=== PATIENT | female | born 1955 | race Caucasian/White ===

== ENCOUNTER 2017-08-17 07:06 | Emergency (ER) | payer OTHER ==
--- NOTE | 2017-08-17 07:59 | RAD REPORT ---
EXAM DESCRIPTION: CT - Head Brain Wo Cont - 08/17/2017 7:42 am CLINICAL HISTORY: Weakness, diminished or absent movement of the right hand and foot COMPARISON: CT August 2016 TECHNIQUE: Axial 5 mm thick images of the head were obtained without IV contrast. All CT scans are performed using dose optimization technique as appropriate and may include automated exposure control or mA/KV adjustment according to patient size. FINDINGS: No intracranial hemorrhage, mass, edema or shift of mid-line structures. No acute cortical based infarction identified. No cortical edema or sulcal effacement. Dense physiologic calcification s present along the anterior falx. No abnormal extra-axial fluid collections. Ventricles are normal. Intracranial findings are similar to the comparison. Mastoid air cells and visualized portions of the paranasal sinuses are clear. No acute bony findings. IMPRESSION: Negative non-contrast CT head examination for acute finding. No identifiable change from August 2016 imaging.
--- NOTE | 2017-08-17 08:27 | EDPHYS ---
Physician Documentation [facility] Name: Georgette Daniel Age: 61 yrs Sex: Female : 1955 Arrival Date: 08/17/2017 Time: 07:07 Bed 20 Private MD: ED Physician Perez Hendricks HPI: 08/17 08:25 This 61 yrs old Female presents to ER via Ambulatory with complaints of foot kb and hand problem. 08:25 The patient presents to the emergency department with weakness of the right foot and kb right hand. Onset: The symptoms/episode began/occurred 4 day(s) ago. Context: occurred at home, occurred while the patient was at rest. Associated signs and symptoms: Pertinent positives: weakness. Severity of symptoms: At their worst the symptoms were moderate in the emergency department the symptoms are unchanged. Patient's baseline: Neuro: alert and fully oriented, Motor: no deficits, Ambulation: walks without assistance, Speech: normal. Current symptoms: Currently, the patient is not experiencing any symptoms, no decreased level of consciousness, no confusion, no dysphasia, no headache, no visual changes. The patient has experienced similar episodes in the past, several times. The patient has been recently seen by a physician: a neurologist, in the office, 4 day(s) ago, with similar presenting complaints, CT scheduled. Historical: - Allergies: 07:16 LITHIUM DERIVITIVES; ss 07:16 Rocephin; ss 07:16 Trileptal; ss 07:16 Abilify; ss - PMHx: 07:16 Asthma; Depression; Diabetes - NIDDM; GERD; Hyperlipidemia; Hypertension; neuropathy; ss - Immunization history:: Adult Immunizations up to date. - Social history:: Smoking status: Patient/guardian denies using tobacco. ROS: 08:23 Constitutional: Negative for fever, chills, and weight loss, Eyes: Negative for injury, kb pain, redness, and discharge, ENT: Negative for injury, pain, and discharge, Neck: Negative for injury, pain, and swelling, Cardiovascular: Negative for chest pain, palpitations, and edema, Respiratory: Negative for shortness of breath, cough, wheezing, and pleuritic chest pain, Abdomen/GI: Negative for abdominal pain, nausea, vomiting, diarrhea, and constipation, Back: Negative for injury and pain, : Negative for injury, bleeding, discharge, and swelling, Skin: Negative for injury, rash, and discoloration. 08:23 Neuro: Positive for weakness, of the right hand and right foot. Exam: 08:23 Constitutional: This is a well developed, well nourished patient who is awake, alert, kb and in no acute distress. Head/Face: Normocephalic, atraumatic. Eyes: Pupils equal round and reactive to light, extra-ocular motions intact. Lids and lashes normal. Conjunctiva and sclera are non-icteric and not injected. Cornea within normal limits. Periorbital areas with no swelling, redness, or edema. ENT: Nares patent. No nasal discharge, no septal abnormalities noted. Tympanic membranes are normal and external auditory canals are clear. Oropharynx with no redness, swelling, or masses, exudates, or evidence of obstruction, uvula midline. Mucous membranes moist. Neck: Trachea midline, no thyromegaly or masses palpated, and no cervical lymphadenopathy. Supple, full range of motion without nuchal rigidity, or vertebral point tenderness. No Meningismus. Chest/axilla: Normal chest wall appearance and motion. Nontender with no deformity. No lesions are appreciated. Cardiovascular: Regular rate and rhythm with a normal S1 and S2. No gallops, murmurs, or rubs. Normal PMI, no JVD. No pulse deficits. Respiratory: Lungs have equal breath sounds bilaterally, clear to auscultation and percussion. No rales, rhonchi or wheezes noted. No increased work of breathing, no retractions or nasal flaring. Abdomen/GI: Soft, non-tender, with normal bowel sounds. No distension or tympany. No guarding or rebound. No evidence of tenderness throughout. Skin: Warm, dry with normal turgor. Normal color with no rashes, no lesions, and no evidence of cellulitis. 08:23 Neuro: Orientation: is normal, Mentation: is normal, Memory: is normal, Cranial nerves: grossly normal, Cerebellar function: is grossly normal, Motor: moves all fours, poor foot press and agent strength on right side, Sensation: is normal. Vital Signs: 07:16 BP 152 / 96; Pulse 80; Resp 16; Pulse Ox 100% on R/A; Weight 83.91 kg; Height 5 ft. 4 ss in. (162.56 cm); Pain 6/10; 08:15 BP 148 / 88; Pulse 81; Resp 16; Pulse Ox 100% on R/A; hb 07:16 Body Mass Index 31.75 (83.91 kg, 162.56 cm) ss NIH Stroke Scale Scores: 07:30 NIHSS Score: 0 hb [place] Coma Score: 07:30 Eye Response: spontaneous(4). Verbal Response: oriented(5). Motor Response: obeys hb commands(6). Total: 15. MDM: 07:19 Patient medically screened. kb 08:21 Data reviewed: vital signs, nurses notes. Data interpreted: Pulse oximetry: on room air kb is 100 %. Interpretation: normal. Counseling: I had a detailed discussion with the patient and/or guardian regarding: the historical points, exam findings, and any diagnostic results supporting the discharge/admit diagnosis, radiology results, the need for outpatient follow up, a neurologist, to return to the emergency department if symptoms worsen or persist or if there are any questions or concerns that arise at home. 08:21 ED course: Pt reports she was seen by Dr Reese when this started and was told it was kb either something wrong with the left side of her brain or a side effect of abilify. States she was supposed to have a CT head done and then follow back up with him. Had CT scheduled for next week, but wanted to get it sooner so she came to the ER. Pt states she is scheduled to have foot surgery for the 7th time. States this has happened 6 times in the past. . 08:27 ED course: Pt is going to call Dr Reese for follow up upon discharge.. kb 08/17 07:22 Order name: CT Head Brain wo Cont kb 08/17 08:00 Order name: CT; Complete Time: 08:01 EDMS Administered Medications: No medications were administered Disposition: 09:24 Co-signature as Attending Physician, Perez Hendricks MD. rn Disposition: 08/17/17 08:27 Discharged to Home. Impression: Weakness - right hand and foot. - Condition is Stable. - Discharge Instructions: Weakness, [id number]. - Medication Reconciliation Form, Thank You Letter, Antibiotic Education, Prescription Opioid Use form. - Follow up: Emergency Department; When: As needed; Reason: Worsening of condition. Follow up: Private Physician; When: 2 - 3 days; Reason: Recheck today's complaints, Continuance of care, Re-evaluation by your physician. NIH Stroke Scale - NIH Stroke Score Date: 08/17/2017 Time: 07:30 Total Score = 0 1a. Level of Consciousness (LOC) - 0(Alert) 1b. Level of Consciousness (LOC) (Year \T\ Age) - 0(Both) 1c. LOC Commands (Open \T\ Closes Eyes/Manugrapher) - 0(Both) 2. Best Gaze (Lateral Gaze Paresis) - 0(Normal) 3. Visual Field Loss - 0(No visual loss) 4. Facial Palsy - 0(Normal) 5a. Left Arm: Motor (10-second hold) - 0(No drift) 5b. Right Arm: Motor (10-second hold) - 0(No drift) 6a. Left Leg: Motor (5-second hold - always test supine) - 0(No drift) 6b. Right Leg: Motor (5-second hold - always test supine) - 0(No drift) 7. Limb Ataxia (finger/nose \T\ heel/woody - test with eyes open) - 0(Absent) 8. Sensory Loss (pinprick arms/legs/face) - 0(Normal) 9. Best Language: Aphasia (description/naming/reading) - 0(No aphasia) 10. Dysarthria (speech clarity - read or repeat words) - 0(Normal) 11. Extinction and Inattention (visual/tactile/auditory/spatial/personal) - 0(No abnormality) Initials: hb Signatures: Dispatcher [employer] Anisa Patel, OUTSEWER-C OUTSEWER-Ckb Perez Hendricks MD MD rn Smirch, Shelby, RN RN ss Baxter, Heather, ANGELIQUE RN hb
--- NOTE | 2017-08-17 08:27 | ER ---
Nurse's Notes [facility] Name: Georgette Daniel Age: 61 yrs Sex: Female : 1955 Arrival Date: 08/17/2017 Time: 07:07 Bed 20 Private MD: Diagnosis: Weakness-right hand and foot Presentation: 08/17 07:12 Presenting complaint: Patient states: pt reports that her R hand and R foot are ss "froze". This reportedly began 4 days ago and has been progressing. Pt reports she saw Dr. Reese two days ago and forgot to mention these particular symptoms, but she has a head CT ordered for next Sunday and is concerned that she may not be able to drive to her appointment. Transition of care: patient was not received from another setting of care. Onset of symptoms was August 13, 2017. Care prior to arrival: None. 07:12 Method Of Arrival: Ambulatory ss 07:12 Acuity: EVIE 3 ss Historical: - Allergies: 07:16 LITHIUM DERIVITIVES; ss 07:16 Rocephin; ss 07:16 Trileptal; ss 07:16 Abilify; ss - PMHx: 07:16 Asthma; Depression; Diabetes - NIDDM; GERD; Hyperlipidemia; Hypertension; neuropathy; ss - Immunization history:: Adult Immunizations up to date. - Social history:: Smoking status: Patient/guardian denies using tobacco. Screenin:30 Abuse screen: Denies threats or abuse. Denies injuries from another. Nutritional hb screening: No deficits noted. Tuberculosis screening: No symptoms or risk factors identified. Fall Risk None identified. Assessment: 07:30 General: Appears in no apparent distress. Behavior is calm, cooperative. Pain: Denies hb pain. Neuro: Level of Consciousness is awake, alert, obeys commands, Oriented to person, place, time, situation, Facility Coordinator are weak on right Moves all extremities. Weakness in right hand(s) Gait is steady, Speech is normal, Facial symmetry appears normal, Pupils are PERRLA, Intact. Cardiovascular: Heart tones S1 S2 present Capillary refill < 3 seconds Patient's skin is warm and dry. Respiratory: Airway is patent Trachea midline Respiratory effort is even, unlabored, Respiratory pattern is regular, symmetrical, Breath sounds are clear bilaterally. GI: No signs and/or symptoms were reported involving the gastrointestinal system. : No signs and/or symptoms were reported regarding the genitourinary system. EENT: No signs and/or symptoms were reported regarding the EENT system. Derm: No signs and/or symptoms reported regarding the dermatologic system. Skin is pink, warm \\T\\ dry. Musculoskeletal: Reports weakness in right hand since 1 week. 08:15 Reassessment: Patient appears in no apparent distress at this time. Patient and/or hb family updated on plan of care and expected duration. Pain level reassessed. Patient is alert, oriented x 3, equal unlabored respirations, skin warm/dry/pink. Vital Signs: 07:16 BP 152 / 96; Pulse 80; Resp 16; Pulse Ox 100% on R/A; Weight 83.91 kg; Height 5 ft. 4 ss in. (162.56 cm); Pain 6/10; 08:15 BP 148 / 88; Pulse 81; Resp 16; Pulse Ox 100% on R/A; hb 07:16 Body Mass Index 31.75 (83.91 kg, 162.56 cm) ss [place] Coma Score: 07:30 Eye Response: spontaneous(4). Verbal Response: oriented(5). Motor Response: obeys commands(6). Total: 15. NIH Stroke Scale Scores: 07:30 NIHSS Score: 0 hb ED Course: 07:07 Patient arrived in ED. ds1 07:15 Triage completed. ss 07:16 Arm band placed on right wrist. ss 07:19 Anisa Tracey F[facility]-C [facility]. kb 07:19 Perez Hendricks MD is Attending Physician. kb 07:19 Ave Ramirez, ANGELIQUE is Primary Nurse. hb 07:30 Patient has correct armband on for positive identification. Bed in low position. Call hb light in reach. Side rails up X 1. 08:31 No provider procedures requiring assistance completed. hb 08:31 Patient did not have IV access during this emergency room visit. hb Administered Medications: No medications were administered Outcome: 08:27 Discharge ordered by . kb 08:31 Discharged to home ambulatory. hb 08:31 Condition: stable 08:31 Discharge instructions given to patient, Instructed on discharge instructions, follow up and referral plans. medication usage, Demonstrated understanding of instructions, follow-up care, medications. 08:32 Patient left the ED. NIH Stroke Scale - NIH Stroke Score Date: 08/17/2017 Time: 07:30 Total Score = 0 1a. Level of Consciousness (LOC) - 0(Alert) 1b. Level of Consciousness (LOC) (Year \\T\\ Age) - 0(Both) 1c. LOC Commands (Open \\T\\ Closes Eyes/Switchboard Clerk) - 0(Both) 2. Best Gaze (Lateral Gaze Paresis) - 0(Normal) 3. Visual Field Loss - 0(No visual loss) 4. Facial Palsy - 0(Normal) 5a. Left Arm: Motor (10-second hold) - 0(No drift) 5b. Right Arm: Motor (10-second hold) - 0(No drift) 6a. Left Leg: Motor (5-second hold - always test supine) - 0(No drift) 6b. Right Leg: Motor (5-second hold - always test supine) - 0(No drift) 7. Limb Ataxia (finger/nose \\T\\ heel/woody - test with eyes open) - 0(Absent) 8. Sensory Loss (pinprick arms/legs/face) - 0(Normal) 9. Best Language: Aphasia (description/naming/reading) - 0(No aphasia) 10. Dysarthria (speech clarity - read or repeat words) - 0(Normal) 11. Extinction and Inattention (visual/tactile/auditory/spatial/personal) - 0(No abnormality) Initials: hb Signatures: Anisa Tracey, SPRING COILER-C SPRING COILER-CkJoyce Art ds1 Elissa Reyes RN RN ss Ave Ramirez RN RN hb
[2017-08-17 08:37] VITALS: O2SAT 100
[2017-08-17 08:38] VITALS: BP 148/88
== END 2017-08-17 08:32 | disposition home or self-care (01) ==
LOC: ER 07:06
DX: R53.1 Weakness (principal); I10 Essential (primary) hypertension; Z88.3 Allergy status to other anti-infective agents; Z88.5 Allergy status to narcotic agent; Z91.048 Other nonmedicinal substance allergy status
CPT/HCPCS: 70450; 99281

== ENCOUNTER 2017-09-01 06:28 | Emergency (ER) | payer OTHER ==
--- NOTE | 2017-09-01 07:12 | EDPHYS ---
Physician Documentation [facility] Name: Georgette Daniel Age: 61 yrs Sex: Female : 1955 Arrival Date: 09/01/2017 Time: 06:31 Bed 8 Private MD: ED Physician Wali Russo HPI: 09/01 06:59 This 61 yrs old Female presents to ER via Ambulatory with complaints of Ear kav Pain. 07:06 The patient presents with pain, moderate. The complaints affect the right ear. Onset: kav The symptoms/episode began/occurred acutely, 1 day(s) ago. Modifying factors: The symptoms are alleviated by nothing, the symptoms are aggravated by nothing. Associated signs and symptoms: Pertinent positives: sinus trouble, Pertinent negatives: fever. Severity of symptoms: At their worst the symptoms were moderate just prior to arrival. The patient has not experienced similar symptoms in the past. The patient has not recently seen a physician. patient presents with chief c/o right ear pain x 1 day with associated sinus congestion. Historical: - Allergies: 06:43 Abilify; tl2 06:43 LITHIUM DERIVITIVES; tl2 06:43 Rocephin; tl2 06:43 Trileptal; tl2 - Home Meds: 06:43 albuterol sulfate inhalation Inhl [Active]; Dexilant 30 mg Oral CpDB 1 cap once daily tl2 [Active]; gabapentin 300 mg Oral cap [Active]; gemfibrozil 600 mg Oral tab 1 tab 2 times per day [Active]; Hyzaar 50-12.5 mg Oral tab 1 tab once daily [Active]; losartan-hydrochlorothiazide 50-12.5 mg Oral tab 1 tab once daily [Active]; lovastatin 20 mg Oral tab 1 tab once daily [Active]; promethazine-DM 6.25-15 mg/5 mL Oral syrp 5 mL every 6 hours [Active]; Symbicort 80-4.5 mcg/actuation inhalation HFAA 2 puffs 2 times per day [Active]; Zyrtec 10 mg Oral tab once daily [Active]; losartan 25 mg Oral tab 1 tab once daily [Active]; - PMHx: 06:43 Asthma; Depression; Diabetes - NIDDM; GERD; Hyperlipidemia; Hypertension; neuropathy; tl2 - Immunization history:: Adult Immunizations up to date. - Social history:: Smoking status: Patient/guardian denies using tobacco. - Family history:: not pertinent. - Hospitalizations: : No recent hospitalization is reported. ROS: 07:08 Constitutional: Negative for fever, chills, and weight loss, Eyes: Negative for injury, kav pain, redness, and discharge, Neck: Negative for injury, pain, and swelling, Cardiovascular: Negative for chest pain, palpitations, and edema, Respiratory: Negative for shortness of breath, cough, wheezing, and pleuritic chest pain, Abdomen/GI: Negative for abdominal pain, nausea, vomiting, diarrhea, and constipation, Back: Negative for injury and pain, : Negative for injury, bleeding, discharge, and swelling, MS/Extremity: Negative for injury and deformity, Skin: Negative for injury, rash, and discoloration, Neuro: Negative for headache, weakness, numbness, tingling, and seizure, Psych: Negative for depression, anxiety, suicide ideation, homicidal ideation, and hallucinations, Allergy/Immunology: Negative for hives, rash, and allergies, Endocrine: Negative for neck swelling, polydipsia, polyuria, polyphagia, and marked weight changes, Hematologic/Lymphatic: Negative for swollen nodes, abnormal bleeding, and unusual bruising. 07:08 ENT: Positive for ear pain, of the right ear, sinus congestion. Exam: 07:08 Constitutional: This is a well developed, well nourished patient who is awake, alert, kav and in no acute distress. Head/Face: Normocephalic, atraumatic. Eyes: Pupils equal round and reactive to light, extra-ocular motions intact. Lids and lashes normal. Conjunctiva and sclera are non-icteric and not injected. Cornea within normal limits. Periorbital areas with no swelling, redness, or edema. Neck: Trachea midline, no thyromegaly or masses palpated, and no cervical lymphadenopathy. Supple, full range of motion without nuchal rigidity, or vertebral point tenderness. No Meningismus. Chest/axilla: Normal chest wall appearance and motion. Nontender with no deformity. No lesions are appreciated. Cardiovascular: Regular rate and rhythm with a normal S1 and S2. No gallops, murmurs, or rubs. Normal PMI, no JVD. No pulse deficits. Respiratory: Lungs have equal breath sounds bilaterally, clear to auscultation and percussion. No rales, rhonchi or wheezes noted. No increased work of breathing, no retractions or nasal flaring. Abdomen/GI: Soft, non-tender, with normal bowel sounds. No distension or tympany. No guarding or rebound. No evidence of tenderness throughout. Back: No spinal tenderness. No costovertebral tenderness. Full range of motion. Skin: Warm, dry with normal turgor. Normal color with no rashes, no lesions, and no evidence of cellulitis. MS/ Extremity: Pulses equal, no cyanosis. Neurovascular intact. Full, normal range of motion. Neuro: Awake and alert, GCS 15, oriented to person, place, time, and situation. Cranial nerves II-XII grossly intact. Motor strength 5/5 in all extremities. Sensory grossly intact. Cerebellar exam normal. Normal gait. Psych: Awake, alert, with orientation to person, place and time. Behavior, mood, and affect are within normal limits. 07:08 ENT: External ear(s): are unremarkable, no acute changes, Ear canal(s): erythema, that is moderate, of the right canal, swelling, that is moderate, of the right canal, TM's: dullness, on the right, Examination of the other ear shows no obvious abnormality. Vital Signs: 06:43 BP 141 / 98; Pulse 70; Resp 18; Temp 98.1(O); Pulse Ox 98% on R/A; Weight 83.91 kg; tl2 Height 5 ft. 4 in. (162.56 cm); Pain 10/10; 06:43 Body Mass Index 31.75 (83.91 kg, 162.56 cm) tl2 MDM: 06:58 Patient medically screened. [facility] 07:08 Data reviewed: vital signs, nurses notes, old medical records. ka Administered Medications: 07:28 Drug: Tylenol 650 mg Route: PO; ph 07:32 Follow up: Response: No adverse reaction ph Disposition: 07:33 Co-signature as Attending Physician, Wali Russo MD I agree with the assessment and 4 plan of care. Disposition: 09/01/17 07:11 Discharged to Home. Impression: Acute serous otitis media, recurrent, right ear. - Condition is Stable. - Discharge Instructions: Otitis Media, Adult. - Prescriptions for Zithromax Z- Sarath 250 mg Oral Tablet - take 1 tablet by ORAL route as directed for 5 days Day 1 - take two (2) tablets one time. Day 2, 3, 4 , 5 take one (1) tablet once daily.; 6 tablet. Ciprodex 0.3- 0.1 % Otic Drops, Suspension - instill 4 drop by OTIC route every 12 hours for 7 days , for ears ONLY; 1 Container. - Medication Reconciliation Form, Thank You Letter, Antibiotic Education, Prescription Opioid Use form. - Follow up: Private Physician; When: 2 - 3 days; Reason: If symptoms return, Recheck today's complaints, Continuance of care, Re-evaluation by your physician. - Problem is new. Signatures: Stephania Dorman, OVEN WORKER Carmella Stevenson RN RN Lenore Chan RN RN tl2 Wali Russo MD MD [id number]
--- NOTE | 2017-09-01 07:12 | ER ---
Nurse's Notes [facility] Name: Georgette Daniel Age: 61 yrs Sex: Female : 1955 Arrival Date: 09/01/2017 Time: 06:31 Bed 8 Private MD: Diagnosis: Acute serous otitis media, recurrent, right ear Presentation: 09/01 06:39 Presenting complaint: Patient states: I've had right ear pain on and off for 3 days. tl2 Denies drainage or hearing loss. Transition of care: patient was not received from another setting of care. Onset of symptoms was August 29, 2017. Care prior to arrival: None. 06:39 Method Of Arrival: Ambulatory tl2 06:39 Acuity: EVIE 4 tl2 Triage Assessment: 06:43 General: Appears in no apparent distress. uncomfortable, Behavior is calm, cooperative, tl2 appropriate for age. Pain: Complains of pain in right ear Pain currently is 10 out of 10 on a pain scale. Quality of pain is described as sharp, Is intermittent. EENT: Denies decreased hearing ringing. Neuro: Level of Consciousness is awake, alert, obeys commands, Oriented to person, place, time, situation. Cardiovascular: Denies chest pain. Respiratory: Airway is patent Respiratory effort is even, unlabored, Respiratory pattern is regular, symmetrical. Derm: Skin is pink, warm \T\ dry. Historical: - Allergies: 06:43 Abilify; tl2 06:43 LITHIUM DERIVITIVES; tl2 06:43 Rocephin; tl2 06:43 Trileptal; tl2 - Home Meds: 06:43 albuterol sulfate inhalation Inhl [Active]; Dexilant 30 mg Oral CpDB 1 cap once daily tl2 [Active]; gabapentin 300 mg Oral cap [Active]; gemfibrozil 600 mg Oral tab 1 tab 2 times per day [Active]; Hyzaar 50-12.5 mg Oral tab 1 tab once daily [Active]; losartan-hydrochlorothiazide 50-12.5 mg Oral tab 1 tab once daily [Active]; lovastatin 20 mg Oral tab 1 tab once daily [Active]; promethazine-DM 6.25-15 mg/5 mL Oral syrp 5 mL every 6 hours [Active]; Symbicort 80-4.5 mcg/actuation inhalation HFAA 2 puffs 2 times per day [Active]; Zyrtec 10 mg Oral tab once daily [Active]; losartan 25 mg Oral tab 1 tab once daily [Active]; - PMHx: 06:43 Asthma; Depression; Diabetes - NIDDM; GERD; Hyperlipidemia; Hypertension; neuropathy; tl2 - Immunization history:: Adult Immunizations up to date. - Social history:: Smoking status: Patient/guardian denies using tobacco. - Family history:: not pertinent. - Hospitalizations: : No recent hospitalization is reported. Screenin:45 Abuse screen: Denies threats or abuse. Nutritional screening: No deficits noted. tl2 Tuberculosis screening: No symptoms or risk factors identified. Fall Risk None identified. Assessment: 06:45 General: see triage assessment. tl2 07:30 Reassessment: Patient appears in no apparent distress at this time. Patient and/or ph family updated on plan of care and expected duration. Pain level reassessed. Patient is alert, oriented x 3, equal unlabored respirations, skin warm/dry/pink. Pt prescribed antibiotics and ear drops and discharged home. Vital Signs: 06:43 BP 141 / 98; Pulse 70; Resp 18; Temp 98.1(O); Pulse Ox 98% on R/A; Weight 83.91 kg; tl2 Height 5 ft. 4 in. (162.56 cm); Pain 10/10; 06:43 Body Mass Index 31.75 (83.91 kg, 162.56 cm) tl2 ED Course: 06:31 Patient arrived in ED. es 06:40 Triage completed. tl2 06:43 Arm band placed on right wrist. tl2 06:45 Patient has correct armband on for positive identification. Bed in low position. Call tl2 light in reach. Side rails up X 1. 06:58 Stephania Dorman FNP [facility]. kav 06:58 Wali Russo MD is Attending Physician. kav 07:19 Carmella Solomon, ANGELIQUE is Primary Nurse. ph 07:21 No provider procedures requiring assistance completed. Patient did not have IV access ph during this emergency room visit. Administered Medications: 07:28 Drug: Tylenol 650 mg Route: PO; ph 07:32 Follow up: Response: No adverse reaction ph Outcome: 07:11 Discharge ordered by . kav 07:31 Discharged to home ambulatory. ph 07:31 Condition: good 07:31 Discharge instructions given to patient, Instructed on discharge instructions, follow up and referral plans. medication usage, Demonstrated understanding of instructions, follow-up care, medications, Prescriptions given X 2. 07:32 Patient left the ED. ph Signatures: Stephania Dorman, MANDARIN TUTOR MANDARIN TUTOR Sunitha Sanchez Patricia RN RN ph Lenore Chan RN RN tl2
[2017-09-01 07:36] VITALS: BP 141/98; TEMP 98.1; O2SAT 98
[2017-09-01] MEDS ORDERED: ACETAMINOPHEN 325 MG TABLET ONE (07:46)
== END 2017-09-01 07:32 | disposition home or self-care (01) ==
LOC: ER 06:28
DX: H65.01 Acute serous otitis media, right ear (principal); I10 Essential (primary) hypertension; E11.9 Type 2 diabetes mellitus without complications; E78.5 Hyperlipidemia, unspecified; F32.9 Major depressive disorder, single episode, unspecified; Z88.3 Allergy status to other anti-infective agents; Z88.8 Allergy status to other drugs, medicaments and biological substances
CPT/HCPCS: 99283

== ENCOUNTER 2017-10-18 15:09 | Emergency (ER) | payer OTHER ==
[2017-10-18 15:56] LABS: Absolute Lymphocytes (CBC) 2.4 K/uL (0.7-4.9); Absolute Monocytes 0.7 K/uL (0.1-1.3); Absolute Neutrophil 5.7 K/uL (1.8-8.0); Eosinophils % 1.4 % (0-4.4); Lymphocytes % 26.7 % (15.3-44.8); MCH 28.6 pg (27.0-35.0); MCV 83.1 fL (80-100); MPV 8.4 fL (7.6-11.3); RBC Red Blood Cell Count 4.58 M/uL (3.86-4.86)
[2017-10-18 16:11] LABS: Urine Blood NEGATIVE (NEG); Urine Glucose NEGATIVE (NEG); Urine Protein NEGATIVE (NEG)
[2017-10-18 16:17] LABS: Bicarbonate 24 mEq/L (21-31); Glucose Level 131 mg/dL (65-120); Lipase 17 U/L (22-51); Potassium 3.6 mEq/L (3.6-5.0); Sodium Level 138 mEq/L (135-145)
[2017-10-18 16:18] LABS: Urine Bacteria <20 /HPF (<20); Urine Culture Reflex Order REFLEXED; Urine RBC NONE SEEN /HPF (NONE SEEN)
[2017-10-18 16:23] LABS: ALT/SGPT 61 IU/L (10-60); AST/SGOT 53 IU/L (10-42); Albumin 3.9 g/dL (3.2-5.5); Alkaline Phosphatase 93 IU/L (42-121); BUN Blood Urea Nitrogen 17 mg/dL (6-20); Bilirubin Direct 0.1 mg/dL (0-0.2); Bilirubin Total 0.6 mg/dL (0.3-1.2); Protein, Total 6.7 g/dL (6.0-8.3)
[2017-10-18] MEDS ORDERED: MORPHINE 4 MG/ML SYR ONE (16:28)
[2017-10-18] MEDS ORDERED: ONDANSETRON 4 MG/2 ML VIAL ONE (16:28)
--- NOTE | 2017-10-18 18:29 | RAD REPORT ---
EXAM DESCRIPTION: CT - Abdomen Pelvis W Contrast - 10/18/2017 6:15 pm CLINICAL HISTORY: Abdominal pain with nausea. COMPARISON: 2015 TECHNIQUE: Computed axial tomography of the abdomen pelvis was obtained. 100 cc Isovue-300 was admin istered intravenously. Oral contrast was given All CT scans are performed using dose optimization technique as appropriate and may include automated exposure control or mA/KV adjustment according to patient size. FINDINGS: The liver has a diminished attenuation consistent with fatty infiltration. Spleen, pancreas, adrenal and kidneys appear unremarkable. The appendix is normal. The gallbladder has been removed. Diverticula stem from the colon. Moderate stranding is present adjacent to the distal descending colo n. The wall is thickened. An abscess is not seen. Free air is not noted. IMPRESSION: Moderate descending diverticulitis
[2017-10-18] MEDS ORDERED: Levofloxacin500mg IV 500 MG/100 ML BAG IV ONE (18:50)
[2017-10-18] MEDS ORDERED: METRONIDAZOLE 500mg IVPB 500 MG/100 ML BAG IV ONE (18:50)
[2017-10-18] MEDS ORDERED: HYDROCODONE/APAP 10/325 TAB ONE (19:32)
--- NOTE | 2017-10-18 20:40 | EDPHYS ---
Physician Documentation [facility] Name: Georgette Daniel Age: 61 yrs Sex: Female : 1955 Arrival Date: 10/18/2017 Time: 15:10 Bed 17 Private MD: Romero Alvarado ED Physician Lex Fletcher HPI: 10/18 18:40 This 61 yrs old Female presents to ER via EMS with complaints of Abdominal pm1 Pain. 18:40 The patient presents with abdominal pain in the left lower quadrant. Onset: The pm1 symptoms/episode began/occurred this morning. The symptoms do not radiate. Associated signs and symptoms: Pertinent negatives: nausea, vomiting, and diarrhea, chest pain, dysuria, fever, shortness of breath. The symptoms are described as sharp. Modifying factors: The symptoms are alleviated by nothing, the symptoms are aggravated by walking, Movement- twisting. Severity of pain: in the emergency department the pain is actually worse. The patient has not experienced similar symptoms in the past. The patient has not recently seen a physician. Historical: - Allergies: 15:12 Abilify; hb 15:12 LITHIUM DERIVITIVES; hb 15:12 Rocephin; hb 15:12 Trileptal; hb - Home Meds: 15:50 albuterol sulfate inhalation Inhl [Active]; Dexilant 30 mg Oral CpDB 1 cap once daily hb [Active]; gabapentin 300 mg Oral cap [Active]; gemfibrozil 600 mg Oral tab 1 tab 2 times per day [Active]; Hyzaar 50-12.5 mg Oral tab 1 tab once daily [Active]; losartan 25 mg Oral tab 1 tab once daily [Active]; losartan-hydrochlorothiazide 50-12.5 mg Oral tab 1 tab once daily [Active]; lovastatin 20 mg Oral tab 1 tab once daily [Active]; promethazine-DM 6.25-15 mg/5 mL Oral syrp 5 mL every 6 hours [Active]; Symbicort 80-4.5 mcg/actuation inhalation HFAA 2 puffs 2 times per day [Active]; Zyrtec 10 mg Oral tab once daily [Active]; - PMHx: 15:12 Asthma; Depression; Diabetes - NIDDM; GERD; Hyperlipidemia; Hypertension; neuropathy; hb - PSHx: 15:50 Hysterectomy; hb - Immunization history:: Adult Immunizations up to date. - Social history:: Smoking status: Patient/guardian denies using tobacco. - Ebola Screening: : Patient negative for fever greater than or equal to 101.5 degrees Fahrenheit, and additional compatible Ebola Virus Disease symptoms Patient denies exposure to infectious person Patient denies travel to an Ebola-affected area in the 21 days before illness onset No symptoms or risks identified at this time. ROS: 18:40 Constitutional: Negative for fever, chills, and weight loss, Eyes: Negative for injury, pm1 pain, redness, and discharge, ENT: Negative for injury, pain, and discharge, Neck: Negative for injury, pain, and swelling, Cardiovascular: Negative for chest pain, palpitations, and edema, Respiratory: Negative for shortness of breath, cough, wheezing, and pleuritic chest pain. 18:40 Back: Negative for injury and pain, : Negative for injury, bleeding, discharge, and swelling, MS/Extremity: Negative for injury and deformity, Skin: Negative for injury, rash, and discoloration, Neuro: Negative for headache, weakness, numbness, tingling, and seizure. 18:40 Abdomen/GI: Positive for abdominal pain, of the left lower quadrant, Negative for nausea, vomiting, and diarrhea. Exam: 18:40 Constitutional: This is a well developed, well nourished patient who is awake, alert, pm1 and in no acute distress. Head/Face: Normocephalic, atraumatic. Eyes: Pupils equal round and reactive to light, extra-ocular motions intact. Lids and lashes normal. Conjunctiva and sclera are non-icteric and not injected. Cornea within normal limits. Periorbital areas with no swelling, redness, or edema. ENT: Nares patent. No nasal discharge, no septal abnormalities noted. Tympanic membranes are normal and external auditory canals are clear. Oropharynx with no redness, swelling, or masses, exudates, or evidence of obstruction, uvula midline. Mucous membranes moist. Neck: Trachea midline, no thyromegaly or masses palpated, and no cervical lymphadenopathy. Supple, full range of motion without nuchal rigidity, or vertebral point tenderness. No Meningismus. Chest/axilla: Normal chest wall appearance and motion. Nontender with no deformity. No lesions are appreciated. Cardiovascular: Regular rate and rhythm with a normal S1 and S2. No gallops, murmurs, or rubs. Normal PMI, no JVD. No pulse deficits. Respiratory: Lungs have equal breath sounds bilaterally, clear to auscultation and percussion. No rales, rhonchi or wheezes noted. No increased work of breathing, no retractions or nasal flaring. 18:40 Back: No spinal tenderness. No costovertebral tenderness. Full range of motion. Skin: Warm, dry with normal turgor. Normal color with no rashes, no lesions, and no evidence of cellulitis. MS/ Extremity: Pulses equal, no cyanosis. Neurovascular intact. Full, normal range of motion. 18:40 Abdomen/GI: Inspection: abdomen appears normal, Bowel sounds: normal, Palpation: soft, mild abdominal tenderness, in the left lower quadrant, mass, is not appreciated, rebound tenderness, is not appreciated. 18:40 Neuro: Orientation: is normal, Motor: moves all fours. Vital Signs: 15:12 BP 145 / 90; Pulse 86; Resp 14 S; Temp 98.1(O); Pulse Ox 96% on R/A; Pain 6/10; hb 16:00 BP 146 / 80; Pulse 80; Resp 15; Pulse Ox 100% on R/A; hb 17:22 BP 142 / 82; Pulse 82; Resp 15; Pulse Ox 100% on R/A; Pain 3/10; hb 18:35 BP 127 / 83; Pulse 75; Resp 16; Pulse Ox 97% on 2 lpm NC; Pain 2/10; hb 19:14 BP 135 / 87; Pulse 74; Resp 15; Pulse Ox 99% on NC; mt 20:37 BP 110 / 74; Pulse 77; Resp 16 S; Pulse Ox 97% on R/A; Pain 3/10; jd3 MDM: 15:31 Patient medically screened. pm1 18:42 Data reviewed: vital signs. Data interpreted: Pulse oximetry: on room air is 100 %. pm1 Interpretation: normal. Counseling: I had a detailed discussion with the patient and/or guardian regarding: the historical points, exam findings, and any diagnostic results supporting the discharge/admit diagnosis, lab results, radiology results. 20:36 Special discussion: Based on the patient's Hx, exam, and Dx evaluation, there is no pm1 indication for emergent surgery or inpatient Tx. It is understood by the patient/guardian that if the Sx's persist or worsen they need to return immediately for re-evaluation. ED course: Patient comfortable sitting in bed and talking with friend at bedside. No episodes of nausea or vomiting. Patient's pain decreased significantly with PO pain medications, Moore. 10/18 15:31 Order name: Basic Metabolic Panel; Complete Time: 17:30 pm1 10/18 15:31 Order name: CBC with Diff; Complete Time: 17:30 pm1 10/18 15:31 Order name: Hepatic Function; Complete Time: 17:30 pm1 10/18 15:31 Order name: Lipase; Complete Time: 17:30 pm1 10/18 15:31 Order name: Urine Microscopic Only; Complete Time: 16:20 pm1 10/18 15:51 Order name: Urine Dipstick--Ancillary (enter results); Complete Time: 16:17 bd 10/18 15:31 Order name: CT Abd/Pelvis - W/Contrast; Complete Time: 18:31 pm1 10/18 16:20 Order name: Urine Culture EDIN 10/18 15:31 Order name: Urine Test (obtain specimen); Complete Time: 15:47 pm1 10/18 15:31 Order name: IV Saline Lock; Complete Time: 15:40 pm1 10/18 15:31 Order name: Labs collected and sent; Complete Time: 15:40 pm1 10/18 15:31 Order name: Urine Dipstick-Ancillary (obtain specimen); Complete Time: 15:47 pm1 Administered Medications: 16:30 Drug: morphine 4 mg Route: IVP; Site: left antecubital; hb 17:00 Follow up: Response: No adverse reaction; Pain is decreased hb 16:30 Drug: Zofran 4 mg Route: IVP; Site: right antecubital; hb 17:00 Follow up: Response: No adverse reaction hb 18:57 Drug: Flagyl 500 mg Volume: 100 ml; Route: IVPB; Rate: 200 ml/hr; Infused Over: 30 hb mins; Site: left antecubital; 20:50 Follow up: Response: No adverse reaction; IV Status: Completed infusion jd3 18:58 Drug: LevaQUIN 500 mg Volume: 100 ml; Route: IVPB; Infused Over: 60 mins; Site: left hb antecubital; 20:50 Follow up: Response: No adverse reaction; IV Status: Completed infusion jd3 19:30 CANCELLED (Change to PO norco): morphine 4 mg IVP once pm1 19:34 Drug: Moore 10 mg-325 mg 1 tabs Route: PO; jd3 20:50 Follow up: Response: No adverse reaction; Pain is decreased jd3 Disposition: 10/19 10:45 Co-signature as Attending Physician, Lex Fletcher MD I agree with the assessment and kdr plan of care. Disposition: 10/18/17 20:39 Discharged to Home. Impression: Diverticulitis of large intestine without perforation or abscess without bleeding. - Condition is Stable. - Discharge Instructions: Diverticulitis. - Prescriptions for Flagyl 500 mg Oral Tablet - take 1 tablet by ORAL route every 8 hours for 10 days; 30 tablet. Tylenol- Codeine #3 300-30 mg Oral Tablet - take 2 tablets by ORAL route every 6 hours As needed; 20 tablet. Cipro 500 mg Oral Tablet - take 1 tablet by ORAL route every 12 hours for 10 days; 20 tablet. - Medication Reconciliation Form, Thank You Letter, Antibiotic Education, Prescription Opioid Use form. - Follow up: Emergency Department; When: As needed; Reason: Worsening of condition. Follow up: Private Physician; When: 2 - 3 days; Reason: Recheck today's complaints, Continuance of care, Re-evaluation by your physician. - Problem is new. - Symptoms have improved. Signatures: Dispatcher [employer] EDIN Lex Fletcher MD MD [facility] López Nieves, LOBBY PORTER LOBBY PORTER pm1 Ave Ramirez RN RN Bud Watkins RN RN jd3 Corrections: (The following items were deleted from the chart) 10/18 19:30 19:29 morphine 4 mg IVP once ordered. pm1 pm1 20:51 20:39 10/18/2017 20:39 Discharged to Home. Impression: Diverticulitis of large jd3 intestine without perforation or abscess without bleeding. Condition is Stable. Forms are Medication Reconciliation Form, Thank You Letter, Antibiotic Education, Prescription Opioid Use. Follow up: Emergency Department; When: As needed; Reason: Worsening of condition. Follow up: Private Physician; When: 2 - 3 days; Reason: Recheck today's complaints, Continuance of care, Re-evaluation by your physician. Problem is new. Symptoms have improved. pm1
--- NOTE | 2017-10-18 20:40 | ER ---
Nurse's Notes [facility] Name: Georgette Daniel Age: 61 yrs Sex: Female : 1955 Arrival Date: 10/18/2017 Time: 15:10 Bed 17 Private MD: Romero Alvarado Diagnosis: Diverticulitis of large intestine without perforation or abscess without bleeding Presentation: 10/18 15:15 Transition of care: patient was not received from another setting of care. Onset of hb symptoms was October 18, 2017. Risk Assessment: Do you want to hurt yourself or someone else? Patient reports no desire to harm self or others. Initial Sepsis Screen: Does the patient meet any 2 criteria? No. Patient's initial sepsis screen is negative. Does the patient have a suspected source of infection? No. Patient's initial sepsis screen is negative. Care prior to arrival: None. 15:15 Acuity: EVIE 3 hb 15:15 Method Of Arrival: EMS: [facility] hb 19:00 Presenting complaint: Patient states: having stomach pain. jd3 Historical: - Allergies: 15:12 Abilify; hb 15:12 LITHIUM DERIVITIVES; hb 15:12 Rocephin; hb 15:12 Trileptal; hb - Home Meds: 15:50 albuterol sulfate inhalation Inhl [Active]; Dexilant 30 mg Oral CpDB 1 cap once daily hb [Active]; gabapentin 300 mg Oral cap [Active]; gemfibrozil 600 mg Oral tab 1 tab 2 times per day [Active]; Hyzaar 50-12.5 mg Oral tab 1 tab once daily [Active]; losartan 25 mg Oral tab 1 tab once daily [Active]; losartan-hydrochlorothiazide 50-12.5 mg Oral tab 1 tab once daily [Active]; lovastatin 20 mg Oral tab 1 tab once daily [Active]; promethazine-DM 6.25-15 mg/5 mL Oral syrp 5 mL every 6 hours [Active]; Symbicort 80-4.5 mcg/actuation inhalation HFAA 2 puffs 2 times per day [Active]; Zyrtec 10 mg Oral tab once daily [Active]; - PMHx: 15:12 Asthma; Depression; Diabetes - NIDDM; GERD; Hyperlipidemia; Hypertension; neuropathy; hb - PSHx: 15:50 Hysterectomy; hb - Immunization history:: Adult Immunizations up to date. - Social history:: Smoking status: Patient/guardian denies using tobacco. - Ebola Screening: : Patient negative for fever greater than or equal to 101.5 degrees Fahrenheit, and additional compatible Ebola Virus Disease symptoms Patient denies exposure to infectious person Patient denies travel to an Ebola-affected area in the 21 days before illness onset No symptoms or risks identified at this time. Screenin:14 Abuse screen: Denies threats or abuse. Denies injuries from another. Nutritional hb screening: No deficits noted. Tuberculosis screening: No symptoms or risk factors identified. Never had TB. Fall Risk None identified. Assessment: 15:15 General: Appears in no apparent distress. uncomfortable, Behavior is calm, cooperative. hb Pain: Pain currently is 6 out of 10 on a pain scale. Neuro: Level of Consciousness is awake, alert, obeys commands, Oriented to person, place, time, situation. Cardiovascular: Capillary refill < 3 seconds Patient's skin is warm and dry. Respiratory: Airway is patent Trachea midline Respiratory effort is even, unlabored, Respiratory pattern is regular, symmetrical, Breath sounds are clear bilaterally. GI: Abdomen is non-distended, Bowel sounds present X 4 quads. Abd is soft X 4 quads Abdomen is tender to palpation in left lower quadrant. : No signs and/or symptoms were reported regarding the genitourinary system. EENT: No signs and/or symptoms were reported regarding the EENT system. Derm: No signs and/or symptoms reported regarding the dermatologic system. Skin is intact, is healthy with good turgor. Musculoskeletal: No signs and/or symptoms reported regarding the musculoskeletal system. 16:00 Reassessment: Patient appears in no apparent distress at this time. No changes from hb previously documented assessment. Patient and/or family updated on plan of care and expected duration. Pain level reassessed. Patient is alert, oriented x 3, equal unlabored respirations, skin warm/dry/pink. 17:00 Reassessment: Patient appears in no apparent distress at this time. No changes from hb previously documented assessment. Patient and/or family updated on plan of care and expected duration. Pain level reassessed. Patient is alert, oriented x 3, equal unlabored respirations, skin warm/dry/pink. 18:00 Reassessment: Patient appears in no apparent distress at this time. No changes from hb previously documented assessment. Patient and/or family updated on plan of care and expected duration. Pain level reassessed. Patient is alert, oriented x 3, equal unlabored respirations, skin warm/dry/pink. 18:35 Reassessment: Patient appears in no apparent distress at this time. Patient and/or hb family updated on plan of care and expected duration. Pain level reassessed. Patient is alert, oriented x 3, equal unlabored respirations, skin warm/dry/pink. 19:26 Reassessment: Patient appears in no apparent distress at this time. No changes from jd3 previously documented assessment. Patient and/or family updated on plan of care and expected duration. Pain level reassessed. Patient is alert, oriented x 3, equal unlabored respirations, skin warm/dry/pink. pt reports pain coming back, provider notified. GI: Abdomen is round non-distended, Abd is soft Abdomen is tender to palpation in left lower quadrant. 20:48 Reassessment: Patient appears in no apparent distress at this time. Patient and/or jd3 family updated on plan of care and expected duration. Pain level reassessed. Patient is alert, oriented x 3, equal unlabored respirations, skin warm/dry/pink. pt reported understanding of discharge instructions, even and steady gait upon discharge. Patient states feeling better. Vital Signs: 15:12 BP 145 / 90; Pulse 86; Resp 14 S; Temp 98.1(O); Pulse Ox 96% on R/A; Pain 6/10; hb 16:00 BP 146 / 80; Pulse 80; Resp 15; Pulse Ox 100% on R/A; hb 17:22 BP 142 / 82; Pulse 82; Resp 15; Pulse Ox 100% on R/A; Pain 3/10; hb 18:35 BP 127 / 83; Pulse 75; Resp 16; Pulse Ox 97% on 2 lpm NC; Pain 2/10; hb 19:14 BP 135 / 87; Pulse 74; Resp 15; Pulse Ox 99% on NC; mt 20:37 BP 110 / 74; Pulse 77; Resp 16 S; Pulse Ox 97% on R/A; Pain 3/10; jd3 ED Course: 15:10 Patient arrived in ED. hb 15:10 Romero Alvarado MD is Private Physician. hb 15:12 Arm band placed on. hb 15:14 Initial lab(s) drawn, by me, sent to lab. Inserted saline lock: 20 gauge in right hb antecubital area, using aseptic technique. Blood collected. 15:16 Triage completed. hb 15:21 López Nieves NP is PHCP. pm1 15:21 Lex Fletcher MD is Attending Physician. pm1 16:05 Ave Ramirez, ANGELIQUE is Primary Nurse. hb 18:[address] via wheelchair. ka 18:16 CT Abd/Pelvis - W/Contrast In Process Unspecified. EDMS 18:16 CT completed. Patient tolerated procedure well. Patient moved back from CT. nj 20:39 Patient has correct armband on for positive identification. Placed in gown. Bed in low jd3 position. Call light in reach. Side rails up X2. Adult w/ patient. 20:47 No provider procedures requiring assistance completed. IV discontinued, intact, jd3 bleeding controlled, No redness/swelling at site. Pressure dressing applied. Administered Medications: 16:30 Drug: morphine 4 mg Route: IVP; Site: left antecubital; hb 17:00 Follow up: Response: No adverse reaction; Pain is decreased hb 16:30 Drug: Zofran 4 mg Route: IVP; Site: right antecubital; hb 17:00 Follow up: Response: No adverse reaction hb 18:57 Drug: Flagyl 500 mg Volume: 100 ml; Route: IVPB; Rate: 200 ml/hr; Infused Over: 30 hb mins; Site: left antecubital; 20:50 Follow up: Response: No adverse reaction; IV Status: Completed infusion jd3 18:58 Drug: LevaQUIN 500 mg Volume: 100 ml; Route: IVPB; Infused Over: 60 mins; Site: left hb antecubital; 20:50 Follow up: Response: No adverse reaction; IV Status: Completed infusion jd3 19:30 CANCELLED (Change to PO norco): morphine 4 mg IVP once pm1 19:34 Drug: Hemlock 10 mg-325 mg 1 tabs Route: PO; jd3 20:50 Follow up: Response: No adverse reaction; Pain is decreased jd3 Outcome: 20:39 Discharge ordered by . pm1 20:49 Discharged to home ambulatory, with friend. jd3 20:49 Condition: stable 20:49 Discharge instructions given to patient, friend, Instructed on discharge instructions, follow up and referral plans. medication usage, Demonstrated understanding of instructions, follow-up care, medications, Prescriptions given X 3. 20:51 Patient left the ED. jd3 Addendum: 10/23/2017 12:56 Addendum: Culture Results: Positive urine culture. Phone call Attempt #1 Spoke with s s patient who reports she has not followed up with her PCP as of yet, and feels better, but is having mild urinary s/s. Augmentin called in to [facility]. Pt verbalizes understanding importance of follow up instructions. Signatures: Dispatcher [employer] EDMS Elissa Reyes RN RN ss Griselda Andrade Patrick, LINTER TENDER LINTER TENDER pm1 Ave Ramirez RN RN hb Jordan, Nathan nj Thompson, Moriah mt Davies, Jonathon, RN RN jd3
[2017-10-18 20:55] VITALS: TEMP 98.1
[2017-10-18 21:01] VITALS: BP 110/74; O2SAT 97
== END 2017-10-18 20:51 | disposition home or self-care (01) ==
LOC: ER 15:09
DX: K57.32 Diverticulitis of large intestine without perforation or abscess without bleeding (principal); I10 Essential (primary) hypertension; E11.9 Type 2 diabetes mellitus without complications; F32.9 Major depressive disorder, single episode, unspecified; J45.909 Unspecified asthma, uncomplicated; Z88.3 Allergy status to other anti-infective agents; Z88.8 Allergy status to other drugs, medicaments and biological substances
CPT/HCPCS: 36415; 74177; 80048; 80076; 83690; 85025; 87077; 87086; 87088; 87186; 99284; J2405; Q9967; 81003; 81015

== ENCOUNTER 2017-11-27 17:36 | Emergency (ER) | payer OTHER ==
[2017-11-27] MEDS ORDERED: IBUPROFEN 200 MG TAB PO ONE (19:03)
--- NOTE | 2017-11-27 19:27 | ER ---
Nurse's Notes [facility] Name: Georgette Daniel Age: 61 yrs Sex: Female : 1955 Arrival Date: 11/27/2017 Time: 17:39 Bed 28 Private MD: Diagnosis: Pain in right knee Presentation: 11/27 17:43 Presenting complaint: Patient states: R knee is hurting last Sunday and its swollen; it hj hurts behind the knee cap;. Transition of care: patient was not received from another setting of care. Onset of symptoms was November 27, 2017. Risk Assessment: Do you want to hurt yourself or someone else? Patient reports no desire to harm self or others. Initial Sepsis Screen: Does the patient meet any 2 criteria? No. Patient's initial sepsis screen is negative. Does the patient have a suspected source of infection? No. Patient's initial sepsis screen is negative. Care prior to arrival: None. 17:43 Method Of Arrival: Ambulatory 17:43 Acuity: EVIE 4 hj Triage Assessment: 17:45 General: Appears in no apparent distress. uncomfortable, Behavior is calm, cooperative, hj appropriate for age. Pain: Complains of pain in posterior aspect of right knee and right knee Pain currently is 8 out of 10 on a pain scale. Historical: - Allergies: 17:45 Abilify; hj 17:45 LITHIUM DERIVITIVES; hj 17:45 Rocephin; hj 17:45 Trileptal; hj - Home Meds: 17:45 albuterol sulfate inhalation Inhl [Active]; Dexilant 30 mg Oral CpDB 1 cap once daily hj [Active]; gabapentin 300 mg Oral cap [Active]; gemfibrozil 600 mg Oral tab 1 tab 2 times per day [Active]; Hyzaar 50-12.5 mg Oral tab 1 tab once daily [Active]; losartan 25 mg Oral tab 1 tab once daily [Active]; losartan-hydrochlorothiazide 50-12.5 mg Oral tab 1 tab once daily [Active]; lovastatin 20 mg Oral tab 1 tab once daily [Active]; promethazine-DM 6.25-15 mg/5 mL Oral syrp 5 mL every 6 hours [Active]; Symbicort 80-4.5 mcg/actuation inhalation HFAA 2 puffs 2 times per day [Active]; Zyrtec 10 mg Oral tab once daily [Active]; - PMHx: 17:45 Asthma; Depression; Diabetes - NIDDM; GERD; Hyperlipidemia; Hypertension; neuropathy; hj - PSHx: 17:45 Hysterectomy; hj - Immunization history:: Adult Immunizations up to date. - Social history:: Smoking status: Patient/guardian denies using tobacco, Patient/guardian denies using alcohol. - Ebola Screening: : Patient negative for fever greater than or equal to 101.5 degrees Fahrenheit, and additional compatible Ebola Virus Disease symptoms Patient denies exposure to infectious person Patient denies travel to an Ebola-affected area in the 21 days before illness onset. Screenin:45 Abuse screen: Denies threats or abuse. Denies injuries from another. Nutritional hj screening: No deficits noted. Tuberculosis screening: No symptoms or risk factors identified. Fall Risk Fall in past 12 months (25 points). Assessment: 18:09 General: Appears in no apparent distress. comfortable, well groomed, well developed, kr2 well nourished, Behavior is calm, cooperative, appropriate for age. Pain: Complains of pain in right knee and posterior aspect of right knee Pain radiates to right leg Pain currently is 6 out of 10 on a pain scale. Quality of pain is described as aching, sharp, shooting, Is continuous, Alleviated by rest, Aggravated by increased activity, weight bearing. Neuro: Level of Consciousness is awake, alert, obeys commands, Oriented to person, place, time, situation, Appropriate for age. Cardiovascular: Capillary refill < 3 seconds in bilateral fingers Patient's skin is warm and dry. Respiratory: Airway is patent Respiratory effort is even, unlabored, Respiratory pattern is regular, symmetrical. GI: Abdomen is flat, non-distended. : Denies burning with urination. Derm: Skin is intact, is healthy with good turgor, Skin is pink, warm \T\ dry. Musculoskeletal: Circulation, motion, and sensation intact. Range of motion: limited in right knee Swelling present in right knee. Injury Description: Patient reports she had a fall [place] [facility] [place] and has been seeing a doctor for her right knee. Suddenly on Sunday she began having bad pain and stiffness to the knee. She was given Tramadol by her physician but it made her itch so she threw it away. She called her physician but did not hear anything back and his office is closed tomorrow. 19:04 Reassessment: Patient appears in no apparent distress at this time. Patient and/or kr2 family updated on plan of care and expected duration. Pain level reassessed. Patient is alert, oriented x 3, equal unlabored respirations, skin warm/dry/pink. 19:38 Reassessment: Patient appears in no apparent distress at this time. Patient and/or kr2 family updated on plan of care and expected duration. Pain level reassessed. Patient is alert, oriented x 3, equal unlabored respirations, skin warm/dry/pink. Kannan wrap placed to right knee. Patient refused crutches. Provider notified. Vital Signs: 17:46 BP 134 / 74; Pulse 79; Resp 18; Temp 98.2(O); Pulse Ox 94% on R/A; Weight 88.45 kg; hj Height 5 ft. 4 in. (162.56 cm); Pain 8/10; 19:39 BP 138 / 70; Pulse 80; Resp 16; Pulse Ox 100% ; kr2 17:46 Body Mass Index 33.47 (88.45 kg, 162.56 cm) hj ED Course: 17:39 Patient arrived in ED. rg4 17:44 Triage completed. hj 17:46 Arm band placed on right wrist. hj 17:46 Patient has correct armband on for positive identification. Placed in gown. Bed in low hj position. Call light in reach. Side rails up X 1. 17:51 [facility]. cp 17:51 Javier Luna MD is Attending Physician. cp 17:56 Marlyn Velasquez, ANGELIQUE is Primary Nurse. kr2 18:33 Michael Lozano MD is Attending Physician. cp 18:49 X-ray completed. Portable x-ray completed in exam room. Patient tolerated procedure mh1 well. 18:50 XRAY Knee RIGHT 3 view In Process Unspecified. EDMS 19:26 Delvin Ortiz MD is Referral Physician. cp 19:39 No provider procedures requiring assistance completed. Patient did not have IV access kr2 during this emergency room visit. Administered Medications: 19:04 Drug: Ibuprofen 800 mg Route: PO; kr2 19:40 Follow up: Response: No adverse reaction kr2 Outcome: 19:26 Discharge ordered by . cp 19:39 Discharged to home via wheelchair. kr2 19:39 Condition: good 19:39 Discharge instructions given to patient, Instructed on discharge instructions, follow up and referral plans. medication usage, Demonstrated understanding of instructions, follow-up care, medications, Prescriptions given X 1. 19:40 Patient left the ED. kr2 Signatures: Dispatcher [employer] EDMS Romero Anju 1 Georgi Gillette RN RN Javier Love PA PA cp Garcia, Rubi 4 Marlyn Velasquez RN RN kr2 Corrections: (The following items were deleted from the chart) 19:39 19:38 Reassessment: Patient appears in no apparent distress at this time. Patient kr2 and/or family updated on plan of care and expected duration. Pain level reassessed. Patient is alert, oriented x 3, equal unlabored respirations, skin warm/dry/pink. Kannan wrap placed to right knee. Patient refused crutches. kr2
--- NOTE | 2017-11-27 19:27 | RAD REPORT ---
EXAM DESCRIPTION: RAD - Knee Right 3 View - 11/27/2017 6:54 pm CLINICAL HISTORY: PAIN COMPARISON: No comparisons FINDINGS: Patellofemoral joint arthritic changes are present, moderately severe. No fracture or disl ocation seen. No suprapatellar joint effusion.
--- NOTE | 2017-11-27 19:27 | EDPHYS ---
Physician Documentation [facility] Name: Georgette Daniel Age: 61 yrs Sex: Female : 1955 Arrival Date: 11/27/2017 Time: 17:39 Bed 28 Private MD: ED Physician Michael Lozano HPI: 11/27 18:40 This 61 yrs old Female presents to ER via Ambulatory with complaints of Knee cp Pain. 18:40 The patient presents with pain, swelling, tenderness. The complaints affect the right cp knee. Historical: - Allergies: 17:45 Abilify; hj 17:45 LITHIUM DERIVITIVES; hj 17:45 Rocephin; hj 17:45 Trileptal; hj - Home Meds: 17:45 albuterol sulfate inhalation Inhl [Active]; Dexilant 30 mg Oral CpDB 1 cap once daily hj [Active]; gabapentin 300 mg Oral cap [Active]; gemfibrozil 600 mg Oral tab 1 tab 2 times per day [Active]; Hyzaar 50-12.5 mg Oral tab 1 tab once daily [Active]; losartan 25 mg Oral tab 1 tab once daily [Active]; losartan-hydrochlorothiazide 50-12.5 mg Oral tab 1 tab once daily [Active]; lovastatin 20 mg Oral tab 1 tab once daily [Active]; promethazine-DM 6.25-15 mg/5 mL Oral syrp 5 mL every 6 hours [Active]; Symbicort 80-4.5 mcg/actuation inhalation HFAA 2 puffs 2 times per day [Active]; Zyrtec 10 mg Oral tab once daily [Active]; - PMHx: 17:45 Asthma; Depression; Diabetes - NIDDM; GERD; Hyperlipidemia; Hypertension; neuropathy; hj - PSHx: 17:45 Hysterectomy; hj - Immunization history:: Adult Immunizations up to date. - Social history:: Smoking status: Patient/guardian denies using tobacco, Patient/guardian denies using alcohol. - Ebola Screening: : Patient negative for fever greater than or equal to 101.5 degrees Fahrenheit, and additional compatible Ebola Virus Disease symptoms Patient denies exposure to infectious person Patient denies travel to an Ebola-affected area in the 21 days before illness onset. ROS: 18:45 Constitutional: Negative for body aches, chills, fever, poor PO intake. cp 18:45 Eyes: Negative for injury, pain, redness, and discharge. cp 18:45 ENT: Negative for drainage from ear(s), ear pain, sore throat, difficulty swallowing, difficulty handling secretions. 18:45 Cardiovascular: Negative for chest pain, palpitations. 18:45 Respiratory: Negative for cough, shortness of breath, wheezing. 18:45 Abdomen/GI: Negative for abdominal pain, nausea, vomiting, and diarrhea. 18:45 MS/extremity: Positive for pain, swelling, tenderness, of the right knee, Negative for injury or acute deformity, paresthesias. 18:45 Skin: Negative for cellulitis, rash. 18:45 All other systems are negative. Exam: 18:52 Constitutional: The patient appears in no acute distress, alert, awake, non-toxic, well cp developed, well nourished. 18:52 Head/Face: Normocephalic, atraumatic. cp 18:52 Eyes: Periorbital structures: appear normal, Conjunctiva: normal, no exudate, no injection, Lids and lashes: appear normal, bilaterally. 18:52 ENT: External ear(s): are unremarkable, Nose: is normal, Mouth: is normal, Posterior pharynx: is normal, airway is patent. 18:52 Neck: ROM/movement: is normal, is supple, without pain, no range of motions limitations, no nuchal rigidity. 18:52 Chest/axilla: Inspection: normal. 18:52 Cardiovascular: Rate: normal, Rhythm: regular. 18:52 Respiratory: the patient does not display signs of respiratory distress, Respirations: normal, no use of accessory muscles, no retractions, no splinting, no tachypnea, labored breathing, is not present. 18:52 Abdomen/GI: Exam negative for discomfort, distension, guarding, Inspection: abdomen appears normal. 18:52 Back: pain, is absent, ROM is normal. 18:52 Musculoskeletal/extremity: Joints: All joints are normal except the right knee displays painful range of motion, tenderness, mild swelling. 18:52 Skin: cellulitis, is not appreciated, no rash present. Vital Signs: 17:46 BP 134 / 74; Pulse 79; Resp 18; Temp 98.2(O); Pulse Ox 94% on R/A; Weight 88.45 kg; hj Height 5 ft. 4 in. (162.56 cm); Pain 8/10; 19:39 BP 138 / 70; Pulse 80; Resp 16; Pulse Ox 100% ; kr2 17:46 Body Mass Index 33.47 (88.45 kg, 162.56 cm) hj MDM: 17:52 Patient medically screened. [facility] 19:25 Data reviewed: vital signs, nurses notes, radiologic studies, plain films, and as a cp result, I will discharge patient. Test interpretation: by ED physician or midlevel provider: plain radiologic studies. Counseling: I had a detailed discussion with the patient and/or guardian regarding: the historical points, exam findings, and any diagnostic results supporting the discharge/admit diagnosis, radiology results, the need for outpatient follow up, a orthopedic surgeon, to return to the emergency department if symptoms worsen or persist or if there are any questions or concerns that arise at home. Response to treatment: the patient's symptoms have mildly improved after treatment. 11/27 18:39 Order name: XRAY Knee RIGHT 3 view; Complete Time: 19:28 cp 11/27 19:28 Interpretation: Report reviewed. 11/27 19:21 Order name: Crutches; Complete Time: 19:27 cp 11/27 19:21 Order name: Kannan wrap-joint: right knee; Complete Time: 19:27 cp Administered Medications: 19:04 Drug: Ibuprofen 800 mg Route: PO; kr2 19:40 Follow up: Response: No adverse reaction kr2 Disposition: 20:52 Co-signature as Attending Physician, Michael Lozano MD. Disposition: 11/27/17 19:26 Discharged to Home. Impression: Pain in right knee. - Condition is Stable. - Discharge Instructions: Knee Pain. - Prescriptions for Diclofenac Sodium 75 mg Oral Tablet, Delayed Release (E.C.) - take 1 tablet by ORAL route 2 times per day; 20 tablet. - Medication Reconciliation Form, Thank You Letter, Antibiotic Education, Prescription Opioid Use form. - Follow up: Delvin Ortiz MD; When: 2 - 3 days; Reason: Recheck today's complaints. - Problem is an ongoing problem. - Symptoms have improved. Signatures: Dispatcher [employer] EDMS Javier Luna MD MD cha Joaquin, Henry, RN RN Javier Suarez PA PA cp Starr, Gregory, MD MD gs Eva, Marlyn, RN RN kr2 Corrections: (The following items were deleted from the chart) 19:40 19:26 11/27/2017 19:26 Discharged to Home. Impression: Pain in right knee. Condition is kr2 Stable. Forms are Medication Reconciliation Form, Thank You Letter, Antibiotic Education, Prescription Opioid Use. Follow up: Delvin Ortiz; When: 2 - 3 days; Reason: Recheck today's complaints. Problem is an ongoing problem. Symptoms have improved. cp
[2017-11-27 19:44] VITALS: TEMP 98.2
[2017-11-27 19:45] VITALS: BP 138/70; O2SAT 100
== END 2017-11-27 19:40 | disposition home or self-care (01) ==
LOC: ER 17:36
DX: M25.561 Pain in right knee (principal); J45.909 Unspecified asthma, uncomplicated; E11.9 Type 2 diabetes mellitus without complications; I10 Essential (primary) hypertension; Z88.1 Allergy status to other antibiotic agents; Z88.8 Allergy status to other drugs, medicaments and biological substances
CPT/HCPCS: 99283

== ENCOUNTER 2017-12-21 16:24 | Observation (INO) | payer OTHER ==
--- NOTE | 2017-12-21 17:55 | ER ---
Nurse's Notes [facility] Name: Georgette Daniel Age: 61 yrs Sex: Female : 1955 Arrival Date: 12/21/2017 Time: 16:25 Bed 24 Private MD: Diagnosis: Dizziness and giddiness;Abnormal electrocardiogram [ECG] [EKG];Syncope and collapse;Type 2 diabetes mellitus;Hypomagnesemia Presentation: 12/21 16:32 Presenting complaint: Patient states: She had an EKG done at 12:00 today, her doctor aj1 told her that "there were no bumps" on her EKG, which she was given a copy of it, but brought she dropped it off at her other doctor's office because she's trying to be cleared for knee surgery. Then she went home, and then later she started to feel dizzy. Denies chest pain, syncope. Transition of care: patient was not received from another setting of care. Onset of symptoms was December 21, 2017. Risk Assessment: Do you want to hurt yourself or someone else? Patient reports no desire to harm self or others. Initial Sepsis Screen: Does the patient meet any 2 criteria? No. Patient's initial sepsis screen is negative. Does the patient have a suspected source of infection? No. Patient's initial sepsis screen is negative. Care prior to arrival: None. 16:32 Method Of Arrival: Ambulatory aj 16:32 Acuity: EVIE 3 aj1 Triage Assessment: 16:36 General: Appears in no apparent distress. comfortable, Behavior is calm, cooperative, aj1 appropriate for age. Pain: Denies pain. Neuro: Level of Consciousness is awake, alert, obeys commands. Cardiovascular: Denies chest pain, palpitations, shortness of breath, syncope, Patient's skin is warm and dry. Respiratory: Airway is patent Respiratory effort is even, unlabored, Respiratory pattern is regular, symmetrical. Derm: Skin is pink, warm \\T\\ dry. normal. Historical: - Allergies: 16:36 Rocephin; aj1 16:36 Abilify; aj1 16:36 LITHIUM DERIVITIVES; aj1 16:36 Trileptal; aj1 - Home Meds: 16:36 albuterol sulfate inhalation Inhl [Active]; Dexilant 30 mg Oral CpDB 1 cap once daily aj1 [Active]; gabapentin 300 mg Oral cap [Active]; gemfibrozil 600 mg Oral tab 1 tab 2 times per day [Active]; Hyzaar 50-12.5 mg Oral tab 1 tab once daily [Active]; losartan 25 mg Oral tab 1 tab once daily [Active]; losartan-hydrochlorothiazide 50-12.5 mg Oral tab 1 tab once daily [Active]; lovastatin 20 mg Oral tab 1 tab once daily [Active]; promethazine-DM 6.25-15 mg/5 mL Oral syrp 5 mL every 6 hours [Active]; Symbicort 80-4.5 mcg/actuation inhalation HFAA 2 puffs 2 times per day [Active]; Zyrtec 10 mg Oral tab once daily [Active]; - PMHx: 16:36 Asthma; Depression; Diabetes - NIDDM; GERD; Hyperlipidemia; Hypertension; neuropathy; aj1 - Immunization history:: Flu vaccine is not up to date. - Social history:: Smoking status: Patient/guardian denies using tobacco. - Ebola Screening: : Patient denies travel to an Ebola-affected area in the 21 days before illness onset. - Family history:: not pertinent. Screenin:01 Abuse screen: Denies threats or abuse. Nutritional screening: No deficits noted. mb3 Tuberculosis screening: No symptoms or risk factors identified. Fall Risk None identified. Assessment: 17:02 General: Appears in no apparent distress. comfortable, Behavior is calm, cooperative, mb3 appropriate for age. Pain: Denies pain. Neuro: No deficits noted. Level of Consciousness is awake, alert, obeys commands, Oriented to person, place, time, situation, Appropriate for age. Cardiovascular: No deficits noted. Denies chest pain, Heart tones S1 S2 present Capillary refill < 3 seconds Patient's skin is warm and dry. Pulses are all present. Rhythm is regular. Respiratory: No deficits noted. Airway is patent Respiratory effort is even, unlabored, Respiratory pattern is regular, symmetrical, Breath sounds are clear bilaterally. GI: No signs and/or symptoms were reported involving the gastrointestinal system. : No signs and/or symptoms were reported regarding the genitourinary system. EENT: No signs and/or symptoms were reported regarding the EENT system. Derm: No signs and/or symptoms reported regarding the dermatologic system. Musculoskeletal: No signs and/or symptoms reported regarding the musculoskeletal system. 19:08 Reassessment: Patient and/or family updated on plan of care and expected duration. Pain mb3 level reassessed. Patient is alert, oriented x 3, equal unlabored respirations, skin warm/dry/pink. Vital Signs: 16:36 BP 132 / 76; Pulse 92; Resp 22; Temp 97.5(TE); Pulse Ox 94% on R/A; Weight 87.09 kg aj1 (R); Height 5 ft. 4 in. (162.56 cm) (R); Pain 0/10; 19:07 BP 138 / 90; Pulse 89; Resp 16; Pulse Ox 94% on R/A; mb3 21:21 BP 136 / 87; Pulse 87; Resp 18; Pulse Ox 97% on R/A; mb3 16:36 Body Mass Index 32.96 (87.09 kg, 162.56 cm) aj1 ED Course: 16:25 Patient arrived in ED. as 16:35 Triage completed. aj1 16:36 Arm band placed on Patient placed in an exam room. aj1 16:41 Kirby Baker, RN is Primary Nurse. mb3 16:58 Javier Luna MD is Attending Physician. [facility] 17:13 Patient has correct armband on for positive identification. Placed in gown. Bed in low mb3 position. Call light in reach. Side rails up X 1. manager monitoring on. Pulse ox on. NIBP on. 17:45 EKG done, by career technical education teacher. reviewed by Javier Luna MD. 3 17:54 Melody Francisco MD is Hospitalizing Provider. [facility] 17:58 X-ray completed. Portable x-ray completed in exam room. Patient tolerated procedure bb2 well. 17:58 XRAY Chest (1 view) In Process Unspecified. EDMS 18:15 Inserted saline lock: 20 gauge in right antecubital area, using aseptic technique. mb3 Blood collected. 21:15 Urine Dipstick--Ancillary (enter results) Sent. mb3 21:16 No provider procedures requiring assistance completed. Patient admitted, IV remains in mb3 place. Administered Medications: 18:10 Drug: NS 0.9% 1000 ml Route: IV; Rate: 125 ml/hr; Site: right antecubital; mb3 18:10 Drug: Aspirin Chewable Tablet 324 mg Route: PO; mb3 21:15 Follow up: Response: No adverse reaction mb3 18:10 Drug: ToPROL XL 25 mg Route: PO; mb3 21:15 Follow up: Response: No adverse reaction mb3 18:10 Drug: Lovenox 1 mg/kg Route: Sub-Q; Site: left lower abdomen; mb3 21:15 Follow up: Response: No adverse reaction mb3 19:29 Drug: Magnesium Sulfate 1 grams Route: IVPB; Infused Over: 1 hrs; Site: right mb3 antecubital; 21:14 Follow up: IV Status: Completed infusion mb3 Outcome: 17:55 Decision to Hospitalize by Provider. armen 21:16 Admitted to Tele accompanied by tech, via wheelchair, room 420, with chart, Report mb3 called to Timothy Thomas RN 21:16 Condition: stable 21:16 Instructed on the need for admit. 21:23 Patient left the ED. mb3 Signatures: Dispatcher [employer] Anastasiia Romero RN RN aj1 Javier Luna MD MD cha Martinez, Amelia as Bock, Brittany bb2 Kirby Baker RN RN mb3 Brigitte Walker 3
--- NOTE | 2017-12-21 17:55 | EDPHYS ---
Physician Documentation [facility] Name: Georgette Daniel Age: 61 yrs Sex: Female : 1955 Arrival Date: 12/21/2017 Time: 16:25 Bed 24 Private MD: ED Physician Javier Luna HPI: 12/21 17:36 This 61 yrs old Female presents to ER via Ambulatory with complaints of armen Abnormal EKG. 17:36 sent for abnormal ekg, dizzy. The patient presents with dizziness, generalized armen weakness. Onset: The symptoms/episode began/occurred just prior to arrival. Severity of symptoms: At their worst the symptoms were mild in the emergency department the symptoms have improved. Patient's baseline: Neuro: alert and fully oriented. Historical: - Allergies: 16:36 Rocephin; aj1 16:36 Abilify; aj1 16:36 LITHIUM DERIVITIVES; aj1 16:36 Trileptal; aj1 - Home Meds: 16:36 albuterol sulfate inhalation Inhl [Active]; Dexilant 30 mg Oral CpDB 1 cap once daily aj1 [Active]; gabapentin 300 mg Oral cap [Active]; gemfibrozil 600 mg Oral tab 1 tab 2 times per day [Active]; Hyzaar 50-12.5 mg Oral tab 1 tab once daily [Active]; losartan 25 mg Oral tab 1 tab once daily [Active]; losartan-hydrochlorothiazide 50-12.5 mg Oral tab 1 tab once daily [Active]; lovastatin 20 mg Oral tab 1 tab once daily [Active]; promethazine-DM 6.25-15 mg/5 mL Oral syrp 5 mL every 6 hours [Active]; Symbicort 80-4.5 mcg/actuation inhalation HFAA 2 puffs 2 times per day [Active]; Zyrtec 10 mg Oral tab once daily [Active]; - PMHx: 16:36 Asthma; Depression; Diabetes - NIDDM; GERD; Hyperlipidemia; Hypertension; neuropathy; aj1 - Immunization history:: Flu vaccine is not up to date. - Social history:: Smoking status: Patient/guardian denies using tobacco. - Ebola Screening: : Patient denies travel to an Ebola-affected area in the 21 days before illness onset. - Family history:: not pertinent. ROS: 17:36 Constitutional: Negative for fever, chills, and weight loss, Eyes: Negative for injury, armen pain, redness, and discharge, ENT: Negative for injury, pain, and discharge, Neck: Negative for injury, pain, and swelling, Cardiovascular: Negative for chest pain, palpitations, and edema, Respiratory: Negative for shortness of breath, cough, wheezing, and pleuritic chest pain, Abdomen/GI: Negative for abdominal pain, nausea, vomiting, diarrhea, and constipation, Back: Negative for injury and pain, : Negative for injury, bleeding, discharge, and swelling, MS/Extremity: Negative for injury and deformity, Skin: Negative for injury, rash, and discoloration, Psych: Negative for depression, anxiety, suicide ideation, homicidal ideation, and hallucinations, Allergy/Immunology: Negative for hives, rash, and allergies, Endocrine: Negative for neck swelling, polydipsia, polyuria, polyphagia, and marked weight changes, Hematologic/Lymphatic: Negative for swollen nodes, abnormal bleeding, and unusual bruising. 17:36 Neuro: Positive for dizziness. Exam: 17:36 Constitutional: This is a well developed, well nourished patient who is awake, alert, armen and in no acute distress. Head/Face: Normocephalic, atraumatic. Eyes: Pupils equal round and reactive to light, extra-ocular motions intact. Lids and lashes normal. Conjunctiva and sclera are non-icteric and not injected. Cornea within normal limits. Periorbital areas with no swelling, redness, or edema. ENT: Nares patent. No nasal discharge, no septal abnormalities noted. Tympanic membranes are normal and external auditory canals are clear. Oropharynx with no redness, swelling, or masses, exudates, or evidence of obstruction, uvula midline. Mucous membranes moist. Neck: Trachea midline, no thyromegaly or masses palpated, and no cervical lymphadenopathy. Supple, full range of motion without nuchal rigidity, or vertebral point tenderness. No Meningismus. Chest/axilla: Normal chest wall appearance and motion. Nontender with no deformity. No lesions are appreciated. Cardiovascular: Regular rate and rhythm with a normal S1 and S2. No gallops, murmurs, or rubs. Normal PMI, no JVD. No pulse deficits. Respiratory: Lungs have equal breath sounds bilaterally, clear to auscultation and percussion. No rales, rhonchi or wheezes noted. No increased work of breathing, no retractions or nasal flaring. Abdomen/GI: Soft, non-tender, with normal bowel sounds. No distension or tympany. No guarding or rebound. No evidence of tenderness throughout. Back: No spinal tenderness. No costovertebral tenderness. Full range of motion. Female : Normal external genitalia. Skin: Warm, dry with normal turgor. Normal color with no rashes, no lesions, and no evidence of cellulitis. MS/ Extremity: Pulses equal, no cyanosis. Neurovascular intact. Full, normal range of motion. Neuro: Awake and alert, GCS 15, oriented to person, place, time, and situation. Cranial nerves II-XII grossly intact. Motor strength 5/5 in all extremities. Sensory grossly intact. Cerebellar exam normal. Normal gait. Psych: Awake, alert, with orientation to person, place and time. Behavior, mood, and affect are within normal limits. Vital Signs: 16:36 BP 132 / 76; Pulse 92; Resp 22; Temp 97.5(TE); Pulse Ox 94% on R/A; Weight 87.09 kg [facility] (R); Height 5 ft. 4 in. (162.56 cm) (R); Pain 0/10; 19:07 BP 138 / 90; Pulse 89; Resp 16; Pulse Ox 94% on R/A; mb3 21:21 BP 136 / 87; Pulse 87; Resp 18; Pulse Ox 97% on R/A; mb3 16:36 Body Mass Index 32.96 (87.09 kg, 162.56 cm) [facility] MDM: 16:58 Patient medically screened. [facility] 17:37 Data reviewed: vital signs, nurses notes, lab test result(s), EKG, radiologic studies, armen plain films. 12/21 17:30 Order name: Basic Metabolic Panel; Complete Time: 18:33 [facility] 12/21 17:30 Order name: CBC with Diff; Complete Time: 18:12 [facility] 12/21 17:30 Order name: Ckmb; Complete Time: 18:33 [facility] 12/21 17:30 Order name: CPK; Complete Time: 18:33 [facility] 12/21 17:30 Order name: LFT's; Complete Time: 18:33 [facility] 12/21 17:30 Order name: Magnesium; Complete Time: 18:33 [facility] 12/21 17:30 Order name: NT PRO-BNP; Complete Time: 18:33 [facility] 12/21 17:30 Order name: PT-INR; Complete Time: 18:12 [facility] 12/21 17:30 Order name: Ptt, Activated; Complete Time: 18:12 [facility] 12/21 17:30 Order name: Troponin (emerg Dept Use Only); Complete Time: 18:33 [facility] 12/21 17:30 Order name: Lipase; Complete Time: 18:33 [facility] 12/21 17:31 Order name: Urine Culture [facility] 12/21 17:34 Order name: TSH; Complete Time: 19:30 [facility] 12/21 17:34 Order name: D-Dimer; Complete Time: 19:30 [facility] 12/21 17:30 Order name: XRAY Chest (1 view); Complete Time: 18:12 [facility] 12/21 17:30 Order name: EKG; Complete Time: 17:31 [facility] 12/21 17:30 Order name: Cardiac monitoring; Complete Time: 17:33 [facility] 12/21 17:30 Order name: EKG - Nurse/Tech; Complete Time: 17:48 [facility] 12/21 17:30 Order name: IV Saline Lock; Complete Time: 17:48 [facility] 12/21 17:30 Order name: Labs collected and sent; Complete Time: 17:48 [facility] 12/21 18:02 Order name: CONS Physician Consult [facility] 12/21 18:02 Order name: Echo with Doppler [facility] 12/21 19:34 Order name: Urine Dipstick--Ancillary (enter results) [facility] 12/21 20:22 Order name: Urine Dipstick-Ancillary [facility] 12/21 20:28 Order name: CT [facility] 12/21 17:30 Order name: O2 Per Protocol; Complete Time: 17:33 [facility] 12/21 17:30 Order name: O2 Sat Monitoring; Complete Time: 17:33 [facility] 12/21 17:30 Order name: Urine Dipstick-Ancillary (obtain specimen) [facility] Administered Medications: 18:10 Drug: NS 0.9% 1000 ml Route: IV; Rate: 125 ml/hr; Site: right antecubital; mb3 18:10 Drug: Aspirin Chewable Tablet 324 mg Route: PO; mb3 21:15 Follow up: Response: No adverse reaction mb3 18:10 Drug: ToPROL XL 25 mg Route: PO; mb3 21:15 Follow up: Response: No adverse reaction mb3 18:10 Drug: Lovenox 1 mg/kg Route: Sub-Q; Site: left lower abdomen; mb3 21:15 Follow up: Response: No adverse reaction mb3 19:29 Drug: Magnesium Sulfate 1 grams Route: IVPB; Infused Over: 1 hrs; Site: right mb3 antecubital; 21:14 Follow up: IV Status: Completed infusion mb3 Disposition: 12/21/17 17:55 Hospitalization ordered by Melody Francisco for Observation. Preliminary diagnosis are Dizziness and giddiness, Abnormal electrocardiogram [ECG] [EKG], Syncope and collapse, Type 2 diabetes mellitus, Hypomagnesemia. - Bed requested for Telemetry/MedSurg (observation). - Status is Observation. mb3 - Condition is Stable. - Problem is new. - Symptoms have improved. UTI on Admission? No Signatures: Dispatcher [employer] EDMS Anastasiia Delong RN RN ajPurnima Ghosh RN RN kl Anderson, Corey, MD MD cha Barnett, Mark, RN RN mb3 Corrections: (The following items were deleted from the chart) 17:55 17:55 Hospitalization Ordered by Melody Francisco MD for Observation. Preliminary armen diagnosis is Dizziness and giddiness; Abnormal electrocardiogram [ECG] [EKG]; Syncope and collapse. Bed requested for Telemetry/MedSurg (observation). Status is Observation. Condition is Stable. Problem is new. Symptoms have improved. UTI on Admission? No. armen 18:35 17:55 12/21/2017 17:55 Hospitalization Ordered by Melody Francisco MD for Observation. armen Preliminary diagnosis is Dizziness and giddiness; Abnormal electrocardiogram [ECG] [EKG]; Syncope and collapse; Type 2 diabetes mellitus. Bed requested for Telemetry/MedSurg (observation). Status is Observation. Condition is Stable. Problem is new. Symptoms have improved. UTI on Admission? No. armen 20:24 18:35 12/21/2017 17:55 Hospitalization Ordered by Melody Francisco MD for Observation. kl Preliminary diagnosis is Dizziness and giddiness; Abnormal electrocardiogram [ECG] [EKG]; Syncope and collapse; Type 2 diabetes mellitus; Hypomagnesemia. Bed requested for Telemetry/MedSurg (observation). Status is Observation. Condition is Stable. Problem is new. Symptoms have improved. UTI on Admission? No. armen 21:23 20:24 12/21/2017 17:55 Hospitalization Ordered by Melody Francisco MD for Observation. mb3 Preliminary diagnosis is Dizziness and giddiness; Abnormal electrocardiogram [ECG] [EKG]; Syncope and collapse; Type 2 diabetes mellitus; Hypomagnesemia. Bed requested for Telemetry/MedSurg (observation). Status is Observation. Condition is Stable. Problem is new. Symptoms have improved. UTI on Admission? No. kl
[2017-12-21 17:56] LABS: Absolute Lymphocytes (CBC) 2.6 K/uL (0.7-4.9); Absolute Monocytes 0.6 K/uL (0.1-1.3); Absolute Neutrophil 4.4 K/uL (1.8-8.0); Basophils % 0.7 % (0-1.3); Eosinophils % 2.1 % (0-4.4); Lymphocytes % 32.8 % (15.3-44.8); MCH 29.5 pg (27.0-35.0); MCV 86.4 fL (80-100); MPV 8.3 fL (7.6-11.3); Monocytes % 8.2 % (3.3-12.3); RBC Red Blood Cell Count 4.86 M/uL (3.86-4.86)
[2017-12-21 17:59] LABS: Protime INR 1.01
--- NOTE | 2017-12-21 18:06 | EKG ---
Test Date: 2017-12-21 Test Time: 17:39:00 Operator Specialist Communications: KASSIE MEASUREMENT RESULTS: Intervals: Rate: 80 AL: 174 QRSD: 98 QT: 380 QTc: 438 [place]: P: 34 AL: 174 QRS: -20 T: 91 INTERPRETIVE STATEMENTS: Normal sinus rhythm Nonspecific ST and T wave abnormality Abnormal ECG Compared to ECG 03/02/2017 07:51:15 ST (T wave) deviation now present T-wave abnormality no longer present Electronically Signed On 12-21-17 18:06:07 CDT by Gilberto Bob
--- NOTE | 2017-12-21 18:07 | RAD REPORT ---
EXAM DESCRIPTION: RAD - Chest Single View - 12/21/2017 5:58 pm CLINICAL HISTORY: COUGH Chest pain. COMPARISON: Chest Pa And Lat (2 Views) dated 03/06/2017; Chest Pa And Lat (2 Views) dated 03/02/2017; Chest Pa And Lat (2 Views) dated 03/01/2017; Chest Single View dated 08/29/2016 FINDINGS: Portable technique limits examination quality. The lungs are grossly clear. The heart is normal in size. No displaced fractures. IMPRESSION: No acute intrathoracic process suspected.
[2017-12-21] MEDS ORDERED: NA CHLORIDE 0.9% 1,000 ML ONE (18:08)
[2017-12-21] MEDS ORDERED: ENOXAPARIN 100 MG/ML SYR SQ ONE (18:08)
[2017-12-21] MEDS ORDERED: ASPIRIN 81 MG CHEWABLE TABLET ONE (18:08)
[2017-12-21] MEDS ORDERED: METOPROLOL XL 50 MG TAB PO ONE (18:08)
[2017-12-21 18:14] LABS: Potassium 3.7 mmol/L (3.5-5.1)
[2017-12-21 18:15] LABS: Albumin 3.8 g/dL (3.4-5.0); Bilirubin Direct 0.1 mg/dL (0-0.2); Bilirubin Total 0.3 mg/dL (0.2-1.0); CKMB Creatine Kinase MB 1.4 ng/mL (0.3-3.6); Magnesium 1.7 mg/dL (1.8-2.4); Protein, Total 7.3 g/dL (6.4-8.2)
[2017-12-21] MEDS ORDERED: MAGNESIUM SULFATE 1 gm IVPB 1 GM/100 ML BAG IV ONE (19:25)
--- NOTE | 2017-12-21 19:55 | P.HP ---
Certification for Inpatient Patient admitted to: Observation With expected LOS: <2 Midnights Practitioner: I am a practitioner with admitting privileges, knowledge of patient current condition, hospital course, and medical plan of care. Services: Services provided to patient in accordance with Admission requirements found in Title 42 Section 412.3 of the Code of Federal Regulations Patient History Date of Service: 12/21/17 Reason for admission: dizziness History of Present Illness: Ms Daniel is a 61 years old woman with history of DM II, Asthma, HTN, Dyslipidemia, who went to her anesthesiology crna today, had an EKG and she was told that it was abnormal, and she has to have an ECHO next week. When the patient arrived home, start feeling dizzy, associated with headache. She denied nausea, vomiting, chest pain or SOB. She has never had that before. At arrival, WBC count normal, Magnesium slightly low, EKG shows non-specific ST-T abnormalities. CXR no acute infiltrate. At my encounter, the patient was feeling better. Allergies ceftriaxone [From Rocephin] Allergy (Unverified 08/29/16 13:42) Unknown No Known Drug Allergies Allergy (Unverified 03/06/17 20:22) Unknown oxcarbazepine [From Trileptal] Allergy (Unverified 08/29/16 13:42) Unknown LITHIUM DERIVITI Allergy (Mild, Uncoded 03/02/17 11:50) Unknown LITHIUM DERIVITIVE Allergy (Mild, Uncoded 03/10/17 18:07) Unknown LITHIUM D Allergy (Uncoded 05/03/17 17:56) Unknown LITHIUM ZACH Allergy (Uncoded 09/08/16 00:20) Unknown No Known Allergies Allergy (Uncoded 08/07/15 02:51) Unknown Home medications list reviewed: Yes Home Medications: ARIPiprazole [Abilify*] 5 mg PO DAILY 10/29/14 Albuterol Inhaler [Ventolin Inhaler*] 2 puff IH Q6H PRN 10/29/14 Atorvastatin Calcium [Lipitor] 40 mg PO DAILY 10/29/14 Esomeprazole Mag Trihydrate [Nexium] 20 mg PO DAILY 10/29/14 Losartan/Hydrochlorothiazide [Hyzaar 50-12.5 Tablet] 1 each PO DAILY WITH BREAKFAST 10/29/14 Mometasone Furoate [Nasonex] 17 gm NS DAILY 10/29/14 Oxybutynin Chloride [Ditropan Xl] 10 mg PO DAILY 10/29/14 - Past Medical/Surgical History -: DM II -: HTN -: Asthma -: GERD -: dyslipidemia Past Surgical History: Reviewed- Non-Contributory - Family History Family History: Reviewed- Non-Contributory - Social History Smoking Status: Never smoker Alcohol use: No CD- Drugs: No Place of Residence: Home Review of Systems 10-point ROS is otherwise unremarkable Physical Examination - Physical Exam General: Alert, In no apparent distress HEENT: Atraumatic, PERRLA, Mucous membr. moist/pink, EOMI, Sclerae nonicteric Neck: Supple, 2+ carotid pulse no bruit, No LAD, Without JVD or thyroid abnormality Respiratory: Clear to auscultation bilaterally, Normal air movement Cardiovascular: Regular rate/rhythm, Normal S1 S2 Gastrointestinal: Normal bowel sounds, No tenderness Musculoskeletal: No tenderness Integumentary: No rashes Neurological: Normal speech, Normal strength at 5/5 x4 extr, Normal tone, Normal affect Lymphatics: No axilla or inguinal lymphadenopathy - Studies Laboratory Data (last 24 hrs) 12/21/17 17:39: PT 11.9, INR 1.01, APTT 28.6 12/21/17 17:39: WBC 7.9, Hgb 14.4, Hct 42.0, Plt Count 226 12/21/17 17:39: Sodium 139, Potassium 3.7, BUN 10, Creatinine 0.80, Glucose 128 H, Magnesium 1.7 L, Total Bilirubin 0.3, AST 69 H, ALT 99 H, Alkaline Phosphatase 121 H, Lipase 57 L Assessment and Plan - Problems (Diagnosis) (1) Dizziness Current Visit: Yes Status: Acute (2) Abnormal EKG Current Visit: Yes Status: Acute (3) Diabetes mellitus Current Visit: Yes Status: Acute Qualifiers: Diabetes mellitus type: type 2 Diabetes mellitus chcf insulin use: without termite exterminator helper use Diabetes mellitus complication status: with unspecified complications Qualified Code(s): E11.8 - Type 2 diabetes mellitus with unspecified complications (4) HTN (hypertension) Current Visit: Yes Status: Acute Qualifiers: Hypertension type: essential hypertension Qualified Code(s): I10 - Essential (primary) hypertension (5) Hypomagnesemia Current Visit: Yes Status: Acute - Plan Ms Daniel will be admitted to the hospital due to dizziness associated with abnormal EKG. No clear etiology of her symptoms. Will order CT head, serial troponin I, EKG and consult Photography Teacher. - Advance Directives Does patient have a Living Will: Yes Does patient have a Durable POA for Healthcare: Yes - Code Status/Comfort Care Code Status Assessed: Yes Code Status: Full Code
[2017-12-21 20:22] LABS: Urine Blood NEGATIVE (NEG); Urine Glucose NEGATIVE (NEG); Urine Protein NEGATIVE (NEG); Urine pH 6.5 (5.0-7.0)
--- NOTE | 2017-12-21 20:27 | RAD REPORT ---
EXAM DESCRIPTION: CT - Head Brain Wo Cont - 12/21/2017 8:18 pm CLINICAL HISTORY: headache, dizziness COMPARISON: Head Brain Wo Cont dated 08/17/2017; Head Brain Wo Cont dated 08/29/2016; Chest Single View dated 12/21/2017; Chest Pa And Lat (2 Views) dated 03/06/2017 TECHNIQUE: All CT scans are performed using dose optimization technique as appropriate and may inclu de automated exposure control or mA/KV adjustment according to patient size. FINDINGS: No intracranial hemorrhage, hydrocephalus or extra-axial fluid collection.No areas of brai n edema or evidence of midline shift. The paranasal sinuses and mastoids are clear. The calvarium is intact. IMPRESSION: No acute intracranial abnormality.
[2017-12-21 21:36] VITALS: O2SAT 97
[2017-12-21] MEDS ORDERED: IPRATROPIUM BROM 0.5MG/2.5ML NEB PRN (22:09)
[2017-12-21] MEDS: INSULIN -REGULAR HUMAN 50 UNIT/0.5 ML ML SQ SCH (22:09)
[2017-12-21] MEDS ORDERED: ALBUTEROL 2.5 MG/3 ML NEB SOL NEB PRN (22:09)
[2017-12-21] MEDS ORDERED: ONDANSETRON 4 MG/2 ML VIAL IV PRN (22:09)
[2017-12-21] MEDS: ACETAMINOPHEN 500 MG TAB PO PRN (22:46)
[2017-12-22 00:21] VITALS: BMI 32.9
[2017-12-22 05:17] LABS: Absolute Lymphocytes (CBC) 2.2 K/uL (0.7-4.9); Absolute Monocytes 0.5 K/uL (0.1-1.3); Absolute Neutrophil 3.1 K/uL (1.8-8.0); Basophils % 0.9 % (0-1.3); Eosinophils % 2.1 % (0-4.4); Hematocrit 37.9 % (36.0-45.0); Lymphocytes % 37.5 % (15.3-44.8); MCH 29.9 pg (27.0-35.0); MCV 86.3 fL (80-100); MPV 8.3 fL (7.6-11.3); Monocytes % 8.3 % (3.3-12.3)
[2017-12-22 05:33] LABS: Magnesium 1.8 mg/dL (1.8-2.4); Potassium 3.7 mmol/L (3.5-5.1)
[2017-12-22] MEDS: INSULIN -REGULAR HUMAN 50 UNIT/0.5 ML ML SQ SCH ×2 (07:30→11:30)
[2017-12-22] MEDS ORDERED: SOLIFENACIN SUCCIN 5 MG TAB PO SCH (09:00)
[2017-12-22] MEDS ORDERED: LOSARTAN POTASSIUM 50 MG TABLET PO SCH ×2 (09:00)
[2017-12-22] MEDS ORDERED: ENOXAPARIN 40 MG/0.4 ML SQ SCH (09:00)
[2017-12-22] MEDS ORDERED: DIVALPROEX ER 250 MG TAB PO SCH (09:00)
[2017-12-22] MEDS ORDERED: ASPIRIN EC 81 MG TAB PO SCH (09:00)
--- NOTE | 2017-12-22 10:41 | P.DS ---
Admission Date: 12/21/17 Discharge Date: 12/22/17 Primary Care Provider: [facility]; Cardiology-Dr. Palmer([facility]); Orthopedics- Dr. Cartagena Disposition: ROUTINE DISCHARGE Discharge Condition: GOOD Reason for Admission: dizziness Consultations: Cardiology-Dr. Bob Procedures: CT head: No acute changes noted - Problems (1) Hyperlipidemia Current Visit: Yes Status: Chronic Qualifiers: Hyperlipidemia type: unspecified Qualified Code(s): E78.5 - Hyperlipidemia , unspecified (2) Urinary incontinence Current Visit: Yes Status: Chronic Qualifiers: Urinary Incontinence type: unspecified incontinence Qualified Code(s): R32 - Unspecified urinary incontinence (3) Diabetes mellitus Current Visit: Yes Status: Chronic Qualifiers: Diabetes mellitus type: type 2 Diabetes mellitus terminal operations manager insulin use: without terminal operations manager use Diabetes mellitus complication status: with unspecified complications Qualified Code(s): E11.8 - Type 2 diabetes mellitus with unspecified complications (4) Dizziness Current Visit: Yes Status: Acute (5) HTN (hypertension) Current Visit: Yes Status: Chronic Qualifiers: Hypertension type: essential hypertension Qualified Code(s): I10 - Essential (primary) hypertension (6) Hypomagnesemia Current Visit: Yes Status: Acute (7) Depression with anxiety Current Visit: Yes Status: Chronic (8) Asthma Current Visit: Yes Status: Chronic Qualifiers: Asthma severity: mild Asthma persistence: intermittent Asthma complication type: unspecified Qualified Code(s): J45.20 - Mild intermittent asthma, uncomplicated (9) Elevated liver function tests Current Visit: Yes Status: Acute (10) Fatty liver Current Visit: Yes Status: Suspected (11) Obesity Current Visit: Yes Status: Chronic Qualifiers: Obesity type: due to excess calories Obesity classification: adult class 1 (BMI 30 - 34.9) Serious obesity comorbidity presence: with serious comorbidity Body mass index: BMI 33.0-33.9 Qualified Code(s): E66.09 - Other obesity due to excess calories; Z68.33 - Body mass index (BMI) 33.0-33.9, adult (12) UTI (urinary tract infection) Current Visit: Yes Status: Acute Qualifiers: Urinary tract infection type: site unspecified Hematuria presence: without hematuria Qualified Code(s): N39.0 - Urinary tract infection, site not specified (13) Headache Current Visit: Yes Status: Chronic Qualifiers: Intractability: not intractable (14) Posttraumatic stress disorder Current Visit: Yes Status: Chronic (15) GERD (gastroesophageal reflux disease) Current Visit: Yes Status: Chronic Qualifiers: Esophagitis presence: esophagitis presence not specified Qualified Code(s) : K21.9 - Gastro-esophageal reflux disease without esophagitis Brief History of Present Illness: 61-year-old female presented to the ER with dizziness and headache. Patient was actually seen by Cardiology yesterday. She is in the process of being evaluated and cleared by cardiology for left knee replacement. She is to have an echocardiogram done next week. In the ER patient was evaluated. CT scan ahead unremarkable. The patient was admitted for further evaluation. Hospital Course: During the course of her stay her dizziness, headaches resolved. Headaches no longer continued. Patient was evaluated by cardiology. No intervention was required. Cardiac enzymes unremarkable. Patient reports a history of chronic headaches related to posttraumatic stress disorder. She is seen by neurology as an outpatient. She reports a recent MRI of brain unremarkable. CT scan of head was unremarkable while here. At discharge she will continue with aspirin 81 mg daily. 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 She is to have an echocardiogram at that time. She is to continue with cardiology for clearance for left total knee replacement. Recommendations for the patient follow up with neurology as directed. Patient was found to have a UTI. Patient with history of UTI in September showed Klebsiella. Will obtain urine culture. Patient without any major symptoms. Patient reports that she has frequent infections related to a bladder sling. Patient will be sent home on Levaquin 500 mg daily for 7 days. UTI prevention will be provided. Recommendations for the patient follow up with urology as an outpatient to further monitor. Her urine culture will need to be followed up by her PCP. Patient with urinary incontinence. She will continue with her medication- VESIcare 5 mg daily. Patient has hypertension. She will continue with medication-losartan hydrochlorothiazide 50/12.5 mg 1 pill daily. Recommendation is to maintain blood pressures less 150/80. Further adjustment can be done by her PCP. Patient has diabetes. A1c 6.0. Diabetes well controlled. She will continue with her medication-metformin 500 mg daily. Recommendation is to maintain blood sugars less than 140 fasting and less than 200 after meals. Further adjustment can be done by her PCP. Patient with depression with anxiety. She will continue with her medication- Depakote 250 mg 1 pill twice daily. She is taking this also for posttraumatic stress disorder causing chronic headaches. She is being followed by neurology and psychiatry for this. She is to follow up with him. Patient had elevated liver function. Patient likely has fatty liver. Will send lab for hepatitis panel. Abdominal ultrasound obtained. Elevated liver function may be related to her Crestor medication. She takes 20 mg. This will be reduced in dosage-Crestor 10 mg daily. Recommendation is to recheck liver function tests in 1 week to monitor progress. Her PCP will need to follow up on hepatitis panel. Patient has hyperlipidemia. Due to her elevated liver function tests, I will decrease Crestor to 10 mg daily as mentioned above. Recommendation to recheck liver function tests in 1 week. Her lipid panel may be followed up in 1 month. Patient has GERD. She may continue with Prilosec 40 mg daily. Vital Signs/Physical Exam: Temp Pulse Resp BP Pulse Ox 97 F 65 20 142/82 H 96 12/22/17 08:00 12/22/17 08:00 12/22/17 08:00 12/22/17 08:00 12/22/17 08:00 General: Alert, In no apparent distress, Oriented x3, Cooperative HEENT: Atraumatic Neck: Supple Respiratory: Clear to auscultation bilaterally, Normal air movement Cardiovascular: Normal pulses, Regular rate/rhythm Gastrointestinal: Normal bowel sounds, Soft and benign, Non-distended, No tenderness, No masses, No rebound, No guarding Musculoskeletal: No erythema, No tenderness, No warmth Integumentary: No tenderness/swelling, No erythema, No warmth, No cyanosis Neurological: Normal speech, Normal strength at 5/5 x4 extr, Normal tone, Normal affect Laboratory Data at Discharge: WBC 6.0 K/uL (4.3-10.9) D 12/22/17 04:33 Hgb 13.2 g/dL (12.0-15.0) 12/22/17 04:33 Hct 37.9 % (36.0-45.0) 12/22/17 04:33 Plt Count 190 K/uL (152-406) 12/22/17 04:33 PT 11.9 SECONDS (9.5-12.5) 12/21/17 17:39 INR 1.01 12/21/17 17:39 APTT 28.6 SECONDS (24.3-36.9) 12/21/17 17:39 Sodium 142 mmol/L (136-145) 12/22/17 04:33 Potassium 3.7 mmol/L (3.5-5.1) 12/22/17 04:33 BUN 11 mg/dL (7-18) 12/22/17 04:33 Creatinine 0.70 mg/dL (0.55-1.3) 12/22/17 04:33 Glucose 92 mg/dL (74-106) 12/22/17 04:33 Magnesium 1.8 mg/dL (1.8-2.4) 12/22/17 04:33 Total Bilirubin 0.3 mg/dL (0.2-1.0) 12/21/17 17:39 AST 69 U/L (15-37) H 12/21/17 17:39 ALT 99 U/L (12-78) H 12/21/17 17:39 Alkaline Phosphatase 121 U/L (45-117) H 12/21/17 17:39 Troponin I < 0.02 ng/mL (0.0-0.045) 12/22/17 04:33 Triglycerides 219 mg/dL (<150) H 12/22/17 04:33 Cholesterol 130 mg/dL (<200) 12/22/17 04:33 HDL Cholesterol 34 mg/dL (40-60) L 12/22/17 04:33 Cholesterol/HDL Ratio 3.82 12/22/17 04:33 Lipase 57 U/L (73-393) L 12/21/17 17:39 Home Medications: Albuterol Inhaler [Ventolin Inhaler*] 2 puff IH Q6H PRN 10/29/14 Losartan/Hydrochlorothiazide [Hyzaar 50-12.5 Tablet] 1 each PO DAILY WITH BREAKFAST 10/29/14 Codeine/APAP [Tylenol #3*] 1 tab PO BID* 12/21/17 Diclofenac Na [Voltaren D.r*] 75 mg PO BID 12/21/17 Divalproex Sodium [Divalproex Sodium ER] 250 mg PO DAILY 12/21/17 Divalproex Sodium [Divalproex Sodium ER] 500 mg PO BEDTIME 12/21/17 Metformin HCl [Metformin HCl ER] 500 mg PO DAILY 12/21/17 Omeprazole [Prilosec] 40 mg PO DAILY 12/21/17 Solifenacin [Vesicare*] 5 mg PO DAILY 12/21/17 Rosuvastatin [Crestor*] 10 mg PO BEDTIME #30 tab 12/22/17 levoFLOXacin [Levaquin*] 500 mg PO DAILY #7 tab 12/22/17 New Medications: levoFLOXacin [Levaquin*] 500 mg PO DAILY #7 tab Rosuvastatin [Crestor*] 10 mg PO BEDTIME #30 tab Patient Discharge Instructions: 1. Patient will need to follow up her PCP in 1 week to follow up this hospitalization. 2. Patient presented with dizziness and headaches. This resolved. Patient seen by Cardiology. No intervention required. CT head unremarkable. This may be related to urinary tract infection. Urine culture obtained. This will need to be followed up by her PCP. At discharge she will continue with Levaquin 500 mg daily for 7 days. UTI prevention will be provided. Patient will follow up with cardiology on Sunday for echocardiogram and to be cleared for upcoming surgery-left knee replacement. 3. Patient had elevated liver function tests. Liver ultrasound obtained. Patient likely has fatty liver. Due to the elevated liver function, Crestor has been decreased to 10 mg daily. She takes this for hyperlipidemia. This can be followed up as an outpatient. Recommendation to recheck liver function tests in 1 week to monitor progress. Hepatitis panel also obtained. This can be followed up by her PCP. 4. Patient has hypertension. She will continue with her medication-losartan hydrochlorothiazide 50/12.5 mg 1 pill daily. Recommendation is to maintain blood pressures less 150/80. Further adjustment can be done by her PCP. 5. Patient has diabetes. Hemoglobin A1c 6.0. Diabetes well controlled. She will continue with medication-metformin 500 mg daily. Recommendation is to maintain blood sugars less 140 fasting and less than 200 after meals. Further adjustment can be done by her PCP. 6. Patient has depression with anxiety. She will continue with her medication Depakote 250 mg daily and 500 mg at night. Patient being followed by psychiatry. She is to follow up with her psychiatrist as directed. 7. Patient with history of intermittent asthma. She may continue with Pro air 2 puffs 3 times a day as needed for shortness of breath. If this persists she may require pulmonology evaluation as an outpatient. 8. Patient with urinary incontinence. She will continue with VESIcare 5 mg daily. 9. Patient has GERD. She will continue with Prilosec 40 mg daily. Diet: ADA Activity: Fall precautions Time spent managing pt's care (in minutes): 55
--- NOTE | 2017-12-22 11:47 | CON ---
Identification: Mrs. Castillo is a 61-year-old. Attending Physician: Dr. Trimble, although I believe he has turned her over to Dr. Mcmillan. History Of Present Illness: Mrs. 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 She has been in the hospital since then. She has not had any arrhythmia. Her blood pressure is good. She wants to have knee surgery. She has no history of myocardial infarction, stroke, vascular disease. She uses no tobacco. She takes metformin for what she calls prediabetes. She has a psych iatric disorder, I believe it is bipolar disorder, I am not sure, and she takes divalproex for that. Medications: She takes losartan, hydrochlorothiazide, omeprazole, metformin, rosuvastatin, VESIcare, diclofenac, and albuterol inhaler. Allergies: SHE IS ALLERGIC TO CEFTRIAXONE, TRAMADOL, OXCARBAZEPINE, ARIPIPRAZOLE, AND LITHIUM. Physical Examination: General: She is alert, oriented, pleasant, not in distress. Lungs: Clear. Heart: Normal. Abdomen: Soft. Extremities: Normal. EKG reveals a nonspecific ST and T-wave abnormality. No infarction, injury, or ischemia. She is lawson eduled to have an echocardiogram on Sunday with Dr. Cobb in [place]. I think Mrs. Castillo is stable enough to be discharged home. DIGNA/MODL Voice ID: [id number] Report ID: [id number]
[2017-12-22] MEDS ORDERED: levoFLOXacin 500 MG TAB PO SCH (12:00)
[2017-12-22 12:56] VITALS: BP 136/83; TEMP 98.2
[2017-12-22] MEDS: ACETAMINOPHEN 500 MG TAB PO PRN (12:58)
--- NOTE | 2017-12-22 16:05 | RAD REPORT ---
EXAM DESCRIPTION: US - Abdomen Exam Limited - 12/22/2017 3:57 pm CLINICAL HISTORY: Evaluate for fatty liver, Elevated LFT COMPARISON: ABDOMINAL EXAM COMPLETE dated 02/22/2015; Abdomen Pelvis W Contrast dated 10/18/2017 FINDINGS: The gallbladder is surgically absent. No abnormality is seen in the gallbladder fossa. The common bile duct is enlarged measuring 12 mm. The liver demonstrates moderate fatty infiltration. IMPRESSION: Moderate hepatic steatosis. Enlarged common bile duct to 12 mm. Often this is related to prior cholecystectomy, however correlati on with bilirubin levels is suggested. MRCP could be performed for further assessment if clinically i ndicated.
[2017-12-22] MEDS ORDERED: ROSUVASTATIN 10 MG TAB PO SCH (21:00)
[2017-12-23] MEDS ORDERED: PANTOPRAZOLE 40MG TABLET PO SCH (06:30)
[2017-12-25 18:28] LABS: HBsAG Nonreactive (Nonreactive); Hepatitis A IgM Antibody Nonreactive
== END 2017-12-22 15:58 | disposition home or self-care (01) ==
LOC: ER 16:24 → ERHOLD 17:58 → 4TH 21:05
PROVIDERS: ADMIT Family Medicine; ATTEND Internal Medicine
DX: N39.0 Urinary tract infection, site not specified (principal); R94.31 Abnormal electrocardiogram [ECG] [EKG]; E83.42 Hypomagnesemia; E11.9 Type 2 diabetes mellitus without complications; I10 Essential (primary) hypertension; E78.5 Hyperlipidemia, unspecified; J45.909 Unspecified asthma, uncomplicated; K21.9 Gastro-esophageal reflux disease without esophagitis; R42 Dizziness and giddiness; F41.8 Other specified anxiety disorders; R51 Headache; F43.12 Post-traumatic stress disorder, chronic; R32 Unspecified urinary incontinence; R79.89 Other specified abnormal findings of blood chemistry
CPT/HCPCS: 36415; 70450; 71045; 76705; 80048 ×2; 80061; 80074; 80076; 81003; 82550; 82553; 82962 ×3; 83036; 83690; 83735 ×2; 83880; 84145; 84443; 84484 ×3; 85025 ×2; 85379; 85610; 85730; 87077; 87086; 87088; 87186; 93005; 96365; 96366; 96372; 99285; G0378 ×2; J1650 ×2; J3475; J7030

== ENCOUNTER 2018-01-26 20:58 | Emergency (ER) | payer OTHER ==
[2018-01-26] MEDS ORDERED: HYDROCODONE/APAP 7.5/325 MG TAB ONE (21:59)
--- NOTE | 2018-01-27 00:05 | EDPHYS ---
Physician Documentation [facility] Name: Georgette Daniel Age: 62 yrs Sex: Female : 1955 Arrival Date: 01/26/2018 Time: 20:59 Bed 19 Private MD: ED Physician Wali Russo HPI: 01/26 21:50 This 62 yrs old Female presents to ER via Wheelchair with complaints of Ankle cp Swelling. 21:50 The patient presents with pain, swelling, tenderness. cp 21:50 The complaints affect the left knee and left lower leg and left ankle. cp 21:50 Associated signs and symptoms: Pertinent negatives fever, warmth, weakness. Patient cp reports history left knee replacement by DR Ortiz on 01-20-2018. Concerned about increased swelling of left leg over past 3 days. Historical: - Allergies: 21:05 Abilify; la1 21:05 LITHIUM DERIVITIVES; la1 21:05 Rocephin; la1 21:05 Trileptal; la1 - PMHx: 21:05 Asthma; Depression; Diabetes - NIDDM; GERD; Hyperlipidemia; Hypertension; neuropathy; la1 - Immunization history:: Adult Immunizations up to date. - Social history:: Smoking status: Patient/guardian denies using tobacco. - Ebola Screening: : No symptoms or risks identified at this time. ROS: 22:00 Constitutional: Negative for body aches, chills, fever, poor PO intake. cp 22:00 Eyes: Negative for injury, pain, redness, and discharge. cp 22:00 ENT: Negative for drainage from ear(s), ear pain, sore throat, difficulty swallowing, difficulty handling secretions. 22:00 Cardiovascular: Negative for chest pain, palpitations. 22:00 Respiratory: Negative for cough, shortness of breath, wheezing. 22:00 Abdomen/GI: Negative for abdominal pain, nausea, vomiting, and diarrhea. 22:00 MS/extremity: Positive for pain, swelling, tenderness, of the left leg, Negative for injury or acute deformity, paresthesias. 22:00 Skin: Negative for erythema. 22:00 Neuro: Negative for altered mental status, headache, weakness. 22:00 All other systems are negative. Exam: 22:10 Head/Face: Normocephalic, atraumatic. cp 22:10 Constitutional: The patient appears in no acute distress, alert, awake, non-diaphoretic, non-toxic, well developed, well nourished. 22:10 Eyes: Periorbital structures: appear normal, Conjunctiva: normal, no exudate, no cp injection, Sclera: no appreciated abnormality, Lids and lashes: appear normal, bilaterally. 22:10 ENT: External ear(s): are unremarkable, Nose: is normal, Mouth: Lips: moist, Oral mucosa: pink and intact, moist, Posterior pharynx: is normal, airway is patent, no erythema, no exudate. 22:10 Chest/axilla: Inspection: normal, Palpation: is normal, no crepitus, no tenderness. 22:10 Cardiovascular: Rate: normal, Rhythm: regular, Edema: ankle edema, that is mild, JVD: is not appreciated. 22:10 Respiratory: the patient does not display signs of respiratory distress, Respirations: normal, no use of accessory muscles, no retractions, no splinting, no tachypnea, labored breathing, is not present, Breath sounds: are clear throughout, no decreased breath sounds, no stridor, no wheezing. 22:10 Abdomen/GI: Exam negative for discomfort, distension, guarding, Inspection: abdomen cp appears normal. 22:10 Back: pain, is absent, ROM is normal. 22:10 Musculoskeletal/extremity: Extremities: grossly normal except: noted in the left knee and left lower leg: swelling, tenderness, There is no evidence of surgical infection, verna intact. Vital Signs: 21:05 BP 134 / 65; Pulse 90; Resp 19; Temp 97.1(TE); Pulse Ox 100% on R/A; Weight 87.09 kg; la1 Height 5 ft. 4 in. (162.56 cm); 22:12 BP 132 / 80; Pulse 87; Resp 16 S; Pulse Ox 95% on R/A; jd3 22:55 BP 134 / 86; Pulse 78; Resp 16 S; Pulse Ox 97% on R/A; jd3 23:35 BP 110 / 70; Pulse 77; Resp 18; Pulse Ox 95% on R/A; ea 01/27 00:13 BP 127 / 77; Pulse 76; Resp 16 S; Pulse Ox 98% on R/A; jd3 01/26 21:05 Body Mass Index 32.96 (87.09 kg, 162.56 cm) la1 MDM: 01/26 21:15 Patient medically screened. tw4 22:00 Differential diagnosis: closed fracture, cellulitis, septic joint, DVT, dependent edema.cp 01/27 00:02 Data reviewed: vital signs, nurses notes, radiologic studies, plain films, ultrasound. cp 00:02 Test interpretation: by ED physician or midlevel provider: plain radiologic studies. cp Counseling: I had a detailed discussion with the patient and/or guardian regarding: the historical points, exam findings, and any diagnostic results supporting the discharge/admit diagnosis, radiology results, the need for outpatient follow up, a orthopedic surgeon, to return to the emergency department if symptoms worsen or persist or if there are any questions or concerns that arise at home. Response to treatment: the patient's symptoms have markedly improved after treatment, Radiology studies negative. Pain improved. Surgical site redressed. Will discharge to home for continued monitoring. 01/26 21:44 Order name: US Extremity Venous W Compression Duncan cp 01/26 21:44 Order name: XRAY Ankle LEFT 3 view cp Administered Medications: 01/26 21:56 Drug: Hydrocodone-Acetaminophen (7.5 mg-325 mg) 1 tabs Route: PO; jd3 22:50 Follow up: Response: No adverse reaction; Pain is decreased jd3 Disposition: 01/27/18 00:04 Discharged to Home. Impression: Pain in left leg, Pain in left ankle and joints of left foot. - Condition is Stable. - Discharge Instructions: Musculoskeletal Pain. - Medication Reconciliation Form, Thank You Letter, Antibiotic Education, Prescription Opioid Use form. - Follow up: Lacho Lara MD; When: next week; Reason: Recheck today's complaints. - Problem is new. - Symptoms have improved. Addendum: 01/28/2018 02:48 Co-signature as Attending Physician, Wali Russo MD I agree with the assessment and t w4 plan of care. Attestation: The patient's history, exam findings, diagnostics, and a summary of any interventions or procedures was reviewed in detail with Javier VAZQUEZ. Signatures: Dispatcher [employer] EDBrooks Mcbride RN RN la1 Javier Suarez PA PA cp Davies, Jonathon, RN RN jd3 Wadley, Terrence, MD MD tw4 Corrections: (The following items were deleted from the chart) 01/27 00:04 00:04 01/27/2018 00:04 Discharged to Home. Impression: Pain in left leg. Condition is cp Stable. Forms are Medication Reconciliation Form, Thank You Letter, Antibiotic Education, Prescription Opioid Use. Follow up: Lacho Lara; When: next week; Reason: Recheck today's complaints. Problem is new. Symptoms have improved. cp 00:47 00:04 01/27/2018 00:04 Discharged to Home. Impression: Pain in left leg; Pain in left jd3 ankle and joints of left foot. Condition is Stable. Discharge Instructions: Musculoskeletal Pain. Forms are Medication Reconciliation Form, Thank You Letter, Antibiotic Education, Prescription Opioid Use. Follow up: Lacho Lara; When: next week; Reason: Recheck today's complaints. Problem is new. Symptoms have improved. cp
--- NOTE | 2018-01-27 00:05 | ER ---
Nurse's Notes [facility] Name: Georgette Daniel Age: 62 yrs Sex: Female : 1955 Arrival Date: 01/26/2018 Time: 20:59 Bed 19 Private MD: Diagnosis: Pain in left leg;Pain in left ankle and joints of left foot Presentation: 01/26 21:03 Presenting complaint: Patient states: Left knee replacement on the of last month. la1 Has had swelling in LLE for the last 3 days. Transition of care: patient was not received from another setting of care. Onset of symptoms was January 26, 2018. Risk Assessment: Do you want to hurt yourself or someone else? Patient reports no desire to harm self or others. Initial Sepsis Screen: Does the patient meet any 2 criteria? No. Patient's initial sepsis screen is negative. Does the patient have a suspected source of infection? No. Patient's initial sepsis screen is negative. Care prior to arrival: None. 21:03 Method Of Arrival: Wheelchair la1 21:03 Acuity: EVIE 3 la1 Historical: - Allergies: 21:05 Abilify; la1 21:05 LITHIUM DERIVITIVES; la1 21:05 Rocephin; la1 21:05 Trileptal; la1 - PMHx: 21:05 Asthma; Depression; Diabetes - NIDDM; GERD; Hyperlipidemia; Hypertension; neuropathy; la1 - Immunization history:: Adult Immunizations up to date. - Social history:: Smoking status: Patient/guardian denies using tobacco. - Ebola Screening: : No symptoms or risks identified at this time. Screenin:20 Abuse screen: Denies threats or abuse. Nutritional screening: No deficits noted. jd3 Tuberculosis screening: No symptoms or risk factors identified. Fall Risk Ambulatory Aid- Crutches/Cane/Walker (15 pts). Gait- Weak (10 pts.). Mental Status- Oriented to own ability (0 pts). Total Bains Fall Scale indicates Low Risk Score (25-44 pts). Fall prevention measures have been instituted. Side Rails Up X 2 Placed close to Nursing Station Frequent Obs/Assesments occuring Family Present and informed to notify staff if they need to leave bedside. Assessment: 21:14 General: Appears in no apparent distress. uncomfortable, Behavior is calm, cooperative, jd3 appropriate for age. Pain: Complains of pain in left ankle Quality of pain is described as aching, tender. Neuro: Level of Consciousness is awake, alert, obeys commands, Oriented to person, place, time, situation. Cardiovascular: Capillary refill < 3 seconds Patient's skin is warm and dry. Pulses are palpable in right posterior tibial artery, right dorsalis pedis artery, left posterior tibial artery and left dorsalis pedis artery. Respiratory: Airway is patent Respiratory effort is even, unlabored, Respiratory pattern is regular, symmetrical, Denies shortness of breath. GI: No signs and/or symptoms were reported involving the gastrointestinal system. : No signs and/or symptoms were reported regarding the genitourinary system. EENT: No signs and/or symptoms were reported regarding the EENT system. Derm: Skin is intact, Skin is dry, Skin is normal, Skin temperature is warm Wound noted left knee Wound is surgical wound to left knee from recent knee replacement. covered by bandage which is clean and dry. Bruising that is brown, on left owody. Musculoskeletal: Circulation, motion, and sensation intact. Range of motion: limited in left knee Swelling present in left ankle. 22:12 Reassessment: Patient appears in no apparent distress at this time. Patient and/or jd3 family updated on plan of care and expected duration. Pain level reassessed. Patient is alert, oriented x 3, equal unlabored respirations, skin warm/dry/pink. 22:56 Reassessment: Patient appears in no apparent distress at this time. Patient and/or jd3 family updated on plan of care and expected duration. Pain level reassessed. Patient is alert, oriented x 3, equal unlabored respirations, skin warm/dry/pink. 01/27 00:13 Reassessment: Patient appears in no apparent distress at this time. Patient and/or jd3 family updated on plan of care and expected duration. Pain level reassessed. Patient is alert, oriented x 3, equal unlabored respirations, skin warm/dry/pink. 00:46 Reassessment: Patient appears in no apparent distress at this time. Patient and/or jd3 family updated on plan of care and expected duration. Pain level reassessed. Patient is alert, oriented x 3, equal unlabored respirations, skin warm/dry/pink. Vital Signs: 01/26 21:05 BP 134 / 65; Pulse 90; Resp 19; Temp 97.1(TE); Pulse Ox 100% on R/A; Weight 87.09 kg; la1 Height 5 ft. 4 in. (162.56 cm); 22:12 BP 132 / 80; Pulse 87; Resp 16 S; Pulse Ox 95% on R/A; jd3 22:55 BP 134 / 86; Pulse 78; Resp 16 S; Pulse Ox 97% on R/A; jd3 23:35 BP 110 / 70; Pulse 77; Resp 18; Pulse Ox 95% on R/A; ea 01/27 00:13 BP 127 / 77; Pulse 76; Resp 16 S; Pulse Ox 98% on R/A; jd3 01/26 21:05 Body Mass Index 32.96 (87.09 kg, 162.56 cm) la1 ED Course: 01/26 20:59 Patient arrived in ED. ds1 21:04 Triage completed. la1 21:05 Arm band placed on left wrist. la1 21:08 Bud Watkins, ANGELIQUE is Primary Nurse. jd3 21:15 Javier Suarez PA is PHCP. cp 21:15 Wali Russo MD is Attending Physician. cp 21:21 Patient has correct armband on for positive identification. Bed in low position. Call jd3 light in reach. Side rails up X2. Adult w/ patient. 22:37 X-ray completed. Portable x-ray completed in exam room. Patient tolerated procedure la2 well. 22:43 XRAY Ankle LEFT 3 view In Process Unspecified. EDMS 22:50 Ultrasound completed. Patient tolerated well. sg3 22:52 US Extremity Venous W Compression Duncan In Process Unspecified. EDMS 23:53 Assisted with bedpan. jd3 01/27 00:03 Lacho Lara MD is Referral Physician. cp 00:12 No provider procedures requiring assistance completed. Patient did not have IV access jd3 during this emergency room visit. Administered Medications: 01/26 21:56 Drug: Hydrocodone-Acetaminophen (7.5 mg-325 mg) 1 tabs Route: PO; jd3 22:50 Follow up: Response: No adverse reaction; Pain is decreased jd3 Outcome: 01/27 00:04 Discharge ordered by . cp 00:12 Discharged to home via wheelchair, with friend. jd3 00:12 Condition: stable 00:12 Discharge instructions given to patient, Instructed on discharge instructions, follow up and referral plans. Demonstrated understanding of instructions, follow-up care. 00:47 Patient left the ED. jd3 Signatures: Dispatcher [employer] [facility] Joyce Perez ds1 Brooks Tyler RN RN kira1 Javier Suarez PA PA cp Antunez, Elena, RN RN ea Ardoin, Leslie la2 Davies, Jonathon, RN RN jd3 Godinez, Sarah sg3
[2018-01-27 01:01] VITALS: TEMP 97.1
[2018-01-27 01:06] VITALS: BP 127/77; O2SAT 98
--- NOTE | 2018-01-27 08:51 | RAD REPORT ---
EXAM DESCRIPTION: USExtrem Venous W Compress Bil01/26/2018 10:53 pm CLINICAL HISTORY: Bilateral leg swelling and pain COMPARISON: Extremity Venous Uni Ltd dated 07/19/2017 FINDINGS: The common femoral, superficial femoral, popliteal and posterior tibial veins bilaterally are compressible and demonstrate augmentation. Doppler demonstrates good flow. A 20 millimeter right Hoff's cyst is present. IMPRESSION: No evidence of deep venous thrombosis involving either lower extremity. 20 millimeter right Hoff's cyst
--- NOTE | 2018-01-27 09:24 | RAD REPORT ---
EXAM DESCRIPTION: RAD - Ankle Left 3 View -01/26/2018 10:42 pm CLINICAL HISTORY: Left ankle pain and swelling FINDINGS: No fracture or dislocation is seen. Soft tissue swelling is noted. No bony destructive lesion is seen
== END 2018-01-27 00:47 | disposition home or self-care (01) ==
LOC: ER 20:58
DX: M25.572 Pain in left ankle and joints of left foot (principal); I10 Essential (primary) hypertension; Z88.3 Allergy status to other anti-infective agents; Z88.8 Allergy status to other drugs, medicaments and biological substances
CPT/HCPCS: 93970; 99283

== ENCOUNTER 2018-02-03 14:38 | Emergency (ER) | payer OTHER ==
[2018-02-03] MEDS ORDERED: AMOX/K CLAV 875 MG TAB ONE (15:31)
--- NOTE | 2018-02-03 15:35 | ER ---
Nurse's Notes [facility] Name: Georgette Daniel Age: 62 yrs Sex: Female : 1955 Arrival Date: 02/03/2018 Time: 14:39 Bed 25 Private MD: Lacho Lara L Diagnosis: Other local infections of skin and subcutaneous tissue-surgical site Presentation: 02/03 15:11 Presenting complaint: Patient states: Left knee replacement on the with danika. la1 Pt states pus like drainage from wound. Transition of care: patient was not received from another setting of care. Onset of symptoms was February 03, 2018. Risk Assessment: Do you want to hurt yourself or someone else? Patient reports no desire to harm self or others. Initial Sepsis Screen: Does the patient meet any 2 criteria? No. Patient's initial sepsis screen is negative. Does the patient have a suspected source of infection? No. Patient's initial sepsis screen is negative. Care prior to arrival: None. 15:11 Method Of Arrival: Wheelchair la1 15:11 Acuity: EVIE 3 la1 Historical: - Allergies: 15:12 Abilify; la1 15:12 LITHIUM DERIVITIVES; la1 15:12 Rocephin; la1 15:12 Trileptal; la1 - PMHx: 15:12 Asthma; Depression; Diabetes - NIDDM; GERD; Hyperlipidemia; Hypertension; neuropathy; la1 - Immunization history:: Adult Immunizations up to date. - Social history:: Smoking status: unknown. - Ebola Screening: : No symptoms or risks identified at this time. Screenin:16 Abuse screen: Denies threats or abuse. Nutritional screening: No deficits noted. la1 Tuberculosis screening: No symptoms or risk factors identified. Fall Risk None identified. Assessment: 15:15 General: Appears in no apparent distress. Behavior is calm, cooperative. Pain: la1 Complains of pain in left knee. Neuro: Level of Consciousness is awake, alert, obeys commands, Oriented to person, place, time, situation. Cardiovascular: Capillary refill < 3 seconds Patient's skin is warm and dry. Respiratory: Airway is patent Respiratory effort is even, unlabored, Respiratory pattern is regular, symmetrical, Breath sounds are clear bilaterally. GI: No signs and/or symptoms were reported involving the gastrointestinal system. : No signs and/or symptoms were reported regarding the genitourinary system. Musculoskeletal: Circulation, motion, and sensation intact. Capillary refill < 3 seconds. Vital Signs: 15:15 Pulse 90; Resp 16; Temp 98.6(O); Pulse Ox 98% on R/A; la1 15:16 BP 139 / 61; la1 ED Course: 14:39 Patient arrived in ED. sb2 14:40 Lacho Lara MD is Private Physician. sb2 15:07 An[facility] Tracey [facility]C [facility]. kb 15:07 Perez Hendricks MD is Attending Physician. kb 15:10 Brooks Tyler RN is Primary Nurse. la1 15:12 Triage completed. la1 15:12 Arm band placed on right wrist. la1 15:16 Bed in low position. Call light in reach. la1 15:21 Urine collected: clean catch specimen, clear, bandar colored, Amount Voided: 60mL. jp3 15:34 Lacho Lara MD is Referral Physician. kb 15:45 No provider procedures requiring assistance completed. Patient did not have IV access la1 during this emergency room visit. Administered Medications: 15:29 Not Given (Physician Discretion): Bactrim (160 mg-800 mg (DS) 1 tablet PO once kb 15:31 Drug: Clindamycin 300 mg Route: PO; la1 15:36 Follow up: Response: No adverse reaction la1 Outcome: 15:35 Discharge ordered by MD. kb 15:45 Discharged to home ambulatory. la1 15:45 Condition: stable 15:45 Discharge instructions given to patient, Instructed on discharge instructions, follow up and referral plans. medication usage, Demonstrated understanding of instructions, follow-up care, medications, Prescriptions given X 1. 15:45 Patient left the ED. la1 Signatures: Anisa Tracey FNP-C FNP-Brooks Ramirez RN RN la1 Cindi Martinez sb2 Lavon Aguilar jp3
[2018-02-03] MEDS ORDERED: CLINDAMYCIN HCL 150 MG CAP ONE (15:36)
--- NOTE | 2018-02-03 15:36 | EDPHYS ---
Physician Documentation [facility] Name: Georgette Daniel Age: 62 yrs Sex: Female : 1955 Arrival Date: 02/03/2018 Time: 14:39 Bed 25 Private MD: Lacho Cartagena L ED Physician Perez Hendricks HPI: 02/03 15:33 This 62 yrs old Female presents to ER via Wheelchair with complaints of Post kb Surgical Pain - KNEE. 15:33 Patient presents to ED for recheck of: surgical incision. The affected area is on the kb left knee. Previous treatment: surgical incision to left knee s/p knee replacement on 01/14. Drainage started on Sunday. Progress: The patient reports increased drainage. The patient has not experienced similar symptoms in the past. The patient has been recently seen by a physician: Dr. Cartagena 1 week(s) ago. Historical: - Allergies: 15:12 Abilify; la1 15:12 LITHIUM DERIVITIVES; la1 15:12 Rocephin; la1 15:12 Trileptal; la1 - PMHx: 15:12 Asthma; Depression; Diabetes - NIDDM; GERD; Hyperlipidemia; Hypertension; neuropathy; la1 - Immunization history:: Adult Immunizations up to date. - Social history:: Smoking status: unknown. - Ebola Screening: : No symptoms or risks identified at this time. ROS: 15:30 Constitutional: Negative for fever, chills, and weight loss, Cardiovascular: Negative kb for chest pain, palpitations, and edema, Respiratory: Negative for shortness of breath, cough, wheezing, and pleuritic chest pain, Abdomen/GI: Negative for abdominal pain, nausea, vomiting, diarrhea, and constipation, Back: Negative for injury and pain, Neuro: Negative for headache, weakness, numbness, tingling, and seizure. 15:30 MS/extremity: Positive for swelling, of the left knee, drainage from surgical incision. Exam: 15:30 Constitutional: This is a well developed, well nourished patient who is awake, alert, kb and in no acute distress. Head/Face: Normocephalic, atraumatic. Chest/axilla: Normal chest wall appearance and motion. Nontender with no deformity. No lesions are appreciated. Cardiovascular: Regular rate and rhythm with a normal S1 and S2. No gallops, murmurs, or rubs. Normal PMI, no JVD. No pulse deficits. Respiratory: Lungs have equal breath sounds bilaterally, clear to auscultation and percussion. No rales, rhonchi or wheezes noted. No increased work of breathing, no retractions or nasal flaring. Abdomen/GI: Soft, non-tender, with normal bowel sounds. No distension or tympany. No guarding or rebound. No evidence of tenderness throughout. Neuro: Awake and alert, GCS 15, oriented to person, place, time, and situation. Cranial nerves II-XII grossly intact. Motor strength 5/5 in all extremities. Sensory grossly intact. Cerebellar exam normal. Normal gait. 15:30 Musculoskeletal/extremity: Extremities: grossly normal except: noted in the left knee: swelling, surgical incision site, well approximated, no dehiscence, small amount of drainage noted at the distal aspect of site. No redness or warmth. Vital Signs: 15:15 Pulse 90; Resp 16; Temp 98.6(O); Pulse Ox 98% on R/A; la1 15:16 BP 139 / 61; la1 MDM: 15:20 Patient medically screened. kb 15:29 Data reviewed: vital signs, nurses notes. Data interpreted: Pulse oximetry: on room air kb is 98 %. Interpretation: normal. Counseling: I had a detailed discussion with the patient and/or guardian regarding: the historical points, exam findings, and any diagnostic results supporting the discharge/admit diagnosis, the need for outpatient follow up, a orthopedic surgeon, to return to the emergency department if symptoms worsen or persist or if there are any questions or concerns that arise at home. Physician consultation: Lacho Cartagena MD was contacted at 15:30, regarding patient's condition, and will see patient in office, next week, would like medications started, Clindamycin. 02/03 15:21 Order name: Wound Culture la1 02/03 15:35 Order name: Urine Dipstick--Ancillary (enter results) bd Administered Medications: 15:29 Not Given (Physician Discretion): Bactrim (160 mg-800 mg (DS) 1 tablet PO once kb 15:31 Drug: Clindamycin 300 mg Route: PO; la1 15:36 Follow up: Response: No adverse reaction la1 Disposition: 16:45 Co-signature as Attending Physician, Perez Hendricks MD. rn Disposition: 02/03/18 15:35 Discharged to Home. Impression: Other local infections of skin and subcutaneous tissue - surgical site. - Condition is Stable. - Discharge Instructions: Wound Infection, [id number], Surgical Site Infections FAQs - MCCOY. - Prescriptions for Clindamycin HCl 300 mg Oral Capsule - take 1 capsule by ORAL route every 6 hours for 10 days; 40 capsule. - Medication Reconciliation Form, Thank You Letter, Antibiotic Education, Prescription Opioid Use form. - Follow up: Emergency Department; When: As needed; Reason: Worsening of condition. Follow up: Lacho Cartagena MD; When: 2 - 3 days; Reason: Recheck today's complaints, Continuance of care, Re-evaluation by your physician. Signatures: Dispatcher [employer] EDNY Anisa Tracey, RECONSTRUCTIVE DENTIST-C RECONSTRUCTIVE DENTIST-Ckb Perez Hendricks MD MD rn AttemaBrooks RN RN la1 Corrections: (The following items were deleted from the chart) 15:45 15:35 02/03/2018 15:35 Discharged to Home. Impression: Other local infections of skin la1 and subcutaneous tissue - surgical site. Condition is Stable. Forms are Medication Reconciliation Form, Thank You Letter, Antibiotic Education, Prescription Opioid Use. Follow up: Emergency Department; When: As needed; Reason: Worsening of condition. Follow up: Lacho Cartagena; When: 2 - 3 days; Reason: Recheck today's complaints, Continuance of care, Re-evaluation by your physician. kb
[2018-02-03 15:51] VITALS: TEMP 98.6; O2SAT 98
[2018-02-03 15:52] VITALS: BP 139/61
[2018-02-03 16:12] LABS: Urine Blood NEGATIVE (NEG); Urine Glucose NEGATIVE (NEG); Urine Protein NEGATIVE (NEG); Urine pH 6.5 (5.0-7.0)
== END 2018-02-03 15:45 | disposition home or self-care (01) ==
LOC: ER 14:38
DX: T84.54XA Infection and inflammatory reaction due to internal left knee prosthesis, initial encounter (principal); T84.84XA Pain due to internal orthopedic prosthetic devices, implants and grafts, initial encounter; Z96.652 Presence of left artificial knee joint; E78.5 Hyperlipidemia, unspecified; I10 Essential (primary) hypertension; E11.40 Type 2 diabetes mellitus with diabetic neuropathy, unspecified; K21.9 Gastro-esophageal reflux disease without esophagitis; J45.909 Unspecified asthma, uncomplicated; F32.9 Major depressive disorder, single episode, unspecified; Y83.1 Surgical operation with implant of artificial internal device as the cause of abnormal reaction of the patient, or of later complication, without mention of misadventure at the time of the procedure
CPT/HCPCS: 81003; 87070; 87205; 99283

== ENCOUNTER 2018-03-05 15:02 | Emergency (ER) | payer OTHER ==
[2018-03-05] MEDS ORDERED: HYDROCODONE/APAP 5/325 MG TAB ONE (16:16)
--- NOTE | 2018-03-05 16:47 | ER ---
Nurse's Notes [facility] Name: Georgette Daniel Age: 62 yrs Sex: Female : 1955 Arrival Date: 03/05/2018 Time: 15:04 Bed 4 Private MD: Diagnosis: Lower left leg edema post knee surgery Presentation: 03/05 15:20 Presenting complaint: Patient states: MY DOCTOR TOLD ME TO COME TO THE ER CAUSE HE bp THINKS I'VE GOT A BLOOD CLOT. I HAD A VEIN POKING OUT AND NOW I DON'T. Transition of care: patient was not received from another setting of care. Onset of symptoms is unknown. Risk Assessment: Do you want to hurt yourself or someone else? Patient reports no desire to harm self or others. Initial Sepsis Screen: Does the patient meet any 2 criteria? HR > 90 bpm. Does the patient have a suspected source of infection? No. Patient's initial sepsis screen is negative. Care prior to arrival: None. 15:20 Method Of Arrival: Ambulatory bp 15:20 Acuity: EVIE 3 bp Triage Assessment: 15:21 General: Appears in no apparent distress. comfortable, Behavior is calm, cooperative, bp appropriate for age. Pain: Denies pain. Historical: - Allergies: 15:21 Abilify; bp 15:21 LITHIUM DERIVITIVES; bp 15:21 Rocephin; bp 15:21 Trileptal; bp - Home Meds: 15:21 albuterol sulfate inhalation Inhl [Active]; bp - PMHx: 15:21 Asthma; Depression; Diabetes - NIDDM; GERD; Hyperlipidemia; Hypertension; neuropathy; bp - Immunization history:: Adult Immunizations up to date. - Social history:: Smoking status: Patient/guardian denies using tobacco, Patient/guardian denies using alcohol. - Ebola Screening: : Patient negative for fever greater than or equal to 101.5 degrees Fahrenheit, and additional compatible Ebola Virus Disease symptoms Patient denies exposure to infectious person Patient denies travel to an Ebola-affected area in the 21 days before illness onset No symptoms or risks identified at this time. Screenin:45 Abuse screen: Denies threats or abuse. Denies injuries from another. Nutritional sg screening: No deficits noted. Tuberculosis screening: No symptoms or risk factors identified. Never had TB. Fall Risk None identified. Assessment: 15:45 General: Appears in no apparent distress. comfortable, well groomed, well developed, sg well nourished, Behavior is calm, cooperative, appropriate for age. Pain: Denies pain. Neuro: Level of Consciousness is awake, alert, obeys commands, Oriented to person, place, Speech is normal, Facial symmetry appears normal. Cardiovascular: Reports palpitations, Patient's skin is warm and dry. Chest pain is denied. Respiratory: Airway is patent Respiratory effort is even, unlabored, Respiratory pattern is regular, symmetrical. GI: No signs and/or symptoms were reported involving the gastrointestinal system. : No signs and/or symptoms were reported regarding the genitourinary system. EENT: No signs and/or symptoms were reported regarding the EENT system. Derm: Skin is pink, warm \T\ dry. Musculoskeletal: No signs and/or symptoms reported regarding the musculoskeletal system. Circulation, motion, and sensation intact. Range of motion: intact in all extremities, Swelling absent. 16:50 Reassessment: Patient appears in no apparent distress at this time. Patient and/or sg family updated on plan of care and expected duration. Pain level reassessed. Patient is alert, oriented x 3, equal unlabored respirations, skin warm/dry/pink. Patient denies pain at this time. Vital Signs: 15:21 BP 111 / 85; Pulse 105; Resp 18; Temp 98.6; Pulse Ox 99% ; Weight 86.64 kg; Height 5 bp ft. 4 in. (162.56 cm); 16:14 BP 112 / 82; Pulse 97; Resp 17; Pulse Ox 99% on R/A; sg 17:10 BP 108 / 77; Pulse 90; Resp 17; Pulse Ox 99% on R/A; sg 15:21 Body Mass Index 32.78 (86.64 kg, 162.56 cm) bp ED Course: 15:04 Patient arrived in ED. as 15:21 Triage completed. bp 15:21 Arm band placed on left wrist. bp 15:34 Ricky Gilliland, RN is Primary Nurse. sg 15:45 Patient has correct armband on for positive identification. Placed in gown. Bed in low sg position. Side rails up X2. Pulse ox on. NIBP on. Head of bed elevated. 15:59 Mell Louis FNP-C is PHCP. snw 15:59 Javier Luna MD is Attending Physician. snw 16:45 US Extremity Venous Unilateral Ltd In Process Unspecified. EDMS 17:20 No provider procedures requiring assistance completed. Patient did not have IV access sg during this emergency room visit. Administered Medications: 16:13 Drug: Stafford 5 mg-325 mg 1 tabs Route: PO; sg 17:00 Follow up: Response: No adverse reaction; Pain is decreased sg Outcome: 16:46 Discharge ordered by . snw 17:20 Discharged to home ambulatory. sg 17:20 Condition: good 17:20 Discharge instructions given to patient, Instructed on discharge instructions, follow up and referral plans. safety practices, Demonstrated understanding of instructions, follow-up care. 17:23 Patient left the ED. sg Signatures: Dispatcher [employer] EDMS Ricky Gilliland, RN RN sg Mell Louis, APPRENTICE PAINTER HAND-C APPRENTICE PAINTER HAND-[place] Omer Brian, RN RN bp
--- NOTE | 2018-03-05 16:47 | EDPHYS ---
Physician Documentation [facility] Name: Georgette Daniel Age: 62 yrs Sex: Female : 1955 Arrival Date: 03/05/2018 Time: 15:04 Bed 4 Private MD: MARIO Physician Javier Luna HPI: 03/05 16:08 This 62 yrs old Female presents to ER via Ambulatory with complaints of snw Abnormal Lab Results. 16:08 Onset: The symptoms/episode began/occurred suddenly. Associated signs and symptoms: snw Pertinent positives: recent surgical procedure, DD 1.54 ug/ml at PCP 03/04/18 at 4:26. Historical: - Allergies: 15:21 Abilify; bp 15:21 LITHIUM DERIVITIVES; bp 15:21 Rocephin; bp 15:21 Trileptal; bp - Home Meds: 15:21 albuterol sulfate inhalation Inhl [Active]; bp - PMHx: 15:21 Asthma; Depression; Diabetes - NIDDM; GERD; Hyperlipidemia; Hypertension; neuropathy; bp - Immunization history:: Adult Immunizations up to date. - Social history:: Smoking status: Patient/guardian denies using tobacco, Patient/guardian denies using alcohol. - Ebola Screening: : Patient negative for fever greater than or equal to 101.5 degrees Fahrenheit, and additional compatible Ebola Virus Disease symptoms Patient denies exposure to infectious person Patient denies travel to an Ebola-affected area in the 21 days before illness onset No symptoms or risks identified at this time. ROS: 16:07 Constitutional: Negative for fever, chills, and weight loss, Eyes: Negative for injury, snw pain, redness, and discharge, ENT: Negative for injury, pain, and discharge, Neck: Negative for injury, pain, and swelling, Cardiovascular: Negative for chest pain, palpitations, and edema, Respiratory: Negative for shortness of breath, cough, wheezing, and pleuritic chest pain, Abdomen/GI: Negative for abdominal pain, nausea, vomiting, diarrhea, and constipation, Back: Negative for injury and pain, : Negative for injury, bleeding, discharge, and swelling, Skin: Negative for injury, rash, and discoloration, Neuro: Negative for headache, weakness, numbness, tingling, and seizure. 16:07 MS/extremity: Positive for swelling, of the left leg. Exam: 16:04 Constitutional: This is a well developed, well nourished patient who is awake, alert, snw and in no acute distress. Head/Face: Normocephalic, atraumatic. Eyes: Pupils equal round and reactive to light, extra-ocular motions intact. Lids and lashes normal. Conjunctiva and sclera are non-icteric and not injected. Cornea within normal limits. Periorbital areas with no swelling, redness, or edema. ENT: Nares patent. No nasal discharge, no septal abnormalities noted. Tympanic membranes are normal and external auditory canals are clear. Oropharynx with no redness, swelling, or masses, exudates, or evidence of obstruction, uvula midline. Mucous membranes moist. Neck: Trachea midline, no thyromegaly or masses palpated, and no cervical lymphadenopathy. Supple, full range of motion without nuchal rigidity, or vertebral point tenderness. No Meningismus. Chest/axilla: Normal chest wall appearance and motion. Nontender with no deformity. No lesions are appreciated. 16:04 Respiratory: Lungs have equal breath sounds bilaterally, clear to auscultation and percussion. No rales, rhonchi or wheezes noted. No increased work of breathing, no retractions or nasal flaring. Abdomen/GI: Soft, non-tender, with normal bowel sounds. No distension or tympany. No guarding or rebound. No evidence of tenderness throughout. Back: No spinal tenderness. No costovertebral tenderness. Full range of motion. Skin: Warm, dry with normal turgor. Normal color with no rashes, no lesions, and no evidence of cellulitis. Neuro: Awake and alert, GCS 15, oriented to person, place, time, and situation. Cranial nerves II-XII grossly intact. Motor strength 5/5 in all extremities. Sensory grossly intact. Cerebellar exam normal. Normal gait. Psych: Awake, alert, with orientation to person, place and time. Behavior, mood, and affect are within normal limits. 16:04 Cardiovascular: Rate: tachycardic, Rhythm: regular, Pulses: no pulse deficits are appreciated, Edema: left lower ext (recent left knee surgery). 16:04 Musculoskeletal/extremity: Extremities: grossly normal except: noted in the left leg: swelling, tenderness, scabbed, healthy appearing recent surgical incision over left knee. Vital Signs: 15:21 BP 111 / 85; Pulse 105; Resp 18; Temp 98.6; Pulse Ox 99% ; Weight 86.64 kg; Height 5 bp ft. 4 in. (162.56 cm); 16:14 BP 112 / 82; Pulse 97; Resp 17; Pulse Ox 99% on R/A; sg 17:10 BP 108 / 77; Pulse 90; Resp 17; Pulse Ox 99% on R/A; sg 15:21 Body Mass Index 32.78 (86.64 kg, 162.56 cm) bp MDM: 15:59 Patient medically screened. snw 16:48 Data reviewed: vital signs, nurses notes. Data interpreted: Pulse oximetry: on room air snw is 99 %. Interpretation: normal. Counseling: I had a detailed discussion with the patient and/or guardian regarding: the historical points, exam findings, and any diagnostic results supporting the discharge/admit diagnosis, the presence of at least one elevated blood pressure reading (>120/80) during this emergency department visit, radiology results, the need for outpatient follow up, to return to the emergency department if symptoms worsen or persist or if there are any questions or concerns that arise at home. Special discussion: I have referred the patient to see his PCP for further evaluation of high blood pressure. Based on the history and exam findings, there is no indication for further emergent testing or inpatient evaluation. I discussed with the patient/guardian the need to see the primary care provider for further evaluation of the symptoms. 03/05 16:04 Order name: US Extremity Venous Unilateral Ltd; Complete Time: 16:57 snw Administered Medications: 16:13 Drug: Gibson 5 mg-325 mg 1 tabs Route: PO; sg 17:00 Follow up: Response: No adverse reaction; Pain is decreased sg Disposition: 03/06 07:00 Co-signature as Attending Physician, Javier Luna MD I agree with the assessment and armen plan of care. Disposition: 03/05/18 16:46 Discharged to Home. Impression: Lower left leg edema post knee surgery. - Condition is Stable. - Discharge Instructions: Edema, Leg Cramps, Aspirin and Your Heart. - Medication Reconciliation Form, Thank You Letter, Antibiotic Education, Prescription Opioid Use form. - Follow up: Private Physician; When: 1 - 2 days; Reason: Recheck today's complaints, Continuance of care, Re-evaluation by your physician. Follow up: Emergency Department; When: As needed; Reason: Worsening of condition. Signatures: Dispatcher [employer] Ricky Cho, RN RN Javier Chavez MD MD cha Therrien, Shelly, RN RECOVERY-C RN RECOVERY-Csnw Enrique Gonzalez, RN RN bp Corrections: (The following items were deleted from the chart) 03/05 17:23 16:46 03/05/2018 16:46 Discharged to Home. Impression: Lower left leg edema post knee sg surgery. Condition is Stable. Forms are Medication Reconciliation Form, Thank You Letter, Antibiotic Education, Prescription Opioid Use. Follow up: Private Physician; When: 1 - 2 days; Reason: Recheck today's complaints, Continuance of care, Re-evaluation by your physician. Follow up: Emergency Department; When: As needed; Reason: Worsening of condition. snw
--- NOTE | 2018-03-05 16:53 | RAD REPORT ---
EXAM DESCRIPTION: US - Extremity Venous Uni Ltd - 03/05/2018 4:47 pm CLINICAL HISTORY: Leg pain and swelling, recent knee surgery COMPARISON: None. TECHNIQUE: Real-time sonographic evaluation of the left lower extremity deep venous system was perfo rmed. FINDINGS: Normal compressibility, flow augmentation, phasic flow and spontaneous flow are identified in the left lower extremity common femoral, superficial femoral, popliteal and posterior tibial vein s. No intraluminal filling defects seen. IMPRESSION: No DVT in the left lower extremity.
[2018-03-05 17:52] VITALS: TEMP 98.6; O2SAT 99
[2018-03-05 17:53] VITALS: BP 112/82
== END 2018-03-05 17:23 | disposition home or self-care (01) ==
LOC: ER 15:02
DX: R60.0 Localized edema (principal); Z98.890 Other specified postprocedural states; I10 Essential (primary) hypertension; J45.909 Unspecified asthma, uncomplicated; Z88.3 Allergy status to other anti-infective agents; Z88.8 Allergy status to other drugs, medicaments and biological substances
CPT/HCPCS: 93971; 99284

== ENCOUNTER 2018-04-27 15:50 | Emergency (ER) | payer OTHER ==
[2018-04-27] MEDS ORDERED: AZITHROMYCIN 250 MG TAB ONE (16:43)
[2018-04-27] MEDS ORDERED: ALBUTEROL 2.5 MG/3 ML NEB SOL ONE (16:44)
[2018-04-27] MEDS ORDERED: IPRATROPIUM BROM 0.5MG/2.5ML ONE (16:44)
[2018-04-27] MEDS ORDERED: NA CHLORIDE 0.9% 500 ML ONE (16:44)
[2018-04-27] MEDS ORDERED: predniSONE 20 MG TAB ONE (16:44)
[2018-04-27 16:45] LABS: Absolute Monocytes 0.6 K/uL (0.1-1.3); Absolute Neutrophil 7.2 K/uL (1.8-8.0); Hematocrit 39.5 % (36.0-45.0); Lymphocytes % 19.9 % (15.3-44.8); MCH 28.4 pg (27.0-35.0); MCV 82.5 fL (80-100); MPV 8.4 fL (7.6-11.3); Monocytes % 6.3 % (3.3-12.3); RBC Red Blood Cell Count 4.78 M/uL (3.86-4.86)
--- NOTE | 2018-04-27 16:54 | RAD REPORT ---
EXAM DESCRIPTION: RAD - Chest Pa And Lat (2 Views) - 04/27/2018 4:41 pm CLINICAL HISTORY: COUGH Chest pain. COMPARISON: Chest Single View dated 12/21/2017; Chest Pa And Lat (2 Views) dated 03/06/2017; Chest Pa And Lat (2 Views) dated 03/02/2017; Chest Pa And Lat (2 Views) dated 03/01/2017 FINDINGS: The lungs are clear. The heart is normal in size. No displaced fractures. IMPRESSION: No acute or concerning finding suspected.
[2018-04-27 17:05] LABS: ALT/SGPT 42 U/L (12-78); AST/SGOT 33 U/L (15-37); Albumin 3.9 g/dL (3.4-5.0); Alkaline Phosphatase 124 U/L (45-117); BUN Blood Urea Nitrogen 14 mg/dL (7-18); Bicarbonate 27 mmol/L (21-32); Bilirubin Total 0.3 mg/dL (0.2-1.0); Glucose Level 138 mg/dL (74-106); NT PRO-BNP 62 pg/mL (<125); Potassium 3.2 mmol/L (3.5-5.1); Protein, Total 7.2 g/dL (6.4-8.2); Sodium Level 141 mmol/L (136-145); Troponin (Emerg Dept Use Only) < 0.02 ng/mL (0.0-0.045)
--- NOTE | 2018-04-27 18:09 | ER ---
Nurse's Notes [facility] Name: Georgette Daniel Age: 62 yrs Sex: Female : 1955 Arrival Date: 04/27/2018 Time: 15:53 Bed 19 Private MD: Unknown, Unknown Diagnosis: Acute upper respiratory infection, unspecified;Asthma;Streptococcal tonsillitis;Hypokalemia Presentation: 04/27 16:05 Presenting complaint: Patient states: Reports cough, chest congestion and shortness of sg breath for a week, was seen at [facility] with no improvement pt states having a hx of asthma, using albuterol inhaler for shortness of breath. Transition of care: patient was not received from another setting of care. Onset of symptoms was April 27, 2018. Risk Assessment: Do you want to hurt yourself or someone else?. Initial Sepsis Screen: Does the patient meet any 2 criteria? No. Patient's initial sepsis screen is negative. Does the patient have a suspected source of infection? No. Patient's initial sepsis screen is negative. Care prior to arrival: None. 16:05 Method Of Arrival: Ambulatory sg 16:05 Acuity: EVIE 3 sg Historical: - Allergies: 16:07 Abilify; sg 16:07 LITHIUM DERIVITIVES; sg 16:07 Rocephin; sg 16:07 Trileptal; sg - PMHx: 16:07 Asthma; Depression; Diabetes - NIDDM; GERD; Hyperlipidemia; Hypertension; neuropathy; sg - Immunization history:: Adult Immunizations up to date. - Social history:: Smoking status: Patient/guardian denies using tobacco. - Ebola Screening: : Patient negative for fever greater than or equal to 101.5 degrees Fahrenheit, and additional compatible Ebola Virus Disease symptoms Patient denies exposure to infectious person Patient denies travel to an Ebola-affected area in the 21 days before illness onset No symptoms or risks identified at this time. - Family history:: not pertinent. Screenin:50 Abuse screen: Denies threats or abuse. Nutritional screening: No deficits noted. em Tuberculosis screening: No symptoms or risk factors identified. Fall Risk None identified. Assessment: 16:45 General: Appears in no apparent distress. comfortable, Behavior is calm, cooperative, em Denies fever. Pain: Denies pain. Neuro: Level of Consciousness is awake, alert, obeys commands, Oriented to person, place, time, situation, Speech is normal. Cardiovascular: Denies chest pain, Capillary refill < 3 seconds Patient's skin is warm and dry. Respiratory: Reports cough that is productive, Airway is patent Respiratory effort is even, unlabored, Respiratory pattern is regular, symmetrical, Breath sounds are clear bilaterally. GI: Abdomen is round Patient currently denies nausea, vomiting. : No signs and/or symptoms were reported regarding the genitourinary system. EENT: No signs and/or symptoms were reported regarding the EENT system. Derm: Skin is intact, Skin is pink, warm \T\ dry. Musculoskeletal: Range of motion: intact in all extremities. 16:55 Reassessment: I agree with previous assessment. hb 17:50 Reassessment: Patient appears in no apparent distress at this time. Patient and/or em family updated on plan of care and expected duration. Pain level reassessed. Patient is alert, oriented x 3, equal unlabored respirations, skin warm/dry/pink. Patient denies pain at this time. Patient states feeling better. Patient states symptoms have improved. 18:41 Reassessment: Patient appears in no apparent distress at this time. Patient and/or em family updated on plan of care and expected duration. Pain level reassessed. Patient is alert, oriented x 3, equal unlabored respirations, skin warm/dry/pink. Patient denies pain at this time. Patient states feeling better. Vital Signs: 16:04 BP 132 / 86; Pulse 87; Resp 21 S; Temp 98.2; Pulse Ox 97% on R/A; Weight 86.18 kg (R); Height 5 ft. 4 in. (162.56 cm); Pain 0/10; 17:00 BP 138 / 82; Pulse 86; Resp 18; Pulse Ox 99% on R/A; Pain 0/10; em 18:42 BP 119 / 74; Pulse 78; Resp 20; Pulse Ox 99% on R/A; em 16:04 Body Mass Index 32.61 (86.18 kg, 162.56 cm) ED Course: 15:53 Patient arrived in ED. sb2 15:53 Unknown, Unknown is Private Physician. sb2 16:04 Arm band placed on. sg 16:05 Javier Luna MD is Attending Physician. armen 16:06 Triage completed. sg 16:21 Epi Lainez LVN is Primary Nurse. em 16:33 Initial lab(s) drawn, by ut, sent to lab. Flu and/or RSV swab sent to lab. Strep swab 3 sent to lab. Inserted saline lock: 20 gauge in right antecubital area, using aseptic technique. Blood collected. 16:50 Patient has correct armband on for positive identification. Placed in gown. Bed in low em position. Call light in reach. 18:42 No provider procedures requiring assistance completed. IV discontinued, intact, em bleeding controlled, No redness/swelling at site. Pressure dressing applied. Administered Medications: 16:52 Drug: predniSONE 40 mg Route: PO; em 17:13 Follow up: Response: No adverse reaction em 16:52 Drug: Albuterol - atroVENT (3:1) (2.5 mg - 0.5 mg) 3 ml Route: Nebulizer; em 17:14 Follow up: Response: No adverse reaction; Marked relief of symptoms em 16:53 Drug: NS 0.9% 500 ml Route: IV; Rate: bolus; Site: right antecubital; em 16:53 Drug: Zithromax 500 mg Route: PO; em 17:13 Follow up: Response: No adverse reaction em 18:33 Drug: Potassium Effervescent Tablet 25 mEq Route: PO; em 18:42 Follow up: Response: Medication administered at discharge. em Outcome: 18:08 Discharge ordered by . [facility] 18:42 Discharged to home ambulatory. em 18:42 Condition: good 18:42 Discharge instructions given to patient, Instructed on discharge instructions, follow up and referral plans. medication usage, Demonstrated understanding of instructions, follow-up care, medications, Prescriptions given X 5 18:43 Patient left the ED. em Signatures: Ricky Gilliland, RN Javier Sher MD MD cha Munoz, Edgar, LVN LVN em Ave Ramirez, RN Pily Kaufman 3 Cindi Martinez 2
--- NOTE | 2018-04-27 18:09 | EDPHYS ---
Physician Documentation [facility] Name: Georgette Daniel Age: 62 yrs Sex: Female : 1955 Arrival Date: 04/27/2018 Time: 15:53 Bed 19 Private MD: Unknown, Unknown ED Physician Javier Luna HPI: 04/27 16:17 This 62 yrs old Female presents to ER via Ambulatory with complaints of Flu armen Symptoms. 16:15 The patient or guardian reports cough, flu symptoms. Onset: The symptoms/episode armen began/occurred 2 day(s) ago. Severity of symptoms: At their worst the symptoms were mild, in the emergency department the symptoms are unchanged. Modifying factors: The symptoms are alleviated by nothing, the symptoms are aggravated by nothing. Associated signs and symptoms: The patient has no apparent associated signs or symptoms. The patient has not experienced similar symptoms in the past. Historical: - Allergies: 16:07 Abilify; sg 16:07 LITHIUM DERIVITIVES; sg 16:07 Rocephin; sg 16:07 Trileptal; sg - PMHx: 16:07 Asthma; Depression; Diabetes - NIDDM; GERD; Hyperlipidemia; Hypertension; neuropathy; sg - Immunization history:: Adult Immunizations up to date. - Social history:: Smoking status: Patient/guardian denies using tobacco. - Ebola Screening: : Patient negative for fever greater than or equal to 101.5 degrees Fahrenheit, and additional compatible Ebola Virus Disease symptoms Patient denies exposure to infectious person Patient denies travel to an Ebola-affected area in the 21 days before illness onset No symptoms or risks identified at this time. - Family history:: not pertinent. ROS: 16:15 Constitutional: Negative for fever, chills, and weight loss, Eyes: Negative for injury, armen pain, redness, and discharge, ENT: Negative for injury, pain, and discharge, Neck: Negative for injury, pain, and swelling, Cardiovascular: Negative for chest pain, palpitations, and edema, Abdomen/GI: Negative for abdominal pain, nausea, vomiting, diarrhea, and constipation, Back: Negative for injury and pain, : Negative for injury, bleeding, discharge, and swelling, MS/Extremity: Negative for injury and deformity, Skin: Negative for injury, rash, and discoloration, Neuro: Negative for headache, weakness, numbness, tingling, and seizure, Psych: Negative for depression, anxiety, suicide ideation, homicidal ideation, and hallucinations, Allergy/Immunology: Negative for hives, rash, and allergies, Endocrine: Negative for neck swelling, polydipsia, polyuria, polyphagia, and marked weight changes, Hematologic/Lymphatic: Negative for swollen nodes, abnormal bleeding, and unusual bruising. 16:15 Respiratory: Positive for cough, wheezing, expiratory. Exam: 16:15 Constitutional: This is a well developed, well nourished patient who is awake, alert, armen and in no acute distress. Head/Face: Normocephalic, atraumatic. Eyes: Pupils equal round and reactive to light, extra-ocular motions intact. Lids and lashes normal. Conjunctiva and sclera are non-icteric and not injected. Cornea within normal limits. Periorbital areas with no swelling, redness, or edema. ENT: Nares patent. No nasal discharge, no septal abnormalities noted. Tympanic membranes are normal and external auditory canals are clear. Oropharynx with no redness, swelling, or masses, exudates, or evidence of obstruction, uvula midline. Mucous membranes moist. Neck: Trachea midline, no thyromegaly or masses palpated, and no cervical lymphadenopathy. Supple, full range of motion without nuchal rigidity, or vertebral point tenderness. No Meningismus. Chest/axilla: Normal chest wall appearance and motion. Nontender with no deformity. No lesions are appreciated. Cardiovascular: Regular rate and rhythm with a normal S1 and S2. No gallops, murmurs, or rubs. Normal PMI, no JVD. No pulse deficits. Abdomen/GI: Soft, non-tender, with normal bowel sounds. No distension or tympany. No guarding or rebound. No evidence of tenderness throughout. Back: No spinal tenderness. No costovertebral tenderness. Full range of motion. Female : Normal external genitalia. Skin: Warm, dry with normal turgor. Normal color with no rashes, no lesions, and no evidence of cellulitis. MS/ Extremity: Pulses equal, no cyanosis. Neurovascular intact. Full, normal range of motion. Neuro: Awake and alert, GCS 15, oriented to person, place, time, and situation. Cranial nerves II-XII grossly intact. Motor strength 5/5 in all extremities. Sensory grossly intact. Cerebellar exam normal. Normal gait. Psych: Awake, alert, with orientation to person, place and time. Behavior, mood, and affect are within normal limits. 16:15 Respiratory: the patient does not display signs of respiratory distress, Respirations: normal, Breath sounds: rhonchi, wheezing: expiratory 16:15 Musculoskeletal/extremity: DVT Exam: No signs of deep vein thrombosis. no pain, no swelling, no tenderness, negative Homans' sign noted on exam, no appreciated bluish discoloration, no erythema, no increased warmth. Vital Signs: 16:04 BP 132 / 86; Pulse 87; Resp 21 S; Temp 98.2; Pulse Ox 97% on R/A; Weight 86.18 kg (R); sg Height 5 ft. 4 in. (162.56 cm); Pain 0/10; 17:00 BP 138 / 82; Pulse 86; Resp 18; Pulse Ox 99% on R/A; Pain 0/10; em 18:42 BP 119 / 74; Pulse 78; Resp 20; Pulse Ox 99% on R/A; em 16:04 Body Mass Index 32.61 (86.18 kg, 162.56 cm) MDM: 16:05 Patient medically screened. [facility] 16:17 Data reviewed: vital signs, nurses notes, lab test result(s), EKG, radiologic studies, [facility] plain films. 04/27 16:11 Order name: CBC with Diff [facility] 04/27 16:15 Order name: Comprehensive Metabolic Panel [facility] 04/27 16:15 Order name: Troponin (emerg Dept Use Only) [facility] 04/27 16:15 Order name: Flu [facility] 04/27 16:18 Order name: BNP [facility] 04/27 16:38 Order name: Strep dh3 04/27 16:15 Order name: Chest Pa And Lat (2 Views) XRAY [facility] 04/27 16:47 Order name: CBC with Automated Diff; Complete Time: 18:06 [facility]FL 04/27 16:54 Order name: RAD; Complete Time: 18:06 EDFL 04/27 16:57 Order name: Group A Streptococcus Rapid Sc; Complete Time: 18:06 [facility]FL 04/27 16:58 Order name: Influenza Screen (A ; Complete Time: 18:06 EDMS 04/27 17:05 Order name: Comprehensive Metabolic Panel; Complete Time: 18:06 [facility]FL 04/27 17:05 Order name: Troponin (Emerg Dept Use Only); Complete Time: 18:06 [facility] 04/27 17:05 Order name: NT PRO-BNP; Complete Time: 18:06 [facility] 04/27 16:15 Order name: EKG; Complete Time: 16:22 [facility] 04/27 16:15 Order name: EKG - Nurse/Tech; Complete Time: 17:20 [facility] 04/27 18:07 Order name: PO challenge: juice; Complete Time: 18:24 [facility] Administered Medications: 16:52 Drug: predniSONE 40 mg Route: PO; em 17:13 Follow up: Response: No adverse reaction em 16:52 Drug: Albuterol - atroVENT (3:1) (2.5 mg - 0.5 mg) 3 ml Route: Nebulizer; em 17:14 Follow up: Response: No adverse reaction; Marked relief of symptoms em 16:53 Drug: NS 0.9% 500 ml Route: IV; Rate: bolus; Site: right antecubital; em 16:53 Drug: Zithromax 500 mg Route: PO; em 17:13 Follow up: Response: No adverse reaction em 18:33 Drug: Potassium Effervescent Tablet 25 mEq Route: PO; em 18:42 Follow up: Response: Medication administered at discharge. em Disposition: 04/27/18 18:08 Discharged to Home. Impression: Acute upper respiratory infection, unspecified, Asthma, Streptococcal tonsillitis, Hypokalemia. - Condition is Stable. - Discharge Instructions: Potassium Content of Foods, Strep Throat, Upper Respiratory Infection, Adult, Cool Mist Vaporizer, Strep Throat, [id number], Asthma, Adult, [id number], Cough, Adult, Hypokalemia. - Prescriptions for Medrol (Sarath) 4 mg Oral Tablets, Dose Pack - take 1 tablet by ORAL route as directed - follow package instructions; 1 packet. Prednisone 20 mg Oral Tablet - take 2 tablet by ORAL route once daily for 5 days; 10 tablet. Albuterol Sulfate 90 mcg/actuation - inhale 1-2 puff by INHALATION route every 4-6 hours; 1 Inhaler. Zithromax 500 mg Oral Tablet - take 1 tablet by ORAL route once daily for 5 days; 5 tablet. Cheratussin AC 10- 100 mg/5 mL Oral liquid - take 10 milliliter by ORAL route every 4 hours; 160 milliliter. - Medication Reconciliation Form, Thank You Letter, Antibiotic Education, Prescription Opioid Use form. - Follow up: Private Physician; When: 2 - 3 days; Reason: Recheck today's complaints, Continuance of care, Re-evaluation by your physician. - Problem is new. - Symptoms have improved. Signatures: Dispatcher [employer] Ricky Cho RN RN sg Anderson, Corey, MD MD cha Munoz, Edgar, ACETYLENE CUTTER ACETYLENE CUTTER em Corrections: (The following items were deleted from the chart) 18:43 18:08 04/27/2018 18:08 Discharged to Home. Impression: Acute upper respiratory em infection, unspecified; Asthma; Streptococcal tonsillitis; Hypokalemia. Condition is Stable. Discharge Instructions: Upper Respiratory Infection, Adult, Cool Mist Vaporizer, Asthma, Adult, [id number], Cough, Adult. Prescriptions for Zithromax Z-Sarath 250 mg Oral Tablet - take 1 tablet by ORAL route as directed for 5 days Day 1 - take two (2) tablets one time. Day 2, 3, 4 , 5 take one (1) tablet once daily.; 6 tablet, Medrol (Sarath) 4 mg Oral Tablets, Dose Pack - take 1 tablet by ORAL route as directed - follow package instructions; 1 packet, Prednisone 20 mg Oral Tablet - take 2 tablet by ORAL route once daily for 5 days; 10 tablet, Albuterol Sulfate 90 mcg/actuation - inhale 1-2 puff by INHALATION route every 4-6 hours; 1 Inhaler. and Forms are Medication Reconciliation Form, Thank You Letter, Antibiotic Education, Prescription Opioid Use. Follow up: Private Physician; When: 2 - 3 days; Reason: Recheck today's complaints, Continuance of care, Re-evaluation by your physician. Problem is new. Symptoms have improved. armen
[2018-04-27] MEDS ORDERED: POTASSIUM 25 MEQ EFFERV TAB ONE (18:34)
[2018-04-27 18:58] VITALS: TEMP 98.2
[2018-04-27 18:59] VITALS: O2SAT 99
[2018-04-27 19:01] VITALS: BP 119/74
--- NOTE | 2018-04-28 06:17 | EKG ---
Test Date: 2018-04-27 Test Time: 17:01:02 Cable Splicing Technician: YOUNG MEASUREMENT RESULTS: Intervals: Rate: 87 IA: 182 QRSD: 98 QT: 382 QTc: 459 [place]: P: 33 IA: 182 QRS: -23 T: 55 INTERPRETIVE STATEMENTS: Normal sinus rhythm Nonspecific T wave abnormality Abnormal ECG Compared to ECG 12/21/2017 17:39:00 T-wave abnormality now present ST (T wave) deviation no longer present Electronically Signed On 04-28-18 06:16:31 SNUBBER by Gilberto Bob
== END 2018-04-27 18:43 | disposition home or self-care (01) ==
LOC: ER 15:50
DX: J06.9 Acute upper respiratory infection, unspecified (principal); J45.909 Unspecified asthma, uncomplicated; J03.00 Acute streptococcal tonsillitis, unspecified; E87.6 Hypokalemia
CPT/HCPCS: 36415; 71046; 80053; 83880; 84484; 85025; 87081; 87804; 93005; 94640; 99284; J7512

== ENCOUNTER 2018-05-11 18:12 | Emergency (ER) | payer OTHER ==
--- NOTE | 2018-05-11 19:55 | ER ---
Nurse's Notes [facility] Name: Georgette Daniel Age: 62 yrs Sex: Female : 1955 Arrival Date: 05/11/2018 Time: 18:15 Bed 14 Private MD: Unknown, Unknown Diagnosis: ECCHYMOSIS ON LEFT FOOT Presentation: 05/11 18:33 Presenting complaint: Patient states: She believes that she has a blood clot in her aj1 left foot because her left leg is swollen and she has a bruise on the top of her foot. Patient states that she also wants her lips checked out because they are crusted, states that it happened right after she had a fluoride treatment at the dentist. States that she's tried putting vasoline on it but it isn't helping. Transition of care: patient was not received from another setting of care. Onset of symptoms was April 2018. Risk Assessment: Do you want to hurt yourself or someone else? Patient reports no desire to harm self or others. Initial Sepsis Screen: Does the patient meet any 2 criteria? HR > 90 bpm. No. Patient's initial sepsis screen is negative. Does the patient have a suspected source of infection? No. Patient's initial sepsis screen is negative. Care prior to arrival: None. 18:33 Method Of Arrival: Ambulatory aj1 18:33 Acuity: EVIE 3 aj1 Triage Assessment: 18:39 General: Appears in no apparent distress. comfortable, Behavior is calm, cooperative, aj1 appropriate for age. Pain: Complains of pain in mouth Pain currently is 6 out of 10 on a pain scale. Neuro: Level of Consciousness is awake, alert, obeys commands, Oriented to person, place, time, situation. Cardiovascular: Patient's skin is warm and dry. Respiratory: Airway is patent Respiratory effort is even, unlabored, Respiratory pattern is regular, symmetrical. Historical: - Allergies: 18:39 Rocephin; aj1 18:39 Abilify; aj1 18:39 LITHIUM DERIVITIVES; aj1 18:39 Trileptal; aj1 - Home Meds: 18:39 albuterol sulfate inhalation Inhl [Active]; Dexilant 30 mg Oral CpDB 1 cap once daily aj1 [Active]; gabapentin 300 mg Oral cap [Active]; gemfibrozil 600 mg Oral tab 1 tab 2 times per day [Active]; Hyzaar 50-12.5 mg Oral tab 1 tab once daily [Active]; losartan 25 mg Oral tab 1 tab once daily [Active]; losartan-hydrochlorothiazide 50-12.5 mg Oral tab 1 tab once daily [Active]; lovastatin 20 mg Oral tab 1 tab once daily [Active]; promethazine-DM 6.25-15 mg/5 mL Oral syrp 5 mL every 6 hours [Active]; Symbicort 80-4.5 mcg/actuation inhalation HFAA 2 puffs 2 times per day [Active]; Zyrtec 10 mg Oral tab once daily [Active]; - PMHx: 18:39 Asthma; Depression; Diabetes - NIDDM; GERD; Hyperlipidemia; Hypertension; neuropathy; aj1 - Immunization history:: Flu vaccine is up to date. - Social history:: Smoking status: Patient/guardian denies using tobacco. - Ebola Screening: : Patient denies travel to an Ebola-affected area in the 21 days before illness onset. Screenin:05 Abuse screen: Denies threats or abuse. Nutritional screening: No deficits noted. jb4 Tuberculosis screening: No symptoms or risk factors identified. Fall Risk None identified. Assessment: 19:05 General: Appears in no apparent distress. comfortable, Behavior is calm, cooperative, jb4 appropriate for age. Pain: Complains of pain in left foot and mouth Pain does not radiate. Pain currently is 4 out of 10 on a pain scale. at worst was 8 out of 10 on a pain scale. Neuro: Level of Consciousness is awake, alert, obeys commands, Oriented to person, place, time, situation. Cardiovascular: Patient's skin is warm and dry. Pulses are 3+ in right dorsalis pedis artery and left dorsalis pedis artery. Respiratory: Airway is patent Respiratory effort is even, unlabored, Respiratory pattern is regular, symmetrical. GI: No signs and/or symptoms were reported involving the gastrointestinal system. : No signs and/or symptoms were reported regarding the genitourinary system. EENT:. Derm: Skin is intact, Skin is pink, warm \T\ dry. Post surgical scar noted to the left knee. Musculoskeletal: Circulation, motion, and sensation intact. Capillary refill < 3 seconds, in bilateral toes. Range of motion: intact in all extremities, Swelling present in left leg. 19:59 Reassessment: Patient appears in no apparent distress at this time. Patient and/or jb4 family updated on plan of care and expected duration. Pain level reassessed. Patient is alert, oriented x 3, equal unlabored respirations, skin warm/dry/pink. Discussed D/c, F/u with pt and pt's family, denies questions or concerns. Vital Signs: 18:39 BP 145 / 95; Pulse 94; Resp 18; Temp 98.6; Pulse Ox 95% on R/A; Weight 86.18 kg (R); aj1 Height 5 ft. 4 in. (162.56 cm) (R); 19:05 BP 134 / 87; Pulse 86; Resp 16; Pulse Ox 99% on R/A; jb4 19:45 BP 125 / 82; Pulse 88 RA; Resp 16; Pulse Ox 99% ; jb4 18:39 Body Mass Index 32.61 (86.18 kg, 162.56 cm) aj1 ED Course: 18:15 Patient arrived in ED. sb2 18:16 Unknown, Unknown is Private Physician. sb2 18:23 Triage completed. aj1 18:39 Arm band placed on Patient placed in an exam room. aj1 19:00 Patient has correct armband on for positive identification. Bed in low position. Call jb4 light in reach. Side rails up X 1. Pulse ox on. NIBP on. 19:06 Mell Louis FNP-C is PHCP. snw 19:06 Michael Lozano MD is Attending Physician. snw 19:19 Corey Snider, RN is Primary Nurse. jb4 19:39 Ultrasound completed. Patient tolerated well. sg3 19:39 Extremity Venous Uni Ltd US In Process Unspecified. EDMS 20:01 No provider procedures requiring assistance completed. Patient did not have IV access jb4 during this emergency room visit. Administered Medications: No medications were administered Outcome: 19:54 Discharge ordered by . snw 20:01 Discharged to home ambulatory. jb4 20:01 Condition: stable 20:01 Discharge instructions given to patient, family, Instructed on discharge instructions, follow up and referral plans. Demonstrated understanding of instructions, follow-up care. 20:02 Patient left the ED. jb4 Signatures: Dispatcher [facility] Anastasiia Delong RN RN aj1 Mell Louis, EDUCATIONAL ADVISOR-C EDUCATIONAL ADVISOR-Csnw Corey Snider, RN RN jb4 Mikayla Silverio sg3 Cindi Martinez sb2 Corrections: (The following items were deleted from the chart) 18:19 Presenting complaint: Patient states: Left sided chest pain for the past 6 and a aj1 half hours that has been intermittent. Pain does not radiate. Denies dizziness, palpitations. Also reports SOB [facility] 18:19 Transition of care: patient was not received from another setting of care. [place] [id number] 18:19 Onset of symptoms was May 11, 2018 at 12:00 [place] [id number] 18:19 Risk Assessment: Do you want to hurt yourself or someone else? Patient reports no [facility] desire to harm self or others. [facility] 18: Initial Sepsis Screen: Does the patient meet any 2 criteria? No. Patient's [facility] initial sepsis screen is negative. Does the patient have a suspected source of infection? No. Patient's initial sepsis screen is negative. [facility] 18:19 Care prior to arrival: None. [place] [id number] 18:19 Method Of Arrival: Ambulatory [place] [id number] 18:19 Acuity: EVIE 3 [place] [id number]
--- NOTE | 2018-05-11 19:55 | EDPHYS ---
Physician Documentation [facility] Name: Georgette Daniel Age: 62 yrs Sex: Female : 1955 Arrival Date: 05/11/2018 Time: 18:15 Bed 14 Private MD: Unknown, Unknown ED Physician Michael Lozano HPI: 05/11 19:58 This 62 yrs old Female presents to ER via Ambulatory with complaints of FOOT snw PROBLEM, MOUTH PROBLEM, HAND PROBLEM. 19:58 Onset: The symptoms/episode began/occurred yesterday. Associated signs and symptoms: snw Pertinent positives: The patient does not have any pertinent positive signs or symptoms associated with pediatric illness. Modifying factors: The patient symptoms are alleviated by nothing. The patient has experienced a previous episode. The patient has been recently seen by a physician: given inhaler, refuses to use it. Historical: - Allergies: 18:39 Rocephin; aj1 18:39 Abilify; aj1 18:39 LITHIUM DERIVITIVES; aj1 18:39 Trileptal; aj1 - Home Meds: 18:39 albuterol sulfate inhalation Inhl [Active]; Dexilant 30 mg Oral CpDB 1 cap once daily aj1 [Active]; gabapentin 300 mg Oral cap [Active]; gemfibrozil 600 mg Oral tab 1 tab 2 times per day [Active]; Hyzaar 50-12.5 mg Oral tab 1 tab once daily [Active]; losartan 25 mg Oral tab 1 tab once daily [Active]; losartan-hydrochlorothiazide 50-12.5 mg Oral tab 1 tab once daily [Active]; lovastatin 20 mg Oral tab 1 tab once daily [Active]; promethazine-DM 6.25-15 mg/5 mL Oral syrp 5 mL every 6 hours [Active]; Symbicort 80-4.5 mcg/actuation inhalation HFAA 2 puffs 2 times per day [Active]; Zyrtec 10 mg Oral tab once daily [Active]; - PMHx: 18:39 Asthma; Depression; Diabetes - NIDDM; GERD; Hyperlipidemia; Hypertension; neuropathy; aj1 - Immunization history:: Flu vaccine is up to date. - Social history:: Smoking status: Patient/guardian denies using tobacco. - Ebola Screening: : Patient denies travel to an Ebola-affected area in the 21 days before illness onset. ROS: 19:56 Eyes: Negative for injury, pain, redness, and discharge, ENT: Negative for injury, snw pain, and discharge, Neck: Negative for injury, pain, and swelling, Cardiovascular: Negative for chest pain, palpitations, and edema, Respiratory: Negative for shortness of breath, cough, wheezing, and pleuritic chest pain, Abdomen/GI: Negative for abdominal pain, nausea, vomiting, diarrhea, and constipation, Back: Negative for injury and pain, : Negative for injury, bleeding, discharge, and swelling, Skin: Negative for injury, rash, and discoloration, Neuro: Negative for headache, weakness, numbness, tingling, and seizure. 19:56 Constitutional: Positive for blue area to dorsum of left foot, crusting to lips s/p starting inhaler. 19:56 MS/extremity: Positive for concern for blood clot s/p knee surgery in December. Exam: 19:54 Constitutional: This is a well developed, well nourished patient who is awake, alert, snw and in no acute distress. Head/Face: Normocephalic, atraumatic. Eyes: Pupils equal round and reactive to light, extra-ocular motions intact. Lids and lashes normal. Conjunctiva and sclera are non-icteric and not injected. Cornea within normal limits. Periorbital areas with no swelling, redness, or edema. Neck: Trachea midline, no thyromegaly or masses palpated, and no cervical lymphadenopathy. Supple, full range of motion without nuchal rigidity, or vertebral point tenderness. No Meningismus. Chest/axilla: Normal chest wall appearance and motion. Nontender with no deformity. No lesions are appreciated. Cardiovascular: Regular rate and rhythm with a normal S1 and S2. No gallops, murmurs, or rubs. Normal PMI, no JVD. No pulse deficits. Respiratory: Lungs have equal breath sounds bilaterally, clear to auscultation and percussion. No rales, rhonchi or wheezes noted. No increased work of breathing, no retractions or nasal flaring. Abdomen/GI: Soft, non-tender, with normal bowel sounds. No distension or tympany. No guarding or rebound. No evidence of tenderness throughout. Back: No spinal tenderness. No costovertebral tenderness. Full range of motion. MS/ Extremity: Pulses equal, no cyanosis. Neurovascular intact. Full, normal range of motion. Neuro: Awake and alert, GCS 15, oriented to person, place, time, and situation. Cranial nerves II-XII grossly intact. Motor strength 5/5 in all extremities. Sensory grossly intact. Cerebellar exam normal. Normal gait. Psych: Awake, alert, with orientation to person, place and time. Behavior, mood, and affect are within normal limits. 19:54 ENT: Nares patent. No nasal discharge, no septal abnormalities noted. Tympanic membranes are normal and external auditory canals are clear. Oropharynx with no redness, swelling, or masses, exudates, or evidence of obstruction, uvula midline. Mucous membranes moist. Crusting noted to lips 19:54 Skin: Appearance: normal except for affected area, injury, contusion(s), that are superficial, of the dorsum of left foot. Vital Signs: 18:39 BP 145 / 95; Pulse 94; Resp 18; Temp 98.6; Pulse Ox 95% on R/A; Weight 86.18 kg (R); aj1 Height 5 ft. 4 in. (162.56 cm) (R); 19:05 BP 134 / 87; Pulse 86; Resp 16; Pulse Ox 99% on R/A; jb4 19:45 BP 125 / 82; Pulse 88 RA; Resp 16; Pulse Ox 99% ; jb4 18:39 Body Mass Index 32.61 (86.18 kg, 162.56 cm) aj1 MDM: 19:43 Patient medically screened. snw 19:56 Data reviewed: vital signs, nurses notes. Data interpreted: Pulse oximetry: on room air snw is 99 %. Interpretation: normal. Counseling: I had a detailed discussion with the patient and/or guardian regarding: the historical points, exam findings, and any diagnostic results supporting the discharge/admit diagnosis, the presence of at least one elevated blood pressure reading (>120/80) during this emergency department visit, the need for outpatient follow up, for definitive care, to return to the emergency department if symptoms worsen or persist or if there are any questions or concerns that arise at home. Special discussion: I have referred the patient to see his PCP for further evaluation of high blood pressure. Based on the history and exam findings, there is no indication for further emergent testing or inpatient evaluation. I discussed with the patient/guardian the need to see the primary care provider for further evaluation of the symptoms. 05/11 19:07 Order name: Extremity Venous Uni Ltd US snw Administered Medications: No medications were administered Disposition: 05/12 07:49 Co-signature as Attending Physician, Michael Lozano MD. Disposition: 05/11/18 19:54 Discharged to Home. Impression: ECCHYMOSIS ON LEFT FOOT. - Condition is Stable. - Discharge Instructions: Contusion. - Medication Reconciliation Form, Thank You Letter, Antibiotic Education, Prescription Opioid Use form. - Follow up: Private Physician; When: 2 - 3 days; Reason: Recheck today's complaints, Continuance of care, Re-evaluation by your physician. Follow up: Emergency Department; When: As needed; Reason: Worsening of condition. Signatures: Dispatcher [employer] EDAnastasiia Medina RN RN aj1 Mell Louis, WEB MACHINE TENDER-C WEB MACHINE TENDER-Csnw Corey Snider RN RN jb4 Michael Lozano MD MD Corrections: (The following items were deleted from the chart) 05/11 20:02 19:54 05/11/2018 19:54 Discharged to Home. Impression: ECCHYMOSIS ON LEFT FOOT. jb4 Condition is Stable. Forms are Medication Reconciliation Form, Thank You Letter, Antibiotic Education, Prescription Opioid Use. Follow up: Private Physician; When: 2 - 3 days; Reason: Recheck today's complaints, Continuance of care, Re-evaluation by your physician. Follow up: Emergency Department; When: As needed; Reason: Worsening of condition. snw
--- NOTE | 2018-05-11 20:06 | RAD REPORT ---
EXAM DESCRIPTION: USExtremity Venous Uni Ltd05/11/2018 7:42 pm CLINICAL HISTORY: left leg pain and swelling. COMPARISON: February 2018 FINDINGS: Left common femoral, superficial femoral, popliteal and posterior tibial veins are compre ssible and demonstrate augmentation. Doppler demonstrates good flow. IMPRESSION: No evidence of deep venous thrombosis involving the left lower extremity.
[2018-05-11 20:15] VITALS: TEMP 98.6
[2018-05-11 20:16] VITALS: O2SAT 99
[2018-05-11 20:17] VITALS: BP 125/82
== END 2018-05-11 20:02 | disposition home or self-care (01) ==
LOC: ER 18:12
DX: S90.32XA Contusion of left foot, initial encounter (principal); I10 Essential (primary) hypertension; E11.9 Type 2 diabetes mellitus without complications; F32.9 Major depressive disorder, single episode, unspecified; J45.909 Unspecified asthma, uncomplicated; Z88.3 Allergy status to other anti-infective agents; Z88.8 Allergy status to other drugs, medicaments and biological substances
CPT/HCPCS: 93971; 99283

== ENCOUNTER 2018-07-09 13:37 | Emergency (ER) | payer OTHER ==
--- OUTSIDE RECORDS SUMMARY | 2018-07-09 13:42 | XMS REPORT ---
:1955 [facility] [address] [place] [address] Care Team Providers Name Role Phone Unavailable Unavailable Unavailable Problems This patient has no known problems. Allergies, Adverse Reactions, Alerts This patient has no known allergies or adverse reactions. Medications This patient has no known medications.
[2018-07-09] MEDS ORDERED: HYDROCODONE/APAP 5/325 MG TAB ONE (15:26)
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
[2018-07-09 16:25] VITALS: TEMP 98.2
[2018-07-09 16:29] VITALS: BP 114/79; O2SAT 100
== END 2018-07-09 16:07 | disposition home or self-care (01) ==
LOC: ER 13:37
DX: S13.4XXA Sprain of ligaments of cervical spine, initial encounter (principal); V49.40XA Driver injured in collision with unspecified motor vehicles in traffic accident, initial encounter; Z88.1 Allergy status to other antibiotic agents; Z88.8 Allergy status to other drugs, medicaments and biological substances
CPT/HCPCS: 72125; 99284

== ENCOUNTER 2018-09-28 22:46 | Emergency (ER) | payer OTHER ==
--- OUTSIDE RECORDS SUMMARY | 2018-09-28 22:48 | XMS REPORT ---
:1955 [facility] [address] [place] [address] Care Team Providers Name Role Phone Unavailable Unavailable Unavailable Problems This patient has no known problems. Allergies, Adverse Reactions, Alerts This patient has no known allergies or adverse reactions. Medications This patient has no known medications.
[2018-09-29] MEDS ORDERED: CODEINE 30MG/APAP 300MG TAB ONE (00:51)
[2018-09-29] MEDS ORDERED: IBUPROFEN 200 MG TAB PO ONE (00:51)
[2018-09-29] MEDS ORDERED: IBUPROFEN 400 MG TAB ONE (00:51)
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
--- NOTE | 2018-09-29 01:59 | ER ---
Nurse's Notes [facility] Name: Georgette Daniel Age: 62 yrs Sex: Female : 1955 Arrival Date: 09/28/2018 Time: 22:52 Bed 20 Private MD: Diagnosis: Pain in left knee Presentation: 09/28 22:57 Presenting complaint: Patient states: My left knee is swelling. I had it replaced in ed1 December with Dr. Cartagena. Transition of care: patient was not received from another setting of care. Onset of symptoms was September 28, 2018. Risk Assessment: Do you want to hurt yourself or someone else? Patient reports no desire to harm self or others. Initial Sepsis Screen: Does the patient meet any 2 criteria? No. Patient's initial sepsis screen is negative. Does the patient have a suspected source of infection? No. Patient's initial sepsis screen is negative. Care prior to arrival: None. 22:57 Method Of Arrival: Ambulatory ed1 22:57 Acuity: EIVE 4 ed1 Triage Assessment: 23:00 General: Appears in no apparent distress. Behavior is calm, cooperative. Pain: ed1 Complains of pain in left knee Pain currently is 7 out of 10 on a pain scale. Historical: - Allergies: 23:00 Abilify; ed1 23:00 LITHIUM DERIVITIVES; ed1 23:00 Rocephin; ed1 23:00 Trileptal; ed1 - Home Meds: 23:00 Dexilant 30 mg Oral CpDB 1 cap once daily [Active]; gabapentin 300 mg Oral cap ed1 [Active]; gemfibrozil 600 mg Oral tab 1 tab 2 times per day [Active]; Hyzaar 50-12.5 mg Oral tab 1 tab once daily [Active]; losartan 25 mg Oral tab 1 tab once daily [Active]; losartan-hydrochlorothiazide 50-12.5 mg Oral tab 1 tab once daily [Active]; lovastatin 20 mg Oral tab 1 tab once daily [Active]; - PMHx: 23:00 Asthma; Depression; Diabetes - NIDDM; Hyperlipidemia; GERD; neuropathy; Hypertension; ed1 - PSHx: 23:00 Knee surgery; foot surgery X6; Cholecystectomy; Hysterectomy; Tonsillectomy; ed1 - Immunization history:: Adult Immunizations up to date. - Social history:: Smoking status: Patient/guardian denies using tobacco. - Ebola Screening: : Patient negative for fever greater than or equal to 101.5 degrees Fahrenheit, and additional compatible Ebola Virus Disease symptoms Patient denies exposure to infectious person Patient denies travel to an Ebola-affected area in the 21 days before illness onset No symptoms or risks identified at this time. Screenin/05 01:17 Abuse screen: Denies threats or abuse. Denies injuries from another. Nutritional wh screening: No deficits noted. Tuberculosis screening: No symptoms or risk factors identified. Fall Risk None identified. Assessment: 01:15 Reassessment:. General: Appears in no apparent distress. comfortable, Behavior is calm, wh cooperative, appropriate for age. Pain: Complains of pain in left knee Pain does not radiate. Pain currently is 7 out of 10 on a pain scale. Quality of pain is described as aching, Pain began 1 day ago. Is intermittent, Aggravated by weight bearing. Neuro: Level of Consciousness is awake, alert, obeys commands, Oriented to person, place, time, situation, Heel Seat Fitter Machine are equal bilaterally. Cardiovascular: Capillary refill < 3 seconds Pulses are all present. Respiratory: Airway is patent Respiratory effort is even, unlabored, Respiratory pattern is regular, symmetrical. GI: Abdomen is flat, non-distended. : No signs and/or symptoms were reported regarding the genitourinary system. EENT: No signs and/or symptoms were reported regarding the EENT system. Derm: Skin is intact, is healthy with good turgor, Skin is pink, warm \T\ dry. normal. Musculoskeletal: Range of motion: intact in all extremities, Swelling present in left knee. 02:23 Reassessment: Patient appears in no apparent distress at this time. Patient and/or wh family updated on plan of care and expected duration. Pain level reassessed. Patient is alert, oriented x 3, equal unlabored respirations, skin warm/dry/pink. Patient states feeling better. Vital Signs: 09/28 23:00 BP 135 / 95; Pulse 99; Resp 18; Temp 97.2(TE); Pulse Ox 96% on R/A; Weight 86.18 kg; ed1 Height 5 ft. 4 in. (162.56 cm); Pain 7/10; 09/29 01:18 BP 132 / 77; Pulse 76; Resp 17; Temp 98.4; Pulse Ox 97% on R/A; 09/28 23:00 Body Mass Index 32.61 (86.18 kg, 162.56 cm) ed1 ED Course: 09/28 22:52 Patient arrived in ED. es 22:58 Triage completed. ed1 23:00 Arm band placed on right wrist. ed1 05 00:17 Renzo Aguilar is Primary Nurse. 00:20 López Nieves NP is PHCP. pm1 00:20 Perez Hendricks MD is Attending Physician. pm1 00:44 XRAY Knee LEFT 3 view In Process Unspecified. EDMS 01:18 Patient has correct armband on for positive identification. Bed in low position. Call light in reach. Side rails up X 1. Pulse ox on. NIBP on. 01:18 No provider procedures requiring assistance completed. 02:24 Patient did not have IV access during this emergency room visit. Administered Medications: 00:40 Drug: Ibuprofen 600 mg Route: PO; 02:24 Follow up: Response: No adverse reaction 00:40 Drug: Tylenol #3 (300 mg-30 mg) 2 tabs Route: PO; 02:24 Follow up: Response: No adverse reaction Outcome: 01:58 Discharge ordered by . pm1 02:23 Discharged to home ambulatory. 02:23 Condition: good 02:23 Discharge instructions given to patient, Instructed on discharge instructions, follow up and referral plans. no driving heavy equipment, medication usage, POC Knee Pain Demonstrated understanding of instructions, follow-up care, medications, POC Prescriptions given X 1. 02:25 Patient left the ED. Signatures: Dispatcher [employer] EDMS Sunitha Ni Erika RN RN ed1 López Nieves NP LIME KILN TENDER pm1 Renzo Aguilar
[2018-09-29 03:01] VITALS: BP 132/77; TEMP 98.4; O2SAT 97
--- NOTE | 2018-09-29 09:04 | RAD REPORT ---
EXAM DESCRIPTION: RAD - Knee Left 3 View - 09/29/2018 12:44 am CLINICAL HISTORY: Left knee pain and swelling COMPARISON: None. FINDINGS: No fracture, dislocation or periosteal reaction.No measurable joint effusion. There is mil d edema in the subcutaneous fatty tissues anterior to the knee. Baseline for the patient is not known . Total knee prosthesis is in place. No radiographic evidence for loosening. No air or foreign body i dentified. IMPRESSION: No acute bone or joint finding identified. No radiographic evidence for loosening of the knee prosthesis. Subcutaneous fatty tissues anterior the knee are mildly edematous with the baseline for the patient u nknown. No air or foreign body in the soft tissues.
== END 2018-09-29 02:25 | disposition home or self-care (01) ==
LOC: ER 22:46
DX: M25.562 Pain in left knee (principal); E11.9 Type 2 diabetes mellitus without complications; E78.5 Hyperlipidemia, unspecified; I10 Essential (primary) hypertension; Z88.1 Allergy status to other antibiotic agents; Z88.8 Allergy status to other drugs, medicaments and biological substances
CPT/HCPCS: 99284

== ENCOUNTER 2019-02-12 18:28 | Emergency (ER) | payer OTHER ==
--- OUTSIDE RECORDS SUMMARY | 2019-02-12 18:31 | XMS REPORT ---
:1955 [facility] Address [address] [place] [address] [address] [place] [id number] Care Team Providers Name Role Phone Unavailable Unavailable Unavailable Problems This patient has no known problems. Allergies, Adverse Reactions, Alerts This patient has no known allergies or adverse reactions. Medications This patient has no known medications.
--- OUTSIDE RECORDS SUMMARY | 2019-02-12 18:31 | XMS REPORT | Summary of Care ---
:1955 Demographics Address [address] [place] [address] Mobile Phone Home Phone Phone Phone Preferred Language Icelandic Marital Status Religion Affiliation Unknown Race White Ethnic Group Not or Author Organization [facility] - Health Address [address] [place] [address] Care Team Providers Name Role Phone Johnson Sainz [facility], [facility] Consulting Physician [phone] Emily Baptiste Primary Care Provider Encounter Details Date Type Department Care Team Description 01/17/2019 Orders Only [facility] Doctor Unassigned, No [address] [facility] [place] [address] [address] [place] [address] Allergies Active Allergy Reactions Severity Noted Date Comments Aripiprazole Other - See comments 01/10/2018 dystonia [place] Other - See comments 06/18/2017 [place] poisoning Ceftriaxone Other - See comments 03/05/2017 headache Oxcarbazepine Rash 06/18/2017 documented as of this encounter (statuses as of 01/17/2019) Medications Medication Sig Dispensed Refills Start Date End Date Status omeprazole 20 mg Take 20 mg by 0 Active capsule mouth daily. solifenacin (VESICARE) Take 1 tablet by 90 tablet 1 01/31/2018 Active 5 mg tabletIndications: mouth daily. Overactive bladder metformin ER 500 mg 24 Take 1 tablet by 90 tablet 1 01/31/2018 Active hr tabletIndications: mouth daily with Type 2 diabetes breakfast. mellitus without complication, without long-term current use of insulin amLODIPine 10 mg TAKE 1 TABLET 90 tablet 1 01/31/2018 Active tabletIndications: EVERY DAY Essential hypertension atorvastatin 10 mg Take 10 mg by 0 Active tablet mouth at bedtime. lancets (ONETOUCH Use as directed, 100 Each 0 11/26/2018 Active DELICA LANCETS) 30 once a day and gauge MiscIndications: prn to monitor Type 2 diabetes blood glucose for mellitus without ICD code E11.9 complication, without long-term current use of insulin losartan 50 mg Take 1 tablet by 90 tablet 0 12/03/2018 Active tabletIndications: mouth daily. Essential hypertension blood sugar diagnostic Use as directed, 100 Strip 0 12/10/2018 Active (ONETOUCH ULTRA BLUE once a day to TEST STRIP) monitor blood stripIndications: Type glucose for ICD 2 diabetes mellitus code E11.9 without complication, without long-term current use of insulin Blood-Glucose Meter Use as directed, 1 Kit 0 12/10/2018 Active (ONETOUCH ULTRA2 METER) once a day to KitIndications: Type 2 monitor blood diabetes mellitus glucose for ICD without complication, code E11.9 without long-term current use of insulin documented as of this encounter (statuses as of 01/17/2019) Active Problems Problem Noted Date Knee internal derangement, right 08/12/2018 Overview: Added automatically from request for surgery [id number] Overactive bladder 01/31/2018 Hyperlipidemia, unspecified hyperlipidemia type 01/31/2018 Essential hypertension 01/31/2018 Elevated liver enzymes 01/31/2018 Type 2 diabetes mellitus without complication, without long-term current 01/31 use of insulin Anemia, unspecified type 01/31/2018 Obesity (BMI 30-39.9) 01/16/2018 Well woman exam with routine gynecological exam 03/05/2017 documented as of this encounter (statuses as of 01/17/2019) Immunizations Name Administration Dates Next Due Influenza Virus Vaccine Quad IM 3+ YRS 03/05/2017 Tdap 03/05/2017 documented as of this encounter Social History Tobacco Use Types Packs/Day Years Used Date Never Smoker Smokeless Tobacco: Never Used Alcohol Use Drinks/Week oz/Week Comments No 0 Standard drinks or equivalent 0.0 Sex Assigned at Date Recorded Not on file Job Start Date Occupation Industry Not on file Not on file Not on file Travel History Travel Start Travel End No recent travel history available. documented as of this encounter Last Filed Vital Signs Not on filedocumented in this encounter Plan of Treatment Date Type Specialty Care Team Description 01/17/2019 Hospital Encounter Vascular Sonography Emily Baptiste, [place] [address] [place] [address] DR LOW, ELISA [id number] [facility], [facility] Cardio Vascular Health Maintenance Due Date Last Done Comments PNEUMOCOCCAL 0-64 YEARS COMBINED 1962 SERIES (1 of 1 - PPSV23) FOOT EXAM 1974 Zoster Recombinant Vaccine 2006 (SHINGRIX) (1 of 2) HgA1C 08/06/2018 02/06/2018 INFLUENZA VACCINE (#1) 2019 03/05/2017 LDL-C 02/06/2019 02/06/2018 URINE MICROALBUMIN 02/06/2019 02/06/2018 EYE EXAM 08/08/2019 08/07/2018, 03/14/2017 (Previously completed) MAMMOGRAM 09/26/2019 09/25/2018, 09/24/2017, 06/10/2015 CREATININE (SERUM) 11/14/2019 11/13/2018, 08/09/2018, 02/06/2018, Additional history exists PAP SMEAR 01/11/2021 01/11/2018 (Previously completed), 03/05/2017 COLONOSCOPY 01/06/2025 01/06/2015 (Previously completed) DTaP,Tdap,and Td Vaccines (2 - Td) 03/05/2027 03/05/2017 HEPATITIS C (HCV) SCREEN Completed 02/22/2018, 01/10/2017 (Previously completed) documented as of this encounter Implants Implanted Type Area Program Engagement Director Device Shelf Model / Identifier Expiration Serial / Lot Date Tibial Modular Tray KNEE Left: Biomet 11/08/2022 [id number] / Implanted: Qty: 1 on 01/14/2018 by Lacho Cartagena MD at [facility] Knee [id number] / [id number] Patella 34mm Vanguard Knee System Biomet #[id number] - [id number] PATELLA Left: Biomet 09/19/2022 [id number] / Implanted: Qty: 1 on 01/14/2018 by Lacho Cartagena MD at [facility] Knee [id number] / [id number] Plate Polyaxial Locking Mtp Cross Right T8 [place] #[id number] - Sn/A PLATE Right : [place] [id number] / Implanted: Qty: 1 on 11/19/2018 by Regino Gonzalez Jr., DPM at [facility] Foot N/A / N/A Locking Screw T8 Full Thread 2.4mm / L12mm SCREW Right: Momo [id number] / Implanted: Qty: 1 on 11/19/2018 by Regino Gonzalez Jr., DPM at [facility] Foot N/A / N/A Locking Screw T8 Full Thread 2.4mm / L14mm SCREW Right: Momo [id number] / Implanted: Qty: 1 on 11/19/2018 by Regino Gonzalez Jr., DPM at [facility] Foot N/A / N/A Small Phalinx Hammertoe Implant TOE [facility] [id number] / Implanted: Qty: 1 on 05/13/2015 by Regino Gonzalez Jr., DPM at [facility] Technology Inc [id number] / [id number] Bearing Tibial 12 X 71/75 Mm #[id number] - [id number] Left: Biomet 05/09/2022 [id number] / Implanted: Qty: 1 on 01/14/2018 by Lacho Cartagena MD at [facility] Knee [id number] / [id number] Stem Finned Primary 40mm Biomet #[id number] - [id number] Left: Biomet 2027 [id number] / Implanted: Qty: 1 on 01/14/2018 by Lacho Cartagena MD at [facility] Knee [id number] / [id number] Adc Femur Left 60 Mm - [id number] Left: Biomet 11/08/2027 [id number] / Implanted: Qty: 1 on 01/14/2018 by Lacho Cartagena MD at [facility] Knee [id number] / [id number] Screw Bone 6.5x30mm Lp St Biomet #[id number] - [id number] Left: Biomet 2027 [id number] / Implanted: Qty: 4 on 01/14/2018 by Lacho Cartagena MD at [facility] Knee [id number] / [id number] Screw Cp Lag 3.6mm X 20mm Momo Right: Momo [id number] / Implanted: Qty: 1 on 11/19/2018 by Regino Gonzalez Jr., DPM at [facility] Foot 0 / 0 Reamer For Cross Plates Right: Momo [id number] / Implanted: Qty: 1 on 11/19/2018 by Regino Gonzalez Jr., DPM at [facility] Foot 0 / 0 Cp Lag Screw 03.6mm, L22m Right: Momo [id number] / Implanted: Qty: 1 on 11/19/2018 by Regino Gonzalez Jr., DPM at [facility] Foot N/A / N/A Locking Screw T8 Full Thread 2.4mm / L18mm Right: [place] [id number] / Implanted: Qty: 1 on 11/19/2018 by Regino Gonzalez Jr., DPM at [facility] Foot N/A / N/A Locking Screw T8 Full Thread 2.4mm / L16mm Right: [place] [id number] / Implanted: Qty: 1 on 11/19/2018 by Regino Gonzalez Jr., DPM at [facility] Foot N/A / N/A documented as of this encounter Procedures Procedure Name Priority Date/Time Associated Diagnosis Comments ASSIGNMENT OF BENEFITS Routine 01/17/2019 10:15 AM CDT documented in this encounter Results Not on filedocumented in this encounter Insurance Payer Benefit Plan / Subscriber ID Effective Phone Address Type Group Dates MEDICARE MEDICARE PART xxxxxxxxxxx 2007-Pre [phone] Medicare A & B sent [id number] [place] [phone] EZRA MUNGUIA xxxxxxxxx 2018-Pres [address] Medicaid HEALTHCARE - [place] [id number] MANAGED MEDICAID [place], [place] documented as of this encounter
--- OUTSIDE RECORDS SUMMARY | 2019-02-12 18:32 | XMS REPORT | Summary of Care ---
:1955 Demographics Address [address] [place] [address] Mobile Phone Home Phone Phone Phone Preferred Language Upper Sorbian Marital Status Sikhism Affiliation Unknown Race White Ethnic Group Not or Author Organization [facility] Address [address] [place] [address] Care Team Providers Name Role Phone Johnson Sainz [facility], [facility] Consulting Physician [phone] Emily Baptiste Primary Care Provider Reason for Visit Reason Comments Notification [facility] provider recommended Encounter Details Date Type Department Care Team Description 01/16/2019 Telephone [facility] Emily Baptiste, [facility] ( [facility] provider [facility] [address] [facility] [address] recommended) [place] [address] Allergies Active Allergy Reactions Severity Noted Date Comments Aripiprazole Other - See comments 01/10/2018 dystonia [place] Other - See comments 06/18/2017 [place] poisoning Ceftriaxone Other - See comments 03/05/2017 headache Oxcarbazepine Rash 06/18/2017 documented as of this encounter (statuses as of 01/20/2019) Medications Medication Sig Dispensed Refills Start Date [...] as of this encounter (statuses as of 01/20/2019) Active Problems Problem Noted Date Knee internal derangement, right 08/12/2018 Overview: Added automatically from request for surgery [id number] Overactive bladder 01/31/2018 Hyperlipidemia, unspecified hyperlipidemia type 01/31/2018 Essential hypertension 01/31/2018 Elevated liver enzymes 01/31/2018 Type 2 diabetes mellitus without complication, without long-term current 01/31 use of insulin Anemia, unspecified type 01/31/2018 Obesity (BMI 30-39.9) 01/16/2018 Well woman exam with routine gynecological exam 03/05/2017 documented as of this encounter (statuses as of 01/20/2019) Immunizations Name Administration Dates Next Due Influenza [...] filedocumented in this encounter Plan of Treatment Health Maintenance Due Date Last Done Comments [...] of this encounter Implants Implanted Type Area Team Leader Surgery Device Shelf Model / Identifier Expiration Serial / Lot Date Tibial Modular Tray KNEE Left: Biomet 11/08/2022 [id number] / Implanted: Qty: 1 on 01/14/2018 by Lacho Cartagena MD at [facility] Knee [id number] / [id number] Patella 34mm Vanguard Knee System Biomet #[id number] - [id number] PATELLA Left: Biomet 09/19/2022 [id number] / Implanted: Qty: 1 on 01/14/2018 by Lacho Cartagena MD at [facility] Knee [id number] / [id number] Plate Polyaxial Locking Mtp Cross Right T8 Momo #[id number] - Sn/A PLATE Right : Momo [id number] / Implanted: Qty: 1 on 11/19/2018 by Regino Gonzalez Jr., DPM at [facility] Foot N/A / N/A Locking Screw T8 Full Thread 2.4mm / L12mm SCREW Right: Momo [id number] / Implanted: Qty: 1 on 11/19/2018 by Regino Gonzalez Jr., DPM at [facility] Foot N/A / N/A Locking Screw T8 Full Thread 2.4mm / L14mm SCREW Right: Momo [id number] / Implanted: Qty: 1 on 11/19/2018 by Regino Gonzalez Jr., DPM at [facility] Foot N/A / N/A Small Phalinx Hammertoe Implant [facility] [id number] / Implanted: Qty: 1 on 05/13/2015 by Regino Gonzalez Jr., DPM at [facility] Technology Inc [id number] / [id number] Bearing Tibial 12 X 71/75 Mm #[id number] - [id number] Left: Biomet 05/09/2022 [id number] / Implanted: Qty: 1 on 01/14/2018 by Lacho Cartagena MD at [facility] Knee [id number] / [id number] Stem Finned Primary 40mm Biomet #[id number] - [id number] Left: Biomet 2027 [id number] / Implanted: Qty: 1 on 01/14/2018 by Lahco Cartagena MD at [facility] Knee [id number] / [id number] Adc Femur Left 60 Mm - [id number] Left: Biomet 11/08/2027 [id number] / Implanted: Qty: 1 on 01/14/2018 by Lacho Cartagena MD at [facility] Knee [id number] / [id number] Screw Bone 6.5x30mm Lp St Biomet #930858 - [id number] Left: Biomet 2027 [id number] / Implanted: Qty: 4 on 01/14/2018 by Lacho Cartagena MD at [facility] Knee [id number] / [id number] Screw Cp Lag 3.6mm X 20mm Momo Right: Momo [id number] / Implanted: Qty: 1 on 11/19/2018 by Regino Gonzalez Jr., DPM at [facility] Foot 0 / 0 Reamer For Cross Plates Right: [place] [id number] / Implanted: Qty: 1 on 11/19/2018 by Regino Gonzalez Jr., DPM at [facility] Foot 0 / 0 Cp Lag Screw 03.6mm, L22m Right: [place] [id number] / Implanted: Qty: 1 on 11/19/2018 by Regino Gonzalez Jr., DPM at [facility] Foot N/A / N/A Locking Screw T8 Full Thread 2.4mm / L18mm Right: Momo [id number] / Implanted: Qty: 1 on 11/19/2018 by Regino Gonzalez Jr., DPM at [facility] Foot N/A / N/A Locking Screw T8 Full Thread 2.4mm / L16mm Right: [place] [id number] / Implanted: Qty: 1 on 11/19/2018 by Regino Gonzalez Jr., DPM at [facility] Foot N/A / N/A documented as of this encounter Results Not on filedocumented in this encounter Insurance Payer Benefit Plan / Subscriber ID Effective Phone Address Type Group Dates MEDICARE MEDICARE PART xxxxxxxxxxx 2007-Pre [phone] Medicare A & B sent [id number] [place] [phone] EZRA MUNGUIA xxxxxxxxx 2018-Pres [address] Medicaid HEALTHCARE - [place]ALTHCARE [place] [id number] MANAGED MEDICAID [place], [place] documented as of this encounter
--- OUTSIDE RECORDS SUMMARY | 2019-02-12 18:32 | XMS REPORT | Summary of Care ---
:1955 Demographics Address [address] [place] [address] Mobile Phone Home Phone Phone Phone Preferred Language Sami Marital Status Moravian Affiliation Unknown Race White Ethnic Group Not or Author Organization [facility] Address [address] [place] [address] Care Team Providers Name Role Phone Johnson Sainz [facility] Consulting Physician [phone] Emiyl Baptiste Primary Care Provider Reason for Referral (STAT) Status Reason Specialty Diagnoses / Referred By Referred To Procedures Contact Contact Closed Vascular Sonography Diagnoses Right foot pain Swelling of right foot Samantha Baptistee A, Procedures UNILATERAL VENOUS DUPLEX LOWER EXTREMITY BY VASCULAR LAB GE[place]GE [address] [place] [address] (STAT) Status Reason Specialty Diagnoses / Referred By Referred To Procedures Contact Contact Closed Vascular Sonography Diagnoses Right foot pain Swelling of right foot Emile, Emily A, Procedures UNILATERAL VENOUS DUPLEX LOWER EXTREMITY BY VASCULAR LAB SC [address] [place] [address] Reason for Visit Reason Comments FOOT SWELLING (STAT) Status Reason Specialty Diagnoses / Referred By Referred To Procedures Contact Contact Closed Vascular Sonography Diagnoses Right foot pain Swelling of right foot Emile, Emily A, Procedures UNILATERAL VENOUS DUPLEX LOWER EXTREMITY BY VASCULAR LAB PA [address] [place] [address] Encounter Details Date Type Department Care Team Description 01/17/2019 Hospital Encounter [facility] Emily Baptiste PA [address] [place] [address] [facility], [facility] Cardio Vascular [address] [place] [place] [address] Allergies Active Allergy Reactions Severity Noted Date Comments Aripiprazole Other - See comments 01/10/2018 dystonia [place] Other - See comments 06/18/2017 [place] poisoning Ceftriaxone Other - See comments 03/05/2017 headache Oxcarbazepine Rash 06/18/2017 documented as of this encounter (statuses as of 01/18/2019) Medications Medication Sig Dispensed Refills Start Date [...] as of this encounter (statuses as of 01/18/2019) Active Problems Problem Noted Date Knee internal derangement, right 08/12/2018 Overview: Added automatically from request for surgery [id number] Overactive bladder 01/31/2018 Hyperlipidemia, unspecified hyperlipidemia type 01/31/2018 Essential hypertension 01/31/2018 Elevated liver enzymes 01/31/2018 Type 2 diabetes mellitus without complication, without long-term current 01/31 use of insulin Anemia, unspecified type 01/31/2018 Obesity (BMI 30-39.9) 01/16/2018 Well woman exam with routine gynecological exam 03/05/2017 documented as of this encounter (statuses as of 01/18/2019) Immunizations Name Administration Dates Next Due Influenza [...] of this encounter Implants Implanted Type Area Film Librarian Device Shelf Model / Identifier Expiration Serial / Lot Date Tibial Modular Tray KNEE Left: Biomet 11/08/2022 [id number] / Implanted: Qty: 1 on 01/14/2018 by Lacho Cartagena MD at [facility] Knee [id number] / [id number] Patella 34mm Vanguard Knee System Biomet #[id number] - [id number] PATELLA Left: Biomet 09/19/2022 [id number] / Implanted: Qty: 1 on 01/14/2018 by Lacho Cartagena MD at [facility] Knee [id number] / [id number] Plate Polyaxial Locking Mtp Cross Right T8 [place] #[id number] - Sn/A PLATE Right : [place] [id number] / Implanted: Qty: 1 on 11/19/2018 by Regino Gonzalez Jr., DPM at [facility] Foot N/A / N/A Locking Screw T8 Full Thread 2.4mm / L12mm SCREW Right: Momo [id number] / Implanted: Qty: 1 on 11/19/2018 by Regino Gonzalez Jr., DPM at [facility] Foot N/A / N/A Locking Screw T8 Full Thread 2.4mm / L14mm SCREW Right: [place] [id number] / Implanted: Qty: 1 on 11/19/2018 by Regino Gonzalez Jr., DPM at [facility] Foot N/A / N/A Small Phalinx Hammertoe Implant TOE [facility] [id number] / Implanted: Qty: 1 on 05/13/2015 by Regino Gonzalez Jr., DPM at [facility] Technology Inc [id number] / [id number] Bearing Tibial 12 X 71/75 Mm #[id number] - [id number] Left: Biomet 05/09/2022 [id number] / Implanted: Qty: 1 on 01/14/2018 by Lacho Cartagena MD at [facility] Knee [id number] / [id number] Stem Finned Primary 40mm Biomet #834805 - [id number] Left: Biomet 2027 [id number] / Implanted: Qty: 1 on 01/14/2018 by Lacho Cartagena MD at [facility] Knee [id number] / [id number] Adc Femur Left 60 Mm - [id number] Left: Biomet 11/08/2027 [id number] / Implanted: Qty: 1 on 01/14/2018 by Lacho Cartagena MD at [facility] Knee [id number] / [id number] Screw Bone 6.5x30mm Lp St Biomet #586593 - [id number] Left: Biomet 2027 [id number] / Implanted: Qty: 4 on 01/14/2018 by Lacho Cartagena MD at [facility] Knee [id number] / [id number] Screw Cp Lag 3.6mm X 20mm Momo Right: [place] [id number] / Implanted: Qty: 1 on 11/19/2018 by Regino Gonzalez Jr., DPM at [facility] Foot 0 / 0 Reamer For Cross Plates Right: [place] [id number] / Implanted: Qty: 1 on 11/19/2018 by Regino Gonzalez Jr., DPM at [facility] Foot 0 / 0 Cp Lag Screw 03.6mm, L22m Right: Momo [id number] / Implanted: Qty: 1 on 11/19/2018 by Regino Gonzalez Jr., DPM at [facility] Foot N/A / N/A Locking Screw T8 Full Thread 2.4mm / L18mm Right: [place] [id number] / Implanted: Qty: 1 on 11/19/2018 by Regino Gonzalez Jr., DPM at [facility] Foot N/A / N/A Locking Screw T8 Full Thread 2.4mm / L16mm Right: Momo [id number] / Implanted: Qty: 1 on 11/19/2018 by Regino Gonzalez Jr., DPM at [facility] Foot N/A / N/A documented as of this encounter Procedures Procedure Name Priority Date/Time Associated Comments Diagnosis UNILATERAL VENOUS STAT 01/17/2019 10:24 AM Right foot pain Results for this DUPLEX LOWER CDT Swelling of right procedure are in EXTREMITY BY foot the results VASCULAR LAB section. documented in this encounter Results UNILATERAL VENOUS DUPLEX LOWER EXTREMITY BY VASCULAR LAB (01/17/2019 10:24 AM CDT) Specimen Performing Organization Address City/State/Zipcode Phone Number V[place] documented in this encounter Visit Diagnoses Diagnosis Right foot pain Pain in limb Swelling of right foot documented in this encounter Insurance Payer Benefit Plan / Subscriber ID Effective Phone Address Type Group Dates MEDICARE MEDICARE PART xxxxxxxxxxx 2007-Pre [phone] Medicare A & B sent [id number] [place] [phone] EZRA MUNGUIA xxxxxxxxx 2018-Pres [address] Medicaid HEALTHCARE - [place]CARE [place] [id number] MANAGED MEDICAID [place], [place] Guarantor Name Account Type Relation to Date of Phone Billing Patient Address Georgette Castillo Personal/Family Self 1955 [address] [place] (Home) [place] [address] documented as of this encounter
--- OUTSIDE RECORDS SUMMARY | 2019-02-12 18:32 | XMS REPORT | Summary of Care ---
:1955 Demographics Address [address] [place] [address] Mobile Phone Home Phone Phone Phone Preferred Language Estonian Marital Status Gnosticism Affiliation Unknown Race White Ethnic Group Not or Author Organization [facility] Address [address] [place] [id number] Care Team Providers Name Role Phone [facility], [facility] Consulting Physician [phone] Emily Baptiste Primary Care Provider Reason for Referral (Routine) Status Reason Specialty Diagnoses / Referred By Referred To Procedures Contact Contact New Request Patient Orthopedic Diagnoses Right foot pain Swelling of right foot Carlos Baptiste Ronald Requested Surgery Procedures CONSULT/REFERRAL PODIATRY GEORGE Castrejon Jr., DPM Specific [address] [place], [place] [address] [id number] [place], [place] Phone: [phone] Phone: (STAT) Status Reason Specialty Diagnoses / Referred By Referred To Procedures Contact Contact Closed Vascular Sonography Diagnoses Right foot pain Swelling of right foot Emily Baptiste, Procedures UNILATERAL VENOUS DUPLEX LOWER EXTREMITY BY VASCULAR LAB [facility] [address] [place] [place] [address] Reason for Visit Reason Comments Other right foot xrays Encounter Details Date Type Department Care Team Description 01/14/2019 Office Visit [facility] Family Emily Baptiste, Right foot pain (Primary Dx); Medicine - Deng VAZQUEZ Swelling of right foot; [address] [place] [phone] Allergies Active Allergy Reactions Severity Noted Date Comments Aripiprazole Other - See comments 01/10/2018 dystonia [place] Other - See comments 06/18/2017 [place] poisoning Ceftriaxone Other - See comments 03/05/2017 headache Oxcarbazepine Rash 06/18/2017 documented as of this encounter (statuses as of 01/21/2019) Medications Medication Sig Dispensed Refills Start Date End Date Status omeprazole 20 mg capsule Take 20 mg 0 Active by mouth daily. solifenacin (VESICARE) 5 Take 1 90 tablet 1 01/31/2018 Active mg tabletIndications: tablet by Overactive bladder mouth daily. metformin ER 500 mg 24 Take 1 90 tablet 1 01/31/2018 Active hr tabletIndications: tablet by Type 2 diabetes mellitus mouth daily without complication, with without long-term breakfast. current use of insulin amLODIPine 10 mg TAKE 1 90 tablet 1 01/31/2018 Active tabletIndications: TABLET EVERY Essential hypertension DAY atorvastatin 10 mg Take 10 mg 0 Active tablet by mouth at bedtime. lancets (ONETOUCH DELICA Use as 100 Each 0 11/26/2018 Active LANCETS) 30 gauge directed, MiscIndications: Type 2 once a day diabetes mellitus and prn to without complication, monitor without long-term blood current use of insulin glucose for ICD code E11.9 losartan 50 mg Take 1 90 tablet 0 12/03/2018 Active tabletIndications: tablet by Essential hypertension mouth daily. blood sugar diagnostic Use as 100 Strip 0 12/10/2018 Active (AvvoTOUCH ULTRA BLUE directed, TEST STRIP) once a day stripIndications: Type 2 to monitor diabetes mellitus blood without complication, glucose for without long-term ICD code current use of insulin E11.9 Blood-Glucose Meter Use as 1 Kit 0 12/10/2018 Active (AvvoTOUCH ULTRA2 METER) directed, KitIndications: Type 2 once a day diabetes mellitus to monitor without complication, blood without long-term glucose for current use of insulin ICD code E11.9 hydroCHLOROthiazide 25 Take 1 1 10/22/2018 01/17/20 Discontinued mg tablet tablet by 19 mouth daily. documented as of this encounter (statuses as of 01/21/2019) Active Problems Problem Noted Date Knee internal derangement, right 08/12/2018 Overview: Added automatically from request for surgery [id number] Overactive bladder 01/31/2018 Hyperlipidemia, unspecified hyperlipidemia type 01/31/2018 Essential hypertension 01/31/2018 Elevated liver enzymes 01/31/2018 Type 2 diabetes mellitus without complication, without long-term current 01/31 use of insulin Anemia, unspecified type 01/31/2018 Obesity (BMI 30-39.9) 01/16/2018 Well woman exam with routine gynecological exam 03/05/2017 documented as of this encounter (statuses as of 01/21/2019) Immunizations Name Administration Dates Next Due Influenza [...] of this encounter Last Filed Vital Signs Vital Sign Reading Time Taken Comments Blood Pressure 150/84 01/14/2019 9:34 PM CDT Pulse 72 01/14/2019 4:34 PM CDT Temperature 36.9 C (98.5 F) 01/14/2019 4:34 PM CDT Respiratory Rate - - Oxygen Saturation - - Inhaled Oxygen Concentration - - Weight 78.9 kg (174 lb) 01/14/2019 4:34 PM CDT Height - - Body Mass Index 29.87 12/03/2018 11:20 AM CDT documented in this encounter Progress Notes Emily Baptiste PA - 01/14/2019 4:20 PM CDTR foot picture aEmily prabhakar PA - 01/14/2019 4:20 PM CDT Cc: Chief Complaint Patient presents with Other right foot xrays Georgette Castillo is a 63 year old female. Patient here requesting referral to Dr. Gomez. She has an appointment scheduled for 01/20/19 at 1030am. She has been under the care of Dr. Gonzalez (podiatry) for R foot pain. S/p fusion of R first MPJ on November 19. Since the surgery, patient admits to experiencing pain and swelling to R foot. She is concerned thatDr. Gonzalez did a procedure or used hardware that is not stainless causing an allergic reaction. She does not want to follow-up with Dr. Gonzalez. Contacted their office expressing her concern/irritation and states that Dr. Gonzalez told her he used stainless hardware and said, "let me explain" but she did not want to hear excuses because she believes there may be some malpractice involved. Patient then wentto see her previous PCP, Shaq OLIVAS, in [facility]. TRISHA 01/08/19. DX: pain in right foot. Ordered additional x-rays. REF Dr. Verdugo. Patient states that [facility] also ordered a doppler of her LE which she has chosen not to complete, does not believe there is a clot. Contacted Dr. Verdugo but they advised follow-up with the surgeon who performed her surgery which patient refuses to return. Of note, she was also seen at [facility] ED on for the foot pain and swelling, completed x-rays, but did not wait onresults since she decided to leave and follow-up with Dr. Gonzalez. Patient here today because she would like referral to Dr. Gomez. Still having the R anterior foot pain, swelling. Unchanged. Severity: 5/10. Quality: achy Patient is wearing a RLE immobilizer with boot, walking without assistance + tenderness directly over anterior foot No active cancer No pmh dvt/pe No entire leg swelling No posterior leg tenderness No superficial veins present No calf pain, sewlling No bedridden No paralysis No redness, warmth, induration No purulent drainage No f/c, n/v No numbness/tigling No cp, sob, hemoptysis, dizziness, syncope, palpitations. HTN: losartan increased to 50 mg daily on 12/03/18 by CECILIO Chua. Allergies Georgette is allergic to abilify [aripiprazole]; lithium; rocephin [ceftriaxone]; and trileptal [oxcarbazepine]. Medications Outpatient Medications Prior to Visit Medication Sig Dispense Refill blood sugar diagnostic (Change.orgUCH ULTRA BLUE TEST STRIP) strip Use as directed, once a day to monitor blood glucose for ICD code E11.9 100 Strip 0 Blood-Glucose Meter (AvvoTOUCH ULTRA2 METER) Kit Use as directed, once a day to monitor blood glucose for ICD code E11.9 1 Kit 0 losartan 50 mg tablet Take 1 tablet by mouth daily. 90 tablet 0 lancets (AvvoTOUCH DELICA LANCETS) 30 gauge Misc Use as directed, once a day and prn to monitor blood glucose for ICD code E11.9 100 Each 0 hydroCHLOROthiazide 25 mg tablet Take 1 tablet by mouth daily. 1 atorvastatin 10 mg tablet Take 10 mg by mouth at bedtime. amLODIPine 10 mg tablet TAKE 1 TABLET EVERY DAY 90 tablet 1 metformin ER 500 mg 24 hr tablet Take 1 tablet by mouth daily with breakfast. 90 tablet 1 solifenacin (VESICARE) 5 mg tablet Take 1 tablet by mouth daily. 90 tablet 1 omeprazole 20 mg capsule Take 20 mg by mouth daily. No facility-administered medications prior to visit. Histories Past Medical History: Diagnosis Date Abnormal uterine bleeding Prior to hysterectomy Acid reflux Anemia, unspecified type 01/31/2018 Anxiety Arthritis Asthma dx 15 years ago, under care of bj Bipolar affective disorder Depression DM (diabetes mellitus) HLD (hyperlipidemia) Hypertension Leiomyoma of uterus Migraine Pap smear abnormality of cervix HPV + Urinary incontinence Past Surgical History: Procedure Laterality Date CHOLECYSTECTOMY FOOT/TOES SURGERY PROC UNLISTED Left X 5 HYSTERECTOMY 15 years ago partial, has ovaries KNEE ARTHROSCOPY Left KNEE ARTHROSCOPY Right 08/26/2018 Surgeon: Lahco Cartagena MD; Location: [facility] OR [facility] LAPAROSCOPIC BLADDER SUSPENSION 5 years ago [place] EXCISION OF IMPLANTED VAGINAL MESH RADICAL HYSTERECTOMY TOE ARTHRODESIS Right 11/19/2018 Surgeon: Regino Gonzalez Jr., DPM; Location: [facility] [place] TOE ARTHROPLASTY Left 05/13/2015 Surgeon: Regino Gonzalez Jr., DPM; Location: [facility] [place] TONSILLECTOMY TOTAL KNEE ARTHROPLASTY Left 01/14/2018 Surgeon: Lacho Cartagena MD; Location: [facility] OR [facility] Social History Socioeconomic History Marital status: Spouse name: Not on file Number of children: Not on file Years of education: Not on file Highest education level: Not on file Occupational History Not on file Social Needs Financial resource strain: Not on file Food insecurity: Worry: Not on file Inability: Not on file Transportation needs: Medical: Not on file Non-medical: Not on file Tobacco Use Smoking status: Never Smoker Smokeless tobacco: Never Used Substance and Sexual Activity Alcohol use: No Alcohol/week: 0.0 oz Drug use: No Sexual activity: Not Currently control/protection: Surgical Comment: Last coitus 6 months ago Lifestyle Physical activity: Days per week: Not on file Minutes per session: Not on file Stress: Not on file Relationships Social connections: Talks on phone: Not on file Gets together: Not on file Attends baptist service: Not on file Active member of club or organization: Not on file Attends meetings of clubs or organizations: Not on file Relationship status: Not on file Intimate partner violence: Fear of current or ex partner: Not on file Emotionally abused: Not on file Physically abused: Not on file Forced sexual activity: Not on file Other Topics Concern Not on file Social History Narrative Denies domestic violence or abuse Family History Problem Relation Age of Onset Coronary Heart Disease Mother CAD PCI @ 60s Cancer Mother Brain, kidney, lung Hypertension Mother High cholesterol Mother Arthritis Mother Asthma Mother COPD Depression Mother No Significant Medical Problems Father Breast Cancer Maternal Aunt Depression Maternal Aunt Psychiatry Maternal Aunt Diabetes Maternal Grandmother Asthma Maternal Grandfather COPD defects NoFHx Genetic NoFHx Colon Cancer NoFHx Ovarian Cancer NoFHx Uterine Cancer NoFHx Heart NoFHx Mental retardation NoFHx Neurological NoFHx Osteoporosis NoFHx Other - see comments NoFHx Review of Systems Constitutional: Negative for activity change, appetite change, chills, diaphoresis, fatigue, fever and unexpected weight change. Respiratory: Negative for apnea, cough, choking, chest tightness, shortness of breath, wheezing and stridor. Cardiovascular: Negative for chest pain, palpitations and leg swelling. Gastrointestinal: Negative for abdominal pain, constipation, diarrhea, nausea and vomiting. Musculoskeletal: Positive for arthralgias and joint swelling. Negative for back pain, gait problem and myalgias. Skin: Negative for color change, pallor, rash and wound. Neurological: Negative for dizziness, syncope, weakness, light-headedness and headaches. Vital Signs BP (!) 170/91 | Pulse 72 | Temp 36.9 C (98.5 F) (Tympanic) | Wt 174 lb ( 78.9 kg) | LMP 02/25/2002 (Approximate) | BMI 29.87 kg/m BP (!) 150/84 | Pulse 72 | Temp 36.9 C (98.5 F) (Tympanic) | Wt 174 lb ( 78.9 kg) | LMP 02/25/2002 (Approximate) | BMI 29.87 kg/m Physical Exam Constitutional: She is oriented to person, place, and time. She appears well- developed and well-nourished. No distress. HENT: Head: Normocephalic and atraumatic. Cardiovascular: Normal rate, regular rhythm, normal heart sounds and intact distal pulses. Pulmonary/Chest: Effort normal and breath sounds normal. Abdominal: Soft. Bowel sounds are normal. She exhibits no distension. There is no tenderness. There is no rebound and no guarding. Musculoskeletal: Normal range of motion. She exhibits edema and tenderness. Right foot: There is tenderness and swelling. There is normal range of motion, normal capillaryrefill, no crepitus, no deformity and no laceration. Feet: L calf 36 cm R calf 34 cm No calf or DV system tenderness No redness, warmth Neurological: She is alert and oriented to person, place, and time. Skin: Skin is warm and dry. She is not diaphoretic. Psychiatric: She has a normal mood and affect. Her behavior is normal. Nursing note and vitals reviewed. EXAM: XR FOOT 3+ VW RIGHT HISTORY: PAIN/SWELLING TO RIGHT FOOT, S/P ORIF COMPARISON: None available. FINDINGS: Radiographs of the right foot demonstrate fixation hardware about the first MTP joint without perihardware lucency. Marked foot soft tissue swelling is seen. Osteophytosis is seen at the first MTP joint. Less extensive degenerative changes are seen at the second and third MTP joints and midfoot. IMPRESSION No acute osseous abnormality. Marked foot soft tissue swelling. First MTP joint arthrodesis in progress. Assessment/Plan Right foot pain (primary encounter diagnosis) Swelling of right foot Plan: UNILATERAL VENOUS DUPLEX LOWER EXTREMITY BY VASCULAR LAB, CBC WITH DIFF, COMP. METABOLIC PANEL (40079), URIC ACID, SEDIMENTATION RATE, CBC WITH DIFFERENTIAL, CONSULT/REFERRAL PODIATRY Afebrile, well appearing, no chills, n/v. No significant pain with ROM. Unchanged x 2 months. No evidence of abscess/cellulitis. No active cancer, no pmh of DVT/PE, no entire leg swelling, no calf swelling > 3 cm compared to other, no DV system tenderness, no paralysis. Though given recent surgery ( though > 4 weeks), wearing RLE immobilizer, R foot swelling/tenderness, recommend STAT doppler toassess for DVT. Educated on DVT including importance of prompt evaluation, treatment, complications and ER precautions. Recommend compression stockings, elevated b/l LE. Encouraged to avoid nsaids. Will evaluate for other underlying cause with labs. Patient has completed post op x-rays at both ED (12/23/18) and with [facility] Shaq Hernandez, 01/08/19. No acutebony abnormality noted on [facility] x-ray. Encouraged her to reconsider following up with Dr. Gonzalez sincehe performed her surgery. Explained that she will be able to have a more thorough discussion in office and allow him to further eval/tx but patient refuses. Patient requesting referral to Dr. Jason hoffman already has appointment scheduled, will order. Doppler RLE: 01/17/19--> negative for DVT, follow-up with podiatry. Take Tylenol as needed for pain. May alternate with otc nsaids prn pain with food. Recommend ice 15 min every 2-3 hours. Keep elevated. Avoid prolonged sitting &gt ; 2 hours. Interpretation Summary The RIGHT lower extremity venous system was examined. No evidence of deep or superficial venous thrombosis in the lower extremity. ER--> worsening condition; cp, sob, hemoptysis, severe pain, f/c, n/v Essential hypertension Plan: BP improved but elevated at recheck. Patient states that her at home numbers are < 140/90. Admits to being frustrated with surgeon and her situation which is what she believes is contributing to elevated bp. Encouraged to bring us BP log in 1-2 weeks to review along with machine to compare. Adjust regimen if persistently > 140/90. Watch blood pressure: check 2-3 times daily and log. Look for high numbers > =140/90. Log reading. Follow up in 3 weeks Low salt Low caffeine diet Low alcohol Avoid tobacco products. Heart Healthy Exercise: total of 150 minutes of cardio: walking,swimming, hiking , biking every week. Heart healthy diet: low fat/carb/sugar diet; increase lean meat-chicken, turkey , fish; increase vegetables/fruits ( still be careful because elevated sugar level) Er--> chest pain, dizziness, passing out, fluttering of heart, shortness of breath. Pt ed/precautions given in detail regarding conditions/medicaitons. Er precautions given. Pt reportsunderstanding and agrees. rtc if s/s worsen or do not improve ; BP log in 1-2 weeks. Plan of care, desired health behaviors, goals, Ddx, & any prescribed or OTC medications discussed with patient. Education resources & self management tools provided and reviewed with AVS. Patient/guardian/family verbalized understanding & agrees to plan of care. Barriers to care: NONE Ability to manage care: Good This visit did not involve counseling and coordination that comprised more than 50% of the visit time.Electronically signed by Emily Baptiste PA at 2018 9:31 PM CDTdocumented in this encounter Plan of Treatment Name Type Priority Associated Diagnoses Order Schedule CBC WITH DIFF LAB Routine Right foot pain Ordered: 01/14/2019 Swelling of right foot COMP. 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 Device Shelf Model / Identifier Expiration Serial / Lot Date Tibial Modular Tray KNEE Left: Biomet 11/08/2022 [id number] / Implanted: Qty: 1 on 01/14/2018 by Lacho Cartagena MD at [facility] Knee [id number] / [id number] Patella 34mm Vanguard Knee System Biomet #[id number] - [id number] PATELLA Left: Biomet 09/19/2022 [id number] / Implanted: Qty: 1 on 01/14/2018 by Lacho Cartagena MD at [facility] Knee [id number] / [id number] Plate Polyaxial Locking Mtp Cross Right T8 [place] #[id number] - Sn/A PLATE Right : [place] [id number] / Implanted: Qty: 1 on 11/19/2018 by Regino Gonzalez Jr., DPM at [facility] Foot N/A / N/A Locking Screw T8 Full Thread 2.4mm / L12mm SCREW Right: [place] [id number] / Implanted: Qty: 1 on 11/19/2018 by Regino Gonzalez Jr., DPM at [facility] Foot N/A / N/A Locking Screw T8 Full Thread 2.4mm / L14mm SCREW Right: Momo [id number] / Implanted: Qty: 1 on 11/19/2018 by Regino Gonzalez Jr., DPM at [facility] Foot N/A / N/A Small Phalinx Hammertoe Implant TOE [facility] [id number] / Implanted: Qty: 1 on 05/13/2015 by Regino Gonzalez Jr., DPM at [facility] [employer] [id number] / [id number] Bearing Tibial 12 X 71/75 Mm #[id number] - [id number] Left: Biomet 05/09/2022 [id number] / Implanted: Qty: 1 on 01/14/2018 by Lacho Cartagena MD at [facility] Knee [id number] / [id number] Stem Finned Primary 40mm Biomet #[id number] - [id number] Left: Biomet 2027 [id number] / Implanted: Qty: 1 on 01/14/2018 by Lacho Cartagena MD at [facility] Knee [id number] / [id number] Adc Femur Left 60 Mm - [id number] Left: Biomet 11/08/2027 [id number] / Implanted: Qty: 1 on 01/14/2018 by Lacho Cartagena MD at [facility] Knee [id number] / [id number] Screw Bone 6.5x30mm Lp St Biomet #[id number] - [id number] Left: Biomet 2027 [id number] / Implanted: Qty: 4 on 01/14/2018 by Lacho Cartagena MD at [facility] Knee [id number] / [id number] Screw Cp Lag 3.6mm X 20mm Momo Right: Momo [id number] / Implanted: Qty: 1 on 11/19/2018 by Regino Gonzalez Jr., DPM at [facility] Foot 0 / 0 Reamer For Cross Plates Right: [place] [id number] / Implanted: Qty: 1 on 11/19/2018 by Regino Gonzalez Jr., DPM at [facility] Foot 0 / 0 Cp Lag Screw 03.6mm, L22m Right: [place] [id number] / Implanted: Qty: 1 on 11/19/2018 by Regino Gonzalez Jr., DPM at [facility] Foot N/A / N/A Locking Screw T8 Full Thread 2.4mm / L18mm Right: Momo [id number] / Implanted: Qty: 1 on 11/19/2018 by Regino Gonzalez Jr., DPM at [facility] Foot N/A / N/A Locking Screw T8 Full Thread 2.4mm / L16mm Right: Momo [id number] / Implanted: Qty: 1 on 11/19/2018 by Regino Gonzalez Jr., DPM at [facility] Foot N/A / N/A documented as of this encounter Results UNILATERAL VENOUS DUPLEX LOWER EXTREMITY BY VASCULAR LAB (01/17/2019 10:24 AM CDT) Specimen Performing Organization Address City/State/Zipcode Phone Number VSL documented in this encounter Visit Diagnoses Diagnosis Right foot pain - Primary Pain in limb Swelling of right foot Essential hypertension Unspecified essential hypertension documented in this encounter Insurance Payer Benefit Plan / Subscriber ID Effective Phone Address Type Group Dates MEDICARE MEDICARE PART xxxxxxxxxxx 2007-Pre [phone] Medicare A & B sent [id number] [place]LA [phone] EZRA MUNGUIA xxxxxxxxx 2018-Pres [address] Medicaid HEALTHCARE - HEALTHCARE ent [id number] MANAGED MEDICAID [place], [place] Guarantor Name Account Type Relation to Date of Phone Billing Patient Address Georgette Castillo Personal/Family Self 1955 [address] [place] (Home) [facility] [place] [address] documented as of this encounter
--- OUTSIDE RECORDS SUMMARY | 2019-02-12 18:32 | XMS REPORT | Summary of Care ---
:1955 Demographics Address [address] [place] [address] Mobile Phone Home Phone Phone Phone Preferred Language Khmer Marital Status Orthodox Affiliation Unknown Race White Ethnic Group Not or Author Organization [facility] Address [address] [place] [address] Care Team Providers Name Role Phone Johnson F [facility], [facility] Consulting Physician [phone] Emily Baptiste Primary Care Provider Reason for Referral (Routine) Status Reason Specialty Diagnoses / Referred By Referred To Procedures Contact Contact New Request Patient Orthopedic Diagnoses Right foot pain Swelling of right foot Carlos Baptiste Ronald Requested Surgery Procedures CONSULT/REFERRAL PODIATRY GEORGE Castrejon Jr., DPM Specific [address] [place], [place] [address] [address] [place], [place] Phone: [phone] Phone: (STAT) Status Reason Specialty Diagnoses / Referred By Referred To Procedures Contact Contact Closed Vascular Sonography Diagnoses Right foot pain Swelling of right foot Emily Baptiste, Procedures UNILATERAL VENOUS DUPLEX LOWER EXTREMITY BY VASCULAR LAB [facility] [address] [place] [address] Reason for Visit Reason Comments Other right foot xrays Encounter Details Date Type Department Care Team Description 01/14/2019 Office Visit [facility] Family Emily Baptiste, Right foot pain (Primary Dx); Medicine - Deng VAZQUEZ Swelling of right foot; 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 Ceftriaxone Other - See comments 03/05/2017 [...] Use as 100 Strip 0 12/10/2018 Active (fring LtdTOUCH ULTRA BLUE directed, TEST STRIP) once a day stripIndications: Type 2 to monitor diabetes mellitus blood without complication, glucose for without long-term ICD code current use of insulin E11.9 Blood-Glucose Meter Use as 1 Kit 0 12/10/2018 Active (fring LtdTOUCH ULTRA2 METER) directed, KitIndications: Type 2 once [...] Overview: Added automatically from request for surgery [id number] Overactive bladder 01/31/2018 Hyperlipidemia, unspecified hyperlipidemia type [...] her previous PCP, Shaq OLIVAS, in [facility]. TRISHA 01/08/19. DX: pain in right foot. Ordered additional x-rays. REF Dr. Verdugo. Patient states that [facility] also ordered a doppler of her LE which she has chosen not to complete, does not believe there is a clot. Contacted Dr. Verdugo but they advised follow-up with the surgeon who performed her surgery which patient refuses to return. Of note, she was also seen at [facility] ED on for the foot pain [...] Medication Sig Dispense Refill blood sugar diagnostic (ZIRXUCH ULTRA BLUE TEST STRIP) strip Use as directed, once a day to monitor blood glucose for ICD code E11.9 100 Strip 0 Blood-Glucose Meter (fring LtdTOUCH ULTRA2 METER) Kit Use as directed, once a day to monitor blood glucose for ICD code E11.9 1 Kit 0 losartan 50 mg tablet Take 1 tablet by mouth daily. 90 tablet 0 lancets (fring LtdTOUCH DELICA LANCETS) 30 gauge Misc Use as [...] ARTHROSCOPY Left KNEE ARTHROSCOPY Right 08/26/2018 Surgeon: Lacho Cartagena MD; Location: [facility] OR [facility] LAPAROSCOPIC BLADDER SUSPENSION 5 years ago [place] EXCISION OF IMPLANTED VAGINAL MESH RADICAL HYSTERECTOMY TOE ARTHRODESIS Right 11/19/2018 Surgeon: Regino Gonzalez Jr., DPM; Location: [place] TOE ARTHROPLASTY Left 05/13/2015 Surgeon: Regino Gonzalez Jr., DPM; Location: [facility] [place] TONSILLECTOMY TOTAL KNEE ARTHROPLASTY Left 01/14/2018 Surgeon: Lacho Cartagena MD; Location: [facility] OR [facility] Social History Socioeconomic History Marital status: Spouse [...] file Gets together: Not on file Attends christianity service: Not on file Active member of [...] LAB, CBC WITH DIFF, COMP. METABOLIC PANEL (94268), URIC ACID, SEDIMENTATION RATE, CBC WITH DIFFERENTIAL, [...] x-rays at both ED (12/23/18) and with [facility] Shaq Hernandez, 01/08/19. No acutebony abnormality noted on [facility] x-ray. Encouraged her to reconsider following up with Dr. Gonazlez sincehe performed her surgery. Explained that she [...] LAB Routine Right foot pain Ordered: 01/14/2019 (36184) Swelling of right foot URIC ACID LAB [...] of this encounter Implants Implanted Type Area Technical Advisor Device Shelf Model / Identifier Expiration Serial / Lot Date Tibial Modular Tray KNEE Left: Biomet 11/08/2022 [id number] / Implanted: Qty: 1 on 01/14/2018 by Lacho Cartagena MD at [facility] Knee [id number] / [id number] Patella 34mm Vanguard Knee System Biomet #[id number] - [id number] PATELLA Left: Biomet 09/19/2022 [id number] / Implanted: Qty: 1 on 01/14/2018 by Lacho Cartagena MD at [facility] Knee [id number] / [id number] Plate Polyaxial Locking Mtp Cross Right T8 Felch #[id number] - Sn/A PLATE Right : Felch [id number] / Implanted: Qty: 1 on 11/19/2018 by Regino Gonzalez Jr., DPM at [facility] Foot N/A / N/A Locking Screw T8 Full Thread 2.4mm / L12mm SCREW Right: Felch [id number] / Implanted: Qty: 1 on 11/19/2018 by Regino Gonzalez Jr., DPM at [facility] Foot N/A / N/A Locking Screw T8 Full Thread 2.4mm / L14mm SCREW Right: Momo [id number] / Implanted: Qty: 1 on 11/19/2018 by Regino Gonzalez Jr., DPM at [facility] Foot N/A / N/A Small Phalinx Hammertoe Implant TOE [facility] [id number] / Implanted: Qty: 1 on 05/13/2015 by Regino Gonzalez Jr., DPM at [facility] Technology [employer] [id number] / [id number] Bearing Tibial 12 X 71/75 Mm #[id number] - [id number] Left: Biomet 05/09/2022 [id number] / Implanted: Qty: 1 on 01/14/2018 by Lacho Cartagena MD at [facility] Knee [id number] / [id number] Stem Finned Primary 40mm Biomet #[id number] - [id number] Left: Biomet 2027 [id number] / Implanted: Qty: 1 on 01/14/2018 by Lacho Cartagena MD at [facility] Knee [id number] / [id number] Adc Femur Left 60 Mm - [id number] Left: Biomet 11/08/2027 [id number] / Implanted: Qty: 1 on 01/14/2018 by Lacho Cartagena MD at [facility] Knee [id number] / [id number] Screw Bone 6.5x30mm Lp St Biomet #165352 - [id number] Left: Biomet 2027 [id number] / Implanted: Qty: 4 on 01/14/2018 by Lacho Cartagena MD at [facility] Knee [id number] / [id number] Screw Cp Lag 3.6mm X 20mm Momo Right: Momo [id number] / Implanted: Qty: 1 on 11/19/2018 by Regino Gonzalez Jr., DPM at [facility] Foot 0 / 0 Reamer For Cross Plates Right: Felch [id number] / Implanted: Qty: 1 on 11/19/2018 by Regino Gonzalez Jr., DPM at [facility] Foot 0 / 0 Cp Lag Screw 03.6mm, L22m Right: Felch [id number] / Implanted: Qty: 1 on 11/19/2018 by Regino Gonzalez Jr., DPM at [facility] Foot N/A / N/A Locking Screw T8 Full Thread 2.4mm / L18mm Right: Momo [id number] / Implanted: Qty: 1 on 11/19/2018 by Regino Gonzalez Jr., DPM at [facility] Foot N/A / N/A Locking Screw T8 Full Thread 2.4mm / L16mm Right: Momo [id number] / Implanted: Qty: 1 on 11/19/2018 by Regino Gonzalez Jr., DPM at [facility] Foot N/A / N/A documented as of [...] BOX Medicare A & B sent [id number] GEORGE CHAWLA [phone] EZRA MUNGUIA xxxxxxxxx 2018-Pres [address] Medicaid HEALTHCARE - HEALTHCARE [place] [id number] MANAGED MEDICAID [place], [place] Guarantor Name Account Type Relation to Date of Phone Billing Patient Address Georgette Castillo Personal/Family Self 1955 [address] [place] (Home) [facility] [place] [address] documented as of this encounter
--- OUTSIDE RECORDS SUMMARY | 2019-02-12 18:33 | XMS REPORT | Summary of Care ---
:1955 Demographics Address [address] [place] [address] Mobile Phone Home Phone Phone Phone Preferred Language Spanish Marital Status Adventist Affiliation Unknown Race White Ethnic Group Not or Author Organization [facility] Address [address] [place] [address] Care Team Providers Name Role Phone Johnson Sainz [facility], [facility] Consulting Physician [phone] Emily Baptiste Primary Care Provider Reason for Visit Reason Comments Notification Encounter Details Date Type Department Care Team Description 01/24/[address] 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 Ceftriaxone Other - See comments 03/05/2017 headache Oxcarbazepine Rash 06/18/2017 documented as of this encounter (statuses as of 01/24/2019) Medications Medication Sig Dispensed Refills Start Date [...] as of this encounter (statuses as of 01/24/2019) Active Problems Problem Noted Date Knee internal derangement, right 08/12/2018 Overview: Added automatically from request for surgery [id number] Overactive bladder 01/31/2018 Hyperlipidemia, unspecified hyperlipidemia type 01/31/2018 Essential hypertension 01/31/2018 Elevated liver enzymes 01/31/2018 Type 2 diabetes mellitus without complication, without long-term current 01/31 use of insulin Anemia, unspecified type 01/31/2018 Obesity (BMI 30-39.9) 01/16/2018 Well woman exam with routine gynecological exam 03/05/2017 documented as of this encounter (statuses as of 01/24/2019) Immunizations Name Administration Dates Next Due Influenza [...] of this encounter Implants Implanted Type Area Dance Critic Device Shelf Model / Identifier Expiration Serial / Lot Date Tibial Modular Tray KNEE Left: Biomet 11/08/2022 [id number] / Implanted: Qty: 1 on 01/14/2018 by Lacho Cartagena MD at [facility] Knee [id number] / [id number] Patella 34mm Vanguard Knee System Biomet #028537 - [id number] PATELLA Left: Biomet 09/19/2022 [id number] / Implanted: Qty: 1 on 01/14/2018 by Lacho Cartagena MD at [facility] Knee [id number] / [id number] Plate Polyaxial Locking Mtp Cross Right T8 [place] #[id number] - Sn/A PLATE Right : Momo [id number] / Implanted: Qty: 1 on 11/19/2018 by Regino Gonzalez Jr., DPM at [facility] Foot N/A / N/A Locking Screw T8 Full Thread 2.4mm / L12mm SCREW Right: [place] [id number] / Implanted: Qty: 1 on 11/19/2018 by Regino Gonzalez Jr., DPM at [facility] Foot N/A / N/A Locking Screw T8 Full Thread 2.4mm / L14mm SCREW Right: [place] [id number] / Implanted: Qty: 1 on 11/19/2018 by Regino Gonzalez Jr., DPM at [facility] Foot N/A / N/A Small Phalinx Hammertoe Implant TOE [facility] [id number] / Implanted: Qty: 1 on 05/13/2015 by Regino Gonzalez Jr., DPM at [facility] Technology Inc [id number] / [id number] Bearing Tibial 12 X 71/75 Mm #[id number] - [id number] Left: Biomet 05/09/2022 [id number] / Implanted: Qty: 1 on 01/14/2018 by Lacho Cartagena MD at [facility] Knee [id number] / [id number] Stem Finned Primary 40mm Biomet #[id number] - [id number] Left: Biomet 2027 [id number] / Implanted: Qty: 1 on 01/14/2018 by Lacho Cartagena MD at [facility] Knee [id number] / [id number] Adc Femur Left 60 Mm - [id number] Left: Biomet 11/08/2027 [id number] / Implanted: Qty: 1 on 01/14/2018 by Lacho Cartagena MD at [facility] Knee [id number] / [id number] Screw Bone 6.5x30mm Lp St Biomet #170773 - [id number] Left: Biomet 2027 [id number] / Implanted: Qty: 4 on 01/14/2018 by Lacho Cartagena MD at [facility] Knee [id number] / [id number] Screw Cp Lag 3.6mm X 20mm [place] Right: [place]pe [id number] / Implanted: Qty: 1 on 11/19/2018 by Regino Gonzalez Jr., DPM at [facility] Foot 0 / 0 Reamer For Cross Plates Right: [place] [id number] / Implanted: Qty: 1 on 11/19/2018 by Regino Gonzalez Jr., DPM at [facility] Foot 0 / 0 Cp Lag Screw 03.6mm, L22m Right: [place] [id number] / Implanted: Qty: 1 on 11/19/2018 by Regino Gonzalez Jr., DPM at [facility] Foot N/A / N/A Locking Screw T8 Full Thread 2.4mm / L18mm Right: Momo [id number] / Implanted: Qty: 1 on 11/19/2018 by Regino Gonzalez Jr., DPM at [facility] Foot N/A / N/A Locking Screw T8 Full Thread 2.4mm / L16mm Right: Momo [id number] / Implanted: Qty: 1 on 11/19/2018 by Regino Gonzalez Jr., DPM at [facility] Foot N/A / N/A documented as of this encounter Results Not on filedocumented in this encounter Insurance Payer Benefit Plan / Subscriber ID Effective Phone Address Type Group Dates MEDICARE MEDICARE PART xxxxxxxxxxx 2007-Pre [phone] Medicare A & B sent [id number] GEORGE CHAWLA [phone] EZRA MUNGUIA xxxxxxxxx 2018-Pres [address] Medicaid HEALTHCARE [place] [id number] MANAGED MEDICAID [place], [place] documented as of this encounter
--- OUTSIDE RECORDS SUMMARY | 2019-02-12 18:33 | XMS REPORT | Summary of Care ---
:1955 Author Organization [facility] Address [address] [place] [id number] Care Team Providers Name Role Phone Johnson F [facility], [facility] Consulting Physician Emily Baptiste Primary Care Provider Reason for Referral Radiology Services (Routine) Status Reason Specialty Diagnoses / Referred By Referred To Procedures Contact Contact New Request Diagnostic Diagnoses Fatty liver Emily Baptiste Radiology Procedures US ABDOMEN GEORGE MAGAÑA [address] [place] [address] [place] [address] Radiology Services (Routine) Status Reason Specialty Diagnoses / Referred By Referred To Procedures Contact Contact New Request Diagnostic Diagnoses Open wound of toe, initial encounter Emily Baptiste Radiology Procedures XR TOES 2 VW LEFT GEORGE Rubi [address] [place] [address] [place] [address] Reason for Visit Reason Comments Follow-up L foot wound LAB WORK Encounter Details Date Type Department Care Team Description 01/31/2019 Office Visit [facility] Family Emily Baptiste, Open wound of toe, initial encounter (Primary Dx); Medicine - Deng VAZQUEZ Type 2 diabetes mellitus without complication, without long-term current use of insulin; [address] [place] [address] [address] [place] [address] DR Collins liver; [place], [place] Essential hypertension; [phone] Mild intermittent asthma without complication [phone] Allergies Active Allergy Reactions Severity Noted Date Comments Aripiprazole Other - See comments 01/10/2018 dystonia [place] Other - See comments 06/18/2017 [place] poisoning Ceftriaxone Other - See comments 03/05/2017 headache Oxcarbazepine Rash 06/18/2017 documented as of this encounter (statuses as of 02/02/2019) Medications Medication Sig Dispensed Refills Start Date End Date Status omeprazole 20 mg Take 20 mg by 0 Active capsule mouth daily. solifenacin Take 1 tablet 90 tablet 1 01/31/2018 Active (VESICARE) 5 mg by mouth tabletIndications: daily. Overactive bladder metformin ER 500 mg Take 1 tablet 90 tablet 1 01/31/2018 Active 24 hr by mouth daily tabletIndications: with Type 2 diabetes breakfast. mellitus without complication, without long-term current use of insulin atorvastatin 10 mg Take 10 mg by 0 Active tablet mouth at bedtime. lancets (ONETOUCH Use as 100 Each 0 11/26/2018 Active DELICA LANCETS) 30 directed, once gauge a day and prn MiscIndications: to monitor Type 2 diabetes blood glucose mellitus without for ICD code complication, E11.9 without long-term current use of insulin blood sugar Use as 100 Strip 0 12/10/2018 Active diagnostic directed, once (ONETOUCH ULTRA a day to BLUE TEST STRIP) monitor blood stripIndications: glucose for Type 2 diabetes ICD code E11.9 mellitus without complication, without long-term current use of insulin Blood-Glucose Meter Use as 1 Kit 0 12/10/2018 Active (ONETOUCH ULTRA2 directed, once METER) a day to KitIndications: monitor blood Type 2 diabetes glucose for mellitus without ICD code E11.9 complication, without long-term current use of insulin doxycycline 100 mg Take 1 tablet 14 tablet 0 01/31/2019 02/07/2019 Active tabletIndications: by mouth 2 Open wound of toe, (two) times initial encounter daily for 7 days. mupirocin 2 % Apply to 22 g 0 01/31/2019 Active ointmentIndications area(s) 3 : Open wound of (three) times toe, initial daily. encounter lisinopril 10 mg Take 1 tablet 30 tablet 1 01/31/2019 Active tabletIndications: by mouth Essential daily. hypertension albuterol 90 Inhale 2 Puffs 8.5 g 5 01/31/2019 Active mcg/actuation every 6 (six) inhalerIndications: hours as Mild intermittent needed for asthma without Wheezing. complication amLODIPine 10 mg TAKE 1 TABLET 90 tablet 1 01/31/2018 01/31/2019 Discontinued tabletIndications: EVERY DAY Essential hypertension losartan 50 mg Take 1 tablet 90 tablet 0 12/03/2018 01/31/2019 Discontinued tabletIndications: by mouth Essential daily. hypertension documented as of this encounter (statuses as of 02/02/2019) Active Problems Problem Noted Date Mild intermittent asthma without complication 02/02/2019 Open wound of toe, initial encounter 02/02/2019 Knee internal derangement, right 08/12/2018 Overview: Added automatically from request for surgery [id number] Overactive bladder 01/31/2018 Hyperlipidemia, unspecified hyperlipidemia type 01/31/2018 Essential hypertension 01/31/2018 Elevated liver enzymes 01/31/2018 Type 2 diabetes mellitus without complication, without long-term current 01/31 use of insulin Anemia, unspecified type 01/31/2018 Obesity (BMI 30-39.9) 01/16/2018 Well woman exam with routine gynecological exam 03/05/2017 documented as of this encounter (statuses as of 02/02/2019) Immunizations Name Administration Dates Next Due Influenza [...] Sign Reading Time Taken Comments Blood Pressure 150/90 02/02/2019 11:00 PM CDT Pulse 72 01/31/2019 1:28 PM CDT Temperature 36.8 C (98.2 F) 01/31/2019 1:28 PM CDT Respiratory Rate - - Oxygen Saturation 96% 01/31/2019 1:28 PM CDT Inhaled Oxygen Concentration - - Weight - - Height - - Body Mass Index - - documented in this encounter Progress Notes Nikki Reed - 01/31/2019 1:40 PM CDTVenipuncture Collection performed by clean technique. Total of 1 attempts were made. Slight pressureand a bandage/ dressing were applied to the site(s). The patient experienced no complications. Specimens were sent processed to [facility] laboratories. Emily Ambrocio PA - 01/31/2019 1:40 PM CDTPicture of L foot Emily Ambrocio PA - 2018 1:40 PM CDT Cc: Chief Complaint Patient presents with Follow-up L foot wound LAB WORK Georgette Medrano is a 63 year old female. L great toe wound: Duration: 4 weeks. Improving. Context: believes her nail salon cut the edge of her toe 1 month ago. She has then tried cleaning itherself, at home pedicure. Says that she pulled a piece of skin out and then after that started to see exposed skin and then began improving. Last tdap: 01/10/17 Associated s/s: + redness No pain. No pain with ROM No purulent drainage, warmth, tenderness, swelling No numbness/tingling No f/c, n/v Tx: soaking, mupirocin, keeping clean Fatty liver: Due for annual u/s after 02/18/19 Etoh- none No abdominal pain, n/v/d/c No hemoptysis No weight loss No f/c Diabetes Pertinent negatives for hypoglycemia include no confusion, dizziness, headaches , hunger, mood changes, nervousness/anxiousness, pallor, seizures, sleepiness, speech difficulty, sweats or tremors. Pertinent negatives for diabetes include no blurred vision, no chest pain, no fatigue, no foot paresthesias, no foot ulcerations, no polydipsia, no polyphagia, no polyuria, no visual change, no weakness and no weight loss. There are no hypoglycemic complications. Symptoms are stable. There are no diabetic complications. Risk factors for coronary artery disease include diabetes mellitus, post-menopausal, hypertension and sedentary lifestyle. She is compliant with treatment none of the time (stopped 2 -3 months ago). She is following a generally healthy diet. She has not had a previous visit with a dietitian. She never participates in exercise. Home blood sugar record trend: not checking at home. An EVERETT inhibitor/angiotensin II receptor pamela is being taken. She does not see a rod welder.Eye exam is notcurrent. Hypertension Chronicity: Chronic Context: noncompliance Context: not drug abuse, not herbal remedies, not medication change, not OTC medications used and not stress Relieved by: Angiotensin blockers Worsened by: Nothing Associated symptoms: no abdominal pain, no anxiety, no blurred vision, no chest pain, no confusion, no dizziness, no ear pain, no epistaxis, no fatigue, no fever, no headaches, no hematuria, no hypokalemia, no loss of consciousness, no nausea, no neck pain, no palpitations, no peripheral edema, no shortness of breath, no syncope, no tinnitus, not vomiting and no weakness Risk factors: diabetes Asthma Severity: Mild Timing: Rare Progression: Unchanged Chronicity: Chronic Context: fumes, known allergens and pollens Context: not activity, not animal exposure, not emotional upset, not occupational exposure, not smoke exposure, not strong odors, not URI and not weather changes Worsened by: Nothing Associated symptoms: no abdominal pain, no chest pain, no claudication, no cough , no diaphoresis, noear pain, no fever, no headaches, no hemoptysis, no neck pain, no PND, no rash, no sore throat, no sputum production, no syncope, no swollen glands, no vomiting and no wheezing Allergies Georgette is allergic to abilify [aripiprazole]; lithium; rocephin [ceftriaxone]; and trileptal [oxcarbazepine]. Medications Outpatient Medications Prior to Visit Medication Sig Dispense Refill blood sugar diagnostic (TransifexUCH ULTRA BLUE TEST STRIP) strip Use as directed, once a day to monitor blood glucose for ICD code E11.9 100 Strip 0 Blood-Glucose Meter (TransifexUCH ULTRA2 METER) Kit Use as directed, once a day to monitor blood glucose for ICD code E11.9 1 Kit 0 losartan 50 mg tablet Take 1 tablet by mouth daily. 90 tablet 0 lancets (TransifexUCH DELICA LANCETS) 30 gauge Misc Use as directed, once a day and prn to monitor blood glucose for ICD code E11.9 100 Each 0 atorvastatin 10 mg tablet Take 10 mg [...] dx 15 years ago, under care of [facility] Bipolar affective disorder Depression DM (diabetes mellitus) HLD (hyperlipidemia) Hypertension Leiomyoma of uterus Migraine Pap smear abnormality of cervix HPV + Urinary incontinence Past Surgical History: Procedure Laterality Date CHOLECYSTECTOMY FOOT/TOES SURGERY PROC UNLISTED Left X 5 HYSTERECTOMY 15 years ago partial, has ovaries KNEE ARTHROSCOPY Left KNEE ARTHROSCOPY Right 08/26/2018 Surgeon: Lacho Cartagena MD; [facility] LAPAROSCOPIC BLADDER SUSPENSION 5 years ago IN EXCISION OF IMPLANTED VAGINAL MESH RADICAL HYSTERECTOMY TOE ARTHRODESIS Right 11/19/2018 Surgeon: Regino Gonzalez Jr., DPM; Location: [facility] TOE ARTHROPLASTY Left 05/13/2015 Surgeon: Regino Gonzalez Jr., DPM; Location: [facility] TONSILLECTOMY TOTAL KNEE ARTHROPLASTY Left 01/14/2018 Surgeon: Lacho Cartagena MD; Location: [facility] OR [facility] Social History Socioeconomic History Marital [...] file Gets together: Not on file Attends confucianist service: Not on file Active member of [...] activity change, appetite change, chills, diaphoresis, fatigue, fever, unexpected weight change, weight gain and weight loss. HENT: Negative for congestion, ear pain, nosebleeds, postnasal drip, rhinorrhea , sinus pressure, sneezing, sore throat and tinnitus. Eyes: Negative for blurred vision, photophobia and visual disturbance. Respiratory: Negative for cough, hemoptysis, sputum production, chest tightness , shortness of breathand wheezing. Cardiovascular: Negative for chest pain, palpitations, claudication, leg swelling, syncope and PND. Gastrointestinal: Negative for abdominal pain, constipation, diarrhea, nausea and vomiting. Genitourinary: Negative for bladder incontinence, dysuria, urgency, polyuria, frequency, hematuria, flank pain, difficulty urinating and nocturia. Musculoskeletal: Negative for arthralgias, back pain, gait problem, joint swelling, myalgias and neck pain. Skin: Positive for wound. Negative for pallor and rash. Neurological: Negative for dizziness, tremors, seizures, loss of consciousness, syncope, speech difficulty, weakness, light-headedness, numbness and headaches. Psychiatric/Behavioral: Negative for agitation, behavioral problems, confusion and decreased concentration. The patient is not nervous/anxious. Hematological: Negative for cold intolerance and heat intolerance. Endocrine: Negative for goiter, hair loss, cold intolerance, heat intolerance, polydipsia, polyphagia, polyuria, weight gain and weight loss. Vital Signs BP (!) 161/94 | Pulse 72 | Temp 36.8 C (98.2 F) (Oral) | LMP 02/25/2002 ( Approximate) | [id number]% BP (!) 150/90 | Pulse 72 | Temp 36.8 C (98.2 F) (Oral) | LMP 02/25/2002 ( Approximate) | [id number]% Physical Exam Constitutional: She is oriented to person, place, and time. She appears well- developed and well-nourished. No distress. HENT: Head: Normocephalic and atraumatic. Right Ear: External ear normal. Left Ear: External ear normal. Nose: Nose normal. Mouth/Throat: Oropharynx is clear and moist. Neck: Normal range of motion. Neck supple. Cardiovascular: Normal rate, regular rhythm, normal heart sounds and intact distal pulses. Pulmonary/Chest: Effort normal and breath sounds normal. Abdominal: Soft. Bowel sounds are normal. She exhibits no distension. There is no tenderness. There is no rebound and no guarding. Musculoskeletal: Normal range of motion. Lymphadenopathy: She has no cervical adenopathy. Neurological: She is alert and oriented to person, place, and time. Sensory exam of the foot is normal. Monofilament exam with sensation Right: 5/5 , Left: 5/5. Lesions absent Ulcers Present Left Foot Peripheral pulses present 2 +. Skin: Skin is warm and dry. No rash noted. She is not diaphoretic. No pallor. Small, shallow wound on lateral toenail edge of L great toe. + faint erythema. No warmth, tenderness, swelling, induration, fluctuance, purulent drainage. No pain with ROM or restricted ROM. Psychiatric: She has a normal mood and affect. Nursing note and vitals reviewed. Results for GEORGETTE MEDRANO ( ) as of 02/02/2019 23:06 Ref. Range 01/31/2019 14:36 WBC x10^3 Latest Ref Range: 4.30 - 11.10 10*3/L 6.85 RBC x10^6 Latest Ref Range: 3.93 - 5.25 10*6/L 4.37 HGB Latest Ref Range: 11.6 - 15.0 g/dL 12.5 HCT Latest Ref Range: 35.7 - 45.2 % 37.9 MCV Latest Ref Range: 80.6 - 95.5 fL 86.7 MCH Latest Ref Range: 25.9 - 32.8 pg 28.6 MCHC Latest Ref Range: 31.6 - 35.1 g/dL 33.0 RDW-SD Latest Ref Range: 39.0 - 49.9 fL 41.4 RDW-CV Latest Ref Range: 12.0 - 15.5 % 13.0 PLT x10^3 Latest Ref Range: 166 - 358 10*3/L 272 MPV Latest Ref Range: 9.5 - 12.9 fL 10.4 NRBC /100 WBC Latest Ref Range: 0.0 - 10.0 /100 WBCs 0.0 NRBC x10^3 Latest Units: 10*3/L <0.01 GRAN MAT (NEUT) % Latest Units: % 56.1 IMM GRAN % Latest Units: % 0.10 LYMPH% Latest Units: % 34.0 MONO % Latest Units: % 7.2 EOS % Latest Units: % 1.9 BASO % Latest Units: % 0.7 GRAN MAT x10^3(ANC) Latest Ref Range: 1.88 - 7.09 10*3/uL 3.84 IMM GRAN x10^3 Latest Ref Range: 0.00 - 0.06 10*3/uL <0.03 LYMPH x10^3 Latest Ref Range: 1.32 - 3.29 10*3/uL 2.33 MONO x10^3 Latest Ref Range: 0.33 - 0.92 10*3/uL 0.49 EOS x10^3 Latest Ref Range: 0.03 - 0.39 10*3/uL 0.13 BASO x10^3 Latest Ref Range: 0.01 - 0.07 10*3/uL 0.05 NA Latest Ref Range: 135 - 145 mmol/L 144 K Latest Ref Range: 3.5 - 5.0 mmol/L 3.7 CL Latest Ref Range: 98 - 108 mmol/L 109 (H) CO2 TOTAL Latest Ref Range: 23 - 31 mmol/L 27 AGAP Latest Ref Range: 2 - 16 8 BUN Latest Ref Range: 7 - 23 mg/dL 13 GLUCOSE Latest Ref Range: 70 - 110 mg/dL 74 CREATININE Latest Ref Range: 0.50 - 1.04 mg/dL 0.56 eGFR CALCULATION (non ) Latest Units: mL/min/1.73m2 109.7 eGFR CALCULATION () Latest Units: mL/min/1.73m2 132.9 TOTAL BILI Latest Ref Range: 0.1 - 1.1 mg/dL 0.3 CALCIUM Latest Ref Range: 8.6 - 10.6 mg/dL 9.4 T PROTEIN Latest Ref Range: 6.3 - 8.2 g/dL 6.5 ALBUMIN Latest Ref Range: 3.5 - 5.0 g/dL 4.1 HGB A1C Latest Ref Range: 4.0 - 6.0 % NGSP 5.4 ALK PHOS Latest Ref Range: 34 - 122 U/L 92 ALT(SGPT) Latest Ref Range: 9 - 51 U/L 37 AST(SGOT) Latest Ref Range: 13 - 40 U/L 33 TSH Latest Ref Range: 0.45 - 4.70 mIU/L 1.59 Assessment/Plan Open wound of toe, initial encounter (primary encounter diagnosis) Plan: WOUND CULTURE, XR TOES 2 VW LEFT, CBC WITH DIFF, CBC WITH DIFFERENTIAL, doxycycline 100 mg tablet, mupirocin 2 % ointment Small wound with faint erythema. Well appearing, afebrile, HR< 100. No pain, no pain with ROM. Nosigns of abscess/septic joint. Though will get x-ray to assess for radiopaque foreign body and signsof osteomyelitis. CBC to assess wbc (reviewed--> no leukocytosis). Wound culture also ordered. TDAP UTD. Will also cover with doxycycline for MRSA coverage since interaction of bactrim/ lisinopril w/potentially increased K and allergy to cephalosporin. Cleaned in clinic, irrigated with normal saline, applied mupirocin and bandaged. Patient has follow-up already scheduled with podiatry, Dr Loredo, on Sunday. Encouraged to keep appointment. Also encouraged to complete DM foot care with podiatry instead of nail salons, patient agrees. Encouraged to keep clean- washing with warm soap and water TID Encouraged to apply mupirocin TID with q-tip Encouraged to keep bandaged Encouraged to avoid picking Encouraged to soak in epsom salt. Advised against soaking in other beverages such as tea/soda that she had been using. ER--> worsening condition, f/c, n/v, spreading redness, warmth, induration, purulent drainage, severe pain, pain with ROM. Type 2 diabetes mellitus without complication, without long-term current use of insulin Plan: CBC WITH DIFF, COMP. METABOLIC PANEL (86072), GLYCOSYLATED HEMOGLOBIN (A1C), THYROID STIMULATING HORMONE, CBC WITH DIFFERENTIAL, LIPID PANEL (33248)(TOTAL CHOLESTEROL, TRIGLYCERIDES, HDL) Patient admits to noncompliance with metformin. Will check A1c to monitor, restart therapy as needed pending results. Results reviewed- A1c 5.4, well controlled. Recommend healthy diet/exercise for management. Educated on DM foot care, daily exams, and podiatry care Encouraged annual eye exams Encouraged to check FBG regularly and log Educated/counseled on lifestyle habits including: Counseled on eating portion controlled, well balanced portion controlled diets. Worked through his current meal plan while educating on improvements/changes to be made along with meal planning examples. Educated on food labels and how to interpret. Recommend calorie consumption of 9638-5767 with < 45% of intake being carbs, and < 10 % being fat. Recommend/discussed Heart healthy diet: low fat/carb/sugar diet; increase lean meat-chicken, turkey,fish; increase vegetables/fruits ( still be careful because elevated sugar level) Recommend/discussed Heart Healthy Exercise: total of 150 minutes of cardio: walking,swimming, hiking, biking every week. Stressed the importance of not skipping meals. Discuss ed healthy snacks such as tree nuts, raw veggies. Encouraged pt to go to ADA website for more helpful information. ER--> cp, shortness of breath, dizziness, syncope, palpitations, n/v, diaphoresis. Fatty liver Plan: COMP. METABOLIC PANEL (43184), LIPID PANEL (41727)(TOTAL CHOLESTEROL, TRIGLYCERIDES, HDL), US ABDOMEN COMPLETE Due for annual surveillance with u/s, will order. Complete after 02/18/19. Patient referred to hepatology/GI in the past but chose not to go. Labs and u/s to monitor. GI if worsening. Encouraged to update hep a/b vaccination, agrees to consider. -Recommend Heart healthy diet: low fat/carb/sugar diet; increase lean meat- chicken, turkey, fish; increase vegetables/fruits ( still be careful because elevated sugar level) -Recommend Heart Healthy Exercise: total of 150 minutes of cardio: walking, swimming, hiking, biking every week. -Weight reduction if overweight -Avoiding etoh -Avoiding Tylenol Essential hypertension Plan: CBC WITH DIFF, COMP. METABOLIC PANEL (13532), lisinopril 10 mg tablet, LIPID PANEL (23914)(TOTAL CHOLESTEROL, TRIGLYCERIDES, HDL) BP elevated today. Has not been regularly compliant with regimen. States that she would rather go back to lisinopril than be on losartan since it seemed to work better. Will start on lisinopril 10 mg daily. rtc in 3-4 weeks with bp machine and log. Repeat bmp at that time. Watch blood pressure: check 2-3 times daily and log. Low salt Low caffeine diet Low alcohol Avoid tobacco products. Heart Healthy Exercise: total of 150 minutes of cardio: walking,swimming, hiking , biking every week. Heart healthy diet: low fat/carb/sugar diet; increase lean meat-chicken, turkey , fish; increase vegetables/fruits ( still be careful because elevated sugar level) Er--> chest pain, dizziness, passing out, fluttering of heart, shortness of breath. Mild intermittent asthma without complication Plan: albuterol 90 mcg/actuation inhaler Sporadic asthma. Uses albuterol once every 4 months. Due for RF, will order. Use as needed for wheezing Encouraged to avoid triggers ER--> cp, shortness of breath, dyspnea, dizziness, syncope, palpitations, n/v , diaphoresis. Pt ed/precautions given in detail regarding conditions/medicaitons. Er precautions given. Pt reportsunderstanding and agrees. rtc if s/s worsen or do not improve; 3-4 weeks Plan of care, desired health behaviors, goals, [...] signed by Emily Baptiste PA at 2018 11:46 PM CDTdocumented in this encounter Plan of Treatment Name Type Priority Associated Diagnoses Date/Time WOUND CULTURE LAB Routine Open wound of toe, initial 01/31/2019 6:05 PM CDT encounter Name Type Priority Associated Diagnoses Order Schedule XR TOES 2 VW LEFT IMAGING Routine Open wound of toe, Expected: 01/31/2019, initial encounter Expires: 02/01/2020 LIPID PANEL LAB Routine Fatty liver 1 Occurrences starting (51278)(TOTAL Essential hypertension 02/02/2019 until CHOLESTEROL, 03/04/2019 TRIGLYCERIDES, HDL) US ABDOMEN COMPLETE IMAGING Routine Fatty liver Expected: 02/02/2019, Expires: 02/03/2020 Health Maintenance Due Date Last Done Comments PNEUMOCOCCAL 0-64 YEARS COMBINED 1962 SERIES (1 of 1 - PPSV23) Zoster Recombinant Vaccine 2006 (SHINGRIX) (1 of 2) INFLUENZA VACCINE (#1) 2019 03/05/2017 LDL-C 02/06/2019 02/06/2018 URINE MICROALBUMIN 02/06/2019 02/06/2018 HgA1C 08/01/2019 01/31/2019, 02/06/2018 EYE EXAM 08/08/2019 08/07/2018, 03/14/2017 (Previously completed) MAMMOGRAM 09/26/2019 09/25/2018, 09/24/2017, 06/10/2015 CREATININE (SERUM) 02/01/2020 01/31/2019, 11/13/2018, 08/09/2018, Additional history exists FOOT EXAM 02/01/2020 01/31/2019 PAP SMEAR 01/11/2021 01/11/2018 (Previously completed), 03/05/2017 COLONOSCOPY 01/06/2025 01/06/2015 (Previously completed) DTaP,Tdap,and Td Vaccines (2 - Td) 03/05/2027 03/05/2017 HEPATITIS C (HCV) SCREEN Completed 02/22/2018, 01/10/2017 (Previously completed) documented as of this encounter Implants Implanted Type Area Assistant Financial Accountant Device Shelf Model / Identifier Expiration Serial / Lot Date Tibial Modular Tray KNEE Left: Biomet 11/08/2022 [id number] / Implanted: Qty: 1 on 01/14/2018 by Lacho Cartagena MD at [facility] Knee [id number] / [id number] Patella 34mm Vanguard Knee System Biomet #[id number] - [id number] PATELLA Left: Biomet 09/19/2022 [id number] / Implanted: Qty: 1 on 01/14/2018 by Lacho Cartagena MD at [facility] Knee [id number] / [id number] Plate Polyaxial Locking Mtp Cross Right T8 Momo #[id number] - Sn/A PLATE Right : Kingsley [id number] / Implanted: Qty: 1 on 11/19/2018 by Regino Gonzalez Jr., DPM at [facility] Foot N/A / N/A Locking Screw T8 Full Thread 2.4mm / L12mm SCREW Right: Kingsley [id number] / Implanted: Qty: 1 on 11/19/2018 by Region Gonzalez Jr., DPM at [facility] Foot N/A / N/A Locking Screw T8 Full Thread 2.4mm / L14mm SCREW Right: Momo [id number] / Implanted: Qty: 1 on 11/19/2018 by Regino Gonzalez Jr., DPM at [facility] Foot N/A / N/A Small Phalinx Hammertoe Implant [facility] [id number] / Implanted: Qty: 1 on 05/13/2015 by Regino Gonzalez Jr., DPM at [facility] [employer] [id number] / [id number] Bearing Tibial 12 X 71/75 Mm #[id number] - [id number] Left: Biomet 05/09/2022 [id number] / Implanted: Qty: 1 on 01/14/2018 by Lacho Cartagena MD at [facility] Knee [id number] / [id number] Stem Finned Primary 40mm Biomet #[id number] - [id number] Left: Biomet 2027 [id number] / Implanted: Qty: 1 on 01/14/2018 by Lacho Cartagena MD at [facility] Knee [id number] / [id number] Adc Femur Left 60 Mm - [id number] Left: Biomet 11/08/2027 [id number] / Implanted: Qty: 1 on 01/14/2018 by Lacho Cartagena MD at [facility] Knee [id number] / [id number] Screw Bone 6.5x30mm Lp St Biomet #[id number] - [id number] Left: Biomet 2027 [id number] / Implanted: Qty: 4 on 01/14/2018 by Lacho Cartagena MD at [facility] Knee [id number] / [id number] Screw Cp Lag 3.6mm X 20mm Momo Right: Momo [id number] / Implanted: Qty: 1 on 11/19/2018 by Regino Gonzalez Jr., DPM at [facility] Foot 0 / 0 Reamer For Cross Plates Right: Momo [id number] / Implanted: Qty: 1 on 11/19/2018 by Regino Gonzalez Jr., DPM at [facility] Foot 0 / 0 Cp Lag Screw 03.6mm, L22m Right: Kingsley [id number] / Implanted: Qty: 1 on 11/19/2018 by Regino Gonzalez Jr., DPM at [facility] Foot N/A / N/A Locking Screw T8 Full Thread 2.4mm / L18mm Right: Kingsley [id number] / Implanted: Qty: 1 on 11/19/2018 by Regino Gonzalez Jr., DPM at [facility] Foot N/A / N/A Locking Screw T8 Full Thread 2.4mm / L16mm Right: Kingsley [id number] / Implanted: Qty: 1 on 11/19/2018 by Regino Gonzalez Jr., DPM at [facility] Foot N/A / N/A documented as of this encounter Procedures Procedure Name Priority Date/Time Associated Diagnosis Comments WOUND CULTURE Routine 01/31/2019 6:05 Open wound of toe, PM CDT initial encounter CBC WITH DIFFERENTIAL Routine 01/31/2019 2:36 Type 2 diabetes Results for this PM CDT mellitus without procedure are in complication, the results without long-term section. current use of insulin Open wound of toe, initial encounter GLYCOSYLATED Routine 01/31/2019 2:36 Type 2 diabetes Results for this HEMOGLOBIN (A1C) PM CDT mellitus without procedure are in complication, the results without long-term section. current use of insulin CBC WITH DIFF Routine 01/31/2019 2:36 Type 2 diabetes Results for this PM CDT mellitus without procedure are in complication, the results without long-term section. current use of insulin Open wound of toe, initial encounter Essential hypertension COMP. METABOLIC PANEL Routine 01/31/2019 2:36 Type 2 diabetes Results for this (97159) PM CDT mellitus without procedure are in complication, the results without long-term section. current use of insulin Fatty liver Essential hypertension THYROID STIMULATING Routine 01/31/2019 2:36 Type 2 diabetes Results for this HORMONE PM CDT mellitus without procedure are in complication, the results without long-term section. current use of insulin documented in this encounter Results CBC WITH DIFFERENTIAL (01/31/2019 2:36 PM CDT) WBC 6.85 4.30 - 11.10 [facility] 10*3/L [facility] RBC 4.37 3.93 - 5.25 [facility] 10*6/L [facility] HGB 12.5 11.6 - 15.0 g/dL [facility] HCT 37.9 35.7 - 45.2 % [facility] MCV 86.7 80.6 - 95.5 fL [facility] MCH 28.6 25.9 - 32.8 pg [facility] MCHC 33.0 31.6 - 35.1 g/dL [facility] RDW-SD 41.4 39.0 - 49.9 fL [facility] RDW-CV 13.0 12.0 - 15.5 % [facility] PLT 272 166 - 358 [facility] 10*3/L [facility] MPV 10.4 9.5 - 12.9 fL [facility] NRBC/100 WBC 0.0 0.0 - 10.0 /100 [facility] WBCs [facility] NRBC x10^3 <0.01 10*3/L [facility] GRAN MAT (NEUT) % 56.1 % [facility] IMM GRAN % 0.10 % [facility] LYMPH % 34.0 % [facility] MONO % 7.2 % [facility] EOS % 1.9 % [facility] BASO % 0.7 % [facility] GRAN MAT x10^3(ANC) 3.84 1.88 - 7.09 [facility] 10*3/uL HOSPITAL [facility] IMM GRAN x10^3 <0.03 0.00 - 0.06 [facility] 10*3/uL [facility] LYMPH x10^3 2.33 1.32 - 3.29 [facility] 10*3/uL [facility] MONO x10^3 0.49 0.33 - 0.92 [facility] 10*3/uL [facility] EOS x10^3 0.13 0.03 - 0.39 [facility] 10*3/uL [facility] BASO x10^3 0.05 0.01 - 0.07 [facility] 10*3/uL [facility] Specimen Blood - ARM, LEFT Performing Organization Address [facility] Phone Number [facility] CLIA: [id number], [address] [place] [address] THYROID STIMULATING HORMONE (01/31/2019 2:36 PM CDT) TSH 1.59 0.45 - 4.70 mIU/L [facility] Specimen Blood - ARM, LEFT Performing Organization Address [facility] Phone Number [facility] CLIA: [id number], [address] [place] [address] GLYCOSYLATED HEMOGLOBIN (A1C) (01/31/2019 2:36 PM CDT) HGB A1C 5.4 4.0 - 6.0 % NGSP [facility] Specimen Blood - ARM, LEFT Narrative Performed At %A1C (NGSP) Interpretation (ADA) [facility] 4.8-5.6 Normal or (Non-Diabetic Range) 5.7-6.4 Increased Risk (Pre-Diabetic) >6.5Diabetes Indicated Performing Organization Address [facility] Phone Number [facility] CLIA: [id number], [address] [place] [address] COMP. METABOLIC PANEL (12579) (01/31/2019 2:36 PM CDT) NA 144 135 - 145 [facility] mmol/L [facility] K 3.7 3.5 - 5.0 [facility] mmol/L [facility] CL 109 (H) 98 - 108 mmol/L [facility] CO2 TOTAL 27 23 - 31 mmol/L [facility] AGAP 8 2 - 16 [facility] BUN 13 7 - 23 mg/dL [facility] GLUCOSE 74 70 - 110 mg/dL [facility] CREATININE 0.56 0.50 - 1.04 [facility] mg/dL [facility] TOTAL BILI 0.3 0.1 - 1.1 mg/dL [facility] CALCIUM 9.4 8.6 - 10.6 [facility] mg/dL HOSPITAL LAB[facility]ORY T PROTEIN 6.5 6.3 - 8.2 g/dL [facility] ALBUMIN 4.1 3.5 - 5.0 g/dL [facility] ALK PHOS 92 34 - 122 U/L [facility] ALT(SGPT) 37 9 - 51 U/L [facility] AST(SGOT) 33 13 - 40 U/L [facility] eGFR Calculation 109.7 mL/min/1.73m2 [facility] [place] eGFR Calculation 132.9 mL/min/1.73m2 [facility] () [facility] Specimen Blood - ARM, LEFT Narrative Performed At Association of Glomerular Filtration Rate (GFR) [facility] and Staging of Kidney Disease* + + +- + | GFR (mL/min/1.73 m2)| With Kidney Damage|Without Kidney Damage + + +- + |>90| Stage one| Normal + + +- + |60-89|S tage two| Decreased GFR + + +- + |30-59|S tage three| Stage three + + +- + |15-29|S tage four | Stage four + + +- + |<15 (or dialysis)|Stage five | Stage five + + +- + *Each stage assumes the associated GFR level has been in effect for at least three months.Stages 1 to 5, with or without kidney disease, indicate chronic kidney disease. Notes: Determination of stages one and two (with eGFR >59mL/min/1.73 m2) requires estimation of kidney damage for at least three months as defined by structural or functional abnormalities of the kidney, manifested by either: Pathological abnormalities or Markers of kidney damage (including abnormalities in the composition of the blood or urine or abnormalities in imaging tests). Performing Organization Address City/State/Zipcode Phone Number [facility] CLIA: [id number], [address] [place] [address] documented in this encounter Visit Diagnoses Diagnosis Open wound of toe, initial encounter - Primary Type 2 diabetes mellitus without complication, without long-term current use of insulin Fatty liver Other chronic nonalcoholic liver disease Essential hypertension Unspecified essential hypertension Mild intermittent asthma without complication Unspecified asthma documented in this encounter Insurance Payer Benefit Plan / Subscriber ID Effective Dates Phone Address Type Group MEDICARE MEDICARE PART xxxxxxxxxxx 2007-Warren [phone] [address] Medicare A & B 2 [id number] [place] [address] (Home) [place] [address] documented as of this encounter"
--- OUTSIDE RECORDS SUMMARY | 2019-02-12 18:33 | XMS REPORT | Summary of Care ---
:1955 Author Organization [facility] Address [address] [place] [address] Care Team Providers Name Role Phone Johnson F [facility] Consulting Physician [phone] Emily Baptiste Primary Care Provider Reason for Referral Radiology Services (Routine) Status Reason Specialty Diagnoses / Referred By Referred To Procedures Contact Contact New Request Diagnostic Diagnoses Fatty liver Emily Baptiste Radiology Procedures US ABDOMEN GEORGE MAGAÑA [address] [place] [address] [place] [address] Radiology Services (Routine) Status Reason Specialty Diagnoses / Referred By Referred To Procedures Contact Contact New Request Diagnostic Diagnoses Open wound of toe, initial encounter Emily Baptiste Radiology Procedures XR TOES 2 VW LEFT GEORGE Rubi [address] [place] [address] [place] [address] Reason for Visit Reason Comments Follow-up L foot wound LAB WORK Encounter Details Date Type Department Care Team Description 01/31/2019 Office Visit [facility] Family Emily Baptiste, Open wound of toe, initial encounter (Primary Dx); Medicine - Deng VAZQUEZ Type 2 diabetes mellitus without complication, without long-term current use of insulin; [address] [place] [address] [place] [address] DR Collins liver; [place], [place] Essential hypertension; [phone] Mild intermittent asthma without complication [phone] Allergies Active Allergy Reactions Severity Noted Date Comments Aripiprazole Other - See comments 01/10/2018 dystonia Benoit Other - See comments 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 Specimens were sent processed to [facility] laboratories. Emily Ambrocio PA - [...] being taken. She does not see a psychiatric nurse.Eye exam is notcurrent. Hypertension Chronicity: Chronic Context: [...] Medication Sig Dispense Refill blood sugar diagnostic ([facility] ULTRA BLUE TEST STRIP) strip Use as directed, once a day to monitor blood glucose for ICD code E11.9 100 Strip 0 Blood-Glucose Meter ([facility] ULTRA2 METER) Kit Use as directed, once a day to monitor blood glucose for ICD code E11.9 1 Kit 0 losartan 50 mg tablet Take 1 tablet by mouth daily. 90 tablet 0 lancets ([facility] DELICA LANCETS) 30 gauge Misc Use as [...] dx 15 years ago, under care of [facility] Bipolar affective disorder Depression DM (diabetes mellitus) HLD (hyperlipidemia) Hypertension Leiomyoma of uterus Migraine Pap smear abnormality of cervix HPV + Urinary incontinence Past Surgical History: Procedure Laterality Date CHOLECYSTECTOMY FOOT/TOES SURGERY PROC UNLISTED Left X 5 HYSTERECTOMY 15 years ago partial, has ovaries KNEE ARTHROSCOPY Left KNEE ARTHROSCOPY Right 08/26/2018 Surgeon: Lacho Cartagena MD; [facility] LAPAROSCOPIC BLADDER SUSPENSION 5 years ago MI EXCISION OF IMPLANTED VAGINAL MESH RADICAL HYSTERECTOMY TOE ARTHRODESIS Right 11/19/2018 Surgeon: Regino Gonzalez Jr., DPM; Location: [facility] TOE ARTHROPLASTY Left 05/13/2015 Surgeon: Regino Gonzalez Jr., DPM; Location: [facility] TONSILLECTOMY TOTAL KNEE ARTHROPLASTY Left 01/14/2018 Surgeon: Lacho Cartagena MD; Location: [facility] OR [facility] Social History Socioeconomic History Marital status: Spouse [...] file Gets together: Not on file Attends quaker service: Not on file Active member of [...] (Oral) | LMP 02/25/2002 ( Approximate) | XsT327% BP (!) 150/90 | Pulse 72 | Temp 36.8 C (98.2 F) (Oral) | LMP 02/25/2002 ( Approximate) | XsA231% Physical Exam Constitutional: She is oriented to [...] Plan: CBC WITH DIFF, COMP. METABOLIC PANEL (96668), GLYCOSYLATED HEMOGLOBIN (A1C), THYROID STIMULATING HORMONE, CBC WITH DIFFERENTIAL, LIPID PANEL (18319)(TOTAL CHOLESTEROL, TRIGLYCERIDES, HDL) Patient admits to noncompliance [...] how to interpret. Recommend calorie consumption of 8935-0385 with < 45% of intake being carbs, [...] diaphoresis. Fatty liver Plan: COMP. METABOLIC PANEL (87263), LIPID PANEL (78727)(TOTAL CHOLESTEROL, TRIGLYCERIDES, HDL), US ABDOMEN COMPLETE Due [...] Plan: CBC WITH DIFF, COMP. METABOLIC PANEL (61214), lisinopril 10 mg tablet, LIPID PANEL (83377)(TOTAL CHOLESTEROL, TRIGLYCERIDES, HDL) BP elevated today. Has [...] LAB Routine Fatty liver 1 Occurrences starting (28287)(TOTAL Essential hypertension 02/02/2019 until CHOLESTEROL, 03/04/2019 TRIGLYCERIDES, [...] of this encounter Implants Implanted Type Area Design Intern Device Shelf Model / Identifier Expiration Serial / Lot Date Tibial Modular Tray KNEE Left: Biomet 11/08/2022 [id number] / Implanted: Qty: 1 on 01/14/2018 by Lacho Cartagena MD at [facility] Knee [id number] / [id number] Patella 34mm Vanguard Knee System Biomet #[id number] - [id number] PATELLA Left: Biomet 09/19/2022 [id number] / Implanted: Qty: 1 on 01/14/2018 by Lacho Cartagena MD at [facility] Knee [id number] / [id number] Plate Polyaxial Locking Mtp Cross Right T8 Momo #[id number] - Sn/A PLATE Right : Canvas [id number] / Implanted: Qty: 1 on 11/19/2018 by Regino Gonzalez Jr., DPM at [facility] Foot N/A / N/A Locking Screw T8 Full Thread 2.4mm / L12mm SCREW Right: Canvas [id number] / Implanted: Qty: 1 on 11/19/2018 by Regino Gonzalez Jr., DPM at [facility] Foot N/A / N/A Locking Screw T8 Full Thread 2.4mm / L14mm SCREW Right: Momo [id number] / Implanted: Qty: 1 on 11/19/2018 by Regino Gonzalez Jr., DPM at [facility] Foot N/A / N/A Small Phalinx Hammertoe Implant [facility] [id number] / Implanted: Qty: 1 on 05/13/2015 by Regino Gonzalez Jr., DPM at [facility] Agency [employer] [id number] / [id number] Bearing Tibial 12 X 71/75 Mm #[id number] - [id number] Left: Biomet 05/09/2022 [id number] / Implanted: Qty: 1 on 01/14/2018 by Lacho Cartagena MD at [facility] Knee [id number] / [id number] Stem Finned Primary 40mm Biomet #[id number] - [id number] Left: Biomet 2027 [id number] / Implanted: Qty: 1 on 01/14/2018 by Lacho Cartagena MD at [facility] Knee [id number] / [id number] Adc Femur Left 60 Mm - [id number] Left: Biomet 11/08/2027 [id number] / Implanted: Qty: 1 on 01/14/2018 by Lacho Cartagena MD at [facility] Knee [id number] / [id number] Screw Bone 6.5x30mm Lp St Biomet #[id number] - [id number] Left: Biomet 2027 [id number] / Implanted: Qty: 4 on 01/14/2018 by Lacho Cartagena MD at [facility] Knee [id number] / [id number] Screw Cp Lag 3.6mm X 20mm Momo Right: Momo [id number] / Implanted: Qty: 1 on 11/19/2018 by Regino Gonzalez Jr., DPM at [facility] Foot 0 / 0 Reamer For Cross Plates Right: Momo [id number] / Implanted: Qty: 1 on 11/19/2018 by Regino Gonzalez Jr., DPM at [facility] Foot 0 / 0 Cp Lag Screw 03.6mm, L22m Right: Canvas [id number] / Implanted: Qty: 1 on 11/19/2018 by Regino Gonzalez Jr., DPM at [facility] Foot N/A / N/A Locking Screw T8 Full Thread 2.4mm / L18mm Right: Canvas [id number] / Implanted: Qty: 1 on 11/19/2018 by Regino Gonzalez Jr., DPM at [facility] Foot N/A / N/A Locking Screw T8 Full Thread 2.4mm / L16mm Right: Canvas [id number] / Implanted: Qty: 1 on 11/19/2018 by Regino Gonzalez Jr., DPM at [facility] Foot N/A / N/A documented as [...] 2:36 Type 2 diabetes Results for this (35719) PM CDT mellitus without procedure are in [...] PM CDT) WBC 6.85 4.30 - 11.10 [facility] 10*3/L [facility] RBC 4.37 3.93 - 5.25 [facility] 10*6/L [facility] HGB 12.5 11.6 - 15.0 g/dL [facility] HCT 37.9 35.7 - 45.2 % [facility] MCV 86.7 80.6 - 95.5 fL [facility] MCH 28.6 25.9 - 32.8 pg [facility] MCHC 33.0 31.6 - 35.1 g/dL [facility] RDW-SD 41.4 39.0 - 49.9 fL [facility] RDW-CV 13.0 12.0 - 15.5 % [facility] PLT 272 166 - 358 [facility] 10*3/L [facility] MPV 10.4 9.5 - 12.9 fL [facility] NRBC/100 WBC 0.0 0.0 - 10.0 /100 [facility] WBCs [facility] NRBC x10^3 <0.01 10*3/L [facility] GRAN MAT (NEUT) % 56.1 % [facility] IMM GRAN % 0.10 % [facility] LYMPH % 34.0 % [facility] MONO % 7.2 % [facility] EOS % 1.9 % [facility] BASO % 0.7 % [facility] GRAN MAT x10^3(ANC) 3.84 1.88 - 7.09 [facility] 10*3/uL HOSPITAL LABORATORY IMM GRAN x10^3 <0.03 0.00 - 0.06 [facility] 10*3/uL HOSPITAL LABORATORY LYMPH x10^3 2.33 1.32 - 3.29 [facility] 10*3/uL HOSPITAL LABORATORY MONO x10^3 0.49 0.33 - 0.92 [facility] 10*3/uL [facility] EOS x10^3 0.13 0.03 - 0.39 [facility] 10*3/uL [facility] BASO x10^3 0.05 0.01 - 0.07 [facility] 10*3/uL [facility] Specimen Blood - ARM, LEFT Performing Organization Address [facility] Phone Number [facility] CLIA: [id number], [address] [place] [address] THYROID STIMULATING HORMONE (01/31/2019 2:36 PM CDT) TSH 1.59 0.45 - 4.70 mIU/L [facility] Specimen Blood - ARM, LEFT Performing Organization Address [facility] Phone Number [facility] CLIA: [id number], [address] [place] [address] GLYCOSYLATED HEMOGLOBIN (A1C) (01/31/2019 2:36 PM CDT) HGB A1C 5.4 4.0 - 6.0 % NGSP [facility] Specimen Blood - ARM, LEFT Narrative Performed At %A1C (NGSP) Interpretation (ADA) [facility] 4.8-5.6 Normal or (Non-Diabetic Range) 5.7-6.4 Increased Risk (Pre-Diabetic) >6.5Diabetes Indicated Performing Organization Address [facility] Phone Number [facility] CLIA: [id number], [address] [place] [address] COMP. METABOLIC PANEL (23314) (01/31/2019 2:36 PM CDT) NA 144 135 - 145 [facility] mmol/L [facility] K 3.7 3.5 - 5.0 [facility] mmol/L [facility] CL 109 (H) 98 - 108 mmol/L [facility] CO2 TOTAL 27 23 - 31 mmol/L [facility] AGAP 8 2 - 16 [facility] BUN 13 7 - 23 mg/dL [facility] GLUCOSE 74 70 - 110 mg/dL [facility] CREATININE 0.56 0.50 - 1.04 [facility] mg/dL [facility] TOTAL BILI 0.3 0.1 - 1.1 mg/dL [facility] CALCIUM 9.4 8.6 - 10.6 [facility] mg/dL HOSPITAL LABORATORY T PROTEIN 6.5 6.3 - 8.2 g/dL [facility] ALBUMIN 4.1 3.5 - 5.0 g/dL [facility] ALK PHOS 92 34 - 122 U/L [facility] ALT(SGPT) 37 9 - 51 U/L [facility] AST(SGOT) 33 13 - 40 U/L [facility] eGFR Calculation 109.7 mL/min/1.73m2 [facility] [place]) eGFR Calculation 132.9 mL/min/1.73m2 [facility] () [facility] Specimen Blood - ARM, LEFT Narrative Performed At Association of Glomerular Filtration Rate (GFR) [facility] and Staging of Kidney Disease* + [...] tests). Performing Organization Address City/State/Zipcode Phone Number [facility] CLIA: [id number], [address] [place] [address] documented in this encounter [...] [address] Medicare A & B 2 [id number] [place] [phone] (Home) [place] [address] documented as of this encounter"
--- OUTSIDE RECORDS SUMMARY | 2019-02-12 18:33 | XMS REPORT | Summary of Care ---
:1955 Demographics Address [address] [place] [address] Mobile Phone Home Phone Phone Phone Preferred Language Tajik Marital Status Rastafari Affiliation Unknown Race White Ethnic Group Not or Author Organization [facility] - Health Address [address] [place] [address] Care Team Providers Name Role Phone Johnson Sainz [facility], [facility] Consulting Physician [phone] Emily Baptiste Primary Care Provider Encounter Details Date Type Department Care Team Description 01/08/2019 Orders Only [facility] Doctor Unassigned, No [address] [facility] [place] [address] [address] [place] [address] Allergies Active Allergy Reactions Severity Noted Date Comments Aripiprazole Other - See comments 01/10/2018 dystonia [place] Other - See comments 06/18/2017 [place] poisoning Ceftriaxone Other - See comments 03/05/2017 headache Oxcarbazepine Rash 06/18/2017 documented as of this encounter (statuses as of 01/23/2019) Medications Medication Sig Dispensed Refills Start Date [...] as directed, 100 Strip 0 12/10/2018 Active (ONENsGeneUCH ULTRA BLUE once a day to TEST STRIP) monitor blood stripIndications: Type glucose for ICD 2 diabetes mellitus code E11.9 without complication, without long-term current use of insulin Blood-Glucose Meter Use as directed, 1 Kit 0 12/10/2018 Active (PinsTOUCH ULTRA2 METER) once a day to KitIndications: Type 2 monitor blood diabetes mellitus glucose for ICD without complication, code E11.9 without long-term current use of insulin documented as of this encounter (statuses as of 01/23/2019) Active Problems Problem Noted Date Knee internal derangement, right 08/12/2018 Overview: Added automatically from request for surgery [id number] Overactive bladder 01/31/2018 Hyperlipidemia, unspecified hyperlipidemia type 01/31/2018 Essential hypertension 01/31/2018 Elevated liver enzymes 01/31/2018 Type 2 diabetes mellitus without complication, without long-term current 01/31 use of insulin Anemia, unspecified type 01/31/2018 Obesity (BMI 30-39.9) 01/16/2018 Well woman exam with routine gynecological exam 03/05/2017 documented as of this encounter (statuses as of 01/23/2019) Immunizations Name Administration Dates Next Due Influenza [...] of this encounter Implants Implanted Type Area Internal Medicine Veterinary Technician Device Shelf Model / Identifier Expiration Serial / Lot Date Tibial Modular Tray KNEE Left: Biomet 11/08/2022 [id number] / Implanted: Qty: 1 on 01/14/2018 by Lacho Cartagena MD at [facility] Knee [id number] / [id number] Patella 34mm Vanguard Knee System Biomet #[id number] - [id number] PATELLA Left: Biomet 09/19/2022 [id number] / Implanted: Qty: 1 on 01/14/2018 by Lacho Cartagena MD at [facility] Knee [id number] / [id number] Plate Polyaxial Locking Mtp Cross Right T8 Momo #[id number] - Sn/A PLATE Right : Momo [id number] / Implanted: Qty: 1 on 11/19/2018 by Regino Gonzalez Jr., DPM at [facility] Foot N/A / N/A Locking Screw T8 Full Thread 2.4mm / L12mm SCREW Right: [place] [id number] / Implanted: Qty: 1 on 11/19/2018 by Regino Gonzalez Jr., DPM at [facility] Foot N/A / N/A Locking Screw T8 Full Thread 2.4mm / L14mm SCREW Right: Momo [id number] / Implanted: Qty: 1 on 11/19/2018 by Regino Gonzalez Jr., DPM at [facility] Foot N/A / N/A Small Phalinx Hammertoe Implant TOE [facility] [id number] / Implanted: Qty: 1 on 05/13/2015 by Regino Gonzalez Jr., DPM at [facility] Technology [employer] [id number] / [id number] Bearing Tibial 12 X 71/75 Mm #[id number] - [id number] Left: Biomet 05/09/2022 [id number] / Implanted: Qty: 1 on 01/14/2018 by Lacho Cartagena MD at [facility] Knee [id number] / [id number] Stem Finned Primary 40mm Biomet #[id number] - [id number] Left: Biomet 2027 [id number] / Implanted: Qty: 1 on 01/14/2018 by Lacho Cartagena MD at [facility] Knee [id number] / [id number] Adc Femur Left 60 Mm - [id number] Left: Biomet 11/08/2027 [id number] / Implanted: Qty: 1 on 01/14/2018 by Lacho Cartagena MD at [facility] Knee [id number] / [id number] Screw Bone 6.5x30mm Lp St Biomet #[id number] - [id number] Left: Biomet 2027 [id number] / Implanted: Qty: 4 on 01/14/2018 by Lacho Cartagena MD at [facility] Knee [id number] / [id number] Screw Cp Lag 3.6mm X 20mm Momo Right: [place] [id number] / Implanted: Qty: 1 on 11/19/2018 by Regino Gonzalez Jr., DPM at [facility] Foot 0 / 0 Reamer For Cross Plates Right: Momo [id number] / Implanted: Qty: 1 on 11/19/2018 by Regino Gonzalez Jr., DPM at [facility] Foot 0 / 0 Cp Lag Screw 03.6mm, L22m Right: [place] [id number] / Implanted: Qty: 1 on 11/19/2018 by Regino Gonzalez Jr., DPM at [facility] Foot N/A / N/A Locking Screw T8 Full Thread 2.4mm / L18mm Right: [place] [id number] / Implanted: Qty: 1 on 11/19/2018 by Regino Gonzalez Jr., DPM at [facility] Foot N/A / N/A Locking Screw T8 Full Thread 2.4mm / L16mm Right: [place] [id number] / Implanted: Qty: 1 on 11/19/2018 by Regino Gonzalez Jr., DPM at [facility] Foot N/A / N/A documented as of this encounter Procedures Procedure Name Priority Date/Time Associated Diagnosis Comments REFERRAL- Routine 01/08/2019 12:01 AM CDT REQUEST/RESPONSE documented in this encounter Results Not on filedocumented in this encounter Insurance Payer Benefit Plan / Subscriber ID Effective Phone Address Type Group Dates MEDICARE MEDICARE PART xxxxxxxxxxx 2007-Pre [phone] Medicare A & B sent [id number] [place] [address] EZRA MUNGUIA xxxxxxxxx 2018-Pres [address] Medicaid HEALTHCARE - [place]CARE [place] [id number] MANAGED MEDICAID [place], MEDICAID [place] documented as of this encounter
--- OUTSIDE RECORDS SUMMARY | 2019-02-12 18:34 | XMS REPORT | Summary of Care ---
:1955 Author Organization [facility] - Health Address [address] [place] [address] Care Team Providers Name Role Phone Johnson Sainz [facility], [facility] Consulting Physician [phone] Emily Baptiste Primary Care Provider Encounter Details Date Type Department Care Team Description 02/05/2019 Orders Only [facility] Doctor Unassigned, No [address] [facility] [place] [address] [address] [place] [address] Allergies Active Allergy Reactions Severity Noted Date Comments Aripiprazole Other - See comments 01/10/2018 dystonia [place] Other - See comments 06/18/2017 [place] poisoning Ceftriaxone Other - See comments 03/05/2017 headache Oxcarbazepine Rash 06/18/2017 documented as of this encounter (statuses as of 02/05/2019) Medications Medication Sig Dispensed Refills Start Date End Date Status omeprazole 20 mg Take 20 mg by 0 Active capsule mouth daily. solifenacin (VESICARE) Take 1 tablet by 90 tablet 1 01/31/2018 Active 5 mg mouth daily. tabletIndications: Overactive bladder metformin ER 500 mg 24 [...] glucose mellitus without for ICD code complication, without E11.9 long-term current use of insulin blood sugar diagnostic Use as directed, 100 Strip 0 12/10/2018 Active (ONETOUCH ULTRA BLUE once a day to TEST STRIP) monitor blood stripIndications: Type glucose for ICD 2 diabetes mellitus code E11.9 without complication, without long-term current use of insulin Blood-Glucose Meter Use as directed, 1 Kit 0 12/10/2018 Active (ONETOUCH ULTRA2 once a day to METER) KitIndications: monitor blood Type 2 diabetes glucose for ICD mellitus without code E11.9 complication, without long-term current use of insulin doxycycline 100 mg Take 1 tablet by 14 tablet 0 01/31/2019 02/07/2019 Active tabletIndications: mouth 2 (two) Open wound of toe, times daily for initial encounter 7 days. mupirocin 2 % Apply to 22 g 0 01/31/2019 Active ointmentIndications: area(s) 3 Open wound of toe, (three) times initial encounter daily. lisinopril 10 mg Take 1 tablet by 30 tablet 1 01/31/2019 Active tabletIndications: mouth daily. Essential hypertension albuterol 90 Inhale 2 Puffs 8.5 g 5 01/31/2019 Active mcg/actuation every 6 (six) inhalerIndications: hours as needed Mild intermittent for Wheezing. asthma without complication documented as of this encounter (statuses as of 02/05/2019) Active Problems Problem Noted Date Mild intermittent asthma without complication 02/02/2019 Open wound of toe, initial encounter 02/02/2019 Knee internal derangement, right 08/12/2018 Overview: Added automatically from request for surgery [id number] Overactive bladder 01/31/2018 Hyperlipidemia, unspecified hyperlipidemia type 01/31/2018 Essential hypertension 01/31/2018 Elevated liver enzymes 01/31/2018 Type 2 diabetes mellitus without complication, without long-term current 01/31 use of insulin Anemia, unspecified type 01/31/2018 Obesity (BMI 30-39.9) 01/16/2018 Well woman exam with routine gynecological exam 03/05/2017 documented as of this encounter (statuses as of 02/05/2019) Immunizations Name Administration Dates Next Due Influenza [...] 08/09/2018, Additional history exists FOOT EXAM 02/01/2020 01/31/2019, 01/31/2019, 01/31/2019 PAP SMEAR 01/11/2021 01/11/2018 (Previously completed), 03/05/2017 COLONOSCOPY 01/06/2025 01/06/2015 (Previously completed) DTaP,Tdap,and Td Vaccines (2 - Td) 03/05/2027 03/05/2017 HEPATITIS C (HCV) SCREEN Completed 02/22/2018, 01/10/2017 (Previously completed) documented as of this encounter Implants Implanted Type Area Carbonation Equipment Tender Device Shelf Model / Identifier Expiration Serial / Lot Date Tibial Modular Tray KNEE Left: Biomet 11/08/2022 [id number] / Implanted: Qty: 1 on 01/14/2018 by Lacho Cartagena MD at [facility] Knee [id number] / [id number] Patella 34mm Vanguard Knee System Biomet #[id number] - [id number] PATELLA Left: Biomet 09/19/2022 [id number] / Implanted: Qty: 1 on 01/14/2018 by Lacho Cartagena MD at [facility] Knee [id number] / [id number] Plate Polyaxial Locking Mtp Cross Right T8 Momo #[id number] - Sn/A PLATE Right : [place] [id number] / Implanted: Qty: 1 on 11/19/2018 by Regino Gonzalez Jr., DPM at [facility] Foot N/A / N/A Locking Screw T8 Full Thread 2.4mm / L12mm SCREW Right: Momo [id number] / Implanted: Qty: 1 on 11/19/2018 by Regino Gonzalez Jr., DPM at [facility] Foot N/A / N/A Locking Screw T8 Full Thread 2.4mm / L14mm SCREW Right: Momo [id number] / Implanted: Qty: 1 on 11/19/2018 by Regino Gonzalez Jr., DPM at [facility] Foot N/A / N/A Small Phalinx Hammertoe Implant [facility] [id number] / Implanted: Qty: 1 on 05/13/2015 by Regino Gonzalez Jr., DPM at [facility] [employer] [id number] / [id number] Bearing Tibial 12 X 71/75 Mm #[id number] - [id number] Left: Biomet 05/09/2022 [id number] / Implanted: Qty: 1 on 01/14/2018 by Lacho Cartagena MD at [facility] Knee [id number] / [id number] Stem Finned Primary 40mm Biomet #[id number] - [id number] Left: Biomet 2027 [id number] / Implanted: Qty: 1 on 01/14/2018 by Lacho Cartagena MD at [facility] Knee [id number] / [id number] Adc Femur Left 60 Mm - [id number] Left: Biomet 11/08/2027 [id number] / Implanted: Qty: 1 on 01/14/2018 by Lacho Cartagena MD at [facility] Knee [id number] / [id number] Screw Bone 6.5x30mm Lp St Biomet #[id number] - [id number] Left: Biomet 2027 [id number] / Implanted: Qty: 4 on 01/14/2018 by Lacho Cartagena MD at [facility] Knee [id number] / [id number] Screw Cp Lag 3.6mm X 20mm [place] Right: [place] [id number] / Implanted: Qty: 1 on 11/19/2018 by Regino Gonzalez Jr., DPM at [facility] Foot 0 / 0 Reamer For Cross Plates Right: [place] [id number] / Implanted: Qty: 1 on 11/19/2018 by Regino Gonzalez Jr., DPM at [facility] Foot 0 / 0 Cp Lag Screw 03.6mm, L22m Right: [place] [id number] / Implanted: Qty: 1 on 11/19/2018 by Regino Gonzalez Jr., DPM at [facility] Foot N/A / N/A Locking Screw T8 Full Thread 2.4mm / L18mm Right: Momo [id number] / Implanted: Qty: 1 on 11/19/2018 by Regino Gonzalez Jr., DPM at [facility] Foot N/A / N/A Locking Screw T8 Full Thread 2.4mm / L16mm Right: [place] [id number] / Implanted: Qty: 1 on 11/19/2018 by Regino Gonzalez Jr., DPM at [facility] Foot N/A / N/A documented as of this encounter Procedures Procedure Name Priority Date/Time Associated Diagnosis Comments CONSENT/REFUSAL FOR Routine 02/05/2019 3:41 PM CDT DIAGNOSIS AND TREATMENT documented in this encounter Results Not on filedocumented in this encounter Insurance Payer Benefit Plan / Subscriber ID Effective Dates Phone Address Type Group MEDICARE MEDICARE PART xxxxxxxxxxx 2007-Prese [phone] Medicare A & B 2 [id number] [place] [address] [facility] MEDICAID OF xxxxxxxxx 2011- [phone] [address] Medicaid [place] [id number] [place] [address] documented as of this encounter
--- OUTSIDE RECORDS SUMMARY | 2019-02-12 18:34 | XMS REPORT | Summary of Care ---
:1955 Author Organization [facility] Address [address] [place] [address] Care Team Providers Name Role Phone Johnson Sainz [facility], [facility] Consulting Physician [phone] Emily Baptiste Primary Care Provider Reason for Visit Reason Comments Refill Request Encounter Details Date Type Department Care Team Description 02/06/2019 Refill [facility] Family Medicine Emily Baptiste PA Refill Request - [address] [address] [place] [address] Allergies Active Allergy Reactions Severity Noted Date Comments Aripiprazole Other - See comments 01/10/2018 dystonia [place] Other - See comments 06/18/2017 [place] poisoning Ceftriaxone Other - See comments 03/05/2017 headache Oxcarbazepine Rash 06/18/2017 documented as of this encounter (statuses as of 02/11/2019) Medications Medication Sig Dispensed Refills Start Date [...] complication, without long-term current use of insulin blood sugar diagnostic Use as directed, 100 Strip 0 12/10/2018 Active (SproutelUCH ULTRA BLUE once a day to TEST STRIP) monitor blood stripIndications: Type glucose for ICD 2 diabetes mellitus code E11.9 without complication, without long-term current use of insulin Blood-Glucose Meter Use as directed, 1 Kit 0 12/10/2018 Active (1calendarTOUCH ULTRA2 METER) once a day to KitIndications: Type 2 monitor blood diabetes mellitus glucose for ICD without complication, code E11.9 without long-term current use of insulin mupirocin 2 % Apply to area(s) 22 g 0 01/31/2019 Active ointmentIndications: 3 (three) times Open wound of toe, daily. initial encounter lisinopril 10 mg Take 1 tablet by 30 tablet 1 01/31/2019 Active tabletIndications: mouth daily. Essential hypertension albuterol 90 Inhale 2 Puffs 8.5 g 5 01/31/2019 Active mcg/actuation every 6 (six) inhalerIndications: hours as needed Mild intermittent for Wheezing. asthma without complication documented as of this encounter (statuses as of 02/11/2019) Active Problems Problem Noted Date Mild intermittent asthma without complication 02/02/2019 Open wound of toe, initial encounter 02/02/2019 Knee internal derangement, right 08/12/2018 Overview: Added automatically from request for surgery [id number] Overactive bladder 01/31/2018 Hyperlipidemia, unspecified hyperlipidemia type 01/31/2018 Essential hypertension 01/31/2018 Elevated liver enzymes 01/31/2018 Type 2 diabetes mellitus without complication, without long-term current 01/31 use of insulin Anemia, unspecified type 01/31/2018 Obesity (BMI 30-39.9) 01/16/2018 Well woman exam with routine gynecological exam 03/05/2017 documented as of this encounter (statuses as of 02/11/2019) Immunizations Name Administration Dates Next Due Influenza [...] of this encounter Implants Implanted Type Area Parts Technician Device Shelf Model / Identifier Expiration Serial / Lot Date Tibial Modular Tray KNEE Left: Biomet 11/08/2022 [id number] / Implanted: Qty: 1 on 01/14/2018 by Lacho Cartagena MD at [facility] Knee [id number] / [id number] Patella 34mm Vanguard Knee System Biomet #[id number] - [id number] PATELLA Left: Biomet 09/19/2022 [id number] / Implanted: Qty: 1 on 01/14/2018 by Lacho Cartagena MD at [facility] Knee [id number] / [id number] Plate Polyaxial Locking Mtp Cross Right T8 Momo #[id number] - Sn/A PLATE Right : Momo [id number] / Implanted: Qty: 1 on 11/19/2018 by Regino Gonzalez Jr., DPM at [facility] Foot N/A / N/A Locking Screw T8 Full Thread 2.4mm / L12mm SCREW Right: [place] [id number] / Implanted: Qty: 1 on 11/19/2018 by Regino Gonzalez Jr., DPM at [facility] Foot N/A / N/A Locking Screw T8 Full Thread 2.4mm / L14mm SCREW Right: [place] [id number] / Implanted: Qty: 1 on 11/19/2018 by Regino Gonzalez Jr., DPM at [facility] Foot N/A / N/A Small Phalinx Hammertoe Implant [facility] [id number] / Implanted: Qty: 1 on 05/13/2015 by Regino Gonzalez Jr., DPM at [facility] [employer] [id number] / [id number] Bearing Tibial 12 X 71/75 Mm #[id number] - [id number] Left: Biomet 05/09/2022 [id number] / Implanted: Qty: 1 on 01/14/2018 by Lacho Cartagena MD at [facility] Knee [id number] / [id number] Stem Finned Primary 40mm Biomet #830889 - [id number] Left: Biomet 2027 [id number] / Implanted: Qty: 1 on 01/14/2018 by Lacho Cartagena MD at [facility] Knee [id number] / [id number] Adc Femur Left 60 Mm - [id number] Left: Biomet 11/08/2027 [id number] / Implanted: Qty: 1 on 01/14/2018 by Lacho Cartagena MD at [facility] Knee [id number] / [id number] Screw Bone 6.5x30mm Lp St Biomet #[id number] - [id number] Left: Biomet 2027 [id number] / Implanted: Qty: 4 on 01/14/2018 by Lacho Cartagena MD at [facility] Knee [id number] / [id number] Screw Cp Lag 3.6mm X 20mm [place] Right: [place] [id number] / Implanted: Qty: 1 on 11/19/2018 by Regino Gonzalez Jr., DPM at [facility] Foot 0 / 0 Reamer For Cross Plates Right: [place] [id number] / Implanted: Qty: 1 on 11/19/2018 by Regino Gonzalez Jr., DPM at [facility] Foot 0 / 0 Cp Lag Screw 03.6mm, L22m Right: [place] [id number] / Implanted: Qty: 1 on 11/19/2018 by Regino Gonzalez Jr., DPM at [facility] Foot N/A / N/A Locking Screw T8 Full Thread 2.4mm / L18mm Right: Momo [id number] / Implanted: Qty: 1 on 11/19/2018 by Regino Gonzalez Jr., DPM at [facility] Foot N/A / N/A Locking Screw T8 Full Thread 2.4mm / L16mm Right: Momo [id number] / Implanted: Qty: 1 on 11/19/2018 by Regino Gonzalez Jr., DPM at [facility] Foot N/A / N/A documented as of this encounter Results Not on filedocumented in this encounter Visit Diagnoses Diagnosis Essential hypertension Unspecified essential hypertension documented in this encounter Insurance Payer Benefit Plan / Subscriber ID Effective Dates Phone Address Type Group MEDICARE MEDICARE PART xxxxxxxxxxx 2007-Prese [phone] [address] Medicare A & B 2 [id number] [place] [address] [facility] MEDICAID OF xxxxxxxxx 2011-[place]ruce [phone] [address] Medicaid [place] t 0 [id number] [place] [address] documented as of this encounter
--- OUTSIDE RECORDS SUMMARY | 2019-02-12 18:34 | XMS REPORT | Summary of Care ---
:1955 [facility] Address [address] [place] [address] Care Team Providers Name Role Phone Johnson F [facility], [facility] Consulting Physician [phone] Emily Baptiste Primary Care Provider Reason for Referral Radiology Services (Routine) Status Reason Specialty Diagnoses / Referred By Referred To Procedures Contact Contact New Request Diagnostic Diagnoses Fatty liver Emily Baptiste Radiology Procedures US ABDOMEN GEORGE MAGAÑA [address] [place] [address] [place] [address] Radiology Services (Routine) Status Reason Specialty Diagnoses / Referred By Referred To Procedures Contact Contact New Request Diagnostic Diagnoses Open wound of toe, initial encounter Emily Baptiste Radiology Procedures XR TOES 2 VW LEFT GEORGE Rubi [address] [place] [address] [place] [address] Reason for Visit Reason Comments Follow-up L foot wound LAB WORK Encounter Details Date Type Department Care Team Description 01/31/2019 Office Visit [facility] Family Emily Baptiste, Open wound of toe, initial encounter (Primary Dx); Medicine - [facility] VAZQUEZ Type 2 diabetes mellitus without complication, without long-term current use of insulin; [address] [place] [address] [place] [address] DR Collins liver; [place], [place] Essential hypertension; [phone] Mild intermittent asthma without complication [phone] Allergies Active Allergy Reactions Severity Noted Date Comments Aripiprazole Other - See comments 01/10/2018 dystonia [place] Other - See comments 06/18/2017 [place] poisoning Ceftriaxone Other - See comments 03/05/2017 headache Oxcarbazepine Rash 06/18/2017 documented as of this encounter (statuses as of 02/03/2019) Medications Medication Sig Dispensed Refills Start Date [...] as of this encounter (statuses as of 02/03/2019) Active Problems Problem Noted Date Mild intermittent asthma without complication 02/02/2019 Open wound of toe, initial encounter 02/02/2019 Knee internal derangement, right 08/12/2018 Overview: Added automatically from request for surgery [id number] Overactive bladder 01/31/2018 Hyperlipidemia, unspecified hyperlipidemia type 01/31/2018 Essential hypertension 01/31/2018 Elevated liver enzymes 01/31/2018 Type 2 diabetes mellitus without complication, without long-term current 01/31 use of insulin Anemia, unspecified type 01/31/2018 Obesity (BMI 30-39.9) 01/16/2018 Well woman exam with routine gynecological exam 03/05/2017 documented as of this encounter (statuses as of 02/03/2019) Immunizations Name Administration Dates Next Due Influenza [...] no complications. Specimens were sent processed to [facility] laboratories. Emily Ambrocio PA - 01/31/2019 1:40 [...] being taken. She does not see a perioperative manager.Eye exam is notcurrent. Hypertension Chronicity: Chronic Context: [...] Medication Sig Dispense Refill blood sugar diagnostic (Primo RoundUCH ULTRA BLUE TEST STRIP) strip Use as directed, once a day to monitor blood glucose for ICD code E11.9 100 Strip 0 Blood-Glucose Meter (Primo RoundUCH ULTRA2 METER) Kit Use as directed, once a day to monitor blood glucose for ICD code E11.9 1 Kit 0 losartan 50 mg tablet Take 1 tablet by mouth daily. 90 tablet 0 lancets (Primo RoundUCH DELICA LANCETS) 30 gauge Misc Use as [...] dx 15 years ago, under care of [facility] Bipolar affective disorder Depression DM (diabetes mellitus) HLD (hyperlipidemia) Hypertension Leiomyoma of uterus Migraine Pap smear abnormality of cervix HPV + Urinary incontinence Past Surgical History: Procedure Laterality Date CHOLECYSTECTOMY FOOT/TOES SURGERY PROC UNLISTED Left X 5 HYSTERECTOMY 15 years ago partial, has ovaries KNEE ARTHROSCOPY Left KNEE ARTHROSCOPY Right 08/26/2018 Surgeon: Lacho Cartagena MD; [facility] [place] LAPAROSCOPIC BLADDER SUSPENSION 5 years ago [place] EXCISION OF IMPLANTED VAGINAL MESH RADICAL HYSTERECTOMY TOE ARTHRODESIS Right 11/19/2018 Surgeon: Regino Gonzalez Jr., DPM; Location: [facility] [place] TOE ARTHROPLASTY Left 05/13/2015 Surgeon: Regino Gonzalez Jr., DPM; Location: [facility] [place] TONSILLECTOMY TOTAL KNEE ARTHROPLASTY Left 01/14/2018 Surgeon: Lacho Cartagena MD; Location: [facility] OR [facility] Social History Socioeconomic History Marital [...] file Gets together: Not on file Attends jewish service: Not on file Active member of [...] (Oral) | LMP 02/25/2002 ( Approximate) | YjD128% BP (!) 150/90 | Pulse 72 | Temp 36.8 C (98.2 F) (Oral) | LMP 02/25/2002 ( Approximate) | LsI255% Physical Exam Constitutional: She is oriented to [...] Plan: CBC WITH DIFF, COMP. METABOLIC PANEL (10841), GLYCOSYLATED HEMOGLOBIN (A1C), THYROID STIMULATING HORMONE, CBC WITH DIFFERENTIAL, LIPID PANEL (22294)(TOTAL CHOLESTEROL, TRIGLYCERIDES, HDL) Patient admits to noncompliance [...] how to interpret. Recommend calorie consumption of 0583-3415 with < 45% of intake being carbs, [...] diaphoresis. Fatty liver Plan: COMP. METABOLIC PANEL (71781), LIPID PANEL (03694)(TOTAL CHOLESTEROL, TRIGLYCERIDES, HDL), US ABDOMEN COMPLETE Due [...] Plan: CBC WITH DIFF, COMP. METABOLIC PANEL (57945), lisinopril 10 mg tablet, LIPID PANEL (28437)(TOTAL CHOLESTEROL, TRIGLYCERIDES, HDL) BP elevated today. Has [...] LAB Routine Fatty liver 1 Occurrences starting (07541)(TOTAL Essential hypertension 02/02/2019 until CHOLESTEROL, 03/04/2019 TRIGLYCERIDES, [...] of this encounter Implants Implanted Type Area Inspector Poising Device Shelf Model / Identifier Expiration Serial / Lot Date Tibial Modular Tray KNEE Left: Biomet 11/08/2022 [id number] / Implanted: Qty: 1 on 01/14/2018 by Lacho Cartagena MD at [facility] Knee [id number] / [id number] Patella 34mm Vanguard Knee System Biomet #[id number] - [id number] PATELLA Left: Biomet 09/19/2022 [id number] / Implanted: Qty: 1 on 01/14/2018 by Lacho Cartagena MD at [facility] Knee [id number] / [id number] Plate Polyaxial Locking Mtp Cross Right T8 Roxana #[id number] - Sn/A PLATE Right : Momo [id number] / Implanted: Qty: 1 on 11/19/2018 by Regino Gonzalez Jr., DPM at [facility] Foot N/A / N/A Locking Screw T8 Full Thread 2.4mm / L12mm SCREW Right: Momo [id number] / Implanted: Qty: 1 on 11/19/2018 by Regino Gonzalez Jr., DPM at [facility] Foot N/A / N/A Locking Screw T8 Full Thread 2.4mm / L14mm SCREW Right: Roxana [id number] / Implanted: Qty: 1 on 11/19/2018 by Regino Gonzalez Jr., DPM at [facility] Foot N/A / N/A Small Phalinx Hammertoe Implant [facility] [id number] / Implanted: Qty: 1 on 05/13/2015 by Regino Gonzalez Jr., DPM at [facility] [employer] [id number] / [id number] Bearing Tibial 12 X 71/75 Mm #[id number] - [id number] Left: Biomet 05/09/2022 [id number] / Implanted: Qty: 1 on 01/14/2018 by Lacho Cartagena MD at [facility] Knee [id number] / [id number] Stem Finned Primary 40mm Biomet #[id number] - [id number] Left: Biomet 2027 [id number] / Implanted: Qty: 1 on 01/14/2018 by Lacho Cartagena MD at [facility] Knee [id number] / [id number] Adc Femur Left 60 Mm - [id number] Left: Biomet 11/08/2027 [id number] / Implanted: Qty: 1 on 01/14/2018 by Lacho Cartagena MD at [facility] Knee [id number] / [id number] Screw Bone 6.5x30mm Lp St Biomet #[id number] - [id number] Left: Biomet 2027 [id number] / Implanted: Qty: 4 on 01/14/2018 by Lacho Cartagena MD at [facility] Knee [id number] / [id number] Screw Cp Lag 3.6mm X 20mm Momo Right: [place]ox[place] [id number] / Implanted: Qty: 1 on 11/19/2018 by Regino Gonzalez Jr., DPM at [facility] Foot 0 / 0 Reamer For Cross Plates Right: Momo [id number] / Implanted: Qty: 1 on 11/19/2018 by Regino Gonzalez Jr., DPM at [facility] Foot 0 / 0 Cp Lag Screw 03.6mm, L22m Right: Momo [id number] / Implanted: Qty: 1 on 11/19/2018 by Regino Gonzalez Jr., DPM at [facility] Foot N/A / N/A Locking Screw T8 Full Thread 2.4mm / L18mm Right: Roxana [id number] / Implanted: Qty: 1 on 11/19/2018 by Regino Gonzalez Jr., DPM at [facility] Foot N/A / N/A Locking Screw T8 Full Thread 2.4mm / L16mm Right: Momo [id number] / Implanted: Qty: 1 on 11/19/2018 by Regino Gonzalez Jr., DPM at [facility] Foot N/A / N/A documented as of this encounter Procedures Procedure Name Priority Date/Time Associated Diagnosis Comments WOUND CULTURE Routine 01/31/2019 6:05 Open wound of toe, Results for this PM CDT initial encounter procedure are in the results section. CBC WITH DIFFERENTIAL Routine 01/31/2019 2:36 Type [...] 2:36 Type 2 diabetes Results for this (93369) PM CDT mellitus without procedure are in complication, the results without long-term section. current use of insulin Fatty liver Essential hypertension THYROID STIMULATING Routine 01/31/2019 2:36 Type 2 diabetes Results for this HORMONE PM CDT mellitus without procedure are in complication, the results without long-term section. current use of insulin documented in this encounter Results WOUND CULTURE (01/31/2019 6:05 PM CDT) Wound Culture 1+ Skin anita [facility] Gram stain No Organisms seen [facility] Gram stain Occasional (Rare) [facility] PMNs or Mononuclear SERVICES cells observed Specimen Swab - TOE Performing Organization Address City/State/Zipcode Phone Number [facility] CLIA: [id number], [address] [place] [address] [phone] [facility] CBC WITH DIFFERENTIAL (01/31/2019 2:36 PM CDT) WBC 6.85 4.30 - 11.10 [facility] 10*3/L [facility] RBC 4.37 3.93 - 5.25 [facility] 10*6/L [facility] HGB 12.5 11.6 - 15.0 [...] HOSPITAL LABORATORY PLT 272 166 - 358 [facility] 10*3/L [facility] MPV 10.4 9.5 - 12.9 fL [facility] NRBC/100 WBC 0.0 0.0 - 10.0 /100 [facility] WBCs [facility] NRBC x10^3 <0.01 10*3/L [facility] [...] GRAN MAT x10^3(ANC) 3.84 1.88 - 7.09 [facility] 10*3/uL HOSPITAL LABORATORY IMM GRAN x10^3 <0.03 0.00 - 0.06 [facility] 10*3/uL HOSPITAL LAB[facility]ORY LYMPH x10^3 2.33 1.32 - 3.29 [facility] 10*3/uL HOSPITAL LAB[facility]ORY MONO x10^3 0.49 0.33 - 0.92 [facility] 10*3/uL [facility] EOS x10^3 0.13 0.03 - 0.39 [facility] 103/uL [facility] BASO x10^3 0.05 0.01 - 0.[address]3/uL [facility] Specimen Blood - ARM, LEFT Performing Organization Address [facility] Phone Number [facility] CLIA: [id number], [address] [place] [address] THYROID STIMULATING HORMONE (01/31/2019 2:36 PM CDT) TSH 1.59 0.45 - 4.70 mIU/L [facility] Specimen Blood - ARM, LEFT Performing Organization Address [facility] Phone Number [facility] CLIA: [id number], [address] [place] [address] GLYCOSYLATED HEMOGLOBIN (A1C) (01/31/2019 2:36 PM CDT) HGB A1C 5.4 4.0 - 6.0 % NGSP [facility] Specimen Blood - ARM, LEFT Narrative Performed At %A1C (NGSP) Interpretation (ADA) [facility] 4.8-5.6 Normal or (Non-Diabetic Range) 5.7-6.4 Increased Risk (Pre-Diabetic) >6.5Diabetes Indicated Performing Organization Address [facility] Phone Number [facility] CLIA: [id number], [address] [place] [address] COMP. METABOLIC PANEL (42742) (01/31/2019 2:36 PM CDT) NA 144 135 - 145 [facility] mmol/L [facility] K 3.7 3.5 - 5.0 [facility] mmol/L [facility] CL 109 (H) 98 - 108 mmol/L [facility] CO2 TOTAL 27 23 - 31 mmol/L [facility] AGAP 8 2 - 16 [facility] BUN 13 7 - 23 mg/dL [facility] GLUCOSE 74 70 - 110 mg/dL [facility] CREATININE 0.56 0.50 - 1.04 [facility] mg/dL [facility] TOTAL BILI 0.3 0.1 - 1.1 mg/dL [facility] CALCIUM 9.4 8.6 - 10.6 [facility] mg/dL [facility] T PROTEIN 6.5 6.3 - 8.2 g/dL [facility] ALBUMIN 4.1 3.5 - 5.0 g/dL [facility] ALK PHOS 92 34 - 122 U/L [facility] ALT(SGPT) 37 9 - 51 U/L [facility] AST(SGOT) 33 13 - 40 U/L [facility] eGFR Calculation 109.7 mL/min/1.73m2 [facility] (Non-[facility] LABORATORY Syrian) eGFR Calculation 132.9 mL/min/1.73m2 [facility] () [facility] Specimen Blood - ARM, LEFT [...] City/State/Zipcode Phone Number [facility] CLIA: [id number], [address] [place] [address] documented in this encounter [...] [address]. B[address] Medicare A & B [id number] [place] [address] [facility] MEDICAID OF xxxxxxxxx 2011- [phone] [address] Medicaid [place] [id number] [place] [address] documented as of this encounter"
--- OUTSIDE RECORDS SUMMARY | 2019-02-12 18:34 | XMS REPORT | Summary of Care ---
:1955 Author Organization [facility] - [facility] Address [address] [place] [address] Care Team Providers Name Role Phone Johnson Sainz [facility], [facility] Consulting Physician Emily Baptiste Primary Care Provider Reason for Visit Reason Comments Foot Pain right Auth/Cert Status Reason Specialty Diagnoses / Referred By Referred To Procedures Contact Contact Emergency Medicine Diagnoses RT FOOT PAIN,SWOLLEN [facility] [address] [place] [address] [place] [address] Encounter Details Date Type Department Care Team Description 02/05/2019 Emergency [facility] Lex Cartagena FNP Right foot pain (Primary Dx); Department [address] [place] [address] Swelling of right foot [address] [place] [address] [place] [address] [phone] Allergies Active Allergy Reactions Severity Noted Date Comments Aripiprazole Other - See comments 01/10/2018 dystonia [place] Other - See comments 06/18/2017 [place] poisoning Ceftriaxone Other - See comments 03/05/2017 [...] Overview: Added automatically from request for surgery [id number] Overactive bladder 01/31/2018 Hyperlipidemia, unspecified hyperlipidemia type [...] Signs Not on filedocumented in this encounter Discharge Instructions Lex Rodarte FNP - 02/05/2019DIAGNOSIS 1. Right foot pain NO LIFE-THREATENING FINDINGS ON TODAY'S EXAM. SPECIAL CARE INSTRUCTIONS: Keep foot elevated Apply ice Alternate tylenol and Motrin as needed Follow up with PCP Return to ER as needed FOLLOW-UP RECOMMENDATIONS: RECOMMEND FOLLOW-UP WITH A PRIMARY CARE PROVIDER OR SPECIALIST IN 2-5 DAYS, ESPECIALLY IF NO IMPROVEMENT IN SYMPTOMS. TO FOLLOW-UP WITHIN THE [facility], TRY THESE OPTIONS (CLINIC APPOINTMENTS AVAILABLE ON ALGO-AC-XUXC BASIS): 1. SCHEDULE AN APPOINTMENT ONLINE AT WWW.[facility] 2. OR CALL THE [facility] ACCESS CENTER AT OR 3. OR CALL YOUR [facility] PHYSICIAN'S OFFICE DIRECTLY IF YOU ARE ALREADY AN ESTABLISHED [facility] PATIENT. OR, YOU MAY FOLLOW-UP WITH A PROVIDER OF YOUR CHOICE, SUCH : 1. A PHYSICIAN OF YOUR CHOICE 2. [facility], . LOCATIONS IN [facility] ER 3. [facility], [address] [place] [address]; RETURN TO ER FOR WORSENING OF SYMPTOMS. AttachmentsThe following attachments cannot be sent through Care Everywhere.ROSIE (Japanese)documented in this encounter Plan of Treatment Health [...] of this encounter Implants Implanted Type Area Crystallizer Operator Device Shelf Model / Identifier Expiration Serial / Lot Date Tibial Modular Tray KNEE Left: Biomet 11/08/2022 [id number] / Implanted: Qty: 1 on 01/14/2018 by Lacho Cartagena MD at [facility] Knee [id number] / [id number] Patella 34mm Vanguard Knee System Biomet #[id number] - [id number] PATELLA Left: Biomet 09/19/2022 [id number] / Implanted: Qty: 1 on 01/14/2018 by Lacho Cartagena MD at [facility] Knee [id number] / [id number] Plate Polyaxial Locking Mtp Cross Right T8 Momo #[id number] - Sn/A PLATE Right : [place] [id number] / Implanted: Qty: 1 on 11/19/2018 by Regino Gonzalez Jr., DPM at [facility] Foot N/A / N/A Locking Screw T8 Full Thread 2.4mm / L12mm SCREW Right: Momo [id number] / Implanted: Qty: 1 on 11/19/2018 by Regino Gonzalez Jr., DPM at [facility] Foot N/A / N/A Locking Screw T8 Full Thread 2.4mm / L14mm SCREW Right: Momo [id number] / Implanted: Qty: 1 on 11/19/2018 by Regino Gonzalez Jr., DPM at [facility] Foot N/A / N/A Small Phalinx Hammertoe Implant TOE [facility] [id number] / Implanted: Qty: 1 on 05/13/2015 by Regino Gonzalez Jr., DPM at [facility] [employer] [id number] / [id number] Bearing Tibial 12 X 71/75 Mm #[id number] - [id number] Left: Biomet 05/09/2022 [id number] / Implanted: Qty: 1 on 01/14/2018 by Lacho Cartagena MD at [facility] Knee [id number] / [id number] Stem Finned Primary 40mm Biomet #318752 - [id number] Left: Biomet 2027 [id number] / Implanted: Qty: 1 on 01/14/2018 by Lacho Cartagena MD at [facility] Knee [id number] / [id number] Adc Femur Left 60 Mm - [id number] Left: Biomet 11/08/2027 [id number] / Implanted: Qty: 1 on 01/14/2018 by Lacho Cartagena MD at [facility] Knee [id number] / [id number] Screw Bone 6.5x30mm Lp St Biomet #279575 - [id number] Left: Biomet 2027 [id number] / Implanted: Qty: 4 on 01/14/2018 by Lacho Cartagena MD at [facility] Knee [id number] / [id number] Screw Cp Lag 3.6mm X 20mm [place] Right: Momo [id number] / Implanted: Qty: 1 on 11/19/2018 by Regino Gonzalez Jr., DPM at [facility] Foot 0 / 0 Reamer For Cross Plates Right: [place] [id number] / Implanted: Qty: 1 on 11/19/2018 by Regino Gonzalez Jr., WILLIAMM at [facility] Foot 0 / 0 Cp Lag Screw 03.6mm, L22m Right: [place] [id number] / Implanted: Qty: 1 on 11/19/2018 by Regino Gonzalez Jr., DPM at [facility] Foot N/A / N/A Locking Screw T8 Full Thread 2.4mm / L18mm Right: [place] [id number] / Implanted: Qty: 1 on 11/19/2018 by Regino Gonzalez Jr., DPM at [facility] Foot N/A / N/A Locking Screw T8 Full Thread 2.4mm / L16mm Right: [place] [id number] / Implanted: Qty: 1 on 11/19/2018 by Regino Gonzalez Jr., WILLIAMM at [facility] Foot N/A / N/A documented as of this encounter Results Not on filedocumented in this encounter Visit Diagnoses Diagnosis Right foot pain - Primary Pain in limb Swelling of right foot documented in this encounter Insurance Payer Benefit Plan / Subscriber ID Effective Dates Phone Address Type Group MEDICARE MEDICARE PART xxxxxxxxxxx 2007-Prese [phone] [address] Medicare A & B 2 [id number] [place] [address] [facility] MEDICAID OF xxxxxxxxx 2011-Presen [phone] [address] Medicaid [place] t [id number] [place] [address] documented as of this encounter
--- OUTSIDE RECORDS SUMMARY | 2019-02-12 18:34 | XMS REPORT | Summary of Care ---
:1955 Author Organization [facility] Address [address] [place] [id number] Care Team Providers Name Role Phone Johnson Sainz [facility], [facility] Consulting Physician [phone] Emily Baptiste Primary Care Provider Reason for Visit Reason Comments Refill Request Encounter Details Date Type Department Care Team Description 02/04/2019 Telephone [facility] Family Emily Baptiste PA Refill Request Medicine - [address] [address] [place] [address] Allergies Active Allergy Reactions Severity Noted Date Comments Aripiprazole Other - See comments 01/10/2018 dystonia [place] Other - See comments 06/18/2017 [place] poisoning Ceftriaxone Other - See comments 03/05/2017 [...] Overview: Added automatically from request for surgery [id number] Overactive bladder 01/31/2018 Hyperlipidemia, unspecified hyperlipidemia type [...] of this encounter Implants Implanted Type Area Landscaping Supervisor Device Shelf Model / Identifier Expiration Serial / Lot Date Tibial Modular Tray KNEE Left: Biomet 11/08/2022 [id number] / Implanted: Qty: 1 on 01/14/2018 by Lacho Cartagena MD at [facility] Knee [id number] / [id number] Patella 34mm Vanguard Knee System Biomet #[id number] - [id number] PATELLA Left: Biomet 09/19/2022 [id number] / Implanted: Qty: 1 on 01/14/2018 by Lacho Cartagena MD at [facility] Knee [id number] / [id number] Plate Polyaxial Locking Mtp Cross Right T8 Momo #[id number] - Sn/A PLATE Right : [place] [id number] / Implanted: Qty: 1 on 11/19/2018 by Regino Gonzalez Jr., DPM at [facility] Foot N/A / N/A Locking Screw T8 Full Thread 2.4mm / L12mm SCREW Right: Momo [id number] / Implanted: Qty: 1 on 11/19/2018 by Regino Gonzalez Jr., DPM at [facility] Foot N/A / N/A Locking Screw T8 Full Thread 2.4mm / L14mm SCREW Right: Momo [id number] / Implanted: Qty: 1 on 11/19/2018 by Regino Gonzalez Jr., DPM at [facility] Foot N/A / N/A Small Phalinx Hammertoe Implant [facility] [id number] / Implanted: Qty: 1 on 05/13/2015 by Regino Gonzalez Jr., DPM at [facility] [employer] [id number] / [id number] Bearing Tibial 12 X 71/75 Mm #[id number] - [id number] Left: Biomet 05/09/2022 [id number] / Implanted: Qty: 1 on 01/14/2018 by Lacho Cartagena MD at [facility] Knee [id number] / [id number] Stem Finned Primary 40mm Biomet #[id number] - [id number] Left: Biomet 2027 [id number] / Implanted: Qty: 1 on 01/14/2018 by Lacho Cartagena MD at [facility] Knee [id number] / [id number] Adc Femur Left 60 Mm - [id number] Left: Biomet 11/08/2027 [id number] / Implanted: Qty: 1 on 01/14/2018 by Lacho Cartagena MD at [facility] Knee [id number] / [id number] Screw Bone 6.5x30mm Lp St Biomet #[id number] - [id number] Left: Biomet 2027 [id number] / Implanted: Qty: 4 on 01/14/2018 by Lacho Cartagena MD at [facility] Knee [id number] / [id number] Screw Cp Lag 3.6mm X 20mm [place] Right: Momo [id number] / Implanted: Qty: 1 on 11/19/2018 by Regino Gonzalez Jr., DPM at [facility] Foot 0 / 0 Reamer For Cross Plates Right: [place] [id number] / Implanted: Qty: 1 on 11/19/2018 by Regino Gonzalez Jr., DPM at [facility] Foot 0 / 0 Cp Lag Screw 03.6mm, L22m Right: Momo [id number] / Implanted: Qty: 1 on 11/19/2018 by Regino Gonzalez Jr., DPM at [facility] Foot N/A / N/A Locking Screw T8 Full Thread 2.4mm / L18mm Right: Momo [id number] / Implanted: Qty: 1 on 11/19/2018 by Regino Gonzalez Jr., DPM at [facility] Foot N/A / N/A Locking Screw T8 Full Thread 2.4mm / L16mm Right: Momo [id number] / Implanted: Qty: 1 on 11/19/2018 by Regino Gonzalez Jr., DPM at [facility] Foot N/A / N/A documented as of this encounter Results Not on filedocumented in this encounter Insurance Payer Benefit Plan / Subscriber ID Effective Dates Phone Address Type Group MEDICARE MEDICARE PART xxxxxxxxxxx 2007-Prese [phone] Medicare A & B 2 [id number] [place] [address] [facility] MEDICAID OF xxxxxxxxx 2011- [phone] [address] Medicaid [place] [id number] [place] [address] documented as of this encounter
[2019-02-12] MEDS ORDERED: ACETAMINOPHEN 325 MG TABLET ONE (19:12)
[2019-02-12] MEDS ORDERED: IBUPROFEN 400 MG TAB ONE (19:12)
--- NOTE | 2019-02-12 20:06 | RAD REPORT ---
EXAM DESCRIPTION: RAD - Lumbar Spine 3 Views - 02/12/2019 7:23 pm CLINICAL HISTORY: Slip and fall, back pain COMPARISON: August 2016 FINDINGS: A three-view lumbar spine examination was performed. Lumbar bodies are normal in height an d alignment. No fracture or acute bony process seen. L5-S1 disc space narrowing is present. L5-S1 fac et joint degenerative changes are present. These changes are similar or minimally progressive from 17. No pars defects identified. IMPRESSION: No compression fracture or other acute finding seen. L5-S1 disc, endplate and facet degenerative change similar or minimally progressive from 2017. Mid lumbar spine facet degenerative changes have progressed. Concerns for disc herniation, central canal abnormality or occult bone process can be evaluated with follow-up outpatient MRI imaging.
--- NOTE | 2019-02-12 20:07 | RAD REPORT ---
EXAM DESCRIPTION: RAD - Pelvis - 02/12/2019 7:22 pm CLINICAL HISTORY: Slip and fall, back pain COMPARISON: None. TECHNIQUE: AP imaging of the pelvis was obtained. FINDINGS: Lower lumbar spine degenerative changes are present and separately detailed. No fracture o f the pelvis. Mild SI joint degenerative changes are present and there is mild symmetric hip joint de generative change. Numerous vascular calcifications are seen in the pelvis. Low midline pelvic calcif ications could potentially be bladder calculi. No fracture or dislocation of either proximal femur. IMPRESSION: No pelvic fracture. No acute pelvis finding seen.
--- NOTE | 2019-02-12 20:28 | ER ---
Nurse's Notes [facility] Name: Georgette Daniel Age: 63 yrs Sex: Female : 1955 Arrival Date: 02/12/2019 Time: 18:31 Bed 24 Private MD: Diagnosis: Fall on same level from slipping, tripping and stumbling;Low back pain-from fall Presentation: 02/12 18:36 Presenting complaint: Slipped in water in the garage, landed on right side, c/o right hb low back and hip pain 10/10. Ambulated to triage with steady gait. Transition of care: patient was not received from another setting of care. Onset of symptoms was February 12, 2019. Risk Assessment: Do you want to hurt yourself or someone else? Patient reports no desire to harm self or others. Initial Sepsis Screen: Does the patient meet any 2 criteria? No. Patient's initial sepsis screen is negative. Does the patient have a suspected source of infection? No. Patient's initial sepsis screen is negative. Care prior to arrival: None. 18:36 Method Of Arrival: Ambulatory hb 18:36 Acuity: EVIE 4 hb Historical: - Allergies: 18:38 Abilify; hb 18:38 LITHIUM DERIVITIVES; hb 18:38 Rocephin; hb 18:38 Trileptal; hb - Immunization history:: Adult Immunizations up to date. - Social history:: Smoking status: Patient/guardian denies using tobacco. - Ebola Screening: : No symptoms or risks identified at this time. Screenin:05 Abuse screen: Denies threats or abuse. Denies injuries from another. Nutritional ca1 screening: No deficits noted. Tuberculosis screening: No symptoms or risk factors identified. Fall Risk Fall in past 12 months (25 points). Assessment: 19:05 General: Appears in no apparent distress. uncomfortable, Behavior is calm, cooperative, ca1 appropriate for age. Pain: Complains of pain in lumbar area and right low back Pain does not radiate. Pain currently is 10 out of 10 on a pain scale. Pain began 1 hour ago. Neuro: Level of Consciousness is awake, alert, obeys commands, Oriented to person, place, time, situation. Cardiovascular: Heart tones S1 S2 present Capillary refill < 3 seconds Patient's skin is warm and dry. Pulses are all present. Respiratory: Airway is patent Respiratory effort is even, unlabored, Respiratory pattern is regular, symmetrical, Breath sounds are clear bilaterally. GI: Abdomen is round non-distended, Bowel sounds present X 4 quads. Abd is soft and non tender X 4 quads. : No deficits noted. No signs and/or symptoms were reported regarding the genitourinary system. EENT: No deficits noted. No signs and/or symptoms were reported regarding the EENT system. Derm: Skin is intact, is healthy with good turgor, Skin is pink, warm \T\ dry. Musculoskeletal: Circulation, motion, and sensation intact. Capillary refill < 3 seconds, Range of motion: intact in all extremities. 20:15 Reassessment: Patient appears in no apparent distress at this time. Patient is alert, ca1 oriented x 3, equal unlabored respirations, skin warm/dry/pink. Vital Signs: 18:38 BP 151 / 86; Pulse 88; Resp 16; Temp 97.7; Pulse Ox 100% on R/A; Weight 77.11 kg; hb Height 5 ft. 4 in. (162.56 cm); Pain 10/10; 20:15 BP 142 / 81; Pulse 81; Resp 16 S; Pulse Ox 100% on R/A; ca1 18:38 Body Mass Index 29.18 (77.11 kg, 162.56 cm) hb ED Course: 18:31 Patient arrived in ED. mr 18:38 Triage completed. hb 18:38 Arm band placed on. hb 18:40 Javier Suarez PA is PHCP. cp 18:40 Lex Fletcher MD is Attending Physician. cp 19:05 Patient has correct armband on for positive identification. Bed in low position. Call ca1 light in reach. Side rails up X2. Pulse ox on. NIBP on. Warm blanket given. 19:05 No provider procedures requiring assistance completed. ca1 19:06 Jennifer Cintron, ANGELIQUE is Primary Nurse. ca1 19:16 Michael Lozano MD is Attending Physician. cp 19:23 XRAY Pelvis In Process Unspecified. EDMS 19:23 XRAY Lumbar Spine (3 Views) In Process Unspecified. EDMS 20:30 Patient did not have IV access during this emergency room visit. ca1 Administered Medications: 19:13 Drug: Ibuprofen 800 mg Route: PO; ca1 20:02 Follow up: Response: No adverse reaction; Pain is decreased ca1 19:13 Drug: Tylenol 650 mg Route: PO; ca1 20:02 Follow up: Response: No adverse reaction; Pain is decreased ca1 Outcome: 20:23 Discharge ordered by . carla 20:30 Discharged to home ambulatory. ca1 20:30 Condition: stable 20:30 Discharge instructions given to patient, Instructed on discharge instructions, follow up and referral plans. no drinking with medication, no driving heavy equipment, medication usage, Demonstrated understanding of instructions, follow-up care, medications, Prescriptions given X 2. 20:30 Patient left the ED. ca1 Signatures: Dispatcher [employer] EDMS Melissa Fernandez Corey, PA PA cp Baxter, Heather, ANGELIQUE RN Jennifer Cintron RN RN ca1
--- NOTE | 2019-02-12 20:28 | EDPHYS ---
Physician Documentation [facility] Name: Georgette Daniel Age: 63 yrs Sex: Female : 1955 Arrival Date: 02/12/2019 Time: 18:31 Bed 24 Private MD: ED Physician Michael Lozano HPI: 02/12 19:10 This 63 yrs old Female presents to ER via Ambulatory with complaints of Fall cp Injury. Historical: - Allergies: 18:38 Abilify; hb 18:38 LITHIUM DERIVITIVES; hb 18:38 Rocephin; hb 18:38 Trileptal; hb - Immunization history:: Adult Immunizations up to date. - Social history:: Smoking status: Patient/guardian denies using tobacco. - Ebola Screening: : No symptoms or risks identified at this time. ROS: 19:15 Constitutional: Negative for body aches, chills, fever, poor PO intake. cp 19:15 Eyes: Negative for injury, pain, redness, and discharge. cp Exam: 19:20 Constitutional: The patient appears in no acute distress, alert, awake, non-toxic, well cp developed, well nourished. 19:20 Head/Face: Normocephalic, atraumatic. cp 19:20 Eyes: Periorbital structures: appear normal, Conjunctiva: normal, no exudate, no injection, Lids and lashes: appear normal, bilaterally. 19:20 ENT: External ear(s): are unremarkable, Nose: is normal, Mouth: is normal, Posterior pharynx: Airway: no evidence of obstruction, patent. 19:20 Neck: C-spine: vertebral tenderness, is not appreciated, crepitus, is not appreciated, ROM/movement: is normal, is supple, without pain, no range of motions limitations, no nuchal rigidity. 19:20 Chest/axilla: Inspection: normal, Palpation: is normal, no crepitus, no tenderness. 19:20 Cardiovascular: Rate: normal. 19:20 Respiratory: the patient does not display signs of respiratory distress, Respirations: normal, no use of accessory muscles, no retractions, no splinting, no tachypnea. 19:20 Abdomen/GI: Inspection: abdomen appears normal, Palpation: abdomen is soft and non-tender, in all quadrants. 19:20 Back: pain, that is moderate, of the right low back, ROM is painful, vertebral tenderness, is not appreciated, Straight leg raises: of both lower extremities does not illicit pain. 19:20 Neuro: Motor: moves all fours, strength is normal, Sensation: no obvious gross deficits, Gait: is steady. Vital Signs: 18:38 BP 151 / 86; Pulse 88; Resp 16; Temp 97.7; Pulse Ox 100% on R/A; Weight 77.11 kg; hb Height 5 ft. 4 in. (162.56 cm); Pain 10/10; 20:15 BP 142 / 81; Pulse 81; Resp 16 S; Pulse Ox 100% on R/A; ca1 18:38 Body Mass Index 29.18 (77.11 kg, 162.56 cm) hb MDM: 18:48 Patient medically screened. cp 20:22 Data reviewed: vital signs, nurses notes, radiologic studies, plain films. cp 20:22 Test interpretation: by ED physician or midlevel provider: plain radiologic studies. cp Counseling: I had a detailed discussion with the patient and/or guardian regarding: the historical points, exam findings, and any diagnostic results supporting the discharge/admit diagnosis, radiology results, to return to the emergency department if symptoms worsen or persist or if there are any questions or concerns that arise at home. Response to treatment: the patient's symptoms have mildly improved after treatment, and as a result, I will discharge patient. 02/12 19:07 Order name: XRAY Pelvis cp 02/12 19:07 Order name: XRAY Lumbar Spine (3 Views) cp Administered Medications: 19:13 Drug: Ibuprofen 800 mg Route: PO; ca1 20:02 Follow up: Response: No adverse reaction; Pain is decreased ca1 19:13 Drug: Tylenol 650 mg Route: PO; ca1 20:02 Follow up: Response: No adverse reaction; Pain is decreased ca1 Disposition: 02/12/19 20:23 Discharged to Home. Impression: Fall on same level from slipping, tripping and stumbling, Low back pain - from fall. - Condition is Stable. - Discharge Instructions: Back Pain, Adult, Back Exercises. - Prescriptions for orphenadrine citrate 100 mg Oral Tablet Sustained Release - take 1 tablet by ORAL route 2 times per day As needed no driving while taking medication; 20 tablet. Ibuprofen 800 mg Oral Tablet - take 1 tablet by ORAL route every 8 hours As needed take with food; 30 tablet. - Medication Reconciliation Form, Thank You Letter, Antibiotic Education, Prescription Opioid Use form. - Follow up: Private Physician; When: 2 - 3 days; Reason: Worsening of condition. - Problem is new. - Symptoms have improved. Signatures: Dispatcher [employer] EDMS Javier Suarez PA PA cp Baxter, Heather, RN RN Jennifer Cintron RN RN ca1 Corrections: (The following items were deleted from the chart) 20:30 20:23 02/12/2019 20:23 Discharged to Home. Impression: Fall on same level from ca1 slipping, tripping and stumbling; Low back pain - from fall. Condition is Stable. Forms are Medication Reconciliation Form, Thank You Letter, Antibiotic Education, Prescription Opioid Use. Follow up: Private Physician; When: 2 - 3 days; Reason: Worsening of condition. Problem is new. Symptoms have improved. cp
[2019-02-13 01:38] VITALS: TEMP 97.7; O2SAT 100
[2019-02-13 01:40] VITALS: BP 142/81
== END 2019-02-12 20:30 | disposition home or self-care (01) ==
LOC: ER 18:28
DX: M54.5 Low back pain (principal); W01.0XXA Fall on same level from slipping, tripping and stumbling without subsequent striking against object, initial encounter; Z88.3 Allergy status to other anti-infective agents; Z88.8 Allergy status to other drugs, medicaments and biological substances; Z91.048 Other nonmedicinal substance allergy status
CPT/HCPCS: 72100; 72170

== ENCOUNTER 2020-12-03 07:15 | Emergency (ER) | payer OTHER ==
--- OUTSIDE RECORDS SUMMARY | 2020-12-03 07:17 | XMS REPORT | Continuity of Care Document ---
:1955 Author Organization [facility] t Address [address] [place] [address] Care Team Providers Name Role Phone Miguelangel Rajan DO Attending Clinician Rosalie Cartagena MD Attending Clinician Doctor Unassigned, Name Attending Clinician Unavailable Greyson Reilly Attending Clinician Problems This patient has no known problems. Allergies, Adverse Reactions, Alerts This patient has no known allergies or adverse reactions. Medications This patient has no known medications. Procedures This patient has no known procedures. Encounters Start End Encounter Admission Attending Care Care Encounter Source Date/Time Date/Time Type Type Clinicians Facility Department ID 2020-08-03 2020-08-03 Patient Satinder DEPATRICIA [id number] 00:00:00 00:00:00 Outreach [facility] [id number] Miguelangel [facility] [id number] [place] [id number] 2019-12-29 2019-12-29 Telephone STANFORD Cartagena [id number] 00:00:00 00:00:00 [facility] [id number] Surgical [id number] Specialti [id number] [address] [place] 2019-12-29 2019-12-29 Orders Doctor NUNEZ [id number] 00:00:00 00:00:00 Only Unassigned, VAISHALI [id number] [place] [facility] [id number] 2019-02-14 2019-02-14 [facility] [id number] 09:21:46 09:55:37 Visit [facility] [id number] [place] [id number] [place] [id number] [place]al [address] One Results This patient has no known results.
[2020-12-03 08:03] LABS: Absolute Lymphocytes (CBC) 1.2 K/uL (0.7-4.9); Basophils % 0.7 % (0-1.3); Hematocrit 38.4 % (36.0-45.0); Lymphocytes % 22.2 % (15.3-44.8); MPV 8.6 fL (7.6-11.3); RBC Red Blood Cell Count 4.48 M/uL (3.86-4.86)
[2020-12-03 08:19] LABS: Potassium 3.5 mmol/L (3.5-5.1)
[2020-12-03] MEDS ORDERED: dexAMETHasone 10 MG/ML VIAL ONE (08:22)
--- NOTE | 2020-12-03 08:34 | RAD REPORT ---
EXAM DESCRIPTION: RAD - Chest Single View - 12/03/2020 8:29 am CLINICAL HISTORY: Cough;Dyspnea Signed up for COMPARISON: Chest Pa And Lat (2 Views) dated 04/27/2018; Chest Single View dated 12/21/2017; Chest Pa And Lat (2 Views) dated 03/06/2017; Chest Pa And Lat (2 Views) dated 03/02/2017 FINDINGS: No evidence of edema or pneumonia. The heart size is within normal limits.No acute osseous abnormality. No significant pleural effusions or pneumothorax. IMPRESSION: No acute cardiopulmonary disease.
--- NOTE | 2020-12-03 09:00 | RAD REPORT ---
EXAM DESCRIPTION: CT - Soft Tissue Neck W/Contr CLINICAL HISTORY: Pain;Sore throat;Swelling COMPARISON: C Spine Wo Con dated 07/09/[address] scans are performed using dose optimization technique as appropriate and may includ e automated exposure control or mA/KV adjustment according to patient size. FINDINGS: Abnormal thickening and enhancement in the right lateral aspect of the nasopharynx along t he right-sided supra tonsillar fossa and right aspect of the uvula. It measures approximately 13 mill imeters. Fossa Rosenmller are normal. No mastoid effusion. Parapharyngeal fat triangles are symmetric. Tongue base structures are normal. Epiglottis and aryepiglottic folds are normal. Piriform sinuses are well aerated. The vocal cords are normal in appearance. Salivary glands are normal in appearance. Upper lung tesfaye are clear. Included intracranial contents are unremarkable. IMPRESSION: Nodular enhancement in the right aspect of the nasopharynx that could represent neoplasm . Recommend ENT referral and/or consultation. .
[2020-12-03] MEDS ORDERED: NA CHLORIDE 0.9% 500 ML ONE (09:05)
--- NOTE | 2020-12-03 09:28 | ER ---
Nurse's Notes [facility] Name: Georgette Daniel Age: 64 yrs Sex: Female : 1955 Arrival Date: 12/03/2020 Time: 07:16 Bed 18 Private MD: Diagnosis: Acute pharyngitis, unspecified;Localized swelling, mass and lump, unspecified;SARS-associated coronavirus as the cause of diseases classified elsewhere Presentation: 12/03 07:17 Chief complaint: EMS states: SORE THROAT, EAR PAIN AND HEADACHE x2 WK. Coronavirus bp screen: fever, headache, sore throat, Client presents with at least one sign or symptom that may indicate coronavirus-19. Standard/surgical mask placed on the client. Provider contacted for isolation considerations. Ebola Screen: No symptoms or risks identified at this time. Initial Sepsis Screen: Does the patient meet any 2 criteria? HR > 90 bpm. No. Patient's initial sepsis screen is negative. Does the patient have a suspected source of infection? No. Patient's initial sepsis screen is negative. Risk Assessment: Do you want to hurt yourself or someone else? Patient reports no desire to harm self or others. Onset of symptoms is unknown. 07:17 Method Of Arrival: EMS: [facility] bp 07:17 Acuity: EVIE 3 bp Triage Assessment: 07:19 General: Appears in no apparent distress. uncomfortable, Behavior is cooperative, bp appropriate for age, anxious. Pain: Complains of pain in neck. EENT: Throat is reddened. Neuro: No deficits noted. Cardiovascular: No deficits noted. Respiratory: Reports cough that is non-productive. GI: No signs and/or symptoms were reported involving the gastrointestinal system. : No signs and/or symptoms were reported regarding the genitourinary system. Derm: No deficits noted. Musculoskeletal: No deficits noted. Historical: - Allergies: 07:19 Abilify; bp 07:19 LITHIUM DERIVITIVES; bp 07:19 Rocephin; bp 07:19 Trileptal; bp - PMHx: 07:19 Asthma; neuropathy; Hypertension; Hyperlipidemia; GERD; Diabetes - NIDDM; Depression; bp - Immunization history:: Adult Immunizations up to date. - Social history:: Smoking status: Patient denies any tobacco usage or history of. Screenin:24 Abuse screen: Denies threats or abuse. Denies injuries from another. Nutritional bp screening: No deficits noted. Tuberculosis screening: No symptoms or risk factors identified. 07:24 Fall Risk None identified. bp Assessment: 07:24 General: SEE TRIAGE NOTE. bp 08:49 Reassessment: No changes from previously documented assessment. Patient and/or family bp updated on plan of care and expected duration. Pain level reassessed. PT RETURNED FROM CT. 09:57 Reassessment: PT D/C HOME AMBULATORY, DX WITH COVID. bp Vital Signs: 07:17 BP 120 / 70; Pulse 110; Resp 16; Temp 99.9; Pulse Ox 94% ; bp 09:57 BP 125 / 75; Pulse 99; Resp 18; Temp 98.9; Pulse Ox 95% ; bp ED Course: 07:16 Patient arrived in ED. bp1 07:17 Enrique Gonzalez, ANGELIQUE is Primary Nurse. bp 07:19 Triage completed. bp 07:20 Corona Li PA is PHCP. jr8 07:20 Javier Luna MD is Attending Physician. jr8 07:24 Arm band placed on. bp 07:24 Patient has correct armband on for positive identification. Bed in low position. Call bp light in reach. Side rails up X2. 07:52 Initial lab(s) drawn, by me, sent to lab. Inserted saline lock: 20 gauge in right dh3 antecubital area, using aseptic technique. Blood collected. 08:29 XRAY CXR (1 view) In Process Unspecified. EDMS 08:41 CT Soft Tissue Neck W/contr In Process Unspecified. EDMS 09:26 Pily Pineda MD is Referral Physician. jr8 Administered Medications: 07:55 Drug: Decadron - Dexamethasone 10 mg Route: IVP; Site: right antecubital; bp 09:56 Follow up: Response: Marked relief of symptoms bp 08:45 Drug: NS 0.9% 500 ml Route: IV; Rate: bolus; Site: right antecubital; bp Outcome: 09:27 Discharge ordered by . jr8 09:59 Patient left the ED. bp Signatures: Dispatcher [employer] EDND Corona Li PA PA jrPily [facility] Enrique Gonzalez, RN RN bp [place], Ania bp1
--- NOTE | 2020-12-03 09:28 | EDPHYS ---
Physician Documentation [facility] Name: Georgette Daniel Age: 64 yrs Sex: Female : 1955 Arrival Date: 12/03/2020 Time: 07:16 Bed 18 Private MD: ED Physician Javier Luna HPI: 12/03 09:21 This 64 yrs old Female presents to ER via EMS with complaints of sore throat. jr8 09:21 The patient presents with sore throat. The patient describes throat pain as constant. jr8 Onset: The symptoms/episode began/occurred gradually, 2 week(s) ago. Severity of symptoms: At their worst the symptoms were mild, in the emergency department the symptoms are unchanged. Modifying factors: The symptoms are alleviated by nothing, the symptoms are aggravated by swallowing, Patient's oral intake status: good. Associated signs and symptoms: Pertinent positives: fever. The patient has not experienced similar symptoms in the past. The patient has been recently seen by a physician:. Patient seen early this week and given zithromax. Stated that she continue to have pain . Historical: - Allergies: 07:19 Abilify; bp 07:19 LITHIUM DERIVITIVES; bp 07:19 Rocephin; bp 07:19 Trileptal; bp - PMHx: 07:19 Asthma; neuropathy; Hypertension; Hyperlipidemia; GERD; Diabetes - NIDDM; Depression; bp - Immunization history:: Adult Immunizations up to date. - Social history:: Smoking status: Patient denies any tobacco usage or history of. ROS: 09:21 Eyes: Negative for injury, pain, redness, and discharge, Neck: Negative for injury, jr8 pain, and swelling, Cardiovascular: Negative for chest pain, palpitations, and edema, Respiratory: Negative for shortness of breath, cough, wheezing, and pleuritic chest pain, Abdomen/GI: Negative for abdominal pain, nausea, vomiting, diarrhea, and constipation, Back: Negative for injury and pain, MS/Extremity: Negative for injury and deformity, Skin: Negative for injury, rash, and discoloration, Neuro: Negative for headache, weakness, numbness, tingling, and seizure. 09:21 ENT: Positive for ear pain, sore throat. Exam: :21 Eyes: Pupils equal round and reactive to light, extra-ocular motions intact. Lids and jr8 lashes normal. Conjunctiva and sclera are non-icteric and not injected. Cornea within normal limits. Periorbital areas with no swelling, redness, or edema. Neck: Trachea midline, no thyromegaly or masses palpated, and no cervical lymphadenopathy. Supple, full range of motion without nuchal rigidity, or vertebral point tenderness. No Meningismus. Cardiovascular: Regular rate and rhythm with a normal S1 and S2. No gallops, murmurs, or rubs. Normal PMI, no JVD. No pulse deficits. Respiratory: Lungs have equal breath sounds bilaterally, clear to auscultation and percussion. No rales, rhonchi or wheezes noted. No increased work of breathing, no retractions or nasal flaring. Abdomen/GI: Soft, non-tender, with normal bowel sounds. No distension or tympany. No guarding or rebound. No evidence of tenderness throughout. Back: No spinal tenderness. No costovertebral tenderness. Full range of motion. Skin: Warm, dry with normal turgor. Normal color with no rashes, no lesions, and no evidence of cellulitis. MS/ Extremity: Pulses equal, no cyanosis. Neurovascular intact. Full, normal range of motion. 09:21 Neuro: Awake and alert, GCS 15, oriented to person, place, time, and situation. Cranial nerves II-XII grossly intact. Motor strength 5/5 in all extremities. Sensory grossly intact. 09:21 ENT: External ear(s): are unremarkable, Ear canal(s): are normal, clear, TM's: fluid levels, on the right, Examination of the other ear shows no obvious abnormality, Nose: External nose: no obvious acute abnormality, Nasal septum: is midline, Nasal mucosa: moist, Turbinates: are normal, Mouth: Lips: moist, Oral mucosa: pink and intact, moist, Gums: pink, Tongue: is moist, Posterior pharynx: Airway: patent, Uvula: midline, swelling, that is moderate, right posterior pillar , erythema, that is moderate. Vital Signs: 07:17 BP 120 / 70; Pulse 110; Resp 16; Temp 99.9; Pulse Ox 94% ; bp 09:57 BP 125 / 75; Pulse 99; Resp 18; Temp 98.9; Pulse Ox 95% ; bp MDM: 07:20 Patient medically screened. 8 09:21 Data reviewed: vital signs, nurses notes, lab test result(s), radiologic studies, CT jr8 scan, plain films. Data interpreted: Pulse oximetry: on room air is 95 %. Interpretation: normal. Counseling: I had a detailed discussion with the patient and/or guardian regarding: the historical points, exam findings, and any diagnostic results supporting the discharge/admit diagnosis, lab results, radiology results, the need for outpatient follow up, an ENT specialist, to return to the emergency department if symptoms worsen or persist or if there are any questions or concerns that arise at home. ED course: Detailed discussion with patient about CT findings. Needs to see ENT for direct visualization. Will add a different Abx as there is still suspicion for infection and patient still had low grade fever and elevated HR. Recommended renal evaluation as well . 12/03 07:33 Order name: CBC with Diff 12/03 07:33 Order name: Basic Metabolic Panel 12/03 07:33 Order name: CBC with Automated Diff; Complete Time: 08:23 EDMS 12/03 07:33 Order name: Basic Metabolic Panel; Complete Time: 08:23 EDMS 12/03 07:50 Order name: COVID-19 : Document "Date of Symptom Onset" if Symptomatic. 12/03 07:33 Order name: IV; Complete Time: 08:01 12/03 07:50 Order name: XRAY CXR (1 view); Complete Time: 09:13 12/03 08:24 Order name: CT Soft Tissue Neck W/contr; Complete Time: 09:13 12/03 09:37 Order name: SARS-COV-2 RT PCR; Complete Time: 09:39 EDMS Administered Medications: 07:55 Drug: Decadron - Dexamethasone 10 mg Route: IVP; Site: right antecubital; bp 09:56 Follow up: Response: Marked relief of symptoms bp 08:45 Drug: NS 0.9% 500 ml Route: IV; Rate: bolus; Site: right antecubital; bp Disposition Summary: 12/03/20 09:27 Discharge Ordered Location: Home [facility] Problem: new jr8 Symptoms: have improved jr8 Condition: Stable jr8 Diagnosis - Acute pharyngitis, unspecified jr8 - Localized swelling, mass and lump, unspecified jr8 - SARS-associated coronavirus as the cause of diseases classified elsewhere jr8 Followup: jr8 - With: Pily Pineda MD - When: 2 - 3 days - Reason: Recheck today's complaints, Continuance of care, Re-evaluation by your physician Discharge Instructions: - Discharge Summary Sheet jr8 - Pharyngitis jr8 - COVID-19 jr8 Forms: - Medication Reconciliation Form jr8 - Thank You Letter jr8 - Antibiotic Education jr8 - Prescription Opioid Use jr8 Prescriptions: - Augmentin 875-125 mg Oral Tablet - take 1 tablet by ORAL route every 12 hours for 10 days; 20 tablet; Refills: 0, jr8 Product Selection Permitted - promethazine-DM 6.25-15 mg/5 mL Oral syrup - take 5 milliliter by ORAL route every 4-6 hours As needed as needed, not to jr8 exceed 30 mL in 24 hours; 100 milliliter; Refills: 0, Product Selection Permitted Addendum: 12/06/2020 07:34 Co-signature as Attending Physician, Javier Luna MD I agree with the assessment and c nguyen plan of care. Signatures: Dispatcher [employer] EDIN Javier Luna MD MD cha Roszak, Josh, PA PA jr8 Enrique Gonzalez, RN RN bp Corrections: (The following items were deleted from the chart) 12/03 08:45 07:51 CORONAVIRUS ordered. [facility]
[2020-12-03 10:27] VITALS: BP 125/75; TEMP 98.9; O2SAT 95
== END 2020-12-03 09:59 | disposition home or self-care (01) ==
LOC: ER 07:15
DX: U07.1 COVID-19 (principal); R22.9 Localized swelling, mass and lump, unspecified; I10 Essential (primary) hypertension; Z88.3 Allergy status to other anti-infective agents; Z88.8 Allergy status to other drugs, medicaments and biological substances
CPT/HCPCS: 85025; 80048; 36415; 70491; 71045; 96374; 99284; U0003; Q9967; J1100; J7040

== ENCOUNTER 2021-02-16 08:58 | Emergency (ER) | payer OTHER ==
--- NOTE | 2021-02-16 09:29 | EDPHYS ---
Physician Documentation [facility] Name: Georgette Daniel Age: 65 yrs Sex: Female : 1955 Arrival Date: 02/16/2021 Time: 09:03 Bed 19 Private MD: ED Physician Kyleigh Reza HPI: 02/16 09:29 This 65 yrs old Female presents to ER via Ambulatory with complaints of jr8 infected toes. 09:29 This is a 65-year-old female that presented to the emergency room with complaints of jr8 bilateral great toe pain. Stated that she has had ingrown toenails in the past and believes that they are both infected now. History of diabetes is concerned that we will get worse. Denies any other symptoms at this time. Historical: - Allergies: 09:08 Abilify; tw2 09:08 Rocephin; tw2 09:08 LITHIUM DERIVITIVES; tw2 09:08 Trileptal; tw2 09:08 "mostly depression billis"; tw2 09:08 Seroquel; tw2 - Home Meds: 09:08 metformin 500 mg Oral tab 1 tab 2 times per day [Active]; albuterol sulfate inhalation tw2 Inhl [Active]; Symbicort 80-4.5 mcg/actuation inhalation HFAA 2 puffs 2 times per day [Active]; atorvastatin 20 mg oral tab 1 tab once daily [Active]; lisinopril 20 mg Oral tab 1 tab twice a day [Active]; omeprazole 20 mg Oral cpDR 1 cap once daily [Active]; Claritin 10 mg Oral tab 1 tab once daily [Active]; Flonase 50 mcg/actuation Nasal spsn 1 spray 2 times per day [Active]; - PMHx: 09:08 neuropathy; GERD; Diabetes - NIDDM; Asthma; Depression; Hyperlipidemia; Hypertension; tw2 - PSHx: 09:08 Cholecystectomy; tw2 - Immunization history:: Adult Immunizations Client reports receiving the Baljeet \\T\\ Baljeet single-dose vaccine. - Social history:: Smoking status: . ROS: 09:29 Eyes: Negative for injury, pain, redness, and discharge, ENT: Negative for injury, jr8 pain, and discharge, Neck: Negative for injury, pain, and swelling, Cardiovascular: Negative for chest pain, palpitations, and edema, Respiratory: Negative for shortness of breath, cough, wheezing, and pleuritic chest pain, Abdomen/GI: Negative for abdominal pain, nausea, vomiting, diarrhea, and constipation, Back: Negative for injury and pain, Skin: Negative for injury, rash, and discoloration, Neuro: Negative for headache, weakness, numbness, tingling, and seizure. 09:29 MS/extremity: Positive for pain, swelling, tenderness, of the Right and left great toes. Exam: 09:29 Constitutional: This is a well developed, well nourished patient who is awake, alert, jr8 and in no acute distress. Cardiovascular: Regular rate and rhythm with a normal S1 and S2. No gallops, murmurs, or rubs. Normal PMI, no JVD. No pulse deficits. Respiratory: Lungs have equal breath sounds bilaterally, clear to auscultation and percussion. No rales, rhonchi or wheezes noted. No increased work of breathing, no retractions or nasal flaring. Skin: Warm, dry with normal turgor. Normal color with no rashes, no lesions, and no evidence of cellulitis. Neuro: Awake and alert, GCS 15, oriented to person, place, time, and situation. Motor strength 5/5 in all extremities. Sensory grossly intact. 09:29 Musculoskeletal/extremity: Extremities: grossly normal except: noted in the Right and left great toes: Patient has mild erythema to the lateral aspects of the great toes. No purulent discharge at this time. Tenderness to palpation., ROM: intact in all extremities, Circulation is intact in all extremities. Sensation intact. Vital Signs: 09:06 BP 146 / 81; Pulse 75; Resp 17; Temp 97.9(TE); Pulse Ox 98% on R/A; Weight 79.83 kg; tw2 Height 5 ft. 4 in. (162.56 cm); Pain 6/10; 09:06 Body Mass Index 30.21 (79.83 kg, 162.56 cm) tw2 MDM: 09:14 Patient medically screened. 8 09:27 Data reviewed: vital signs, nurses notes, and as a result, I will discharge patient. jr8 Data interpreted: Pulse oximetry: on room air is 98 %. Interpretation: normal. 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 Administered Medications: No medications were administered Disposition Summary: 02/16/21 09:28 Discharge Ordered Location: Home jr8 Problem: new jr8 Symptoms: have improved jr8 Condition: Stable jr8 Diagnosis - Ingrowing nail jr8 - Local infection of the skin and subcutaneous tissue, unspecified jr8 Followup: jr8 - With: Regino Gonzalez DPM - When: 5 - 6 days - Reason: Recheck today's complaints, Continuance of care, Re-evaluation by your physician Discharge Instructions: - Discharge Summary Sheet jr8 - Ingrown Toenail jr8 Forms: - Medication Reconciliation Form jr8 - Thank You Letter jr8 - Antibiotic Education jr8 - Prescription Opioid Use jr8 Prescriptions: - Bactrim DS 800-160 mg Oral Tablet - take 1 tablet by ORAL route every 12 hours for 7 days; 14 tablet; Refills: 0, jr8 Product Selection Permitted Addendum: 02/19/2021 17:38 Co-signature as Attending Physician, Kyleigh Reza MD. m a2 Signatures: Corona Li PA PA jr8 Armida Lemon RN RN tw2 Kyleigh Reza MD MD ma2
--- NOTE | 2021-02-16 09:29 | ER ---
Nurse's Notes [facility] Name: Georgette Daniel Age: 65 yrs Sex: Female : 1955 Arrival Date: 02/16/2021 Time: 09:03 Bed 19 Private MD: Diagnosis: Ingrowing nail;Local infection of the skin and subcutaneous tissue, unspecified Presentation: 02/16 09:06 Chief complaint: Patient states: i have both my big toes that are infected. it started tw2 3 days ago. i have been soaking it but it didn't help. i am a diabetic now. Coronavirus screen: At this time, the client does not indicate any symptoms associated with coronavirus-19. Ebola Screen: Patient denies travel to an Ebola-affected area in the 21 days before illness onset. Initial Sepsis Screen: Does the patient meet any 2 criteria? No. Patient's initial sepsis screen is negative. Does the patient have a suspected source of infection? No. Patient's initial sepsis screen is negative. Risk Assessment: Do you want to hurt yourself or someone else? Patient reports no desire to harm self or others. Onset of symptoms was February 16, 2021. 09:06 Method Of Arrival: Ambulatory tw2 09:06 Acuity: EVIE 4 tw2 Triage Assessment: 09:08 General: Appears in no apparent distress. Behavior is calm, cooperative, appropriate tw2 for age. Pain: Complains of pain in b/l great toes. Historical: - Allergies: 09:08 Abilify; tw2 09:08 Rocephin; tw2 09:08 LITHIUM DERIVITIVES; tw2 09:08 Trileptal; tw2 09:08 "mostly depression billis"; tw2 09:08 Seroquel; tw2 - Home Meds: 09:08 metformin 500 mg Oral tab 1 tab 2 times per day [Active]; albuterol sulfate inhalation tw2 Inhl [Active]; Symbicort 80-4.5 mcg/actuation inhalation HFAA 2 puffs 2 times per day [Active]; atorvastatin 20 mg oral tab 1 tab once daily [Active]; lisinopril 20 mg Oral tab 1 tab twice a day [Active]; omeprazole 20 mg Oral cpDR 1 cap once daily [Active]; Claritin 10 mg Oral tab 1 tab once daily [Active]; Flonase 50 mcg/actuation Nasal spsn 1 spray 2 times per day [Active]; - PMHx: 09:08 neuropathy; GERD; Diabetes - NIDDM; Asthma; Depression; Hyperlipidemia; Hypertension; tw2 - PSHx: 09:08 Cholecystectomy; tw2 - Immunization history:: Adult Immunizations Client reports receiving the Baljeet \\T\\ Baljeet single-dose vaccine. - Social history:: Smoking status: . Screenin: Abuse screen: Denies threats or abuse. Nutritional screening: No deficits noted. ll1 Tuberculosis screening: No symptoms or risk factors identified. Fall Risk None identified. Total Bains Fall Scale indicates No Risk (0-24 pts). Assessment: :34 Reassessment: No changes from previously documented assessment. Patient and/or family ll1 updated on plan of care and expected duration. Pain level reassessed. Patient is alert, oriented x 3, equal unlabored respirations, skin warm/dry/pink. Vital Signs: 09:06 BP 146 / 81; Pulse 75; Resp 17; Temp 97.9(TE); Pulse Ox 98% on R/A; Weight 79.83 kg; tw2 Height 5 ft. 4 in. (162.56 cm); Pain 6/10; 09:06 Body Mass Index 30.21 (79.83 kg, 162.56 cm) tw2 ED Course: 09:03 Patient arrived in ED. am2 09:08 Triage completed. tw2 09:11 Arm band placed on. tw2 09:14 Corona Li PA is [facility]. jr8 09:14 Kyleigh Reza MD is Attending Physician. jr8 09:22 Lillie Ragsdale, ANGELIQUE is Primary Nurse. ll1 09:22 Patient placed in an exam room, on a stretcher. ll1 09:22 Patient has correct armband on for positive identification. Bed in low position. Call ll1 light in reach. Side rails up X 1. Cardiac monitoring not applicable on this patient. 09:22 No provider procedures requiring assistance completed. Patient did not have IV access ll1 during this emergency room visit. :28 Regino Gonzalez DPM is Referral Physician. jr8 Administered Medications: No medications were administered Outcome: Discharge ordered by . jr8 09:34 Discharged to home ambulatory. ll1 09:34 Condition: stable 09:34 Discharge instructions given to patient, Instructed on discharge instructions, follow up and referral plans. medication usage, wound care, Demonstrated understanding of instructions, follow-up care, medications, wound care, Prescriptions given X 1. 09:34 Patient left the ED. ll1 Signatures: Corona Li PA PA jr8 Armida Lemon RN RN tw2 Tamar Bills Lynsay RN RN ll1
[2021-02-16 09:40] VITALS: BP 146/81; TEMP 97.9; O2SAT 98
== END 2021-02-16 09:34 | disposition home or self-care (01) ==
LOC: ER 08:58
DX: L60.0 Ingrowing nail (principal); L08.9 Local infection of the skin and subcutaneous tissue, unspecified; Z88.8 Allergy status to other drugs, medicaments and biological substances; E11.9 Type 2 diabetes mellitus without complications; E78.5 Hyperlipidemia, unspecified; I10 Essential (primary) hypertension; K21.9 Gastro-esophageal reflux disease without esophagitis; F32.9 Major depressive disorder, single episode, unspecified
CPT/HCPCS: 99282

== ENCOUNTER 2021-03-30 19:19 | Emergency (ER) | payer OTHER ==
[2021-03-30 19:50] LABS: Urine Blood Negative (Negative); Urine Glucose Negative (Negative); Urine Protein Negative (Negative); Urine Specific Gravity 1.015 (1.005-1.030); Urine pH 5.5 (5.0-7.0)
--- NOTE | 2021-03-30 20:22 | RAD REPORT ---
EXAM DESCRIPTION: RAD - Chest Single View - 03/30/2021 8:11 pm CLINICAL HISTORY: dizziness, blurred vision COMPARISON: Chest Single View dated 12/03/2020; Chest Pa And Lat (2 Views) dated 04/27/2018; Chest Sing le View dated 12/21/2017; Chest Pa And Lat (2 Views) dated 03/06/2017 FINDINGS: Lines: None. Lungs: No evidence of edema or pneumonia. Pleural: No significant pleural effusions or pneumothorax. Cardiac: The heart size is within normal limits. Bones: No acute fractures. Other: IMPRESSION: No acute cardiopulmonary disease.
[2021-03-30 20:27] LABS: Absolute Lymphocytes (CBC) 3.3 K/uL (0.7-4.9); Basophils % 1.1 % (0-1.3); Hematocrit 37.6 % (36.0-45.0); Lymphocytes % 32.1 % (15.3-44.8); MPV 7.6 fL (7.6-11.3); RBC Red Blood Cell Count 4.38 M/uL (3.86-4.86)
--- NOTE | 2021-03-30 20:32 | RAD REPORT ---
EXAM DESCRIPTION: CT - Head Brain Wo Cont - 03/30/2021 8:20 pm CLINICAL HISTORY: dizziness, blurred vision COMPARISON: Head angio dated 03/30/2021; Head Brain Wo Cont dated 12/21/2017 TECHNIQUE: All CT scans are performed using dose optimization technique as appropriate and may inclu de automated exposure control or mA/KV adjustment according to patient size. FINDINGS: No intracranial hemorrhage, hydrocephalus or extra-axial fluid collection.No areas of brai n edema or evidence of midline shift. The paranasal sinuses and mastoids are clear. The calvarium is intact. IMPRESSION: No acute intracranial abnormality.
--- NOTE | 2021-03-30 20:35 | RAD REPORT ---
EXAM DESCRIPTION: CT - Neck Angio - 03/30/2021 8:20 pm CLINICAL HISTORY: dizziness, blurred vision COMPARISON: Soft Tissue Neck W/Contr dated 12/03/2020; C Spine Wo Con dated 07/09/2018 TECHNIQUE: CT angiography of the neck vessels was performed with MIPs. Limitation due to motion. All CT scans are performed using dose optimization technique as appropriate and may include automated exposure control or mA/KV adjustment according to patient size. FINDINGS: A left aortic arch is identified with normal three vessel configuration of the great vesse ls. No significant flow abnormality is seen of the common carotid bilaterally. No significant stenosis is identified involving the cervical segments of both internal carotid arteri es. Normal flow is seen within both vertebral arteries. IMPRESSION: No significant flow abnormality of the neck vessels is identified.
--- NOTE | 2021-03-30 20:38 | RAD REPORT ---
EXAM DESCRIPTION: CT - Head angio - 03/30/2021 8:20 pm CLINICAL HISTORY: dizziness, blurred vision COMPARISON: Head Brain Wo Cont dated 12/21/2017; Head Brain Wo Cont dated 08/17/2017 TECHNIQUE: CT angiography of the head was performed with MIPs. All CT scans are performed using dose optimization technique as appropriate and may include automated exposure control or mA/KV adjustment according to patient size. FINDINGS: Anterior circulation: No aneurysm or large vessel occlusion. No hemodynamically significant stenosis. No arteriovenous malf ormation identified. Posterior circulation: No aneurysm or large vessel occlusion. No hemodynamically significant stenosis. No arteriovenous malf ormation identified. IMPRESSION: No significant flow abnormality is detected.
[2021-03-30 20:40] LABS: Potassium 3.6 mmol/L (3.5-5.1)
[2021-03-30] MEDS ORDERED: ACETAMINOPHEN 325 MG TABLET ONE (20:50)
--- NOTE | 2021-03-30 21:27 | ER ---
Nurse's Notes [facility] Name: Georgette Daniel Age: 65 yrs Sex: Female : 1955 Arrival Date: 03/30/2021 Time: 19:22 Bed 18 Private MD: Diagnosis: Dizziness ( Resolved ) Presentation: 03/30 19:24 Chief complaint: EMS states: per ems pt called for episode of dizziness and blurred mr2 vision that started at 1830. pt reported that dizziness had resolved prior to ems arrival. Coronavirus screen: Vaccine status: Patient reports receiving the 2nd dose of the covid vaccine. Ebola Screen: Patient negative for fever greater than or equal to 101.5 degrees Fahrenheit, and additional compatible Ebola Virus Disease symptoms Patient denies exposure to infectious person. Patient denies travel to an Ebola-affected area in the 21 days before illness onset. No symptoms or risks identified at this time. Initial Sepsis Screen: Does the patient meet any 2 criteria? No. Patient's initial sepsis screen is negative. Does the patient have a suspected source of infection? No. Patient's initial sepsis screen is negative. Risk Assessment: Do you want to hurt yourself or someone else? Patient reports no desire to harm self or others. Onset of symptoms was March 30, 2021 at 18:30. 19:24 Method Of Arrival: [facility] mr2 19:24 Acuity: EVIE 3 mr2 Triage Assessment: 19:30 General: Appears in no apparent distress. Behavior is cooperative, talkative. Pain: sl2 Denies pain. Historical: - Home Meds: 19:28 lisinopril 20 mg Oral tab 1 tab twice a day [Active]; mr2 - PMHx: 19:28 Asthma; Depression; GERD; Hypertension; Diabetes - NIDDM; Hyperlipidemia; neuropathy; mr2 - PSHx: 19:28 Cholecystectomy; mr2 - Immunization history:: Adult Immunizations up to date, . - Social history:: Smoking status: Patient/guardian denies using. Screenin:30 Abuse screen: Denies threats or abuse. Nutritional screening: No deficits noted. sl2 Tuberculosis screening: No symptoms or risk factors identified. Fall Risk None identified. Assessment: 19:30 Reassessment: Patient appears in no apparent distress at this time. General: Appears in sl2 no apparent distress. talkative.. Pain: Denies pain. Neuro: Level of Consciousness is awake, alert, obeys commands, Oriented to person, place, situation. Cardiovascular: No deficits noted. Heart tones S1 S2 Capillary refill < 3 seconds Patient's skin is warm and dry. Respiratory: No deficits noted. Airway is patent Breath sounds are clear bilaterally. GI: No deficits noted. Abdomen is obese, Bowel sounds present X 4 quads. Abd is soft and non tender X 4 quads. : Reports on Cipro x 2 days for UTI. EENT: No deficits noted. Eyes clear. Nares are clear Oral mucosa is moist. Oral mucosa is dry. 19:30 Derm: No deficits noted. Skin is intact. Musculoskeletal: No deficits noted. Capillary sl2 refill < 3 seconds, Range of motion: intact in all extremities. 19:30 Reassessment: Patient appears in no apparent distress at this time. denies any c/o sl2 vertigo \T\ present time; VSS; Dr. Calix in to see \T\ ambulatory \T\ bedside with no difficulty noted with gait; gait steady with no weakness noted; denies any vertigo at present time; IV NS patent \T\ infusing left AC \T\ 125 ml/hr/pump with no s/symptoms of infiltration noted of site. 19:35 Reassessment: Ambulatory to BR with steady gait; urine specimen collected \T\ dipstick sl2 done showing trace leukocytes. 19:45 Reassessment: EKG done; PCXR done per rad techs. sl2 20:00 Reassessment: Blood drawn from left AC IV site \T\ sent to lab, chey. well; IV NS resumed sl2 \T\ 125 ml/hr/pump with no difficulty. 21:01 Reassessment: c/o headache right temporal area 7/10 on pain scale; no changes in neuro sl2 status; voices no c/o vertigo; Tylenol 650 mg given po. 21:30 Reassessment: Patient appears in no apparent distress at this time. Reports headache cc4 decreased to 3 on pain scale; VSS. Vital Signs: 19:15 BP 116 / 97; Pulse 93; Resp 20; Temp 98.0(O); Pulse Ox 100% on R/A; sl2 19:24 BP 116 / 67; Pulse 74; Resp 18; Temp 98.4; Pulse Ox 98% on R/A; Weight 72.57 kg; Height mr2 5 ft. 2 in. (157.48 cm); Pain 1/10; 20:35 BP 153 / 94; Pulse 80; Resp 20; Pulse Ox 98% on R/A; sl2 21:30 BP 156 / 89; Pulse 84; Resp 20; Temp 98.0(O); Pulse Ox 99% on R/A; cc4 19:24 Body Mass Index 29.26 (72.57 kg, 157.48 cm) mr2 Vitals: 20:35 Cardiac Rhythm Assessment Regular Sinus rhythm. sl2 ED Course: 19:22 Patient arrived in ED. bb 19:28 Triage completed. mr2 19:29 Rhett Calix MD is Attending Physician. pkl 19:30 Arm band placed on. sl2 19:30 Patient has correct armband on for positive identification. Placed in gown. Bed in low sl2 position. Call light in reach. Side rails up X2. desk monitor on. Pulse ox on. NIBP on. 19:50 Lindy López, RN is Primary Nurse. sl2 19:50 XRAY CXR (1 view) Sent. sl2 19:50 Urine Dipstick-Ancillary Sent. sl2 19:50 CT Neck Angio Sent. sl2 19:50 CT Head Angio Sent. sl2 19:50 CT Head Brain wo Cont Sent. sl2 20:00 Initial lab(s) drawn, by me, sent to lab. EKG done, by ED staff, reviewed by Rhett Calix MD sl2 X-ray(s) taken. 20:12 XRAY CXR (1 view) In Process Unspecified. EDMS 20:20 CT Head Brain wo Cont In Process Unspecified. EDMS 20:20 CT Head Angio In Process Unspecified. EDMS 20:20 CT Neck Angio In Process Unspecified. EDMS 20:27 Chem 7 Sent. sl2 20:27 CBC with Diff Sent. sl2 21:30 No provider procedures requiring assistance completed. cc4 21:30 IV discontinued, intact, bleeding controlled, No redness/swelling at site. Pressure cc4 dressing applied. Administered Medications: 19:24 Drug: NS 0.9% 1000 ml Route: IV; Rate: 125 ml/hr; Site: left antecubital; sl2 21:58 Follow up: IV Status: Order to discontinue infusion; IV Intake: 150ml cc4 21:01 Drug: Tylenol 650 mg Route: PO; 2 21:58 Follow up: Response: No adverse reaction; Pain is decreased cc4 Intake: 21:58 IV: 150ml; Total: 150ml. cc4 Outcome: 21:27 Discharge ordered by . dante 21:30 Discharged to home ambulatory. cc4 21:30 Condition: improved 21:30 Discharge instructions given to patient, Instructed on discharge instructions, follow up and referral plans. Demonstrated understanding of instructions, follow-up care. Signatures: Dispatcher [employer] EDMS Rhett Calix MD MD pkLuisa Oakes RN RN bb Iwona Long RN RN cc4 Sohail Howell RN RN mr2 Lindy López RN RN 2 Corrections: (The following items were deleted from the chart) 19:28 19:24 Chief complaint: mr2 mr2 21:56 21:46 Patient left the ED. cc4 cc4
--- NOTE | 2021-03-30 21:27 | EDPHYS ---
Physician Documentation [facility] Name: Georgette Daniel Age: 65 yrs Sex: Female : 1955 Arrival Date: 03/30/2021 Time: 19:22 Bed 18 Private MD: ED Physician Rhett Calix HPI: 03/30 19:45 This 65 yrs old Female presents to ER via EMS with complaints of Dizziness, pkl Blurred Vision. 19:45 The patient presents with dizziness, sense of spinning. Onset: The symptoms/episode pkl began/occurred just prior to arrival, 1 hour(s) ago, and improved dizziness resolved on arrival to ER. Patient treated for UTI 2 days by PCP. Taking Cipro at present. Historical: - Home Meds: 19:28 lisinopril 20 mg Oral tab 1 tab twice a day [Active]; mr2 - PMHx: 19:28 Asthma; Depression; GERD; Hypertension; Diabetes - NIDDM; Hyperlipidemia; neuropathy; mr2 - PSHx: 19:28 Cholecystectomy; mr2 - Immunization history:: Adult Immunizations up to date, . - Social history:: Smoking status: Patient/guardian denies using. ROS: 19:45 ENT: Negative for injury, pain, and discharge. pkl 19:45 Eyes: Positive for blurry vision. 19:45 Neck: Negative for stiffness. 19:45 Cardiovascular: Negative for chest pain. 19:45 Respiratory: Negative for cough, shortness of breath. 19:45 Abdomen/GI: Negative for abdominal pain, nausea, vomiting, and diarrhea. 19:45 Back: Negative for acute changes. 19:45 : Negative for urinary symptoms. 19:45 MS/extremity: Negative for acute changes. 19:45 Skin: Negative for rash. 19:45 Neuro: Negative for altered mental status, loss of consciousness. Exam: 19:45 Head/Face: Normocephalic, atraumatic. Eyes: Pupils equal round and reactive to light, pkl extra-ocular motions intact. Lids and lashes normal. Conjunctiva and sclera are non-icteric and not injected. Cornea within normal limits. Periorbital areas with no swelling, redness, or edema. ENT: Nares patent. No nasal discharge, no septal abnormalities noted. Tympanic membranes are normal and external auditory canals are clear. Oropharynx with no redness, swelling, or masses, exudates, or evidence of obstruction, uvula midline. Mucous membranes moist. Neck: Trachea midline, no thyromegaly or masses palpated, and no cervical lymphadenopathy. Supple, full range of motion without nuchal rigidity, or vertebral point tenderness. No Meningismus. Chest/axilla: Normal chest wall appearance and motion. Nontender with no deformity. No lesions are appreciated. Cardiovascular: Regular rate and rhythm with a normal S1 and S2. No gallops, murmurs, or rubs. Normal PMI, no JVD. No pulse deficits. Respiratory: Lungs have equal breath sounds bilaterally, clear to auscultation and percussion. No rales, rhonchi or wheezes noted. No increased work of breathing, no retractions or nasal flaring. Abdomen/GI: Soft, non-tender, with normal bowel sounds. No distension or tympany. No guarding or rebound. No evidence of tenderness throughout. Back: No spinal tenderness. No costovertebral tenderness. Full range of motion. Skin: Warm, dry with normal turgor. Normal color with no rashes, no lesions, and no evidence of cellulitis. MS/ Extremity: Pulses equal, no cyanosis. Neurovascular intact. Full, normal range of motion. 19:45 Neuro: Orientation: is normal, Mentation: is normal, Memory: is normal, Cranial nerves: grossly normal, Cerebellar function: heel to woody testing is normal, Motor: is normal, Sensation: is normal, Gait: is steady. Vital Signs: 19:15 BP 116 / 97; Pulse 93; Resp 20; Temp 98.0(O); Pulse Ox 100% on R/A; sl2 19:24 BP 116 / 67; Pulse 74; Resp 18; Temp 98.4; Pulse Ox 98% on R/A; Weight 72.57 kg; Height mr2 5 ft. 2 in. (157.48 cm); Pain 1/10; 20:35 BP 153 / 94; Pulse 80; Resp 20; Pulse Ox 98% on R/A; sl2 21:30 BP 156 / 89; Pulse 84; Resp 20; Temp 98.0(O); Pulse Ox 99% on R/A; cc4 19:24 Body Mass Index 29.26 (72.57 kg, 157.48 cm) mr2 MDM: 19:29 Patient medically screened. pkl 21:24 Data reviewed: vital signs, nurses notes, lab test result(s), EKG, radiologic studies, pkl CT scan. ED course: Patient feeling better. Asymptomatic. Discussed lab, EKG and imaging studies with patient. Advised to follow up with PCP in 1 to 2 days. To return if necessary. Patient understood instructions. 03/30 19:44 Order name: CBC with Diff; Complete Time: 21:22 pkl 03/30 19:44 Order name: Chem 7; Complete Time: 21:22 pkl 03/30 19:44 Order name: CT Head Brain wo Cont; Complete Time: 21:22 pkl 03/30 19:44 Order name: CT Head Angio; Complete Time: 21:22 pkl 03/30 19:49 Order name: Urine Dipstick-Ancillary; Complete Time: 21:22 EDMS 03/30 19:44 Order name: EKG; Complete Time: 19:45 pkl 03/30 19:44 Order name: Urine Dipstick-Ancillary (obtain specimen); Complete Time: 19:50 pkl 03/30 19:44 Order name: CT Neck Angio; Complete Time: 21:22 pkl 03/30 19:45 Order name: XRAY CXR (1 view); Complete Time: 21:22 pkl Administered Medications: 19:24 Drug: NS 0.9% 1000 ml Route: IV; Rate: 125 ml/hr; Site: left antecubital; sl2 21:58 Follow up: IV Status: Order to discontinue infusion; IV Intake: 150ml cc4 21:01 Drug: Tylenol 650 mg Route: PO; sl2 21:58 Follow up: Response: No adverse reaction; Pain is decreased cc4 Disposition Summary: 03/30/21 21:27 Discharge Ordered Location: Home pkl Problem: new pkl Symptoms: are resolved pkl Condition: Stable pkl Diagnosis - Dizziness ( Resolved ) pkl Followup: pkl - With: Private Physician - When: 1 - 2 days - Reason: Re-evaluation by your physician Forms: - Medication Reconciliation Form pkl - Thank You Letter pkl - Antibiotic Education pkl - Prescription Opioid Use pkl Signatures: Dispatcher [facility] EDNV Rhett Calix MD MD pkl Sohail Howell RN RN mr2 Lindy López RN RN sl2 Iwona Long RN cc4 Corrections: (The following items were deleted from the chart) 19:45 19:45 CREATININE, SERUM+C.LAB.BRZ ordered. EDMS EDMS
[2021-03-30 21:51] VITALS: TEMP 98.4; O2SAT 98
[2021-03-30 21:52] VITALS: BP 153/94
== END 2021-03-30 21:46 | disposition home or self-care (01) ==
LOC: ER 19:19
DX: R42 Dizziness and giddiness (principal); I10 Essential (primary) hypertension
CPT/HCPCS: 96361; 93005; 85025; 80048; 36415; 82565; 81003; 70450; 70496; 70498; 71045; 96360; 99284; Q9967

== ENCOUNTER 2022-01-28 19:34 | Emergency (ER) | payer OTHER ==
--- OUTSIDE RECORDS SUMMARY | 2022-01-28 19:37 | XMS REPORT | Continuity of Care Document ---
:1955 Author Organization [facility] t Address [address] [place] [address] Care Team Providers Name Role Phone Tone Doyle Primary Care Physician CHRETIEN_F Attending Clinician Unavailable Alexy VAN, [place] Attending Clinician Emily Reilly Attending Clinician SANGEETHA POPE Attending Clinician Unavailable Jeremie Rajan DO Attending Clinician Lacho Cartagena MD Attending Clinician Doctor Unassigned, [place] Attending Clinician Unavailable CHRETIEN_F Admitting Clinician Unavailable SANGEETHA POPE Admitting Clinician Unavailable Payers Payer Name Policy Type Policy Number Effective Date Expiration Date [facility] [id number] 2021 (MEDICARE 00:00:00 REPLACEMENT/ADVANTA GE - PPO) Problems Condition Condition Condition Status Onset Resolution Last Treating Co mments Source Name Details Category Date Date Treatment Clinician Date Mild Mild Disease Active Univers intermitte intermitte 02-02 [place] of nt asthma nt asthma 00:[place] without without 00 Medical complicati complicati Br anch on on Open wound Open wound Disease Active U nivers of toe, of toe, 908 ity of initial initial 00:00: [place] encounter encounter 00 Medi nancy Branch Knee Knee Disease Active Overview: Univer s internal internal 3-18 Formattin ity of derangemen derangemen 00:00: g of this [place] t, right t, right 00 note Medica l might be Branch different from the original. Added automatic ally from request for surgery [id number] Overactive Overactive Disease Active U nivers bladder bladder 01-31 ity of 00:00: [place] Medical [facility] Hyperlipid Hyperlipid Disease Active U nivers emia, emia, 01-31 ity of unspecifie unspecifie [place] 00 Medical hyperlipid hyperlipid Br anch emia type emia type Essential Essential Disease Active Uni vers hypertensi hypertensi 01-31 it y of on on 00:00: Medical Branch Elevated Elevated Disease Active Unive rs liver liver 01-31 ity of enzymes enzymes 00:00: Medical Branch Type 2 Type 2 Disease Active Univers diabetes diabetes 01-31 ity of mellitus mellitus 00:00: [place] without without 00 Medical complicati complicati Br anch on, on, without without long-term long-term current current use of use of insulin insulin Anemia, Anemia, Disease Active Univers unspecifie unspecifie 01-31 it y of d type d type 00:00: Medical Branch Obesity Obesity Disease Active Univers (BMI (BMI 8-22 ity of 30-39.9) 30-39.9) 00:00: Medical Branch Well woman Well woman Disease Active 2016-05 U nivers exam with exam with 0-09 ity of routine routine 00:00: [place] gynecologi gynecologi 00 Me dical nancy exam nancy exam Branch Allergies, Adverse Reactions, Alerts Allergy Allergy Status Severity Reaction(s) Onset Inactive Treating Comm ents Source Name Type Date Date Clinician ceftriax DA Active U Headache 2020-05 [facility] one 05 00:00: 00 Risperid Propensi Active Other - See U nivers one ty to comments 02-03 ity of adverse 00:00: [place] reaction 00 Medical s Branch RISPERID DRUG Active Other-Cmnt Univ ers ONE INGREDI 02-03 ity of 00:00: [place] [facility] ARIPIPRA DRUG Active Other-Cmnt Univ ers ZOLE INGREDI 8-16 ity of 00:00: [place] 00 Medical Branch Aripipra Propensi Active Other - See dystonia Univers zole ty to comments 8-16 ity of adverse 00:00: [place] reaction 00 Medical s Branch LITHIUM DRUG Active Other-Cmnt Unive rs INGREDI 06-18 ity of 00:00: [place] 00 Medical Branch OXCARBAZ DRUG Active Low Rash Univers EPINE INGREDI 06-18 ity of 00:00: [place] 00 Medical Branch Peralta Propensi Active Other - See Peralta U nivers ty to comments 06-18 poisoning ity o f adverse 00:00: [place] reaction 00 Medical s Branch Oxcarbaz Propensi Active Rash Univer s epine ty to 06-18 ity of adverse 00:00: [place] reaction 00 Medical s Branch CEFTRIAX DRUG Active Other-Cmnt 2016-05 Univ ers ONE INGREDI 0-09 ity of 00:00: [place] 00 Medical Branch Ceftriax Propensi Active Other - See 2016-05 headache S Univers one ty to comments 0-09 he ity of adverse 00:00: reports, [place] reaction 00 "I get Medical s to hot and Branch drug my head feels like it is squishing ." headache Social History Social Habit Start Date Stop Date Quantity Comments Source Exposure to Not sure [facility] SARS-CoV-2 (event) Medica l [place] Alcohol intake 2021-08-19 2021-08-19 0 /d [facility] 00:00:00 00:00:00 [facility] Sex Ass[birth year] At [birth year] [facility] y of [place] 00:00:00 00:00:00 Medical Branch Smoking Status Start Date Stop Date Source Never smoker [facility] Medications Ordered Filled Start Stop Current Ordering Indication Dosage Frequency Signature Comments Components Source Medication Medication Date Date Medication? Clinician (SIG) Name Name MYRBETRIQ Yes [id number] TAKE 1 Un [place] 50 mg 4-13 TABLET BY ity of tablet 00:00: MOUTH EVERY Medical NIGHT AT Branch BEDTIME MYRBETRIQ Yes [id number] TAKE 1 [place] 50 mg 4-13 TABLET BY ity of tablet 00:00: MOUTH EVERY Medical NIGHT AT Branch BEDTIME budesonide/ Yes Inhale. Uni vers formoterol 3-25 ity of fumarate 11:26: [place] (SYMBICORT 48 Medical INHALE) Branch metFORMIN Yes 500mg Take 500 Uni vers 500 mg 3-25 mg by ity of tablet 11:26: mouth [place] 48 daily. Medical Branch loratadine Yes Take by Univ ers 10 mg 3-25 mouth. ity of capsule 11:26: [place] [id number] Medical Branch lisinopriL- Yes 2{tbl} Take 2 Un deonte hydrochloro 3-25 tablets by it y of thiazide 11:26: mouth [place] 20-12.5 mg 48 daily. Medical per tablet Branch budesonide/ Yes Inhale. Uni vers formoterol 3-25 ity of fumarate 11:26: [place] (SYMBICORT 48 Medical INHALE) Branch metFORMIN Yes 500mg Take 500 Uni vers 500 mg 3-25 mg by ity of tablet 11:26: mouth [place] 48 daily. Medical Branch loratadine Yes Take by Univ ers 10 mg 3-25 mouth. ity of capsule 11:26: [place] [address] Medical Branch lisinopriL- Yes 2{tbl} Take 2 Un deonte hydrochloro 3-25 tablets by it y of thiazide 11:26: mouth [place] 20-12.5 mg 48 daily. Medical per tablet Branch budesonide/ Yes Inhale. Uni vers formoterol 3-25 ity of fumarate 11:26: [place] (SYMBICORT 48 Medical INHALE) Branch metFORMIN Yes 500mg Take 500 Uni vers 500 mg 3-25 mg by ity of tablet 11:26: mouth [place] 48 daily. Medical Branch loratadine Yes Take by Univ ers 10 mg 3-25 mouth. ity of capsule 11:26: [place] 48 Medical Branch lisinopriL- Yes 2{tbl} Take 2 Un deonte hydrochloro 3-25 tablets by it y of thiazide 11:26: mouth [place] 20-12.5 mg 48 daily. Medical per tablet Branch ciprofloxac Yes TAKE 1 Univ ers in HCl 500 3-23 TABLET BY ity of mg tablet 00:00: MOUTH [place] 00 EVERY 12 Medical HOURS FOR Branch 7 DAYS methylPREDN 2022-0 Yes TAKE Uni vers ISolone 4 3-23 DIRECTED ity of mg tablets 00:00: [place] PACKAGE [place] Branch ciprofloxac 0 Yes TAKE 1 Univ ers in HCl 500 3-23 TABLET BY ity of mg tablet 00:00: MOUTH [place] 00 EVERY 12 Medical HOURS FOR Branch 7 DAYS methylPREDN 2021-0 Yes TAKE Uni vers ISolone 4 3-23 DIRECTED ity of mg tablets 00:00: [place] PACKAGE [place] Branch ciprofloxac 0 Yes TAKE 1 Univ ers in HCl 500 3-23 TABLET BY ity of mg tablet 00:00: MOUTH [place] 00 EVERY 12 Medical HOURS FOR Branch 7 DAYS methylPREDN 2021-0 Yes TAKE Uni vers ISolone 4 3-23 DIRECTED ity of mg tablets 00:00: [place] PACKAGE [place] LAB[place] Branch MYRBETRIQ 0 2021- No 1{tbl} Take 1 Uni vers 50 mg 3-14 03-25 tablet by ity of tablet 00:00: 00:00 mouth at [place] 00 :00 bedtime. Medical Branch PROLENSA 0 Yes INSTILL 1 Univ ers 0.07 % 3-08 DROP IN ity of drops 00:00: RIGHT EYE DAILY FOR Medical 1 MONTH Branch THEN STOP PROLENSA 0 Yes INSTILL 1 Univ ers 0.07 % 3-08 DROP IN ity of drops 00:00: RIGHT EYE DAILY FOR Medical 1 MONTH Branch THEN STOP PROLENSA 0 Yes INSTILL 1 Univ ers 0.07 % 3-08 DROP IN ity of drops 00:00: RIGHT EYE DAILY FOR Medical 1 MONTH Branch THEN STOP ezetimibe Yes TAKE 1 Univer s 10 mg 2-17 TABLET BY ity of tablet 00:00: MOUTH EACH DAY FOR Medical CHOLESTERO Branch L ezetimibe 2021-0 Yes TAKE 1 Univer s 10 mg 2-17 TABLET BY ity of tablet 00:00: MOUTH EACH DAY FOR Medical CHOLESTERO Branch L ezetimibe 0 Yes TAKE 1 Univer s 10 mg 2-17 TABLET BY ity of tablet 00:00: MOUTH EACH DAY FOR Medical CHOLESTERO Branch L Diclofenac Yes APPLY Univer s Sodium 1 % 2-13 EXTERNALLY ity of gel 00:00: TO THE [place] 00 AFFECTED Medical AREA FOUR Branch TIMES DAILY NEEDED Diclofenac Yes APPLY Univer s Sodium 1 % 2-13 EXTERNALLY ity of gel 00:00: TO THE [place] 00 AFFECTED Medical AREA FOUR Branch TIMES DAILY NEEDED Diclofenac Yes APPLY Univer s Sodium 1 % 2-13 EXTERNALLY ity of gel 00:00: TO THE [place] AFFECTED Medical AREA FOUR Branch TIMES DAILY NEEDED erythromyci Yes APPLY 1 Uni vers n 5 mg/gram 1-20 THIN LAYER it y of (0.5 %) 00:00: TO THE [place] ophthalmic 00 EYELIDS AT [facility] ointment BEDTIME Branch FOR 1 WEEK erythromyci Yes APPLY 1 Uni vers n 5 mg/gram 1-20 THIN LAYER it y of (0.5 %) 00:00: TO THE [place] ophthalmic 00 EYELIDS AT [facility] ointment BEDTIME Branch FOR 1 WEEK erythromyci Yes APPLY 1 Uni vers n 5 mg/gram 1-20 THIN LAYER it y of (0.5 %) 00:00: TO THE [place] ophthalmic 00 EYELIDS AT [facility] ointment BEDTIME Branch FOR 1 WEEK traZODone 2020-05 Yes TAKE 1 Univer s 50 mg 1-18 TABLET BY ity of tablet 00:00: MOUTH [place] 00 EVERY Medical NIGHT AT [place] BEDTIME NEEDED FOR INSOMNIA traZODone 2020-05 Yes TAKE 1 Univer s 50 mg 1-18 TABLET BY ity of tablet 00:00: MOUTH [place] 00 EVERY Medical NIGHT AT [place] BEDTIME NEEDED FOR INSOMNIA traZODone 2020-05 Yes TAKE 1 Univer s 50 mg 1-18 TABLET BY ity of tablet 00:00: MOUTH [place] 00 EVERY Medical NIGHT AT [place] BEDTIME NEEDED FOR INSOMNIA OLANZapine 2020-05- No 10mg Take 10 mg Univers 10 mg 1-18 03-25 by mouth ity of tablet 00:00: 00:00 at [place] 00 :00 bedtime. Medical Branch atorvastati Yes 10mg Take 10 mg Univers n 10 mg 9-10 by mouth ity of tablet 16:17: at [place] 12 bedtime. Medical Branch atorvastati Yes 10mg Take 10 mg Univers n 10 mg 9-10 by mouth ity of tablet 16:17: at [place] 12 bedtime. Medical Branch atorvastati Yes 10mg Take 10 mg Univers n 10 mg 9-10 by mouth ity of tablet 16:17: at [place] 12 bedtime. Medical Branch azithromyci 2021- No 500mg Take 500 Univers n 500 mg 02-01 03-25 mg by ity of tablet 00:00: 00:00 mouth [place] 00 :00 daily. Medical Branch predniSONE 2021- No TAKE 1 Univ ers 10 mg 01-28 03-25 TABLET BY ity of tablet 00:00: 00:00 MOUTH [place] 00 :00 TWICE Medical DAILY FOR Branch 10 DAYS omeprazole Yes 20mg Take 20 mg U nivers 20 mg 7-26 by mouth ity of capsule 00:00: daily. [place] Medical Branch omeprazole Yes 20mg Take 20 mg U nivers 20 mg 7-26 by mouth ity of capsule 00:00: daily. [place] Medical Branch omeprazole Yes 20mg Take 20 mg U nivers 20 mg 7-26 by mouth ity of capsule 00:00: daily. [place] Medical Branch fluticasone Yes [id number] 2{spray Use 2 Univers propionate 9-20 } Sprays in ity of 50 00:00: each [place] mcg/actuati 00 nostril Medic al on nasal daily. [place] spray fluticasone Yes [id number] 2{spray Use 2 Univers propionate 9-20 } Sprays in ity of 50 00:00: each [place] mcg/actuati 00 nostril Medic al on nasal daily. [place] spray fluticasone Yes [id number] 2{spray Use 2 Univers propionate 9-20 } Sprays in ity of 50 00:00: each [place] mcg/actuati 00 nostril Medic al on nasal daily. Branch spray albuterol Yes [id number] 2{puff} Inhale 2 Univers 90 9-06 Puffs ity of mcg/actuati 00:00: every 6 [place] as on inhaler 00 (six) Medical hours as Branch needed for Wheezing. albuterol Yes [id number] 2{puff} Inhale 2 Univers 90 9-06 Puffs ity of mcg/actuati 00:00: every 6 [place] as on inhaler 00 (six) Medical hours as Branch needed for Wheezing. albuterol Yes [id number] 2{puff} Inhale 2 Univers 90 9 Puffs ity of mcg/actuati 00:00: every 6 [place] as on inhaler 00 (six) Medical hours as Branch needed for Wheezing. mupirocin 2 2021- No [id number] Apply to Univers % ointment 01-31 area(s) 3 ity of 00:00: 00:00 (three) [place] 00 :00 times Medical daily. Branch blood sugar Yes [id number] Use as Univers diagnostic 7-16 directed, ity of (ONETOUCH 00:00: [place] a [place] ULTRA BLUE 00 to monitor Med ical TEST STRIP) blood Branch strip glucose for ICD code E11.9 Blood-Gluco Yes [id number] Use as Univers se Meter 7-16 directed, ity of (ONETOUCH 00:00: [place] ULTRA2 00 to monitor Medical METER) Kit blood Branch glucose for ICD code E11.9 blood sugar Yes [id number] Use as Univers diagnostic 7-16 directed, ity of (ONETOUCH 00:00: [place] ULTRA BLUE 00 to monitor Med ical TEST STRIP) blood Branch strip glucose for ICD code E11.9 Blood-Gluco Yes [id number] Use as Univers se Meter 7-16 directed, ity of (ONETOUCH 00:00: [place] day [place] ULTRA2 00 to monitor Medical METER) Kit blood Branch glucose for ICD code E11.9 blood sugar Yes [id number] Use as Univers diagnostic 7-16 directed, ity of (ONETOUCH 00:00: [place] ULTRA BLUE 00 to monitor Med ical TEST STRIP) blood Branch strip glucose for ICD code E11.9 Blood-Gluco Yes [id number] Use as Univers se Meter 7-16 directed, ity of (ONETOUCH 00:00: [place] ULTRA2 00 to monitor Medical METER) Kit blood Branch glucose for ICD code E11.9 lancets Yes [id number] Use as Uni vers (ONETOUCH 7-02 directed, ity o f DELICA 00:00: once a day [place] LANCETS) 30 00 and prn to Me dical gauge Misc monitor Branch blood glucose for ICD code E11.9 lancets 2019-0 Yes [id number] Use as Uni vers (ONETOUCH 7-02 directed, ity o f DELICA 00:00: once a day [place] LANCETS) 30 00 and prn to Me dical gauge Misc monitor Branch blood glucose for ICD code E11.9 lancets 2019-0 Yes [id number] Use as Uni vers (ONETOUCH 7- directed, ity o f DELICA 00:00: once a day [place] LANCETS) 30 00 and prn to Me dical gauge Misc monitor Branch blood glucose for ICD code E11.9 Immunizations Ordered Filled Immunization Date Status Comments [facility] e Immunization Name Name SARS-COV-2 COVID-19 2020-12-25 Completed Unive rsity of OCTAVIO/J&J VACCINE 00:00:00 [facility] SARS-COV-2 COVID-19 2020-12-25 Completed Unive rsity of OCTAVIO/J&J VACCINE 00:00:00 [facility] SARS-COV-2 COVID-19 2020-12-25 Completed Unive rsity of OCTAVIO/J&J VACCINE 00:00:00 [facility] Influenza Virus 2017-03-05 Completed Universit y of Vaccine Quad IM 3+ 00:00:[address] [facility] TDAP 2017-03-05 Completed [facility] 00:00:00 [facility] Influenza Virus 2017-03-05 Completed Universit y of Vaccine Quad IM 3+ 00:00:[address] [facility] TDAP 2017-03-05 Completed [facility] 00:00:00 [facility] Influenza Virus 2017-03-05 Completed Universit y of Vaccine Quad IM 3+ 00:00:[address] [facility] TDAP 2017-03-05 Completed [facility] 00:00:00 [facility] Vital Signs Vital Name Observation Time Observation Value Comments Source Systolic blood 2021-08-19 16:04:00 158 mm[Hg] Univer sity of pressure [facility] Diastolic blood 2021-08-19 16:04:00 95 mm[Hg] Unive rsity of pressure [facility] Heart rate 2021-08-19 16:03:00 74 /min [facility] Body temperature 2021-08-19 16:03:00 36.83 [place] [facility] height 2021-08-19 16:03:00 162.6 [facility] Body weight 2021-08-19 16:03:00 90.901 [facility] BMI 2021-08-19 16:03:00 34.40 kg/m2 [facility] Oxygen saturation in 2021-08-19 16:03:00 99 /min [facility] blood by [facility] Pulse oximetry Branch Procedures This patient has no known procedures. Encounters Start End Encounter Admission Attending Care Care Encounter Source Date/Time Date/Time Type Type Clinicians Facility Department ID 2021-04-01 Inpatient [facility] [id number] [facility] 17:07:00 09 2021-11-07 2021-11-07 Outpatient CHRETIEN_F [facility] [address] 09:11:00 09:11:00 [id number] Commun i ty [facility] 2021-11-04 2021-11-04 [facility] [address] 11:22:00 11:22:00 0610 Commun i ty [facility] 2021-09-04 2021-09-[address] [facility] [id number] Univers 00:00:00 00:00:00 [place] LOW [id number] i ty of [place] [id number] PROF[place] [id number] [address] 2021-09-03 2021-09-03 [facility] [id number] Univers 00:00:00 00:00:00 [place] LOW [id number] i ty of [place] [id number] PROF[place] [id number] Mt dic[address] 2021-08-19 2021-08-19 [facility] [id number] Univers 11:00:00 11:54:34 Visit [facility] [id number] i ty of [place] [id number] [place] as ERNESTINA?BLEA [id number] Mt lonaarmando DANKMANA [address] [place] [address] MEDICAL OFFICE BUILDING 2021-08-15 2021-08-15 Emergency X TOSHIA [facility] ERT [id number] Univers 12:46:00 15:20:00 SANGEETHA brad [facility] 2021-04-01 2021-04-01 Emergency [facility] [id number] [facility] 17:07:00 17:07:00 09 2020-08-03 2020-08-03 [facility] [id number] 00:00:00 00:00:00 Outreach [facility] [id number] [facility] [id number] PAVILLION [id number] 2019-12-29 2019-12-29 [facility]phone [facility] [id number] 00:00:00 00:00:00 Lacho L [place] [id number] Surgical [id number] Specialti [id number] [address] [place] 2019-12-29 2019-12-29 Orders Doctor MAYRA [id number] 00:00:00 00:00:00 Only Unassigned, VAISHALI [id number] [facility] [id number] [id number] 2019-02-14 2019-02-14 [facility] [id number] 09:21:46 09:55:37 Visit Emily Rubi [place] [id number] [place] [id number] Professio [phone] nal [address] One Results Test Description Test Time Test Comments Results Result Comments Source Drug Screen,Urine 2021-04-01 17:50:00 Test Item Value Reference Range Interpretation Comme nts PCP Phencyclidine Screen,Urine (test code = PCPU) Negative Nega tive Amphetamine Screen,Urine (test code = AMPU) Negative Negative Methadone Screen,Urine (test code = METHU) Negative Negative Opiate Screen,Urine (test code = UOPIS) Negative Negative Barbituates Screen,Urine (test code = BARBU) Negative Negative Benzodiazepines Screen,Urine (test code = UBENZS) Negative Nega tive Cocaine Screen,Urine (test code = UCOCS) Negative Negative Cannabinoid Screen,Urine (test code = UTHCS) Negative Negative Propoxyphene Screen, Urine (test code = UPROP) Negative Negativ e UA, Urinalysis Rflx Cult/[id number] 17:46:00 Test Item Value Reference Range Interpretation Comments Color,Urine (test code = Yellow Yellow UCOL) Clarity,Urine (test code = Clear Clear UCLAR) PH,Urine (test code = 6.0 5.5-8.5 UPH.XX) Specific [place],Urine 1.010 1.005-1.030 N (test code = USG) Blood,Urine (test code = Negative cells/uL Negative UBLD) Protein,Urine (test code = Negative mg/dL Negative UPRO) Glucose,Urine (UA) (test Negative mg/dL Negative code = UGLU) Ketones,Urine (test code = Negative mg/dL Negative UKET) Nitrate,Urine (test code = Negative Negative UNIT) Bilirubin,Urine (test code Negative mg/dL Negative = UBIL) Urobilinogen,Urine (test 0.2 mg/dL Negative code = UURO) Leukocyte Esterase,Urine Negative cells/uL Negative (test code = ULEU) Comprehensive Metabolic [id number] 17:45:00 Test Item Value Reference Range Interpretation Comments SODIUM (test code = NA) 130.0 mmol/L 136.0-145.0 L Potassium,K (test code = K) 3.3 mmol/L 3.0-5.1 N Chloride (test code = CL) 97 mmol/L 98-107 L Carbon Dioxide (test code = CO2) 25 mmol/L 20-31 N Anion Gap (test code = GAP) 8 mmol/L 5-15 N Blood Urea Nitrogen (test code = 14 mg/dL 9-23 N BUN) Creatinine (test code = CREATT) 0.95 mg/dL 0.55-1.02 N Creatinine Clr Calc Pharmacy 59.34 mL/min (test code = CRCLPHA) Estimated GFR ( [place] > 60 mL/min/1.73m2 (test code = EGFRAA) Estimated GFR (Non Afr [place] > 60 mL/min/1.73m2 (test code = EGFRNAA) BUN/Creatinine Ratio (test code 15 ratio 10-20 N = BCRATIO) Glucose (test code = GLU) 129 mg/dL 74-106 H Osmolality,Calculated (test code 272.0 = OSMOC) Calcium (test code = CA) 10.0 mg/dL 8.3-10.6 N Bilirubin,Total (test code = 0.7 mg/dL 0.2-1.1 N BILIT) Aspartate Amino Transferase 36 U/L 0-34 H (test code = AST) Alanine Aminotransferase (test 22 U/L 10-49 N code = ALT) Total Protein (test code = TP) 6.7 g/dL 5.7-8.2 N Albumin Level (test code = ALB) 4.7 g/dL 3.2-4.8 N Globulin (test code = GLOB) 2.0 mg/dL 2.3-3.5 L Albumin/Globulin Ratio (test 2.4 ratio 0.8-2.0 H code = AGRATIO) Alkaline Phosphatase (test code 112 U/L 46-116 N = ALP) Ethanol [id number] 17:45:00 Test Item Value Reference Range Interpretation Comments Ethanol (test code = ETOH) < 3 mg/dL Coronavirus PCR, COVID19 [id number] 17:45:00 Test Item Value Reference Range Interpretation Comments Coronavirus PCR, For use under Emergency COVID19 Rapid (test Use Authorization (EUA) code = SARSCOV2) only. Coronavirus PCR, Reference Range: COVID19 Rapid (test Negative code = XJWLOAD43.1) SARS-CoV-2 PCR Result: Negative by PCR (test code = SARS-CoV-2 PCR Result:) COVID-19 Status: AsymptomaticComplete Blood Count Auto [id number] 17:45:00 Test Item Value Reference Range Interpretation Comments White Blood Count (test code = 8.7 x10 3/uL 4.4-10.5 N WBCT) Red Blood Count (test code = 4.39 x10 6/uL 3.75-5.20 N RBC) Hemoglobin (test code = HGBT) 13.0 g/dL 12.2-14.8 N Hematocrit (test code = HCTT) 37.0 % 36.5-44.4 N Mean Corpuscular Volume (test 84.30 fL 80.00-100.00 N code = MCV) Mean Corpuscular Hemoglobin 29.6 pg 27.0-32.5 N (test code = MCH) Mean Corpuscular HGB Conc 35.10 g/dL 32.00-37.50 N (test code = MCHC) RDW Coefficient of Variation 12.8 % 11.5-14.5 N (test code = RDWCV) Platelet Count (test code = 305.0 x10 3/uL 140.0-440.0 N PLTT) Mean Platelet Volume (test 9.4 fL code = MPV) Immature Granulocytes % (Auto) 0.3 % 0.0-5.0 N (test code = IMMGRAN%) Neutrophils % (Auto) (test 58.9 % 36.0-70.0 N code = NE%) Lymphocytes % (Auto) (test 30.5 % 12.0-44.0 N code = LY%) Monocytes % (Auto) (test code 7.8 % 0.0-11.0 N = MO%) Eosinophils % (Auto) (test 1.7 % 0.0-7.0 N code = EO%) Basophils % (Auto) (test code 0.8 % 0.0-2.0 N = BA%) Immature Granulocytes # (Auto) 0.03 x10 3/uL (test code = IMMGRAN#) Neutrophils # (Auto) (test 5.1 x10 3/uL 1.6-7.4 N code = NE#) Lymphocytes # (Auto) (test 2.66 x10 3/uL 0.50-4.60 N code = LY#) Monocytes # (Auto) (test code 0.68 x10 3/uL 0.00-1.20 N = MO#) Eosinophils # (Auto) (test 0.15 x10 3/uL 0.00-0.74 N code = EO#) Basophils # (Auto) (test code 0.07 x10 3/uL 0.00-0.21 N = BA#) nRBC Abs (test code = NRBCA) 0 nRBC Pct (test code = NRBCP) 0 %
[2022-01-28 20:02] LABS: Urine Blood Trace-intact (Negative); Urine Glucose Negative (Negative); Urine Protein Negative (Negative); Urine Specific Gravity >=1.030 (1.005-1.030)
[2022-01-28] MEDS ORDERED: DIAZEPAM 5 MG TABLET ONE (20:04)
[2022-01-28] MEDS ORDERED: ONDANSETRON 4 MG/2 ML VIAL ONE (20:05)
[2022-01-28] MEDS ORDERED: dexAMETHasone 10 MG/ML VIAL ONE (20:05)
[2022-01-28] MEDS ORDERED: FENTANYL CITR 100 MCG/2 ML ONE (20:05)
[2022-01-28 20:17] LABS: Absolute Lymphocytes (CBC) 1.1 K/uL (0.7-4.9); Hematocrit 35.4 % (36.0-45.0); Lymphocytes % 12.6 % (15.3-44.8); MCV 85.5 fL (80-100); MPV 7.7 fL (7.6-11.3); RBC Red Blood Cell Count 4.15 M/uL (3.86-4.86)
--- NOTE | 2022-01-28 20:30 | RAD REPORT ---
EXAM DESCRIPTION: CT - Spine Lumbar Wo Con - 01/28/2022 8:14 pm CLINICAL HISTORY: Radiculopathy. Lumbar radiculopathy, osteoporosis presence or risk COMPARISON: No comparisons TECHNIQUE: Axial noncontrast CT imaging of the lumbar spine was performed with coronal and sagittal re-formatted images. All CT scans are performed using dose optimization technique as appropriate and may include automated exposure control or mA/KV adjustment according to patient size. FINDINGS: No acute lumbar spine fracture seen. No aggressive marrow pattern or malalignment. Degenerate changes are present at L2-3 with there is endplate irregularity and sclerosis. At least mo derate central spinal stenosis is noted at this level. Mild disc height loss at L5-S1. Intervertebral disc disease assessment is inherently limited by CT. IMPRESSION: No acute fracture of the lumbar spine. Degenerative disc disease which is most advanced at L2-3 where there is at least moderate central spinal stenosis. Consider MRI follow-up for assessment of disc disease if clinically desired.
[2022-01-28 20:33] LABS: Albumin 3.7 g/dL (3.4-5.0); Bilirubin Total 0.5 mg/dL (0.2-1.0); Protein, Total 6.7 g/dL (6.4-8.2)
[2022-01-28] MEDS ORDERED: IBUPROFEN 400 MG TAB ONE (20:52)
--- NOTE | 2022-01-28 20:57 | EDPHYS ---
Physician Documentation [facility] Name: Georgette Daniel Age: 66 yrs Sex: Female : 1955 Arrival Date: 01/28/2022 Time: 19:36 Bed 11 Private MD: MARIO Physician Javier Luna HPI: 01/28 20:41 This 66 yrs old Female presents to ER via Ambulatory with complaints of Low armen Back Pain. 20:41 The patient presents with pain that is acute, and decreased range of motion. The armen symptoms are located in the lumbar area. The pain radiates to the right low back. The problem was sustained from unknown cause. Onset: The symptoms/episode began/occurred 2 day(s) ago. Modifying factors: The patient symptoms are alleviated by remaining still, the patient symptoms are aggravated by. Associated signs and symptoms: The patient has no apparent associated signs or symptoms. The patient has experienced similar episodes in the past, a few times. Historical: - Allergies: 19:43 Toradol; bm7 19:43 Rocephin; bm7 - Home Meds: 19:43 lisinopril 20 mg Oral tab 1 tab twice a day [Active]; bm7 - PMHx: 19:43 Asthma; Depression; Diabetes - NIDDM; GERD; Hyperlipidemia; Hypertension; neuropathy; bm7 - PSHx: 19:43 Cholecystectomy; bm7 - Immunization history:: Adult Immunizations up to date, Client reports receiving the 2nd dose of the Covid vaccine, Client reports receiving the 1st dose of the Covid vaccine. - Social history:: Smoking status: Patient denies any tobacco usage or history of. - Family history:: not pertinent. ROS: 20:41 Constitutional: Negative for fever, chills, and weight loss, Eyes: Negative for injury, armen pain, redness, and discharge, ENT: Negative for injury, pain, and discharge, Neck: Negative for injury, pain, and swelling, Cardiovascular: Negative for chest pain, palpitations, and edema, Respiratory: Negative for shortness of breath, cough, wheezing, and pleuritic chest pain, Abdomen/GI: Negative for abdominal pain, nausea, vomiting, diarrhea, and constipation, : Negative for injury, bleeding, discharge, and swelling, MS/Extremity: Negative for injury and deformity, Skin: Negative for injury, rash, and discoloration, Neuro: Negative for headache, weakness, numbness, tingling, and seizure, Psych: Negative for depression, anxiety, suicide ideation, homicidal ideation, and hallucinations, Allergy/Immunology: Negative for hives, rash, and allergies, Endocrine: Negative for neck swelling, polydipsia, polyuria, polyphagia, and marked weight changes, Hematologic/Lymphatic: Negative for swollen nodes, abnormal bleeding, and unusual bruising. 20:41 Back: Positive for decreased range of motion, pain with movement. Exam: 20:41 Constitutional: This is a well developed, well nourished patient who is awake, alert, armen and in no acute distress. Head/Face: Normocephalic, atraumatic. Eyes: Pupils equal round and reactive to light, extra-ocular motions intact. Lids and lashes normal. Conjunctiva and sclera are non-icteric and not injected. Cornea within normal limits. Periorbital areas with no swelling, redness, or edema. ENT: Nares patent. No nasal discharge, no septal abnormalities noted. Tympanic membranes are normal and external auditory canals are clear. Oropharynx with no redness, swelling, or masses, exudates, or evidence of obstruction, uvula midline. Mucous membranes moist. Neck: Trachea midline, no thyromegaly or masses palpated, and no cervical lymphadenopathy. Supple, full range of motion without nuchal rigidity, or vertebral point tenderness. No Meningismus. Chest/axilla: Normal chest wall appearance and motion. Nontender with no deformity. No lesions are appreciated. Cardiovascular: Regular rate and rhythm with a normal S1 and S2. No gallops, murmurs, or rubs. Normal PMI, no JVD. No pulse deficits. Respiratory: Lungs have equal breath sounds bilaterally, clear to auscultation and percussion. No rales, rhonchi or wheezes noted. No increased work of breathing, no retractions or nasal flaring. Abdomen/GI: Soft, non-tender, with normal bowel sounds. No distension or tympany. No guarding or rebound. No evidence of tenderness throughout. Skin: Warm, dry with normal turgor. Normal color with no rashes, no lesions, and no evidence of cellulitis. MS/ Extremity: Pulses equal, no cyanosis. Neurovascular intact. Full, normal range of motion. Neuro: Awake and alert, GCS 15, oriented to person, place, time, and situation. Cranial nerves II-XII grossly intact. Motor strength 5/5 in all extremities. Sensory grossly intact. Cerebellar exam normal. Normal gait. Psych: Awake, alert, with orientation to person, place and time. Behavior, mood, and affect are within normal limits. 20:41 Back: ROM is painful, normal spinal alignment noted, CVA tenderness, that is mild, vertebral tenderness, is not appreciated, muscle spasm, is appreciated in the left low back, left mid back, right mid back and right low back. Vital Signs: 19:41 BP 125 / 76; Pulse 89; Resp 18; Temp 97.8(TE); Pulse Ox 100% on R/A; Weight 85.73 kg bm7 (R); Height 5 ft. 4 in. (162.56 cm); Pain 10/10; 21:07 BP 128 / 78; Pulse 77; Resp 16; Pulse Ox 100% on R/A; Pain 2/10; bm7 19:41 Body Mass Index 32.44 (85.73 kg, 162.56 cm) bm7 Michael Coma Score: 21:00 Eye Response: spontaneous(4). Verbal Response: oriented(5). Motor Response: obeys [facility] commands(6). Total: 15. MDM: 19:47 Patient medically screened. armen 20:51 Differential diagnosis: arthritis, strain, fracture, sciatica, Herniated disc. Data armen reviewed: vital signs, nurses notes, lab test result(s), radiologic studies, CT scan. Data interpreted: cardiac monitor technician: rate is 89 beats/min, rhythm is regular, Pulse oximetry: on room air is 100 %. Test interpretation: by ED physician or midlevel provider:. Counseling: I had a detailed discussion with the patient and/or guardian regarding: the historical points, exam findings, and any diagnostic results supporting the discharge/admit diagnosis, lab results, radiology results, the need for outpatient follow up, for definitive care, a family practitioner, a neurologist. 01/28 19:50 Order name: CBC with Diff; Complete Time: 20:40 [facility] 01/28 19:50 Order name: Comprehensive Metabolic Panel; Complete Time: 20:40 [facility] 01/28 19:50 Order name: CT Lumbar Spine Wo Con; Complete Time: 20:40 [facility] 01/28 20:02 Order name: Urine Dipstick-Ancillary; Complete Time: 20:40 EDMT 01/28 19:50 Order name: Urine Dipstick-Ancillary (obtain specimen); Complete Time: 20:01 armen Administered Medications: 20:03 Drug: Decadron - Dexamethasone 10 mg Route: IVP; Site: right antecubital; ld1 20:43 Follow up: Response: No adverse reaction ld1 20:03 Drug: Valium (diazepam) 5 mg Route: PO; ld1 20:44 Follow up: Response: No adverse reaction ld1 20:03 Drug: fentaNYL (PF) 50 mcg Route: IVP; Site: right antecubital; ld1 20:44 Follow up: Response: No adverse reaction ld1 20:44 Follow up: Response: RASS: Alert and Calm (0) ld1 20:03 Drug: Zofran (Ondansetron) 4 mg Route: IVP; Site: right antecubital; ld1 20:44 Follow up: Response: No adverse reaction ld1 20:43 Drug: Motrin (ibuprofen) 800 mg Route: PO; ld1 20:44 Follow up: Response: No adverse reaction ld1 Disposition Summary: 01/28/22 20:57 Discharge Ordered Location: Home armen Problem: new armen Symptoms: have improved armen Condition: Stable armen Diagnosis - Low back pain armen - Strain of muscle, fascia and tendon of lower back armen - Sciatica, right side armen - Spinal stenosis, lumbosacral region armen Followup: armen - With: Private Physician - When: 2 - 3 days - Reason: Recheck today's complaints, Continuance of care, Re-evaluation by your physician Followup: armen - With: Daniel Beyer MD - When: 2 - 3 days - Reason: Recheck today's complaints, Re-evaluation by your physician Discharge Instructions: - Discharge Summary Sheet armen - Acute Back Pain, Adult armen - Chronic Back Pain armen - Musculoskeletal Pain armen - Sciatica armen - Chronic Back Pain, [id number] armen - Sciatica, [id number] armen Forms: - Medication Reconciliation Form armen - Thank You Letter armen - Antibiotic Education armen - Prescription Opioid Use armen Prescriptions: - Diclofenac Sodium 75 mg Oral Tablet Sustained Release - take 1 tablet by ORAL route 2 times per day; 30 tablet; Refills: 0, Product armen Selection Permitted - Cyclobenzaprine 5 mg Oral Tablet - take 1 tablet by ORAL route 3 times per day As needed; 15 tablet; Refills: 0, [facility] Product Selection Permitted - Tylenol-Codeine #3 300 mg-30 mg Oral - take 1 tablet by ORAL route every 6 hours; 24 tablet; Refills: 0, Product armen Selection Permitted - dexamethasone 2 mg Oral tablet - take 1 tablet by ORAL route 2 times per day; 12 tablet; Refills: 0, Product armen Selection Permitted Signatures: Dispatcher [employer] Javier Paulino MD MD cha McCarthy, Brittany, RN RN bm7 Lety Berumen RN RN ld1
--- NOTE | 2022-01-28 20:57 | ER ---
Nurse's Notes [facility] Name: Georgette Daniel Age: 66 yrs Sex: Female : 1955 Arrival Date: 01/28/2022 Time: 19:36 Bed 11 Private MD: Diagnosis: Low back pain;Strain of muscle, fascia and tendon of lower back;Sciatica, right side;Spinal stenosis, lumbosacral region Presentation: 01/28 19:41 Chief complaint: Patient states: My back went out this morning and I went to [facility] and they gave me liquid steroids and two shots but it isn't helping. Coronavirus screen: At this time, the client does not indicate any symptoms associated with coronavirus-19. Ebola Screen: No symptoms or risks identified at this time. Initial Sepsis Screen: Does the patient meet any 2 criteria? No. Patient's initial sepsis screen is negative. Does the patient have a suspected source of infection? No. Patient's initial sepsis screen is negative. Risk Assessment: Do you want to hurt yourself or someone else? Patient reports no desire to harm self or others. Onset of symptoms was January 28, 2022 at 09:00. 19:41 Method Of Arrival: Ambulatory [facility] 19:41 Acuity: EVIE 4 7 19:45 Note Pt was given a prescription for robaxin, prednisone, pt also on Cipro for a UTI. [facility] Triage Assessment: 19:43 General: Appears in no apparent distress. uncomfortable, Behavior is calm, cooperative, bm7 appropriate for age. Pain: Complains of pain in low back area Pain radiates to right leg. EENT: No deficits noted. No signs and/or symptoms were reported regarding the EENT system. Neuro: No deficits noted. Cardiovascular: No deficits noted. Respiratory: No deficits noted. GI: No deficits noted. No signs and/or symptoms were reported involving the gastrointestinal system. : No deficits noted. No signs and/or symptoms were reported regarding the genitourinary system. Derm: No deficits noted. No signs and/or symptoms reported regarding the dermatologic system. Musculoskeletal: Reports pain in back and right leg. Historical: - Allergies: 19:43 Toradol; bm7 19:43 Rocephin; bm7 - Home Meds: 19:43 lisinopril 20 mg Oral tab 1 tab twice a day [Active]; bm7 - PMHx: 19:43 Asthma; Depression; Diabetes - NIDDM; GERD; Hyperlipidemia; Hypertension; neuropathy; bm7 - PSHx: 19:43 Cholecystectomy; bm7 - Immunization history:: Adult Immunizations up to date, Client reports receiving the 2nd dose of the Covid vaccine, Client reports receiving the 1st dose of the Covid vaccine. - Social history:: Smoking status: Patient denies any tobacco usage or history of. - Family history:: not pertinent. Screenin:47 Abuse screen: Denies threats or abuse. Nutritional screening: No deficits noted. bm7 Tuberculosis screening: No symptoms or risk factors identified. Fall Risk None identified. Assessment: 19:47 Reassessment: No changes from previously documented assessment. bm7 20:54 Reassessment: Patient and/or family updated on plan of care and expected duration. Pain ld1 level reassessed. Patient is alert, oriented x 3, equal unlabored respirations, skin warm/dry/pink. Vital Signs: 19:41 BP 125 / 76; Pulse 89; Resp 18; Temp 97.8(TE); Pulse Ox 100% on R/A; Weight 85.73 kg bm7 (R); Height 5 ft. 4 in. (162.56 cm); Pain 10/10; 21:07 BP 128 / 78; Pulse 77; Resp 16; Pulse Ox 100% on R/A; Pain 2/10; bm7 19:41 Body Mass Index 32.44 (85.73 kg, 162.56 cm) bm7 Winn Coma Score: 21:00 Eye Response: spontaneous(4). Verbal Response: oriented(5). Motor Response: obeys armen commands(6). Total: 15. ED Course: 19:36 Patient arrived in ED. bp1 19:43 Triage completed. bm7 19:43 Arm band placed on left wrist. bm7 19:47 Javier Luna MD is Attending Physician. armen 19:47 No apparent distress. Resting quietly. Awaiting ED provider evaluation. bm7 19:47 Patient has correct armband on for positive identification. Placed in gown. Bed in low bm7 position. Call light in reach. Side rails up X 1. Client placed on continuous cardiac and pulse oximetry monitoring. NIBP monitoring applied. 19:51 Dibbern, Lety, RN is Primary Nurse. ld1 20:16 CT Lumbar Spine Wo Con In Process Unspecified. EDMS 20:18 Patient moved back from CT. bm7 20:18 Initial lab(s) drawn, by me, sent to lab. Inserted saline lock: 20 gauge in right bm7 antecubital area, using aseptic technique. Blood collected. 21:01 Daniel Beyer MD is Referral Physician. [facility] 21:07 No provider procedures requiring assistance completed. IV discontinued, intact, bm7 bleeding controlled, No redness/swelling at site. Pressure dressing applied. Administered Medications: 20:03 Drug: Decadron - Dexamethasone 10 mg Route: IVP; Site: right antecubital; ld1 20:43 Follow up: Response: No adverse reaction ld1 20:03 Drug: Valium (diazepam) 5 mg Route: PO; ld1 20:44 Follow up: Response: No adverse reaction ld1 20:03 Drug: fentaNYL (PF) 50 mcg Route: IVP; Site: right antecubital; ld1 20:44 Follow up: Response: No adverse reaction ld1 20:44 Follow up: Response: RASS: Alert and Calm (0) ld1 20:03 Drug: Zofran (Ondansetron) 4 mg Route: IVP; Site: right antecubital; ld1 20:44 Follow up: Response: No adverse reaction ld1 20:43 Drug: Motrin (ibuprofen) 800 mg Route: PO; ld1 20:44 Follow up: Response: No adverse reaction ld1 Medication: 19:47 VIS not applicable for this client. 7 Outcome: 20:57 Discharge ordered by . [facility] 21:07 Discharged to home ambulatory, with family. bm7 21:07 Condition: improved 21:07 Discharge instructions given to patient, family, Instructed on discharge instructions, follow up and referral plans. medication usage, Demonstrated understanding of instructions, follow-up care, medications, Prescriptions given X 4. 21:08 Patient left the ED. bm7 Signatures: Dispatcher [employer] Javier Paulino MD MD cha Paniauga, Brittany bp1 McCarthy, Brittany, RN RN bm7 Lety Berumen, ANGELIQUE MERINO ld1
[2022-01-28 22:42] VITALS: TEMP 97.8; O2SAT 100
[2022-01-28 22:45] VITALS: BP 128/78
== END 2022-01-28 21:08 | disposition home or self-care (01) ==
LOC: ER 19:34
DX: S39.012A Strain of muscle, fascia and tendon of lower back, initial encounter (principal); M54.31 Sciatica, right side; M48.07 Spinal stenosis, lumbosacral region; I10 Essential (primary) hypertension; Z88.3 Allergy status to other anti-infective agents; Z88.5 Allergy status to narcotic agent
CPT/HCPCS: 85025; 36415; 81003; 80053; 72131; 96375; 96374; 99284; J3010; J1100; J2405

== ENCOUNTER 2022-02-02 11:54 | Emergency (ER) | payer OTHER ==
--- OUTSIDE RECORDS SUMMARY | 2022-02-02 11:57 | XMS REPORT | Continuity of Care Document ---
:1955 Author Organization [facility] t Address [address] [place] [address] Care Team Providers Name Role Phone Gary Tone OLIVAS Primary Care Physician CHRETIEN_F Attending Clinician Unavailable Alexy VAN, [place] Attending Clinician Emliy Reilly Attending Clinician SANGEETHA POPE Attending Clinician Unavailable Jeremie Rajan DO Attending Clinician Lacho Cartagena MD Attending Clinician Doctor Unassigned, [place] Attending Clinician Unavailable CHRETIEN_F Admitting Clinician Unavailable SANGEETHA POPE Admitting Clinician Unavailable Payers Payer Name Policy Type Policy Number Effective Date Expiration Date [facility] [id number] 2021 (MEDICARE 00:00:00 REPLACEMENT/ADVANTA GE - PPO) Problems Condition Condition Condition Status Onset Resolution Last Treating Co mments Source Name Details Category Date Date Treatment Clinician Date Mild Mild Disease Active Univers intermitte intermitte 08 [place] nt asthma [place] asthma [place] 00 Medical complicati complicati Br anch on on Open wound Open wound Disease Active U nivers of toe, of toe, 9-08 ity of initial initial 00:00: [place] encounter encounter 00 Medi nancy Branch Knee Knee Disease Active Overview: Univer s internal internal 3-18 Formattin ity of deryimi derangemen 00:00: g of this [place] t, right t, right 00 note Medica l might be Branch different from the original. Added automatic ally from request for surgery [id number] Overactive Overactive Disease Active U nivers bladder bladder 01-31 ity of 00:00: [place] [facility] Hyperlipid Hyperlipid Disease Active U nivers emia, emia, 01-31 ity of unspecifie unspecifie [place] Medical hyperlipid hyperlipid Br anch emia type emia type Essential Essential Disease Active Uni vers hypertensi hypertensi 01-31 it y of on on 00:00: [place] [facility] Elevated Elevated Disease Active Unive rs liver liver 01-31 ity of enzymes enzymes 00:00: Medical Branch Type 2 Type 2 Disease Active Univers diabetes diabetes 01-31 ity of mellitus mellitus 00:00: [place] without without 00 Medical complicati complicati Br anch on, on, without without long-term long-term current current use of use of insulin insulin Anemia, Anemia, Disease Active Univers unspecifie unspecifie 01-31 it y of d type d type 00:00: [place] [facility] Obesity Obesity Disease Active Univers (BMI (BMI 8-22 ity of 30-39.9) 30-39.9) 00:00: [place] [facility] Well woman Well woman Disease [...] See dystonia Univers zole ty to comments 01-10 ity of adverse 00:00: [place] reaction 00 Medical s Branch LITHIUM DRUG Active Other-Cmnt Unive rs INGREDI 06-18 ity of 00:00: [place] 00 Medical Branch OXCARBAZ DRUG Active Low Rash Univers EPINE INGREDI 06-18 ity of 00:00: [place] 00 Medical Branch Hamer Propensi Active Other - See Hamer U nivers ty to comments 06-18 poisoning [...] Quantity Comments Source Exposure to Not sure [facility] SARS-CoV-2 (event) Medica l [place] Alcohol intake 2021-08-19 2021-08-19 0 /d [facility] 00:00:00 00:00:00 [facility] Sex Ass[birth year] At [birth year] [facility] 00:00:00 00:00:00 [facility] Smoking Status Start Date Stop Date Source Never smoker [facility] Medications Ordered Filled Start Stop Current Ordering Indication Dosage Frequency Signature Comments Components Source Medication Medication Date Date Medication? Clinician (SIG) Name Name INDRABETRCOCO Yes [id number] TAKE 1 Un [place] 50 mg 4-13 TABLET BY ity of tablet 00:00: MOUTH EVERY Medical NIGHT AT Branch BEDTIME MYRBETRIQ Yes [id number] TAKE 1 [place] 50 mg 4-13 TABLET BY ity of tablet 00:00: MOUTH EVERY Medical NIGHT AT Branch BEDTIME budesonide/ 2022-0 Yes Inhale. Uni vers formoterol 3-25 ity of fumarate 11:26: [place] (SYMBICORT 48 Medical INHALE) Branch metFORMIN Yes 500mg Take 500 Uni vers 500 mg 3-25 mg by ity of tablet 11:26: mouth [place] 48 daily. Medical Branch loratadine Yes Take by Univ ers 10 mg 3-25 mouth. ity of capsule 11:26: [place] [address] Medical Branch lisinopriL- Yes 2{tbl} Take 2 Un deonte hydrochloro 3-25 tablets by it y of thiazide 11:26: mouth [place] 20-12.5 mg 48 daily. Medical per tablet Branch budesonide/ Yes Inhale. Uni vers formoterol 3-25 ity of fumarate 11:26: [place] (SYMBICORT 48 Medical INHALE) Branch metFORMIN Yes 500mg Take 500 Uni vers 500 mg 3-25 mg by ity of tablet 11:26: mouth [place] 48 daily. Medical Branch loratadine Yes Take by Univ ers 10 mg 3-25 mouth. ity of capsule 11:26: [place] [address] Medical Branch lisinopriL- Yes 2{tbl} Take 2 Un deonte hydrochloro 3-25 tablets by it y of thiazide 11:26: mouth [place] 20-12.5 mg 48 daily. Medical per tablet Branch budesonide/ Yes Inhale. Uni vers formoterol 3-25 ity of fumarate 11:26: [place] (SYMBICORT 48 Medical INHALE) Branch metFORMIN Yes 500mg Take 500 Uni vers 500 mg 3-25 mg by ity of tablet 11:26: mouth [place] 48 daily. Medical Branch loratadine Yes Take by Univ ers 10 mg 3-25 mouth. ity of capsule 11:26: [place] [address] Medical Branch lisinopriL- Yes 2{tbl} Take 2 Un deonte hydrochloro 3-25 tablets by it y of thiazide 11:26: mouth [place] 20-12.5 mg 48 daily. Medical per tablet Branch ciprofloxac Yes TAKE 1 Univ ers in HCl 500 3-23 TABLET BY ity of mg tablet 00:00: MOUTH [place] 00 EVERY 12 Medical HOURS FOR Branch 7 DAYS methylPREDN Yes TAKE Uni vers ISolone 4 3-23 DIRECTED ity of mg tablets 00:00: [place] PACKAGE [place] LAB[place] Branch ciprofloxac Yes TAKE 1 Univ ers in HCl 500 3-23 TABLET BY ity of mg tablet 00:00: MOUTH [place] 00 EVERY 12 Medical HOURS FOR Branch 7 DAYS methylPREDN 2021-0 Yes TAKE Uni vers ISolone 4 3-23 DIRECTED ity of mg tablets 00:00: ON PACKAGE [place] [facility] Branch ciprofloxac Yes TAKE 1 Univ ers in HCl 500 3-23 TABLET BY ity of mg tablet 00:00: MOUTH [place] 00 EVERY 12 Medical HOURS FOR Branch 7 DAYS methylPREDN 2021-0 Yes TAKE Uni vers ISolone 4 3-23 DIRECTED ity of mg tablets 00:00: ON PACKAGE [place] [facility] Branch MYRBETRIQ 2021- No 1{tbl} Take 1 Uni vers 50 mg 3-14 03-25 tablet by ity of tablet 00:00: 00:00 mouth at [place] 00 :00 bedtime. Medical Branch PROLENSA Yes INSTILL 1 Univ ers 0.07 % 3-08 DROP IN ity of drops 00:00: RIGHT EYE DAILY FOR Medical 1 MONTH Branch THEN STOP PROLENSA Yes INSTILL 1 Univ ers 0.07 % 3-08 DROP IN ity of drops 00:00: RIGHT EYE DAILY FOR Medical 1 MONTH Branch THEN STOP PROLENSA Yes INSTILL 1 Univ ers 0.07 % [...] DAY FOR Medical CHOLESTERO Branch L ezetimibe Yes TAKE 1 Univer s 10 mg 2-17 TABLET BY ity of tablet 00:00: MOUTH EACH DAY FOR Medical CHOLESTERO Branch L Diclofenac Yes APPLY Univer s Sodium 1 % 2-13 EXTERNALLY ity of gel 00:00: TO THE [place] 00 AFFECTED Medical AREA FOUR Branch TIMES DAILY NEEDED Diclofenac Yes APPLY Univer s Sodium 1 % 2-13 EXTERNALLY ity of gel 00:00: TO THE [place] AFFECTED Medical AREA FOUR Branch TIMES DAILY NEEDED Diclofenac Yes APPLY Univer s Sodium 1 % 2-13 EXTERNALLY ity of gel 00:00: TO THE [place] AFFECTED Medical AREA FOUR Branch TIMES DAILY NEEDED erythromyci Yes APPLY 1 Uni vers n 5 mg/gram 1-20 THIN LAYER it y of (0.5 %) 00:00: TO THE [place] ophthalmic 00 EYELIDS AT [facility] ointment BEDTIME Branch FOR 1 WEEK erythromyci Yes APPLY 1 Uni vers n 5 mg/gram 1-20 THIN LAYER it y of (0.5 %) 00:00: TO THE [place] ophthalmic 00 EYELIDS AT [facility] ointment BEDTIME Branch FOR 1 WEEK erythromyci Yes APPLY 1 Uni vers n 5 mg/gram 1-20 THIN LAYER it y of (0.5 %) 00:00: TO THE [place] ophthalmic 00 EYELIDS AT [facility] ointment BEDTIME Branch FOR 1 WEEK traZODone 2020-05 Yes TAKE 1 Univer s 50 mg 1-18 TABLET BY ity of tablet 00:00: MOUTH [place] 00 EVERY Medical NIGHT AT [place] BEDTIME NEEDED FOR INSOMNIA traZODone 2020-05 Yes TAKE 1 Univer s 50 mg 1-18 TABLET BY ity of tablet 00:00: MOUTH [place] 00 EVERY Medical NIGHT AT [place] BEDTIME NEEDED FOR INSOMNIA traZODone 2020-05 Yes TAKE 1 Univer s 50 mg 1-18 TABLET BY ity of tablet 00:00: MOUTH [place] 00 EVERY Medical NIGHT AT [place] BEDTIME NEEDED FOR INSOMNIA OLANZapine 2020-05- No 10mg Take 10 mg Univers 10 mg 1-18 03-25 by mouth ity of tablet 00:00: 00:00 at [place] 00 :00 bedtime. Medical Branch atorvastati Yes 10mg Take 10 mg Univers n 10 mg 9-10 by mouth ity of tablet 16:17: at [place] 12 bedtime. Medical Branch atorvastati Yes 10mg Take 10 mg Univers n 10 mg 9-10 by mouth ity of tablet 16:17: at [place] 12 bedtime. Medical Branch atorvastati Yes 10mg Take 10 mg Univers n 10 mg 9-10 by mouth ity of tablet 16:17: at [place] 12 bedtime. Medical Branch azithromyci 2021- No [...] by mouth ity of capsule 00:00: daily. Medical Branch omeprazole Yes 20mg Take 20 mg U nivers 20 mg 7-26 by mouth ity of capsule 00:00: daily. [place] [facility] omeprazole Yes 20mg Take 20 mg U nivers 20 mg 7-26 by mouth ity of capsule 00:00: daily. [place] [facility] fluticasone Yes [id number] 2{spray Use 2 Univers propionate 9-20 } Sprays in ity of 50 00:00: each [place] mcg/actuati 00 nostril Medic al on nasal daily. [place] spray fluticasone Yes [id number] 2{spray Use 2 Univers propionate 9-20 } Sprays in ity of 50 00:00: each [place] mcg/actuati 00 nostril Medic al on nasal daily. [place] spray fluticasone Yes [id number] 2{spray Use 2 Univers propionate 9-20 } Sprays in ity of 50 00:00: each [place] mcg/actuati 00 nostril Medic al on nasal daily. Branch spray albuterol Yes [id number] 2{puff} Inhale 2 Univers 90 9-06 Puffs ity of mcg/actuati 00:00: every 6 [place] as on inhaler 00 (six) Medical hours as Branch needed for Wheezing. albuterol Yes [id number] 2{puff} Inhale 2 Univers 90 9-06 Puffs ity of mcg/actuati 00:00: every 6 [place] as on inhaler 00 (six) Medical hours as Branch needed for Wheezing. albuterol Yes [id number] 2{puff} Inhale 2 Univers 90 9-06 Puffs ity of mcg/actuati 00:00: every 6 [place] as on inhaler 00 (six) Medical hours as Branch needed for Wheezing. mupirocin 2 2021- No [id number] Apply to Univers % ointment 01-31 area(s) 3 ity of 00:00: 00:00 (three) [place] 00 :00 times Medical daily. Branch blood sugar Yes [id number] Use as Univers diagnostic 7-16 directed, ity of (ONETOUCH 00:00: [place] a day [place] ULTRA BLUE 00 to monitor Med ical TEST STRIP) blood Branch strip glucose for ICD code E11.9 Blood-Gluco Yes [id number] Use as Univers se Meter 7-16 directed, ity of (ONETOUCH 00:00: [place] a day [place] ULTRA2 00 to monitor Medical METER) Kit blood Branch glucose for ICD code E11.9 blood sugar Yes [id number] Use as Univers diagnostic 7-16 directed, ity of (ONETOUCH 00:00: [place] a day [place] ULTRA BLUE 00 to monitor Med ical TEST STRIP) blood Branch strip glucose for ICD code E11.9 Blood-Gluco Yes [id number] Use as Univers se Meter 7-16 directed, ity of (ONETOUCH 00:00: once a day [place] ULTRA2 00 to monitor Medical METER) Kit blood Branch glucose for ICD code E11.9 blood sugar Yes [id number] Use as Univers diagnostic 7-16 directed, ity of (ONETOUCH 00:00: [place] day [place] ULTRA BLUE 00 to monitor Med ical TEST STRIP) blood Branch strip glucose for ICD code E11.9 Blood-Gluco Yes [id number] Use as Univers se Meter 7-16 directed, ity of (ONETOUCH 00:00: [place] day [place] ULTRA2 00 to monitor Medical METER) Kit blood Branch glucose for ICD code E11.9 lancets Yes [id number] Use as Uni vers (ONETOUCH 7-02 directed, ity o f DELICA 00:00: once a day [place] LANCETS) 30 00 and prn to Me dical gauge Misc monitor Branch blood glucose for ICD code E11.9 lancets 2019-0 Yes [id number] Use as Uni vers (ONETOUCH 7-02 directed, ity o f DELICA 00:00: once a day [place] LANCETS) 30 00 and prn to Me dical gauge Misc monitor Branch blood glucose for ICD code E11.9 lancets 2019-0 Yes [id number] Use as Uni vers (ONETOUCH 7- directed, ity o f DELICA 00:00: once a day [place] LANCETS) 30 00 and prn to Me dical gauge Misc monitor Branch blood glucose for ICD code E11.9 Immunizations Ordered Filled Immunization Date Status Comments Sour e Immunization Name Name SARS-COV-2 COVID-19 2020-12-25 Completed Unive rsity of OCTAVIO/J&J VACCINE 00:00:00 [facility] SARS-COV-2 COVID-19 2020-12-25 Completed Unive rsity of OCTAVIO/J&J VACCINE 00:00:00 [facility] SARS-COV-2 COVID-19 2020-12-25 Completed Unive rsity of OCTAVIO/J&J VACCINE 00:00:00 [facility] Influenza Virus 2017-03-05 Completed Universit y of Vaccine Quad IM 3+ 00:00:00 [facility] TDAP 2017-03-05 Completed [facility] 00:00:00 [facility] Influenza Virus 2017-03-05 Completed Universit y of Vaccine Quad IM 3+ 00:00:00 [facility] TDAP 2017-03-05 Completed [facility] 00:00:00 [facility] Influenza Virus 2017-03-05 Completed Universit y of Vaccine Quad IM 3+ 00:00:00 [facility] TDAP 2017-03-05 Completed [facility] 00:00:00 [facility] Vital Signs Vital Name Observation Time Observation Value Comments Source Diastolic blood 2021-08-19 16:04:00 95 mm[Hg] Unive rsity of pressure [facility] Systolic blood 2021-08-19 16:04:00 158 mm[Hg] Univer sity of pressure [facility] Heart rate 2021-08-19 16:03:00 74 /min General acute hospital Body temperature 2021-08-19 16:03:00 [facility] [place] [facility] height 2021-08-19 16:03:00 162.6 cm General acute hospital Body weight 2021-08-19 16:03:00 90.901 kg General acute hospital BMI 2021-08-19 16:03:00 34.40 kg/m2 General acute hospital Oxygen saturation in 2021-08-19 16:03:00 99 /min [facility] Arterial blood by [facility] Pulse oximetry Branch Procedures This patient has no known procedures. Encounters Start End Encounter Admission Attending Care Care Encounter Source Date/Time Date/Time Type Type Clinicians Facility Department ID 2021-04-01 Inpatient [facility] [id number] [facility] 17:07:00 09 2021-11-07 2021-11-07 Outpatient CHRETIEN_F [facility] [id number] 09:11:00 09:11:00 [id number] [facility] 2021-11-04 2021-11-04 Outpatient CHRETIEN_F [facility] [address] 11:22:00 11:22:00 [facility]10 [facility] 2021[facility]04 [facility] [id number] Univers 00:00:00 00:00:00 [place] LOW [id number] i ty [place] [id number] [place] PROF[place] [id number] [address] 2021-09-03 2021-09-03 [facility] [id number] Univers 00:00:00 00:00:00 [place] LOW [id number] i ty [place] [id number] [phone] [address] 2021-08-19 2021-08-19 [facility] [id number] Univers 11:00:00 11:54:34 Visit Emily Rubi [employer] [id number] i ty of [place] [id number] Eprnell as ERNESTINA?BLEA [phone] Md deidre LOPEZ [address] [place] [address] MEDICAL OFFICE BUILDING 2021-08-15 2021-08-15 Emergency X TOSHIA [facility] ERT [id number] Univers 12:46:00 15:20:00 SANGEETHA timany [facility] 2021-04-01 2021-04-01 Emergency [facility] [id number] [facility] 17:07:00 17:07:00 09 2020-08-03 2020-08-03 [facility] [id number] 00:00:00 00:00:00 Outreach Jeremie [facility] [id number] [facility] [id number] PAVLIAN [id number] [id number] 2019-12-29 2019-12-29 [facility]phone [facility] [id number] 00:00:00 00:00:00 Lacho Wiggins [employer] [id number] Surgical [id number] Specialti [phone] es 198 Portal 2019-12-29 2019-12-29 Orders Doctor MAYRA [id number] 00:00:00 00:00:00 Only Unassigned, VAISHALI [id number] [facility] 4.2.7.2.686 [id number] 2019-02-14 2019-02-14 [facility] [id number] 09:21:46 09:55:37 Visit Emily Rubi [employer] [id number] Portal [id number] Professio [phone] [place] [address] [address] One Results Test Description Test [...] UPROP) Negative Negativ e UA, Urinalysis Rflx [id number] 17:46:00 Test Item Value Reference Range Interpretation Comments Color,Urine (test code = Yellow Yellow UCOL) Clarity,Urine (test code = Clear Clear UCLAR) PH,Urine (test code = 6.0 5.5-8.5 UPH.XX) Specific [place],Urine 1.010 1.005-1.030 N (test code = USG) [...] Negative (test code = ULEU) Comprehensive Metabolic [id number] 17:45:00 Test Item Value Reference Range Interpretation [...] 112 U/L 46-116 N = ALP) Ethanol [id number] 17:45:00 Test Item Value Reference Range Interpretation Comments Ethanol (test code = ETOH) < 3 mg/dL Coronavirus PCR, COVID19 [id number] 17:45:00 Test Item Value Reference Range Interpretation Comments Coronavirus PCR, For use under Emergency COVID19 Rapid (test Use Authorization (EUA) code = SARSCOV2) only. Coronavirus PCR, Reference Range: COVID19 Rapid (test Negative code = PREFSIJ23.1) SARS-CoV-2 PCR Result: Negative by PCR (test code = SARS-CoV-2 PCR Result:) COVID-19 Status: AsymptomaticComplete Blood Count Auto [id number] 17:45:00 Test Item Value Reference Range Interpretation [...]
--- NOTE | 2022-02-02 12:21 | ER ---
Nurse's Notes [facility] [place] [facility] Name: Georgette Daniel Age: 66 yrs Sex: Female : 1955 Arrival Date: 02/02/2022 Time: 11:57 Bed Waiting Private MD: Diagnosis: Strain of muscle and tendon of back wall of thorax;Strain of muscle, fascia and tendon of lower back Presentation: 02/02 11:59 Chief complaint: EMS states: left side sciatic pain began last week. Today pt c/o left iw sided neck pain and back pain. Coronavirus screen: At this time, the client does not indicate any symptoms associated with coronavirus-19. Ebola Screen: No symptoms or risks identified at this time. Initial Sepsis Screen: Does the patient meet any 2 criteria? No. Patient's initial sepsis screen is negative. Does the patient have a suspected source of infection? No. Patient's initial sepsis screen is negative. Risk Assessment: Do you want to hurt yourself or someone else? Patient reports no desire to harm self or others. Onset of symptoms was February 02, 2022. 11:59 Method Of Arrival: [facility] iw 11:59 Acuity: EVIE 4 iw Triage Assessment: 12:01 General: Appears in no apparent distress. comfortable, Behavior is calm, cooperative, iw appropriate for age. Pain: Complains of pain in scalp and back Pain does not radiate. Pain currently is 7 out of 10 on a pain scale. Quality of pain is described as throbbing, Pain began 1 week. EENT: No signs and/or symptoms were reported regarding the EENT system. Neuro: Level of Consciousness is awake, alert, obeys commands, Oriented to person, place, time, situation. Cardiovascular: Capillary refill < 3 seconds Patient's skin is warm and dry. Respiratory: Airway is patent Respiratory effort is even, unlabored. GI: Abdomen is flat, non-distended. : No signs and/or symptoms were reported regarding the genitourinary system. Derm: No signs and/or symptoms reported regarding the dermatologic system. Musculoskeletal: No signs and/or symptoms reported regarding the musculoskeletal system. Historical: - Allergies: 12:01 Rocephin; iw 12:01 Toradol; iw 12:01 PENICILLINS; iw - PMHx: 12:01 Asthma; Diabetes - NIDDM; GERD; Hyperlipidemia; Hypertension; Depression; neuropathy; iw - PSHx: 12:01 Cholecystectomy; iw - Immunization history:: Adult Immunizations up to date, Client reports having NOT received the Covid vaccine. - Social history:: Smoking status: unknown. Screenin:15 Abuse screen: Denies threats or abuse. Denies injuries from another. Nutritional ld1 screening: No deficits noted. Tuberculosis screening: No symptoms or risk factors identified. Fall Risk None identified. Assessment: 12:15 Reassessment: ERP in triage assessing pt. ld1 Vital Signs: 11:59 BP 125 / 84; Pulse 91; Resp 18; Temp 97.9(O); Pulse Ox 99% on R/A; Weight 83.91 kg; iw Height 5 ft. 3 in. (160.02 cm); Pain 7/10; 11:59 Body Mass Index 32.77 (83.91 kg, 160.02 cm) iw ED Course: 11:57 Patient arrived in ED. rg4 12:01 Triage completed. iw 12:01 Arm band placed on right wrist. 12:05 Oj Prado PA is PHCP. [facility] 12:05 Juan Fritz DO is Attending Physician. [facility] 12:15 Patient has correct armband on for positive identification. Placed in gown. Bed in low ld1 position. Call light in reach. Side rails up X2. child monitor on. Pulse ox on. NIBP on. 12:15 No provider procedures requiring assistance completed. IV discontinued. ld1 Administered Medications: No medications were administered Medication: 12:15 VIS not applicable for this client. ld1 Outcome: 12:15 Discharged to home ambulatory. ld1 12:15 Condition: stable 12:15 Discharge instructions given to patient, Instructed on discharge instructions, follow up and referral plans. medication usage, Demonstrated understanding of instructions, follow-up care, medications, Prescriptions given X 3. 12:21 Discharge ordered by . jose 12:29 Patient left the ED. ld1 Signatures: Oj Prado PA PA jmm Williams, Irene, ANGELIQUE RN iw Lisha Burks rg4 Lety Berumen RN RN ld1 Corrections: (The following items were deleted from the chart) 12:02 12:01 Allergies: penicillamine; iw
--- NOTE | 2022-02-02 12:21 | EDPHYS ---
Physician Documentation [facility] Name: Georgette Daniel Age: 66 yrs Sex: Female : 1955 Arrival Date: 02/02/2022 Time: 11:57 Bed Waiting Private MD: ED Physician Juan Fritz HPI: 02/02 12:18 This 66 yrs old Female presents to ER via EMS with complaints of Neck Pain, <24hrs Old. jmm 12:18 The patient or guardian complains of pain. Onset: The symptoms/episode began/occurred jmm gradually, 1 week(s) ago. 66-year-old female with history of diabetes, asthma, hyperlipidemia, hypertension the presents emerged part with complaints of ongoing right-sided sciatica and right-sided neck pain. Patient was initially evaluated at this emergency department and prescribed multiple medications. Patient states she lost her medications and her PCP was unable to refill her prescription. Patient states no new episodes of pain. Denies any unilateral weakness. Denies any syncope or collapse, denies chest pain.. Historical: - Allergies: 12:01 Rocephin; iw 12:01 Toradol; iw 12:01 PENICILLINS; iw - PMHx: 12:01 Asthma; Diabetes - NIDDM; GERD; Hyperlipidemia; Hypertension; Depression; neuropathy; iw - PSHx: 12:01 Cholecystectomy; iw - Immunization history:: Adult Immunizations up to date, Client reports having NOT received the Covid vaccine. - Social history:: Smoking status: unknown. ROS: 12:18 Constitutional: Negative for fever, chills, and weight loss. jmm 12:18 Respiratory: Negative for shortness of breath, cough, wheezing, and pleuritic chest pain, Abdomen/GI: Negative for abdominal pain, nausea, vomiting, diarrhea, and constipation. 12:18 Neck: Positive for pain with movement. 12:18 Back: Positive for pain with movement. 12:18 All other systems are negative. Exam: 12:18 Constitutional: This is a well developed, well nourished patient who is awake, alert, jmm and in no acute distress. Head/Face: atraumatic. Eyes: EOMI, no conjunctival erythema appreciated ENT: Moist Mucus Membranes 12:18 Chest/axilla: Normal chest wall appearance and motion. Cardiovascular: Regular rate and rhythm. No edema appreciated Respiratory: Normal respirations, no respiratory distress appreciated Abdomen/GI: Non distended Skin: General appearance color normal MS/ Extremity: Moves all extremities, no obvious deformities appreciated, no edema noted to the lower extremities Neuro: Awake and alert Psych: Behavior is normal, Mood is normal, Patient is cooperative and pleasant 12:18 Neck: Right paraspinal thoracic pain, reproducible on palpation, no midline tenderness appreciated, full range of motion appreciated. 12:18 Back: Mild right paraspinal lumbar pain on palpation, full range of motion appreciated. Vital Signs: 11:59 BP 125 / 84; Pulse 91; Resp 18; Temp 97.9(O); Pulse Ox 99% on R/A; Weight 83.91 kg; iw Height 5 ft. 3 in. (160.02 cm); Pain 7/10; 11:59 Body Mass Index 32.77 (83.91 kg, 160.02 cm) iw MDM: 12:18 Patient medically screened. [facility] 12:18 Data reviewed: vital signs, nurses notes. Counseling: I had a detailed discussion with vicky the patient and/or guardian regarding: the historical points, exam findings, and any diagnostic results supporting the discharge/admit diagnosis, the need for outpatient follow up, to return to the emergency department if symptoms worsen or persist or if there are any questions or concerns that arise at home. ED course: Patient has no no acute process. We will refill some of the nonnarcotic prescriptions for the patient. Patient vies follow-up with PCP or spine and otherwise given strict return precautions. Patient understood and agrees plan of care.. Administered Medications: No medications were administered Disposition: 16:41 Co-signature as Attending Physician, Juan PRESTON was immediately available onsite ms3 in the emergency department for consultation in the care of the patient. Disposition Summary: 02/02/22 12:21 Discharge Ordered Location: Home vicky Condition: Stable vicky Diagnosis - Strain of muscle and tendon of back wall of thorax jmm - Strain of muscle, fascia and tendon of lower back [facility] Followup: jose - With: Private Physician - When: 1 - 2 days - Reason: Recheck today's complaints, Continuance of care, Re-evaluation by your physician Discharge Instructions: - Discharge Summary Sheet vicky - Thoracic Strain [facility] Forms: - Medication Reconciliation Form [facility] - Thank You Letter jmm - Antibiotic Education jmm - Prescription Opioid Use [facility] Prescriptions: - Zanaflex 4 mg Oral Tablet - take 1 tablet by ORAL route every 8 hours As needed; 20 tablet; Refills: 0, [facility] Product Selection Permitted - Diclofenac Sodium 75 mg Oral Tablet Sustained Release - take 1 tablet by ORAL route 2 times per day; 30 tablet; Refills: 0, Product [facility] Selection Permitted - Pepcid 20 mg Oral Tablet - take 1 tablet by ORAL route once daily; 20 tablet; Refills: 0, Product [facility] Selection Permitted Signatures: Oj Prado PA PA jmm Williams, Irene, ANGELIQUE RN Juan Zuleta DO DO ms3 Corrections: (The following items were deleted from the chart) 12:02 12:01 Allergies: penicillamine; darlene
[2022-02-02 13:13] VITALS: BP 125/84; TEMP 97.9; O2SAT 99
== END 2022-02-02 12:29 | disposition home or self-care (01) ==
LOC: ER 11:54
DX: S29.012A Strain of muscle and tendon of back wall of thorax, initial encounter (principal); S39.012A Strain of muscle, fascia and tendon of lower back, initial encounter; I10 Essential (primary) hypertension; E11.9 Type 2 diabetes mellitus without complications; Z88.0 Allergy status to penicillin; Z88.3 Allergy status to other anti-infective agents; Z88.5 Allergy status to narcotic agent
CPT/HCPCS: 99284

== ENCOUNTER 2022-10-23 10:10 | Emergency (ER) | payer OTHER ==
--- OUTSIDE RECORDS SUMMARY | 2022-10-23 10:19 | XMS REPORT | Continuity of Care Document ---
:1955 Author Organization [facility] t Address [address] [facility] [address] [place] [address] Care Team Providers Name Role Phone Tone Doyle Primary Care Physician LINH GUEVARA Attending Clinician Unavailable EMILY DAVENPORT Attending Clinician Unavailable Emily Reilly Attending Clinician CAMRON FARRAR Attending Clinician Unavailable Doctor Unassigned, Rosalia Attending Clinician Unavailable Linh Guevara MD Attending Clinician Call, [facility] Phone Attending Clinician Unavailable ZAC ART Attending Clinician Unavailable ZAC ART Attending Clinician Unavailable Zac Art MD Attending Clinician Margie TANNER Attending Clinician Unavailable Margie Gastelum Attending Clinician CHRETIEN_F Attending Clinician Unavailable Rosa Tracey MD Attending Clinician PANKAJ GONZALEZ Attending Clinician Unavailable RUTHIE POPE Attending Clinician Unavailable Ruthie Pope DO Attending Clinician Edward Constantino MD Attending Clinician EDWARD CONSTANTINO Attending Clinician Unavailable Neela Cortez Attending Clinician [phone] Indu Enrique S Attending Clinician INDU MARRERO Attending Clinician Unavailable Satinder JONES Jeremie Miguelangel Attending Clinician Camron Farrar MD Attending Clinician Charan OLIVAS Lex Attending Clinician Tech, [facility] Attending Clinician Unavailable Nahum Faustin MD Attending Clinician LINH GUEVARA Admitting Clinician Unavailable Paradise VAN, Linh Admitting Clinician ZAC ART Admitting Clinician Unavailable LORENZO Admitting Clinician Unavailable RUTHIE POPE Admitting Clinician Unavailable Payers Payer Name Policy Type Policy Number Effective Date Expiration Date Timothy [facility] DUAL [id number] 2022 COMP HMO D SNP 00:00:00 [place]ICAID OF [place] [id number] 2011 00:00:00 ON LICENSE OF [facility] 2022 (MEDICARE 00:00:00 REPLACEMENT HMO) [facility] [id number] 2021 (MEDICARE 00:00:00 REPLACEMENT/ADVANTA GE - PPO) Problems Condition Condition Condition Status Onset Resolution Last Treating Co mments Source Name Details Category Date Date Treatment Clinician Date Lumbar Lumbar Disease Active Overview: Univer s radiculopa radiculopa 2-27 Formattin ity of thy thy 00:00: g of this [place] 00 note Medical might be Branch different from the original. Added automatic ally from request for surgery [id number] Mild Mild Disease Active Univers intermitte intermitte 908 it y of nt asthma nt asthma 00:[place] without without 00 Medical complicati complicati Br anch on on Open wound Open wound Disease Active U nivers of toe, of toe, 908 ity of initial initial 00:00: [place] encounter encounter 00 Medi nancy Branch Knee Knee Disease Active Overview: Univer s internal internal 3-18 Formattin ity of derangemen derangemen 00:00: g of this [place] t, right t, right 00 note Medica l might be Branch different from the original. Added automatic ally from request for surgery [id number] Knee Knee Disease Active Overview: Univer s internal internal 3-18 Formattin ity of viral stratton 00:00: g of this [place] t, right t, right 00 note Medica l might be Branch different from the original. Added automatic ally from request for surgery [id number] Overactive Overactive Disease Active U nivers bladder bladder 01-31 ity of 00:00: Medical Branch Hyperlipid Hyperlipid Disease Active U [...] diabetes 01-31 ity of mellitus mellitus 00:00: [place] without without 00 Medical complicati complicati Br [...] with 0-09 ity of routine routine 00:00: [place] gynecologi gynecologi 00 Me dical nancy exam nancy exam Branch Allergies, Adverse Reactions, Alerts Allergy Allergy Status Severity Reaction(s) Onset Inactive Treating Comm ents Source Name Type Date Date Clinician KETOROLA DRUG Active ITCHING Univers C INGREDI 02-11 ity of 00:00: Medical Branch Ketorola Propensi Active Itching Unive rs c ty to 02-11 ity of adverse 00:00: [place] reaction 00 Medical s Branch ceftriax DA Active U Headache 2020-05 SJMCm one 05 00:00: 00 Risperid Propensi Active Other - See U nivers one ty to comments 02-03 ity of adverse 00:00: [place] reaction 00 Medical s Branch RISPERID DRUG Active Other-Cmnt Univ ers ONE INGREDI 9 ity of 00:00: [place] 00 Medical Branch ARIPIPRA DRUG Active Other-Cmnt Univ ers ZOLE INGREDI 8- ity of 00:00: [place] 00 Medical Branch Aripipra Propensi Active Other - See dystonia Univers zole ty to comments 16 ity of adverse 00:00: [place] reaction 00 Medical s Branch LITHIUM DRUG Active Other-Cmnt Unive rs INGREDI 06-18 ity of 00:00: [place] 00 Medical Branch OXCARBAZ DRUG Active Low Rash Univers EPINE INGREDI 06-18 ity of 00:00: [place] 00 Medical Branch Waterproof Propensi Active Other - See Waterproof U nivers ty to comments 06-18 poisoning [...] Stop Date Quantity Comments Source Exposure to 2022-07-21 2022-07-31 Not sure [facility] SARS-CoV-2 00:00:00 10:56:00 [facility] (event) [place] Alcohol intake 2022-07-24 2022-07-24 0 /d University of 00:00:00 00:00:[address] [facility] Tobacco use and 2022-07-07 2022-07-07 Smokeless tobacco Un iversity of exposure 00:00:00 00:00:[address] [facility] Sex Ass[birth year] At [birth year] Universit y of 00:00:00 00:00:[address] [facility] Smoking Status Start Date Stop Date Source Never smoked tobacco [facility] Medications Ordered Filled Start Stop Current Ordering Indication Dosage Frequency Signature Comments Components Source Medication Medication Date Date Medication? Clinician (SIG) Name Name HYDROcodone 2023-0 Yes 4647 1{tbl} Take 1 Un deonte -acetaminop 3-13 tablet by ity of hen 5-325 00:00: mouth [place] mg tablet 00 every 6 Medical (six) Branch hours as needed for Pain (scale 4-6) or Pain (scale 7-10). Indication s: acute pain HYDROcodone 2023-0 Yes 4647 1{tbl} Take 1 Un deonte -acetaminop 3-13 tablet by ity of hen 5-325 00:00: mouth [place] mg tablet 00 every 6 Medical (six) Branch hours as needed for Pain (scale 4-6) or Pain (scale 7-10). Indication s: acute pain HYDROcodone 2023-0 Yes 4647 1{tbl} Take 1 Un deonte -acetaminop 3-13 tablet by ity of hen 5-325 00:00: mouth [place] mg tablet 00 every 6 Medical (six) Branch hours as needed for Pain (scale 4-6) or Pain (scale 7-10). Indication s: acute pain methylPREDN 2023-0 Yes Take by Uni vers ISolone 3-10 mouth ity of (MEDROL, 00:00: SEE-INSTRU [place] as KATLYN,) 4 mg 00 CTIONS. Medica l tablets follow Branch package directions methylPREDN 2023-0 Yes Take by Uni vers ISolone 3-10 mouth ity of (MEDROL, 00:00: SEE-INSTRU [place] KATLYN,) 4 mg 00 CTIONS. Medica l tablets follow Branch package directions methylPREDN 2023-0 Yes Take by Uni vers ISolone 3-10 mouth ity of (MEDROL, 00:00: SEE-INSTRU [place] KATLYN,) 4 mg 00 CTIONS. Medica l tablets follow Branch package directions methocarbam 2023-0 Yes 500mg Take 1 Uni vers oL 500 mg 3-07 tablet by ity o f tablet 00:00: mouth 4 [place] 00 (four) Medical times Branch daily. As needed methocarbam 2023-0 Yes 500mg Take 1 Uni vers oL 500 mg 3-07 tablet by ity o f tablet 00:00: mouth 4 [place] 00 (four) Medical times Branch daily. As needed methocarbam 2023-0 Yes 500mg Take 1 Uni vers oL 500 mg 3-07 tablet by ity o f tablet 00:00: mouth 4 [place] 00 (four) Medical times Branch daily. As needed methocarbam 2023-0 Yes 500mg Take 1 Uni vers oL 500 mg 3-07 tablet by ity o f tablet 00:00: mouth 4 [place] 00 (four) Medical times Branch daily. As needed traMADoL 2023-0 Yes 50mg 50 mg, Univers (ULTRAM) 3-06 Oral, ity of tablet 50 22:26: Q6HPRN, [place] mg 52 Starting Medical on Sun Branch 07/31/22 at 1626, Until Discontinu ed, Routine, Pain (scale 4-6), PACU traMADoL 3-0 2023- No 50mg 50 mg, Univer s (ULTRAM) 3- 03-07 Oral, ity of tablet 50 22:26: 02:16 Q6HPRN, [place] mg 52 :22 Starting Medical on Mon Branch 07/31/22 at 1626, Until Sun07/31/22 at 2016, Routine, Pain (scale 4-6), PACU HYDROcodone 2022-0 Yes 1{tbl} 1 tablet, Univers -acetaminop 3-06 Oral, ity of hen (NORCO 22:26: Q6HPRN, [place] 5) 5-325 mg 51 Starting Medi nacny tablet 1 on Mon Branch tablet 07/31/22 at 1626, Until Discontinu ed, Routine, Pain (scale 7-10), PACU HYDROcodone 2023-0 2023- No 1{tbl} 1 tablet, Univers -acetaminop 3-06 03-07 Oral, ity of hen (NORCO 22:26: 02:16 Q6HPRN, [place] 5) 5-325 mg 51 :22 Starting Medi nancy tablet 1 on Mon Branch tablet 07/31/22 at 1626, Until Sun07/31/22 at 2016, Routine, Pain (scale 7-10), PACU acetaminoph 2023-0 Yes 325mg 325 mg, Un deonte en 3-06 Oral, ity of (TYLENOL) 22:26: Q6HPRN, [place] tablet 325 49 Starting Medic al mg on Mon Branch 07/31/22 at 1626, Until Discontinu ed, Routine, Pain (scale 1-3), PACU acetaminoph 2022- No 325mg 325 mg, U nivers en 07-31 03-07 Oral, ity of (TYLENOL) 22:26: 02:16 Q6HPRN, [place] tablet 325 49 :22 Starting Medic al mg on Mon Branch 07/31/22 at 1626, Until 07/31/22 at 2016, Routine, Pain (scale 1-3), PACU vancomycin Yes PRN, Univers (VANCOCIN) 07-31 Starting ity o f 1 g in 22:11: on Mon [place] sodium 00 07/31/22 at Medical chloride 1611, Branch 0.9 % Until irrigation Discontinu ed, 1,000 mL, Intra-op vancomycin 2022- No PRN, Univer s (VANCOCIN) 07-31 03-07 Starting ity of 1 g in 22:11: 02:16 on Mon [place] sodium 00 :22 07/31/22 at Medical chloride 1611, Branch 0.9 % Until Mon irrigation 07/31/22 at 2016, 1,000 mL, Intra-op HYDROcodone 0 2022- No 1{tbl} 1 tablet, Univers -acetaminop - 03-06 Oral, ity of hen (NORCO 22:00: 23:04 ONCE, 1 [place] 5) 5-325 mg 00 :00 dose, On Medi nancy tablet 1 Sun07/31/22 Branc h tablet at 1600, Routine, PACU HYDROcodone 2022-0 2022- No 1{tbl} 1 tablet, Univers -acetaminop 3-06 03-06 Oral, ity of hen (NORCO 22:00: 23:04 ONCE, 1 [place] 5) 5-325 mg 00 :00 dose, On Medi nancy tablet 1 Sun07/31/22 Branc h tablet at 1600, Routine, PACU FENTanyl PF 2022-0 Yes 25ug 25 mcg, Uni vers (SUBLIMAZE 07-31 Slow IV ity of (PF)) 21:57: Push, [place] injection 49 Q5MIN PRN, Medi nancy 25 mcg 4 doses, Branch Starting on Sun07/31/22 at 1557, Until Discontinu ed, Routine, Pain (scale 4-6), PACU FENTanyl PF 2022-2022- No 25ug 25 mcg, Un deonte (SUBLIMAZE 07-31 Slow IV ity o f (PF)) 21:57: 02:16 Push, [place] injection 49 :22 Q5MIN PRN, Medi nancy 25 mcg 4 doses, Branch Starting on Sun07/31/22 at 1557, Until Sun07/31/22 at 2016, Routine, Pain (scale 4-6), PACU ondansetron 2022-2022- No 4mg 4 mg, Slow Univers (ZOFRAN 07-31 IV Push, ity of (PF)) 21:57: 23:05 PRN, 1 [place] injection 4 49 :00 dose, Medical mg Starting Branch on Sun07/31/22 at 1557, Until Sun07/31/22 at 1705, Routine, Nausea and Vomiting (N/V), PACU ondansetron 2022-2022- No 4mg 4 mg, Slow Univers (ZOFRAN 07-31 IV Push, ity of (PF)) 21:57: 23:05 PRN, 1 [place] injection 4 49 :00 dose, Medical mg Starting Branch on Sun07/31/22 at 1557, Until Sun07/31/22 at 1705, Routine, Nausea and Vomiting (N/V), PACU bupivacaine 2022-0 Yes PRN, Univer s (preserv 306 Starting ity of free) 21:49: on Sun [place] (SENSORCAIN 00 07/31/22 at Med ical E MPF) 0.25 1549, Branch % (2.5 Until mg/mL) Discontinu injection ed, Routine, Intra-op bupivacaine 2022-0 2022- No PRN, Unive rs (preserv 07-31 Starting ity of free) 21:49: 02:16 on Sun [place] (SENSORCAIN 00 :22 07/31/22 at Med ical E MPF) 0.25 1549, Branch % (2.5 Until Mon mg/mL) 07/31/22 at injection 2016, Routine, Intra-op thrombin 2022-0 Yes PRN, Univers topical 07-31 Starting ity of solution 21:14: on Sun [place] 00 07/31/[address] Until Discontinu ed, Routine, Intra-op thrombin 2022-2022- No PRN, Univers topical 07-31 Starting ity of solution 21:14: 02:16 on Sun [place] 00 :22 07/31/[address] Until Sun07/31/22 at 2016, Routine, Intra-op lidocaine-e 2022-0 Yes PRN, [facility] pinephrine 07-31 Starting ity o f (XYLOCAINE 20:12: on Sun WITH 00 07/31/22 at Medical EPINEPHRINE [address] [place] [address] ) 0.5 Until %-1:200,000 Discontinu injection ed, Routine, Intra-op lidocaine-e 2022- No PRN, Unive rs pinephrine 07-31- Starting ity of (XYLOCAINE 20:12: 02:16 on Sun [facility] WITH 00 :22 07/31/22 at Medical EPINEPHRINE [address] [place] [address] ) 0.5 Until Mon %-1:200,000 07/31/22 at injection 2016, Routine, Intra-op budesonide/ 2022- No Inhale. Un deonte formoterol 07-31- ity of fumarate 18:16: 00:00 [place] (SYMBICORT 25 :00 Medical INHALE) Branch metFORMIN 2022- No 500mg Take 1 Univ ers 500 mg 07-31- tablet by ity of tablet 18:16: 00:00 mouth in [place] 25 :00 the Medical morning. Branch lisinopriL- 2022- No 2{tbl} Take 2 U nivers hydrochloro 07-31-06 tablets by i ty of thiazide 18:16: 00:00 mouth in [facility] 20-12.5 mg 25 :00 the Medical per tablet morning. Branc h budesonide/ 2022- No Inhale. Un deonte formoterol 07-31-06 ity of fumarate 18:16: 00:00 [place] (SYMBICORT 25 :00 Medical INHALE) Branch metFORMIN 2022- No 500mg Take 1 Univ ers 500 mg 3-06 03-06 tablet by ity of tablet 18:16: 00:00 mouth in [place] 25 :00 the Medical morning. Branch lisinopriL- 2022-0 2022- No 2{tbl} Take 2 U nivers hydrochloro 3-06 03-06 tablets by i ty of thiazide 18:16: 00:00 [place] 20-12.5 mg 25 :00 the Medical per tablet morning. Bran h budesonide/ 2022-0 2022- No Inhale. Un deonte formoterol 3- 03-06 ity of fumarate 18:16: 00:00 [place] (SYMBICORT 25 :00 Medical INHALE) Branch metFORMIN 2022-0 2022- No 500mg Take 1 Univ ers 500 mg 3- 03-06 tablet by ity of tablet 18:16: 00:00 mouth in [place] 25 :00 the Medical morning. Branch lisinopriL- 2022-0 2022- No 2{tbl} Take 2 U nivers hydrochloro 3-06 03-06 tablets by i ty of thiazide 18:16: 00:00 [place] 20-12.5 mg 25 :00 the Medical per tablet morning. [facility] h atorvastati 2022-0 Yes 10mg Take 10 mg Univers n 10 mg 3-06 by mouth ity of tablet 18:16: at [place] [address] bedtime. Medical Branch loratadine 2022-0 Yes Take by Univ ers 10 mg 3-06 mouth. ity of capsule 18:16: [place] [address] Medical Branch atorvastati 2022-0 Yes 10mg Take 10 mg Univers n 10 mg 3-06 by mouth ity of tablet 18:16: at [place] [address] bedtime. Medical Branch loratadine 2022-0 Yes Take by Univ ers 10 mg 3-06 mouth. ity of capsule 18:16: [place] [address] Medical Branch pantoprazol 2022-0 Yes 40mg Take 2 Univ ers e 20 mg EC 3-06 tablets by ity of tablet 18:16: mouth in [place] [address] the Medical morning. Branch losartan 2022-0 Yes 100mg Take 1 Univer s 100 mg 3-06 tablet by ity of tablet 18:16: mouth in [place] [address] the Medical morning. Branch atorvastati 2022-0 Yes 10mg Take 10 mg Univers n 10 mg 3-06 by mouth ity of tablet 18:16: at [place] [address] bedtime. Medical Branch loratadine 3-0 Yes Take by Univ ers 10 mg 3-06 mouth. ity of capsule 18:16: [place] [address] Medical Branch atorvastati 3-0 Yes 10mg Take 10 mg Univers n 10 mg 3-06 by mouth ity of tablet 18:16: at [place] [address] bedtime. Medical Branch loratadine 3-0 Yes Take by Univ ers 10 mg 3-06 mouth. ity of capsule 18:16: [place] [address] Medical Branch pantoprazol 3-0 Yes 40mg Take 2 Univ ers e 20 mg EC 3-06 tablets by ity of tablet 18:16: mouth in [place] [address] the Medical morning. Branch losartan 3-0 Yes 100mg Take 1 Univer s 100 mg 3-06 tablet by ity of tablet 18:16: mouth in [place] [address] the Medical morning. Branch atorvastati 3-0 Yes 10mg Take 10 mg Univers n 10 mg 3-06 by mouth ity of tablet 18:16: at [place] [address] bedtime. Medical Branch loratadine 2022-0 Yes Take by Univ ers 10 mg 3-06 mouth. ity of capsule 18:16: [place] [address] Medical Branch pantoprazol 3-0 Yes 40mg Take 2 Univ ers e 20 mg EC 3-06 tablets by ity of tablet 18:16: mouth in [place] [address] the Medical morning. Branch losartan 3-0 Yes 100mg Take 1 Univer s 100 mg 3-06 tablet by ity of tablet 18:16: mouth in [place] [address] the Medical morning. Branch atorvastati 3-0 Yes 10mg Take 10 mg Univers n 10 mg 3-06 by mouth ity of tablet 18:16: at [place] [address] bedtime. Medical Branch loratadine 3-0 Yes Take by Univ ers 10 mg 3-06 mouth. ity of capsule 18:16: [place] [address] Medical Branch pantoprazol 3-0 Yes 40mg Take 2 Univ ers e 20 mg EC 3-06 tablets by ity of tablet 18:16: mouth in [place] [address] the Medical morning. Branch losartan 3-0 Yes 100mg Take 1 Univer s 100 mg 3-06 tablet by ity of tablet 18:16: mouth in [place] 19 the Medical morning. Branch atorvastati 2022-0 Yes 10mg Take 10 mg Univers n 10 mg 3-06 by mouth ity of tablet 18:16: at [place] 19 bedtime. Medical Branch loratadine 2022-0 Yes Take by Univ ers 10 mg 3-06 mouth. ity of capsule 18:16: [place] 19 Medical Branch pantoprazol 2022-0 Yes 40mg Take 2 Univ ers e 20 mg EC 3-06 tablets by ity of tablet 18:16: mouth in [place] 19 the Medical morning. Branch losartan 2022-0 Yes 100mg Take 1 Univer s 100 mg 3-06 tablet by ity of tablet 18:16: mouth in [place] 19 the Medical morning. Branch losartan 2022-0 Yes 100mg Take 1 Univer s 100 mg 3-06 tablet by ity of tablet 10:53: mouth in [place] 29 the Medical morning. Branch budesonide/ 2022-0 Yes Inhale. Uni vers formoterol 3-06 ity of fumarate 10:22: [place] (SYMBICORT 56 Medical INHALE) Branch metFORMIN 2022-0 Yes 500mg Take 1 Unive rs 500 mg 3-06 tablet by ity of tablet 10:22: mouth in [place] 56 the Medical morning. Branch lisinopriL- 2022-0 Yes 2{tbl} Take 2 Un deonte hydrochloro 3-06 tablets by it y of thiazide 10:22: mouth in [place] 20-12.5 mg 56 the Medical per tablet morning. Bran h atorvastati 2022-0 Yes 10mg Take 10 mg Univers n 10 mg 3-06 by mouth ity of tablet 08:01: at [place] [address] bedtime. Medical Branch loratadine 2022-0 Yes Take by Univ ers 10 mg 3-06 mouth. ity of capsule 08:01: [place] [address] Medical Branch pantoprazol 2022-0 Yes 40mg Take 2 Univ ers e 20 mg EC 3-06 tablets by ity of tablet 08:01: mouth in [place] [address] the Medical morning. Branch docusate 2022-0 Yes [id number] 200mg Take 2 U nivers 100 mg 3-06 capsules ity of capsule 00:00: by mouth [place] 00 in the Medical morning. Branch docusate 2022-0 Yes [id number] 200mg Take 2 U nivers 100 mg 3-06 capsules ity of capsule 00:00: by mouth [place] 00 in the Medical morning. Branch docusate 0 Yes [id number] 200mg Take 2 U nivers 100 mg 3-06 capsules ity of capsule 00:00: by mouth [place] 00 in the Medical morning. Branch docusate 2022-0 Yes [id number] 200mg Take 2 U nivers 100 mg 3-06 capsules ity of capsule 00:00: by mouth [place] 00 in the Medical morning. Branch docusate 0 Yes [id number] 200mg Take 2 U nivers 100 mg 3-06 capsules ity of capsule 00:00: by mouth [place] 00 in the Medical morning. Branch docusate 0 Yes [id number] 200mg Take 2 U nivers 100 mg 3-06 capsules ity of capsule 00:00: by mouth [place] 00 in the Medical morning. Branch HYDROcodone 2022- Yes 4647 1{tbl} Take 1 U nivers -acetaminop 3-06 03-14 tablet by it y of hen 5-325 00:00: 04:59 mouth [place] mg tablet 00 :00 every 6 Medical (six) Branch hours as needed for Pain (scale 4-6) or Pain (scale 7-10) for up to 7 days. Indication s: acute pain HYDROcodone 2022- Yes 4647 1{tbl} Take 1 U nivers -acetaminop 3-06 03-14 tablet by it y of hen 5-325 00:00: 04:59 mouth [place] mg tablet 00 :00 every 6 Medical (six) Branch hours as needed for Pain (scale 4-6) or Pain (scale 7-10) for up to 7 days. Indication s: acute pain HYDROcodone 2022- Yes 4647 1{tbl} Take 1 U nivers -acetaminop 3-06 03-14 tablet by it y of hen 5-325 00:00: 04:59 mouth [place] mg tablet 00 :00 every 6 Medical (six) Branch hours as needed for Pain (scale 4-6) or Pain (scale 7-10) for up to 7 days. Indication s: acute pain budesonide/ 0 Yes Inhale. Uni vers formoterol 2-28 ity of fumarate 12:40: [place] (SYMBICORT 23 Medical INHALE) Branch metFORMIN 0 Yes 500mg Take 1 Unive rs 500 mg 2-28 tablet by ity of tablet 12:40: mouth in [place] 23 the Medical morning. Branch loratadine Yes Take by Univ ers 10 mg 2-28 mouth. ity of capsule 12:40: [place] 23 Medical Branch lisinopriL- 0 Yes 2{tbl} Take 2 Un deonte hydrochloro 2-28 tablets by it y of thiazide 12:40: mouth in [place] 20-12.5 mg 23 the Medical per tablet morning. Branc h pantoprazol 0 Yes 40mg Take 2 Univ ers e 20 mg EC 2-28 tablets by ity of tablet 12:40: mouth in [place] [address] the Medical morning. Branch losartan Yes 100mg Take 1 Univer s 100 mg 2-28 tablet by ity of tablet 12:40: mouth in [place] [address] the Medical morning. Branch predniSONE 0 2021- No 40mg 40 mg, Univ ers (DELTASONE) 02-11 Oral, ity of tablet 40 22:00: 22:11 ONCE, 1 [place] mg 00 :00 dose, On Medical Sat Branch 02/11/22 at 1700, JENNIE predniSONE 2021-0 Yes [id number] 1 PO BID x Univers 20 mg 9-17 4 days ity of tablet 00:00: [address] predniSONE 2021-0 Yes [id number] 1 PO BID x Univers 20 mg 9-17 4 days ity of tablet 00:00: [address] Branch predniSONE 2021-0 Yes [id number] 1 PO BID x Univers 20 mg 9-17 4 days ity of tablet 00:00: [place] [facility] predniSONE 2-0 Yes [id number] 1 PO BID x Univers 20 mg 9-17 4 days ity of tablet 00:00: [place] [facility] predniSONE 2-0 Yes [id number] 1 PO BID x Univers 20 mg 9-17 4 days ity of tablet 00:00: [place] [facility] predniSONE 2-0 Yes [id number] 1 PO BID x Univers 20 mg 9-17 4 days ity of tablet 00:00: [place] [facility] predniSONE 2-0 Yes [id number] 1 PO BID x Univers 20 mg 9-17 4 days ity of tablet 00:00: [address] predniSONE 2-0 Yes [id number] 1 PO BID x Univers 20 mg 9-17 4 days ity of tablet 00:00: [place] 00 Medical Branch predniSONE 2022-0 Yes [id number] 1 PO BID x Univers 20 mg 9-17 4 days ity of tablet 00:00: [place] 00 Medical Branch predniSONE 2022-0 Yes [id number] 1 PO BID x Univers 20 mg 9-17 4 days ity of tablet 00:00: [place] 00 Medical Branch predniSONE 2022-0 Yes [id number] 1 PO BID x Univers 20 mg 9-17 4 days ity of tablet 00:00: [place] 00 Medical Branch predniSONE 2022-0 Yes [id number] 1 PO BID x Univers 20 mg 9-17 4 days ity of tablet 00:00: [place] 00 Medical Branch predniSONE 2022-0 Yes [id number] 1 PO BID x Univers 20 mg 9-17 4 days ity of tablet 00:00: [place] 00 Medical Branch predniSONE 2022-0 Yes [id number] 1 PO BID x Univers 20 mg 9-17 4 days ity of tablet 00:00: [place] 00 Medical Branch predniSONE 2022-0 Yes [id number] 1 PO BID x Univers 20 mg 9-17 4 days ity of tablet 00:00: [place] 00 Medical Branch predniSONE 2022-0 Yes [id number] 1 PO BID x Univers 20 mg 9-17 4 days ity of tablet 00:00: [place] 00 Medical Branch predniSONE 2022-0 Yes [id number] 1 PO BID x Univers 20 mg 9-17 4 days ity of tablet 00:00: [place] 00 Medical Branch predniSONE 2022-0 Yes [id number] 1 PO BID x Univers 20 mg 9-17 4 days ity of tablet 00:00: [place] 00 Medical Branch predniSONE 2022-0 Yes [id number] 1 PO BID x Univers 20 mg 9-17 4 days ity of tablet 00:00: [place] 00 Medical Branch predniSONE 2022-0 Yes [id number] 1 PO BID x Univers 20 mg 9-17 4 days ity of tablet 00:00: [place] 00 Medical Branch predniSONE 2022-0 2023- No [id number] 1 PO BID x Univers 20 mg 9-17 -06 4 days ity of tablet 00:00: 00:00 [place] 00 :00 Medical Branch predniSONE 2022-0 2023- No [id number] 1 PO BID x Univers 20 mg 9-17 -06 4 days ity of tablet 00:00: 00:00 [place] 00 :00 [facility] predniSONE 2021-0 3- No [id number] 1 PO BID x Univers 20 mg 02-11 4 days ity of tablet 00:00: 00:00 [place] 00 :00 [facility] predniSONE 2021-0 2021- No [id number] 1 PO BID x Univers 20 mg 02-11 4 days ity of tablet 00:00: 00:00 [place] 00 :00 [facility] MYRBETRIQ 2021-0 Yes [id number] TAKE 1 Un deonte 50 mg 4-13 TABLET BY ity of tablet 00:00: MOUTH 00 EVERY Medical NIGHT AT [facility] 0 Yes [id number] TAKE 1 Un deonte 50 mg 4-13 TABLET BY ity of tablet 00:00: MOUTH [place] 00 EVERY Medical NIGHT AT [facility] 0 Yes [id number] TAKE 1 Un deonte 50 mg 4-13 TABLET BY ity of tablet 00:00: MOUTH [place] 00 EVERY Medical NIGHT AT [facility] 0 Yes [id number] TAKE 1 Un deonte 50 mg 4-13 TABLET BY ity of tablet 00:00: MOUTH [place] 00 EVERY Medical NIGHT AT [facility] 0 Yes [id number] TAKE 1 Un deonte 50 mg 4-13 TABLET BY ity of tablet 00:00: MOUTH [place] 00 EVERY Medical NIGHT AT [facility] 0 Yes [id number] TAKE 1 Un deonte 50 mg 4-13 TABLET BY ity of tablet 00:00: MOUTH [place] 00 EVERY Medical NIGHT AT [facility] 0 Yes [id number] TAKE 1 Un deonte 50 mg 4-13 TABLET BY ity of tablet 00:00: MOUTH 00 EVERY Medical NIGHT AT [facility] 0 Yes [id number] TAKE 1 Un deonte 50 mg 4-13 TABLET BY ity of tablet 00:00: MOUTH [place] 00 EVERY Medical NIGHT AT [facility] 0 Yes [id number] TAKE 1 Un [place] 50 mg 4-13 TABLET BY ity of tablet 00:00: MOUTH [place] 00 EVERY Medical NIGHT AT [facility] 0 Yes [id number] TAKE 1 [facility] [place] 50 mg 4-13 TABLET BY ity of tablet 00:00: MOUTH [place] 00 EVERY Medical NIGHT AT [facility] 0 Yes [id number] TAKE 1 [facility] [place] 50 mg 4-13 TABLET BY ity of tablet 00:00: MOUTH [place] 00 EVERY Medical NIGHT AT [facility] 0 Yes [id number] TAKE 1 [place] 50 mg 4-13 TABLET BY ity of tablet 00:00: MOUTH [place] 00 EVERY Medical NIGHT AT [facility] 0 Yes [id number] TAKE 1 [place] 50 mg 4-13 TABLET BY ity of tablet 00:00: MOUTH [place] 00 EVERY Medical NIGHT AT [facility] 0 Yes [id number] TAKE 1 [place] 50 mg 4-13 TABLET BY ity of tablet 00:00: MOUTH [place] 00 EVERY Medical NIGHT AT [facility] 0 Yes [id number] TAKE 1 [place] 50 mg 4-13 TABLET BY ity of tablet 00:00: MOUTH [place] 00 EVERY Medical NIGHT AT [facility] 0 Yes [id number] TAKE 1 [place] 50 mg 4-13 TABLET BY ity of tablet 00:00: MOUTH [place] 00 EVERY Medical NIGHT AT [facility] 0 Yes [id number] TAKE 1 [place] 50 mg 4-13 TABLET BY ity of tablet 00:00: MOUTH [place] 00 EVERY Medical NIGHT AT [facility] 0 Yes [id number] TAKE 1 [place] 50 mg 4-13 TABLET BY ity of tablet 00:00: MOUTH [place] 00 EVERY Medical NIGHT AT [facility] 0 Yes [id number] TAKE 1 [place] 50 mg 4-13 TABLET BY ity of tablet 00:00: MOUTH [place] 00 EVERY Medical NIGHT AT [facility] 0 Yes [id number] TAKE 1 [place] 50 mg 4-13 TABLET BY ity of tablet 00:00: MOUTH [place] 00 EVERY Medical NIGHT AT [facility] 0 Yes [id number] TAKE 1 [place] 50 mg 4-13 TABLET BY ity of tablet 00:00: MOUTH [place] 00 EVERY Medical NIGHT AT [facility] Yes [id number] TAKE 1 Un de[place] 50 mg 4-13 TABLET BY ity of tablet 00:00: MOUTH [place] 00 EVERY Medical NIGHT AT [place] [facility] Yes [id number] TAKE 1 Un deonte 50 mg 4-13 TABLET BY ity of tablet 00:00: MOUTH [place] 00 EVERY Medical NIGHT AT [place] BEDTIME [facility] Yes [id number] TAKE 1 Un de[place] 50 mg 4-13 TABLET BY ity of tablet 00:00: MOUTH [place] 00 EVERY Medical NIGHT AT [place] BEDTIME [facility] Yes [id number] TAKE 1 Un de[place] 50 mg 4-13 TABLET BY ity of tablet 00:00: MOUTH [place] 00 EVERY Medical NIGHT AT [facility] Yes [id number] TAKE 1 [place] 50 mg 4-13 TABLET BY ity of tablet 00:00: MOUTH [place] 00 EVERY Medical NIGHT AT [facility] Yes [id number] TAKE 1 Un [place] 50 mg 4-13 TABLET BY ity of tablet 00:00: MOUTH [place] 00 EVERY Medical NIGHT AT [facility] Yes [id number] TAKE 1 Un [place] 50 mg 4-13 TABLET BY ity of tablet 00:00: MOUTH [place] 00 EVERY Medical NIGHT AT [facility] Yes [id number] TAKE 1 Un [place] 50 mg 4-13 TABLET BY ity of tablet 00:00: MOUTH [place] 00 EVERY Medical NIGHT AT [facility] budesonide/ Yes Inhale. Uni vers formoterol 3-25 ity of fumarate 11:26: [place] (SYMBICORT 48 Medical INHALE) Branch metFORMIN Yes 500mg Take 500 Uni vers 500 mg 3-25 mg by ity of tablet 11:26: mouth [place] 48 daily. Medical Branch loratadine Yes Take by Univ ers 10 mg 3-25 mouth. ity of capsule 11:26: [place] 48 Medical Branch lisinopriL- Yes 2{tbl} Take 2 Un deonte hydrochloro 3-25 tablets by it y of thiazide 11:26: mouth [place] 20-12.5 mg 48 daily. Medical per tablet Branch budesonide/ Yes Inhale. Uni vers formoterol 3-25 ity of fumarate 11:26: [place] (SYMBICORT 48 Medical INHALE) Branch metFORMIN Yes 500mg Take 500 Uni vers 500 mg 3-25 mg by ity of tablet 11:26: mouth [place] 48 daily. Medical Branch loratadine Yes Take by [facility] ers 10 mg 3-25 mouth. ity of capsule 11:26: [address] Branch lisinopriL- Yes 2{tbl} Take 2 Un deonte hydrochloro 3-25 tablets by it y of thiazide 11:26: mouth [place] 20-12.5 mg 48 daily. Medical per tablet Branch budesonide/ Yes Inhale. Uni vers formoterol 3-25 ity of fumarate 11:26: [place] (SYMBICORT 48 Medical INHALE) Branch metFORMIN Yes 500mg Take 500 Uni vers 500 mg 3-25 mg by ity of tablet 11:26: mouth [place] 48 daily. Medical Branch loratadine Yes Take by [facility] ers 10 mg 3-25 mouth. ity of capsule 11:26: [address] Branch lisinopriL- Yes 2{tbl} Take 2 Un [place] hydrochloro 3-25 tablets by it y of thiazide 11:26: mouth [place] 20-12.5 mg 48 daily. Medical per tablet Branch budesonide/ Yes Inhale. Uni vers formoterol 3-25 ity of fumarate 11:26: [place] (SYMBICORT 48 Medical INHALE) Branch metFORMIN Yes 500mg Take 500 Uni vers 500 mg 3-25 mg by ity of tablet 11:26: mouth [place] 48 daily. Medical Branch loratadine Yes Take by [facility] ers 10 mg 3-25 mouth. ity of capsule 11:26: [address] lisinopriL- Yes 2{tbl} Take 2 Un [place] hydrochloro 3-25 tablets by it y of thiazide 11:26: mouth [place] 20-12.5 mg 48 daily. Medical per tablet Branch budesonide/ Yes Inhale. Uni vers formoterol 3-25 ity of fumarate 11:26: [place] (SYMBICORT 48 Medical INHALE) Branch metFORMIN Yes 500mg Take 500 Uni vers 500 mg 3-25 mg by ity of tablet 11:26: mouth [place] 48 daily. Medical Branch loratadine Yes Take by [facility] ers 10 mg 3-25 mouth. ity of capsule 11:26: [address] Branch lisinopriL- Yes 2{tbl} Take 2 [place] hydrochloro 3-25 tablets by it y of thiazide 11:26: mouth [place] 20-12.5 mg 48 daily. Medical per tablet Branch budesonide/ Yes Inhale. Uni vers formoterol 3-25 ity of fumarate 11:26: [place] (SYMBICORT 48 Medical INHALE) Branch metFORMIN Yes 500mg Take 500 Uni vers 500 mg 3-25 mg by ity of tablet 11:26: mouth [place] 48 daily. Medical Branch loratadine Yes Take by [facility] ers 10 mg 3-25 mouth. ity of capsule 11:26: [address] Branch lisinopriL- Yes 2{tbl} Take 2 Un [place] hydrochloro 3-25 tablets by it y of thiazide 11:26: mouth [place] 20-12.5 mg 48 daily. Medical per tablet Branch budesonide/ Yes Inhale. Uni vers formoterol 3-25 ity of fumarate 11:26: [place] (SYMBICORT 48 Medical INHALE) Branch metFORMIN Yes 500mg Take 500 Uni vers 500 mg 3-25 mg by ity of tablet 11:26: mouth [place] 48 daily. Medical Branch loratadine Yes Take by [facility] ers 10 mg 3-25 mouth. ity of capsule 11:26: [place] [address] Medical Branch lisinopriL- Yes 2{tbl} Take 2 Un deonte hydrochloro 3-25 tablets by it y of thiazide 11:26: mouth [place] 20-12.5 mg 48 daily. Medical per tablet Branch budesonide/ Yes Inhale. Uni vers formoterol 3-25 ity of fumarate 11:26: [place] (SYMBICORT 48 Medical INHALE) Branch metFORMIN Yes 500mg Take 500 Uni vers 500 mg 3-25 mg by ity of tablet 11:26: mouth [place] 48 daily. Medical Branch loratadine Yes Take by [facility] ers 10 mg 3-25 mouth. ity of capsule 11:26: [address] Branch lisinopriL- Yes 2{tbl} Take 2 Un [place] hydrochloro 3-25 tablets by it y of thiazide 11:26: mouth [place] 20-12.5 mg 48 daily. Medical per tablet Branch budesonide/ Yes Inhale. Uni vers formoterol 3-25 ity of fumarate 11:26: [place] (SYMBICORT 48 Medical INHALE) Branch metFORMIN Yes 500mg Take 500 Uni vers 500 mg 3-25 mg by ity of tablet 11:26: mouth [place] 48 daily. Medical Branch loratadine Yes Take by [facility] ers 10 mg 3-25 mouth. ity of capsule 11:26: [address] lisinopriL- Yes 2{tbl} Take 2 Un de[place] hydrochloro 3-25 tablets by it y of thiazide 11:26: mouth [place] 20-12.5 mg 48 daily. Medical per tablet Branch budesonide/ Yes Inhale. Uni vers formoterol 3-25 ity of fumarate 11:26: [place] (SYMBICORT 48 Medical INHALE) Branch metFORMIN Yes 500mg Take 500 Uni vers 500 mg 3-25 mg by ity of tablet 11:26: mouth [place] 48 daily. Medical Branch loratadine Yes Take by [facility] ers 10 mg 3-25 mouth. ity of capsule 11:26: [address] lisinopriL- Yes 2{tbl} Take 2 Un [place] hydrochloro 3-25 tablets by it y of thiazide 11:26: mouth [place] 20-12.5 mg 48 daily. Medical per tablet Branch budesonide/ Yes Inhale. Uni vers formoterol 3-25 ity of fumarate 11:26: [place] (SYMBICORT 48 Medical INHALE) Branch metFORMIN Yes 500mg Take 500 Uni vers 500 mg 3-25 mg by ity of tablet 11:26: mouth [place] 48 daily. Medical Branch loratadine Yes Take by [facility] ers 10 mg 3-25 mouth. ity of capsule 11:26: [place] 48 Medical Branch lisinopriL- Yes 2{tbl} Take 2 Un de[place] hydrochloro 3-25 tablets by it y of thiazide 11:26: mouth [place] 20-12.5 mg 48 daily. Medical per tablet Branch budesonide/ Yes Inhale. Uni vers formoterol 3-25 ity of fumarate 11:26: [place] (SYMBICORT 48 Medical INHALE) Branch metFORMIN Yes 500mg Take 500 Uni vers 500 mg 3-25 mg by ity of tablet 11:26: mouth [place] 48 daily. Medical Branch loratadine Yes Take by [facility] ers 10 mg 3-25 mouth. ity of capsule 11:26: [address] lisinopriL- Yes 2{tbl} Take 2 Un [place] hydrochloro 3-25 tablets by it y of thiazide 11:26: mouth [place] 20-12.5 mg 48 daily. Medical per tablet Branch budesonide/ Yes Inhale. Uni vers formoterol 3-25 ity of fumarate 11:26: [place] (SYMBICORT 48 Medical INHALE) Branch metFORMIN Yes 500mg Take 500 Uni vers 500 mg 3-25 mg by ity of tablet 11:26: mouth [place] 48 daily. Medical Branch loratadine Yes Take by [facility] ers 10 mg 3-25 mouth. ity of capsule 11:26: [address] lisinopriL- Yes 2{tbl} Take 2 Un [place] hydrochloro 3-25 tablets by it y of thiazide 11:26: mouth [place] 20-12.5 mg 48 daily. Medical per tablet Branch budesonide/ Yes Inhale. Uni vers formoterol 3-25 ity of fumarate 11:26: [place] (SYMBICORT 48 Medical INHALE) Branch metFORMIN Yes 500mg Take 500 Uni vers 500 mg 3-25 mg by ity of tablet 11:26: mouth [place] 48 daily. Medical Branch loratadine Yes Take by [facility] ers 10 mg 3-25 mouth. ity of capsule 11:26: [address] lisinopriL- Yes 2{tbl} Take 2 Un [place] hydrochloro 3-25 tablets by it y of thiazide 11:26: mouth [place] 20-12.5 mg 48 daily. Medical per tablet Branch budesonide/ Yes Inhale. Uni vers formoterol 3-25 ity of fumarate 11:26: [place] (SYMBICORT 48 Medical INHALE) Branch metFORMIN Yes 500mg Take 500 Uni vers 500 mg 3-25 mg by ity of tablet 11:26: mouth [place] 48 daily. Medical Branch loratadine Yes Take by [facility] ers 10 mg 3-25 mouth. ity of capsule 11:26: [address] Branch lisinopriL- Yes 2{tbl} Take 2 Un [place] hydrochloro 3-25 tablets by it y of thiazide 11:26: mouth [place] 20-12.5 mg 48 daily. Medical per tablet Branch budesonide/ Yes Inhale. Uni vers formoterol 3-25 ity of fumarate 11:26: [place] (SYMBICORT 48 Medical INHALE) [place] metFORMIN Yes 500mg Take 500 Uni vers 500 mg 3-25 mg by ity of tablet 11:26: mouth [place] 48 daily. Medical Branch loratadine Yes Take by Univ ers 10 mg 3-25 mouth. ity of capsule 11:26: [address] lisinopriL- Yes 2{tbl} Take 2 Un [place] hydrochloro 3-25 tablets by it y of thiazide 11:26: mouth [place] 20-12.5 mg 48 daily. Medical per tablet Branch budesonide/ Yes Inhale. Uni vers formoterol 3-25 ity of fumarate 11:26: [place] (SYMBICORT 48 Medical INHALE) Branch metFORMIN Yes 500mg Take 500 Uni vers 500 mg 3-25 mg by ity of tablet 11:26: mouth [place] 48 daily. Medical Branch loratadine Yes Take by [facility] ers 10 mg 3-25 mouth. ity of capsule 11:26: [address] lisinopriL- Yes 2{tbl} Take 2 Un [place] hydrochloro 3-25 tablets by it y of thiazide 11:26: mouth [place] 20-12.5 mg 48 daily. Medical per tablet Branch budesonide/ Yes Inhale. Uni vers formoterol 3-25 ity of fumarate 11:26: [place] (SYMBICORT 48 Medical INHALE) Branch metFORMIN Yes 500mg Take 500 Uni vers 500 mg 3-25 mg by ity of tablet 11:26: mouth [place] 48 daily. Medical Branch loratadine Yes Take by [facility] ers 10 mg 3-25 mouth. ity of capsule 11:26: [address] lisinopriL- Yes 2{tbl} Take 2 Un [place] hydrochloro 3-25 tablets by it y of thiazide 11:26: mouth [place] 20-12.5 mg 48 daily. Medical per tablet Branch budesonide/ Yes Inhale. Uni vers formoterol 3-25 ity of fumarate 11:26: [place] (SYMBICORT 48 Medical INHALE) Branch metFORMIN Yes 500mg Take 500 Uni vers 500 mg 3-25 mg by ity of tablet 11:26: mouth [place] 48 daily. Medical Branch loratadine Yes Take by Univ ers 10 mg 3-25 mouth. ity of capsule 11:26: [address] lisinopriL- Yes 2{tbl} Take 2 Un [place] hydrochloro 3-25 tablets by it y of thiazide 11:26: mouth [place] 20-12.5 mg 48 daily. Medical per tablet Branch budesonide/ Yes Inhale. Uni vers formoterol 3-25 ity of fumarate 11:26: [place] (SYMBICORT 48 Medical INHALE) Branch metFORMIN Yes 500mg Take 500 Uni vers 500 mg 3-25 mg by ity of tablet 11:26: mouth [place] 48 daily. Medical Branch loratadine Yes Take by Univ ers 10 mg 3-25 mouth. ity of capsule 11:26: [address] lisinopriL- Yes 2{tbl} Take 2 Un [place] hydrochloro 3-25 tablets by it y of thiazide 11:26: mouth [place] 20-12.5 mg 48 daily. Medical per tablet Branch budesonide/ Yes Inhale. Uni vers formoterol 3-25 ity of fumarate 11:26: [place] (SYMBICORT 48 Medical INHALE) Branch metFORMIN Yes 500mg Take 500 Uni vers 500 mg 3-25 mg by ity of tablet 11:26: mouth [place] 48 daily. Medical Branch loratadine Yes Take by [facility] ers 10 mg 3-25 mouth. ity of capsule 11:26: [place] 48 Medical Branch lisinopriL- 2021-0 Yes 2{tbl} Take 2 Un deonte hydrochloro 3-25 tablets by it y of thiazide 11:26: mouth [place] 20-12.5 mg 48 daily. Medical per tablet Branch ciprofloxac Yes TAKE 1 Univ ers in HCl 500 3-23 TABLET BY ity of mg tablet 00:00: MOUTH [place] 00 EVERY 12 Medical HOURS FOR Branch 7 DAYS methylPREDN 0 Yes TAKE Uni vers ISolone 4 3-23 DIRECTED ity of mg tablets 00:00: ON PACKAGE [place] 00 LABELING Medical Branch ciprofloxac 0 Yes TAKE 1 Univ ers in HCl 500 3-23 TABLET BY ity of mg tablet 00:00: MOUTH [place] 00 EVERY 12 Medical HOURS FOR Branch 7 DAYS methylPREDN 2021-0 Yes TAKE Uni vers ISolone 4 3-23 DIRECTED ity of mg tablets 00:00: ON PACKAGE [place] 00 LABELING Medical Branch ciprofloxac 2021-0 Yes TAKE 1 Univ ers in HCl 500 3-23 TABLET BY ity of mg tablet 00:00: MOUTH [place] 00 EVERY 12 Medical HOURS FOR Branch 7 DAYS methylPREDN 2021-0 Yes TAKE Uni vers ISolone 4 3-23 DIRECTED ity of mg tablets 00:00: ON PACKAGE [place] 00 LABELING Medical Branch ciprofloxac 2021-0 Yes TAKE 1 Univ ers in HCl 500 3-23 TABLET BY ity of mg tablet 00:00: MOUTH [place] 00 EVERY 12 Medical HOURS FOR Branch 7 DAYS methylPREDN 2021-0 Yes TAKE Uni vers ISolone 4 3-23 DIRECTED ity of mg tablets 00:00: ON PACKAGE [place] 00 LABELING Medical Branch ciprofloxac 2021-0 Yes TAKE 1 Univ ers in HCl 500 3-23 TABLET BY ity of mg tablet 00:00: MOUTH [place] 00 EVERY 12 Medical HOURS FOR Branch 7 DAYS methylPREDN 2021-0 Yes TAKE Uni vers ISolone 4 3-23 DIRECTED ity of mg tablets 00:00: ON PACKAGE [place] 00 LABELING Medical Branch ciprofloxac 2021-0 Yes TAKE 1 Univ ers in HCl 500 3-23 TABLET BY ity of mg tablet 00:00: MOUTH [place] 00 EVERY 12 Medical HOURS FOR Branch 7 DAYS methylPREDN 2021-0 Yes TAKE Uni vers ISolone 4 3-23 DIRECTED ity of mg tablets 00:00: ON PACKAGE [place] 00 LABELING Medical Branch ciprofloxac 2-0 Yes TAKE 1 Univ ers in HCl 500 3-23 TABLET BY ity of mg tablet 00:00: MOUTH [place] 00 EVERY 12 Medical HOURS FOR Branch 7 DAYS methylPREDN 2021-0 Yes TAKE Uni vers ISolone 4 3-23 DIRECTED ity of mg tablets 00:00: ON PACKAGE [place] 00 LABELING Medical Branch ciprofloxac 2021-0 Yes TAKE 1 Univ ers in HCl 500 3-23 TABLET BY ity of mg tablet 00:00: MOUTH [place] 00 EVERY 12 Medical HOURS FOR Branch 7 DAYS methylPREDN 2021-0 Yes TAKE Uni vers ISolone 4 3-23 DIRECTED ity of mg tablets 00:00: ON PACKAGE [place] 00 LABELING Medical Branch ciprofloxac 2021-0 Yes TAKE 1 [facility] ers in HCl 500 3-23 TABLET BY ity of mg tablet 00:00: MOUTH [place] 00 EVERY 12 Medical HOURS FOR Branch 7 DAYS methylPREDN 2021-0 Yes TAKE Uni vers ISolone 4 3-23 DIRECTED ity of mg tablets 00:00: ON PACKAGE [place] 00 LABELING Medical Branch ciprofloxac 2021-0 Yes TAKE 1 Univ ers in HCl 500 3-23 TABLET BY ity of mg tablet 00:00: MOUTH [place] 00 EVERY 12 Medical HOURS FOR Branch 7 DAYS methylPREDN 2021-0 Yes TAKE Uni vers ISolone 4 3-23 DIRECTED ity of mg tablets 00:00: ON PACKAGE [place] 00 LABELING Medical Branch ciprofloxac 2021-0 Yes TAKE 1 Univ ers in HCl 500 3-23 TABLET BY ity of mg tablet 00:00: MOUTH [place] 00 EVERY 12 Medical HOURS FOR Branch 7 DAYS methylPREDN 2021-0 Yes TAKE Uni vers ISolone 4 3-23 DIRECTED ity of mg tablets 00:00: ON PACKAGE [place] 00 LABELING Medical Branch ciprofloxac 2021-0 Yes TAKE 1 Univ ers in HCl 500 3-23 TABLET BY ity of mg tablet 00:00: MOUTH [place] 00 EVERY 12 Medical HOURS FOR Branch 7 DAYS methylPREDN 2021-0 Yes TAKE Uni vers ISolone 4 3-23 DIRECTED ity of mg tablets 00:00: ON PACKAGE [place] 00 LABELING Medical Branch ciprofloxac 2021-0 Yes TAKE 1 [facility] ers in HCl 500 3-23 TABLET BY ity of mg tablet 00:00: MOUTH [place] 00 EVERY 12 Medical HOURS FOR Branch 7 DAYS methylPREDN 2021-0 Yes TAKE Uni vers ISolone 4 3-23 DIRECTED ity of mg tablets 00:00: ON PACKAGE [place] 00 LABELING Medical Branch ciprofloxac 2021-0 Yes TAKE 1 [facility] ers in HCl 500 3-23 TABLET BY ity of mg tablet 00:00: MOUTH [place] 00 EVERY 12 Medical HOURS FOR Branch 7 DAYS methylPREDN 2021-0 Yes TAKE Uni vers ISolone 4 3-23 DIRECTED ity of mg tablets 00:00: ON PACKAGE [place] 00 LABELING Medical Branch ciprofloxac 2021-0 Yes TAKE 1 [facility] ers in HCl 500 3-23 TABLET BY ity of mg tablet 00:00: MOUTH [place] 00 EVERY 12 Medical HOURS FOR Branch 7 DAYS methylPREDN 2021-0 Yes TAKE Uni vers ISolone 4 3-23 DIRECTED ity of mg tablets 00:00: ON PACKAGE [place] 00 LABELING Medical Branch ciprofloxac 2021-0 Yes TAKE 1 [facility] ers in HCl 500 3-23 TABLET BY ity of mg tablet 00:00: MOUTH [place] 00 EVERY 12 Medical HOURS FOR Branch 7 DAYS methylPREDN 2021-0 Yes TAKE Uni vers ISolone 4 3-23 DIRECTED ity of mg tablets 00:00: ON PACKAGE [place] 00 LABELING Medical Branch ciprofloxac 2021-0 Yes TAKE 1 [facility] ers in HCl 500 3-23 TABLET BY ity of mg tablet 00:00: MOUTH [place] 00 EVERY 12 Medical HOURS FOR Branch 7 DAYS methylPREDN 2021-0 Yes TAKE Uni vers ISolone 4 3-23 DIRECTED ity of mg tablets 00:00: ON PACKAGE [place] 00 LABELING Medical Branch ciprofloxac 2021-0 Yes TAKE 1 [facility] ers in HCl 500 3-23 TABLET BY ity of mg tablet 00:00: MOUTH [place] 00 EVERY 12 Medical HOURS FOR Branch 7 DAYS methylPREDN 2021-0 Yes TAKE Uni vers ISolone 4 3-23 DIRECTED ity of mg tablets 00:00: ON PACKAGE [place] 00 LABELING Medical Branch ciprofloxac 2021-0 Yes TAKE 1 [facility] ers in HCl 500 3-23 TABLET BY ity of mg tablet 00:00: MOUTH [place] 00 EVERY 12 Medical HOURS FOR Branch 7 DAYS methylPREDN 2021-0 Yes TAKE Uni vers ISolone 4 3-23 DIRECTED ity of mg tablets 00:00: ON PACKAGE [place] 00 LABELING Medical Branch ciprofloxac 2021-0 Yes TAKE 1 [facility] ers in HCl 500 3-23 TABLET BY ity of mg tablet 00:00: MOUTH [place] 00 EVERY 12 Medical HOURS FOR Branch 7 DAYS methylPREDN 2021-0 Yes TAKE Uni vers ISolone 4 3-23 DIRECTED ity of mg tablets 00:00: ON PACKAGE [place] 00 LABELING Medical Branch ciprofloxac 2021-0 Yes TAKE 1 [facility] ers in HCl 500 3-23 TABLET BY ity of mg tablet 00:00: MOUTH [place] 00 EVERY 12 Medical HOURS FOR Branch 7 DAYS methylPREDN 2021-0 Yes TAKE Uni vers ISolone 4 3-23 DIRECTED ity of mg tablets 00:00: ON PACKAGE [place] 00 LABELING Medical Branch ciprofloxac 2021-0 Yes TAKE 1 [facility] ers in HCl 500 3-23 TABLET BY ity of mg tablet 00:00: MOUTH [place] 00 EVERY 12 Medical HOURS FOR Branch 7 DAYS methylPREDN 2021-0 Yes TAKE Uni vers ISolone 4 3-23 DIRECTED ity of mg tablets 00:00: ON PACKAGE [place] 00 LABELING Medical Branch ciprofloxac 2021-0 Yes TAKE 1 [facility] ers in HCl 500 3-23 TABLET BY ity of mg tablet 00:00: MOUTH [place] 00 EVERY 12 Medical HOURS FOR Branch 7 DAYS methylPREDN 2021-0 Yes TAKE Uni vers ISolone 4 3-23 DIRECTED ity of mg tablets 00:00: ON PACKAGE [place] 00 LABELING Medical Branch ciprofloxac 2021-0 2022- No TAKE 1 Uni vers in HCl 500 3-23 03-06 TABLET BY ity of mg tablet 00:00: 00:00 MOUTH [place] 00 :00 EVERY 12 Medical HOURS FOR Branch 7 DAYS methylPREDN 2021-0 2022- No TAKE [facility] ISolone 4 3-23 03-06 DIRECTED ity o f mg tablets 00:00: 00:00 ON PACKAGE [place] 00 :00 LABELING Medical Branch ciprofloxac 2021-0 2022- No TAKE 1 Uni vers in HCl 500 08-17 TABLET BY ity of mg tablet 00:00: 00:00 MOUTH [place] 00 :00 EVERY 12 Medical HOURS FOR Branch 7 DAYS methylPREDN 2022- No TAKE [facility] ISolone 4 08-17 DIRECTED ity o f mg tablets 00:00: 00:00 ON PACKAGE [place] 00 :00 LABELING Medical Branch ciprofloxac 2021-2022- No TAKE 1 Uni vers in HCl 500 08-17 TABLET BY ity of mg tablet 00:00: 00:00 MOUTH [place] 00 :00 EVERY 12 Medical HOURS FOR Branch 7 DAYS methylPREDN 2021-2022- No TAKE [facility] ISolone 4 08-17 DIRECTED ity o f mg tablets 00:00: 00:00 ON PACKAGE [place] 00 :00 LABELING Medical Branch MYRBETRIQ 2021-2021- No 1{tbl} Take 1 [facility] vers 50 mg 08-08 tablet by ity of tablet 00:00: 00:00 mouth at [place] 00 :00 bedtime. Medical Branch PROLENSA 0 Yes INSTILL 1 [facility] ers 0.07 % 3-08 DROP IN ity of drops 00:00: RIGHT EYE [place] 00 DAILY FOR Medical 1 MONTH Branch THEN STOP PROLENSA 0 Yes INSTILL 1 Univ ers 0.07 % 3-08 DROP IN ity of drops 00:00: RIGHT EYE [place] 00 DAILY FOR Medical 1 MONTH Branch THEN STOP PROLENSA 2021-0 Yes INSTILL 1 Univ ers 0.07 % 3-08 DROP IN ity of drops 00:00: RIGHT EYE [place] 00 DAILY FOR Medical 1 MONTH Branch THEN STOP PROLENSA 2021-0 Yes INSTILL 1 [facility] ers 0.07 % 3-08 DROP IN ity of drops 00:00: RIGHT EYE [place] 00 DAILY FOR Medical 1 MONTH Branch THEN STOP PROLENSA 2021-0 Yes INSTILL 1 [facility] ers 0.07 % 3-08 DROP IN ity of drops 00:00: RIGHT EYE [place] 00 DAILY FOR Medical 1 MONTH Branch THEN STOP PROLENSA 2021-0 Yes INSTILL 1 [facility] ers 0.07 % 3-08 DROP IN ity of drops 00:00: RIGHT EYE [place] 00 DAILY FOR Medical 1 MONTH Branch THEN STOP PROLENSA 2021-0 Yes INSTILL 1 Univ ers 0.07 % 3-08 DROP IN ity of drops 00:00: RIGHT EYE [place] 00 DAILY FOR Medical 1 MONTH Branch THEN STOP PROLENSA 2021-0 Yes INSTILL 1 Univ ers 0.07 % 3-08 DROP IN ity of drops 00:00: RIGHT EYE [place] 00 DAILY FOR Medical 1 MONTH Branch THEN STOP PROLENSA 2021-0 Yes INSTILL 1 Univ ers 0.07 % 3-08 DROP IN ity of drops 00:00: RIGHT EYE [place] 00 DAILY FOR Medical 1 MONTH Branch THEN STOP PROLENSA 2021-0 Yes INSTILL 1 [facility] ers 0.07 % 3-08 DROP IN ity of drops 00:00: RIGHT EYE [place] 00 DAILY FOR Medical 1 MONTH Branch THEN STOP PROLENSA 2021-0 Yes INSTILL 1 [facility] ers 0.07 % 3-08 DROP IN ity of drops 00:00: RIGHT EYE [place] 00 DAILY FOR Medical 1 MONTH Branch THEN STOP PROLENSA 2021-0 Yes INSTILL 1 [facility] ers 0.07 % 3-08 DROP IN ity of drops 00:00: RIGHT EYE [place] 00 DAILY FOR Medical 1 MONTH Branch THEN STOP PROLENSA 2021-0 Yes INSTILL 1 [facility] ers 0.07 % 3-08 DROP IN ity of drops 00:00: RIGHT EYE [place] 00 DAILY FOR Medical 1 MONTH Branch THEN STOP PROLENSA 2021-0 Yes INSTILL 1 [facility] ers 0.07 % 3-08 DROP IN ity of drops 00:00: RIGHT EYE [place] 00 DAILY FOR Medical 1 MONTH Branch THEN STOP PROLENSA 2021-0 Yes INSTILL 1 [facility] ers 0.07 % 3-08 DROP IN ity of drops 00:00: RIGHT EYE [place] 00 DAILY FOR Medical 1 MONTH Branch THEN STOP PROLENSA 2021-0 Yes INSTILL 1 Univ ers 0.07 % 3-08 DROP IN ity of drops 00:00: RIGHT EYE [place] 00 DAILY FOR Medical 1 MONTH Branch THEN STOP PROLENSA 2021-0 Yes INSTILL 1 [facility] ers 0.07 % 3-08 DROP IN ity of drops 00:00: RIGHT EYE [place] 00 DAILY FOR Medical 1 MONTH Branch THEN STOP PROLENSA 2021-0 Yes INSTILL 1 [facility] ers 0.07 % 3-08 DROP IN ity of drops 00:00: RIGHT EYE [place] 00 DAILY FOR Medical 1 MONTH Branch THEN STOP PROLENSA 2022-0 Yes INSTILL 1 Univ ers 0.07 % 3-08 DROP IN ity of drops 00:00: RIGHT EYE [place] 00 DAILY FOR Medical 1 MONTH Branch THEN STOP PROLENSA 2022-0 Yes INSTILL 1 [facility] ers 0.07 % 3-08 DROP IN ity of drops 00:00: RIGHT EYE [place] 00 DAILY FOR Medical 1 MONTH Branch THEN STOP PROLENSA 2022-0 Yes INSTILL 1 [facility] ers 0.07 % 3-08 DROP IN ity of drops 00:00: RIGHT EYE [place] 00 DAILY FOR Medical 1 MONTH Branch THEN STOP PROLENSA 2021-0 Yes INSTILL 1 [facility] ers 0.07 % 3-08 DROP IN ity of drops 00:00: RIGHT EYE [place] 00 DAILY FOR Medical 1 MONTH Branch THEN STOP PROLENSA 2021-0 Yes INSTILL 1 [facility] ers 0.07 % 3-08 DROP IN ity of drops 00:00: RIGHT EYE [place] 00 DAILY FOR Medical 1 MONTH Branch THEN STOP PROLENSA 2021-0 Yes INSTILL 1 [facility] ers 0.07 % 3-08 DROP IN ity of drops 00:00: RIGHT EYE [place] 00 DAILY FOR Medical 1 MONTH Branch THEN STOP PROLENSA 2021-0 Yes INSTILL 1 [facility] ers 0.07 % 3-08 DROP IN ity of drops 00:00: RIGHT EYE [place] 00 DAILY FOR Medical 1 MONTH Branch THEN STOP PROLENSA 2-0 Yes INSTILL 1 [facility] ers 0.07 % 3-08 DROP IN ity of drops 00:00: RIGHT EYE [place] 00 DAILY FOR Medical 1 MONTH Branch THEN STOP PROLENSA 2022-0 Yes INSTILL 1 [facility] ers 0.07 % 3-08 DROP IN ity of drops 00:00: RIGHT EYE [place] 00 DAILY FOR Medical 1 MONTH Branch THEN STOP PROLENSA 2022-0 Yes INSTILL 1 Univ ers 0.07 % 3-08 DROP IN ity of drops 00:00: RIGHT EYE [place] 00 DAILY FOR Medical 1 MONTH Branch THEN STOP PROLENSA 2022-0 Yes INSTILL 1 Univ ers 0.07 % 3-08 DROP IN ity of drops 00:00: RIGHT EYE [place] 00 DAILY FOR Medical 1 MONTH Branch THEN STOP PROLENSA 2022-0 Yes INSTILL 1 Univ ers 0.07 % 3-08 DROP IN ity of drops 00:00: RIGHT EYE DAILY FOR Medical 1 MONTH Branch THEN STOP ezetimibe Yes TAKE 1 [facility] 10 mg 2-17 TABLET BY ity of tablet 00:00: MOUTH FOR Medical CHOLESTERO Branch L ezetimibe Yes TAKE 1 [facility] 10 mg 2-17 TABLET BY ity of tablet 00:00: MOUTH FOR Medical CHOLESTERO Branch L ezetimibe Yes TAKE 1 [facility] 10 mg 2-17 TABLET BY ity of tablet 00:00: MOUTH FOR Medical CHOLESTERO Branch L ezetimibe Yes TAKE 1 [facility] 10 mg 2-17 TABLET BY ity of tablet 00:00: MOUTH FOR Medical CHOLESTERO Branch L ezetimibe Yes TAKE 1 [facility] 10 mg 2-17 TABLET BY ity of tablet 00:00: FOR Medical CHOLESTERO Branch L ezetimibe Yes TAKE 1 [facility] 10 mg 2-17 TABLET BY ity of tablet 00:00: MOUTH FOR Medical CHOLESTERO Branch L ezetimibe Yes TAKE 1 [facility] 10 mg 2-17 TABLET BY ity of tablet 00:00: MOUTH FOR Medical CHOLESTERO Branch L ezetimibe 0 Yes TAKE 1 [facility] 10 mg 2-17 TABLET BY ity of tablet 00:00: MOUTH FOR Medical CHOLESTERO Branch L ezetimibe 0 Yes TAKE 1 [facility] 10 mg 2-17 TABLET BY ity of tablet 00:00: MOUTH FOR Medical CHOLESTERO Branch L ezetimibe 0 Yes TAKE 1 [facility] 10 mg 2-17 TABLET BY ity of tablet 00:00: MOUTH FOR Medical CHOLESTERO Branch L ezetimibe 0 Yes TAKE 1 [facility] 10 mg 2-17 TABLET BY ity of tablet 00:00: MOUTH FOR Medical CHOLESTERO Branch L ezetimibe 0 Yes TAKE 1 [facility] 10 mg 2-17 TABLET BY ity of tablet 00:00: MOUTH FOR Medical CHOLESTERO Branch L ezetimibe 2021-0 Yes TAKE 1 [facility] 10 mg 2-17 TABLET BY ity of tablet 00:00: FOR Medical CHOLESTERO Branch L ezetimibe 0 Yes TAKE 1 [facility] 10 mg 2-17 TABLET BY ity of tablet 00:00: FOR Medical CHOLESTERO Branch L ezetimibe 0 Yes TAKE 1 [facility] 10 mg 2-17 TABLET BY ity of tablet 00:00: MOUTH FOR Medical CHOLESTERO Branch L ezetimibe 0 Yes TAKE 1 [facility] 10 mg 2-17 TABLET BY ity of tablet 00:00: FOR Medical CHOLESTERO Branch L ezetimibe 0 Yes TAKE 1 [facility] 10 mg 2-17 TABLET BY ity of tablet 00:00: FOR Medical CHOLESTERO Branch L ezetimibe 0 Yes TAKE 1 [facility] 10 mg 2-17 TABLET BY ity of tablet 00:00: FOR Medical CHOLESTERO Branch L ezetimibe 0 Yes TAKE 1 [facility] 10 mg 2-17 TABLET BY ity of tablet 00:00: FOR Medical CHOLESTERO Branch L ezetimibe 2021-0 Yes TAKE 1 [facility] 10 mg 2-17 TABLET BY ity of tablet 00:00: FOR Medical CHOLESTERO Branch L ezetimibe 2021-0 Yes TAKE 1 [facility] 10 mg 2-17 TABLET BY ity of tablet 00:00: FOR Medical CHOLESTERO Branch L ezetimibe 2021-0 Yes TAKE 1 [facility] 10 mg 2-17 TABLET BY ity of tablet 00:00: FOR Medical CHOLESTERO Branch L ezetimibe 2021-0 Yes TAKE 1 [facility] 10 mg 2-17 TABLET BY ity of tablet 00:00: MOUTH FOR Medical CHOLESTERO Branch L ezetimibe 2021-0 Yes TAKE 1 [facility] 10 mg 2-17 TABLET BY ity of tablet 00:00: FOR Medical CHOLESTERO Branch L ezetimibe 2021-0 Yes TAKE 1 [facility] 10 mg 2-17 TABLET BY ity of tablet 00:00: MOUTH EACH FOR Medical CHOLESTERO Branch L ezetimibe 2021-0 Yes TAKE 1 [facility] 10 mg 2-17 TABLET BY ity of tablet 00:00: MOUTH EACH FOR Medical CHOLESTERO Branch L ezetimibe 2021-0 Yes TAKE 1 [facility] 10 mg 2-17 TABLET BY ity of tablet 00:00: MOUTH EACH FOR Medical CHOLESTERO Branch L ezetimibe 2021-0 Yes TAKE 1 [facility] 10 mg 2-17 TABLET BY ity of tablet 00:00: MOUTH EACH FOR Medical CHOLESTERO Branch L ezetimibe 0 Yes TAKE 1 [facility] 10 mg 2-17 TABLET BY ity of tablet 00:00: MOUTH EACH FOR Medical CHOLESTERO Branch L ezetimibe 0 Yes TAKE 1 [facility] 10 mg 2-17 TABLET BY ity of tablet 00:00: MOUTH EACH FOR Medical CHOLESTERO Branch L Diclofenac 2021-0 Yes APPLY [facility] Sodium 1 % 2-13 EXTERNALLY ity of gel 00:00: TO THE [place] [facility] Medical AREA FOUR Branch TIMES DAILY NEEDED Diclofenac 2-0 Yes APPLY [facility] Sodium 1 % 2-13 EXTERNALLY ity of gel 00:00: TO THE [place] [facility] AREA FOUR Branch TIMES DAILY NEEDED Diclofenac 2-0 Yes APPLY [facility] Sodium 1 % 2-13 EXTERNALLY ity of gel 00:00: TO THE [place] [facility] AREA FOUR Branch TIMES DAILY NEEDED Diclofenac 2022-0 Yes APPLY [facility] Sodium 1 % 2-13 EXTERNALLY ity of gel 00:00: TO THE [place] [facility] AREA FOUR Branch TIMES DAILY NEEDED Diclofenac 2022-0 Yes APPLY [facility] Sodium 1 % 2-13 EXTERNALLY ity of gel 00:00: TO THE [place] [facility] AREA FOUR Branch TIMES DAILY NEEDED Diclofenac 2022-0 Yes APPLY [facility] Sodium 1 % 2-13 EXTERNALLY ity of gel 00:00: TO THE [place] [facility] AREA FOUR Branch TIMES DAILY NEEDED Diclofenac 2022-0 Yes APPLY [facility] Sodium 1 % 2-13 EXTERNALLY ity of gel 00:00: TO THE [place] [facility] AREA FOUR Branch TIMES DAILY NEEDED Diclofenac 2022-0 Yes APPLY [facility] Sodium 1 % 2-13 EXTERNALLY ity of gel 00:00: TO THE [place] [facility] AREA FOUR Branch TIMES DAILY NEEDED Diclofenac 2022-0 Yes APPLY [facility] Sodium 1 % 2-13 EXTERNALLY ity of gel 00:00: TO THE [place] [facility] AREA FOUR Branch TIMES DAILY NEEDED Diclofenac 2022-0 Yes APPLY [facility] Sodium 1 % 2-13 EXTERNALLY ity of gel 00:00: TO THE [place] [facility] AREA FOUR Branch TIMES DAILY NEEDED Diclofenac 2022-0 Yes APPLY [facility] Sodium 1 % 2-13 EXTERNALLY ity of gel 00:00: TO THE [place] [facility] AREA FOUR Branch TIMES DAILY NEEDED Diclofenac 2022-0 Yes APPLY [facility] Sodium 1 % 2-13 EXTERNALLY ity of gel 00:00: TO THE [place] [facility] AREA FOUR Branch TIMES DAILY NEEDED Diclofenac 2022-0 Yes APPLY [facility] Sodium 1 % 2-13 EXTERNALLY ity of gel 00:00: TO THE [place] [facility] AREA FOUR Branch TIMES DAILY NEEDED Diclofenac 2022-0 Yes APPLY [facility] Sodium 1 % 2-13 EXTERNALLY ity of gel 00:00: TO THE [place] [facility] AREA FOUR Branch TIMES DAILY NEEDED Diclofenac 2022-0 Yes APPLY [facility] Sodium 1 % 2-13 EXTERNALLY ity of gel 00:00: TO THE [place] [facility] AREA FOUR Branch TIMES DAILY NEEDED Diclofenac 2022-0 Yes APPLY [facility] Sodium 1 % 2-13 EXTERNALLY ity of gel 00:00: TO THE [place] [facility] AREA FOUR Branch TIMES DAILY NEEDED Diclofenac 2022-0 Yes APPLY [facility] Sodium 1 % 2-13 EXTERNALLY ity of gel 00:00: TO THE [place] [facility] AREA FOUR Branch TIMES DAILY NEEDED Diclofenac 2022-0 Yes APPLY [facility] Sodium 1 % 2-13 EXTERNALLY ity of gel 00:00: TO THE [place] [facility] AREA FOUR Branch TIMES DAILY NEEDED Diclofenac 2022-0 Yes APPLY [facility] Sodium 1 % 2-13 EXTERNALLY ity of gel 00:00: TO THE [place] [facility] AREA FOUR Branch TIMES DAILY NEEDED Diclofenac 2022-0 Yes APPLY [facility] Sodium 1 % 2-13 EXTERNALLY ity of gel 00:00: TO THE [place] [facility] AREA FOUR Branch TIMES DAILY NEEDED Diclofenac 2022-0 Yes APPLY [facility] Sodium 1 % 2-13 EXTERNALLY ity of gel 00:00: TO THE [place] 00 AFFECTED Medical AREA FOUR Branch TIMES DAILY NEEDED Diclofenac 2022-0 Yes APPLY [facility] Sodium 1 % 2-13 EXTERNALLY ity of gel 00:00: TO THE [place] [facility] AREA FOUR Branch TIMES DAILY NEEDED Diclofenac 2022-0 Yes APPLY [facility] Sodium 1 % 2-13 EXTERNALLY ity of gel 00:00: TO THE [place] [facility] AREA FOUR Branch TIMES DAILY NEEDED Diclofenac 2022-0 Yes APPLY [facility] Sodium 1 % 2-13 EXTERNALLY ity of gel 00:00: TO THE [place] [facility] AREA FOUR Branch TIMES DAILY NEEDED Diclofenac 2022-0 Yes APPLY [facility] Sodium 1 % 2-13 EXTERNALLY ity of gel 00:00: TO THE [place] [facility] AREA FOUR Branch TIMES DAILY NEEDED Diclofenac 2022-0 Yes APPLY [facility] Sodium 1 % 2-13 EXTERNALLY ity of gel 00:00: TO THE [place] [facility] AREA FOUR Branch TIMES DAILY NEEDED Diclofenac 2022-0 Yes APPLY [facility] Sodium 1 % 2-13 EXTERNALLY ity of gel 00:00: TO THE [place] [facility] AREA FOUR Branch TIMES DAILY NEEDED Diclofenac 2022-0 Yes APPLY [facility] Sodium 1 % 2-13 EXTERNALLY ity of gel 00:00: TO THE [place] [facility] AREA FOUR Branch TIMES DAILY NEEDED Diclofenac 2022-0 Yes APPLY [facility] Sodium 1 % 2-13 EXTERNALLY ity of gel 00:00: TO THE [place] [facility] AREA FOUR Branch TIMES DAILY NEEDED Diclofenac 2022-0 Yes APPLY [facility] Sodium 1 % 2-13 EXTERNALLY ity of gel 00:00: TO THE [place] [facility] AREA FOUR Branch TIMES DAILY NEEDED erythromyci 2022-0 Yes APPLY 1 Uni vers n 5 mg/gram 1-20 THIN LAYER it y of (0.5 %) 00:00: TO THE [place] ophthal[facility] 00 EYELIDS AT Med ical ointment BEDTIME Branch FOR 1 WEEK erythromyci 2022-0 Yes APPLY 1 Uni vers n 5 mg/gram 1-20 THIN LAYER it y of (0.5 %) 00:00: TO THE [place] ophthalmic 00 EYELIDS AT Med ical ointment BEDTIME Branch FOR 1 WEEK erythromyci 2022-0 Yes APPLY 1 Uni vers n 5 mg/gram 1-20 THIN LAYER it y of (0.5 %) 00:00: TO THE [place] ophthalmic 00 EYELIDS AT [facility] ointment BEDTIME Branch FOR 1 WEEK erythromyci Yes APPLY 1 Uni vers n 5 mg/gram 1-20 THIN LAYER it y of (0.5 %) 00:00: TO THE [place] ophthalmic 00 EYELIDS AT [facility] ointment BEDTIME [place] FOR 1 WEEK erythromyci Yes APPLY 1 Uni vers n 5 mg/gram 1-20 THIN LAYER it y of (0.5 %) 00:00: TO THE [place] ophthalmic 00 EYELIDS AT [facility] ointment BEDTIME [place] FOR 1 WEEK erythromyci Yes APPLY 1 Uni vers n 5 mg/gram 1-20 THIN LAYER it y of (0.5 %) 00:00: TO THE [place] ophthalmic 00 EYELIDS AT [facility] ointment BEDTIME [place] FOR 1 WEEK erythromyci Yes APPLY 1 Uni vers n 5 mg/gram 1-20 THIN LAYER it y of (0.5 %) 00:00: TO THE [place] ophthalmic 00 EYELIDS AT [facility] ointment BEDTIME [place] FOR 1 WEEK erythromyci Yes APPLY 1 Uni vers n 5 mg/gram 1-20 THIN LAYER it y of (0.5 %) 00:00: TO THE [place] ophthalmic 00 EYELIDS AT [facility] ointment BEDTIME [place] FOR 1 WEEK erythromyci Yes APPLY 1 Uni vers n 5 mg/gram 1-20 THIN LAYER it y of (0.5 %) 00:00: TO THE [place] ophthalmic 00 EYELIDS AT [facility] ointment BEDTIME [place] FOR 1 WEEK erythromyci Yes APPLY 1 Uni vers n 5 mg/gram 1-20 THIN LAYER it y of (0.5 %) 00:00: TO THE [place] ophthalmic 00 EYELIDS AT [facility] ointment BEDTIME [place] FOR 1 WEEK erythromyci 0 Yes APPLY 1 Uni vers n 5 mg/gram 1-20 THIN LAYER it y of (0.5 %) 00:00: TO THE [place] ophthalmic 00 EYELIDS AT [facility] ointment BEDTIME [place] FOR 1 WEEK erythromyci Yes APPLY 1 Uni vers n 5 mg/gram 1-20 THIN LAYER it y of (0.5 %) 00:00: TO THE [place] ophthalmic 00 EYELIDS AT [facility] ointment BEDTIME [place] FOR 1 WEEK erythromyci Yes APPLY 1 Uni vers n 5 mg/gram 1-20 THIN LAYER it y of (0.5 %) 00:00: TO THE [place] ophthalmic 00 EYELIDS AT [facility] ointment BEDTIME [place] FOR 1 WEEK erythromyci Yes APPLY 1 Uni vers n 5 mg/gram 1-20 THIN LAYER it y of (0.5 %) 00:00: TO THE [place] ophthalmic 00 EYELIDS AT [facility] ointment BEDTIME [place] FOR 1 WEEK erythromyci Yes APPLY 1 Uni vers n 5 mg/gram 1-20 THIN LAYER it y of (0.5 %) 00:00: TO THE [place] ophthalmic 00 EYELIDS AT [facility] ointment BEDTIME [place] FOR 1 WEEK erythromyci Yes APPLY 1 Uni vers n 5 mg/gram 1-20 THIN LAYER it y of (0.5 %) 00:00: TO THE [place] ophthalmic 00 EYELIDS AT [facility] ointment BEDTIME [place] FOR 1 WEEK erythromyci Yes APPLY 1 Uni vers n 5 mg/gram 1-20 THIN LAYER it y of (0.5 %) 00:00: TO THE [place] ophthalmic 00 EYELIDS AT [facility] ointment BEDTIME [place] FOR 1 WEEK erythromyci Yes APPLY 1 Uni vers n 5 mg/gram 1-20 THIN LAYER it y of (0.5 %) 00:00: TO THE [place] ophthal[facility] 00 EYELIDS AT [facility] ointment BEDTIME [place] FOR 1 WEEK erythromyci Yes APPLY 1 Uni vers n 5 mg/gram 1-20 THIN LAYER it y of (0.5 %) 00:00: TO THE [place] ophthal[facility] 00 EYELIDS AT [facility] ointment BEDTIME [place] FOR 1 WEEK erythromyci Yes APPLY 1 Uni vers n 5 mg/gram 1-20 THIN LAYER it y of (0.5 %) 00:00: TO THE [place] ophthalmic 00 EYELIDS AT [facility] ointment BEDTIME [place] FOR 1 WEEK erythromyci Yes APPLY 1 Uni vers n 5 mg/gram 1-20 THIN LAYER it y of (0.5 %) 00:00: TO THE [place] ophthal[facility] 00 EYELIDS AT [facility] ical ointment BEDTIME Branch FOR 1 WEEK erythromyci Yes APPLY 1 Uni vers n 5 mg/gram 1-20 THIN LAYER it y of (0.5 %) 00:00: TO THE [place] ophthalmic 00 EYELIDS AT [facility] ointment BEDTIME Branch FOR 1 WEEK erythromyci Yes APPLY 1 Uni vers n 5 mg/gram 1-20 THIN LAYER it y of (0.5 %) 00:00: TO THE [place] ophthalmic 00 EYELIDS AT [facility] ointment BEDTIME Branch FOR 1 WEEK erythromyci 0 2022- No APPLY 1 Un deonte n 5 mg/gram 1-20 03-06 THIN LAYER i ty of (0.5 %) 00:00: 00:00 TO THE [place] ophthalmic 00 :00 EYELIDS AT [facility] ointment BEDTIME Branch FOR 1 WEEK erythromyci 2022- No APPLY 1 Un deonte n 5 mg/gram 1-20 03-06 THIN LAYER i ty of (0.5 %) 00:00: 00:00 TO THE [place] ophthalmic 00 :00 EYELIDS AT [facility] ointment BEDTIME Branch FOR 1 WEEK erythromyci 2022- No APPLY 1 Un deonte n 5 mg/gram 1-20 03-06 THIN LAYER i ty of (0.5 %) 00:00: 00:00 TO THE [place] ophthalmic 00 :00 EYELIDS AT [facility] ointment BEDTIME Branch FOR 1 WEEK traZODone 2020-05 Yes TAKE 1 Univer s 50 mg 1-18 TABLET BY ity of tablet 00:00: MOUTH [place] 00 EVERY Medical NIGHT AT [place] BEDTIME NEEDED FOR INSOMNIA traZODone 2020-05 Yes TAKE 1 Univer s 50 mg 1-18 TABLET BY ity of tablet 00:00: MOUTH [place] 00 EVERY Medical NIGHT AT [place] BEDTIME NEEDED FOR INSOMNIA traZODone 2020-05 Yes TAKE 1 Univer s 50 mg 1-18 TABLET BY ity of tablet 00:00: MOUTH [place] 00 EVERY Medical NIGHT AT [place] BEDTIME NEEDED FOR INSOMNIA traZODone 2020-05 Yes TAKE 1 Un[facility] s 50 mg 1-18 TABLET BY ity of tablet 00:00: MOUTH [place] 00 EVERY Medical NIGHT AT [place] BEDTIME NEEDED FOR INSOMNIA traZODone 2020-05 Yes TAKE 1 Univer s 50 mg 1-18 TABLET BY ity of tablet 00:00: MOUTH [place] 00 EVERY Medical NIGHT AT Branch BEDTIME NEEDED FOR INSOMNIA traZODone 2020-05 Yes TAKE 1 Univer s 50 mg 1-18 TABLET BY ity of tablet 00:00: MOUTH 00 EVERY Medical NIGHT AT Branch BEDTIME NEEDED FOR INSOMNIA traZODone 2020-05 Yes TAKE 1 Univer s 50 mg 1-18 TABLET BY ity of tablet 00:00: MOUTH [place] 00 EVERY Medical NIGHT AT Branch BEDTIME NEEDED FOR INSOMNIA traZODone 2020-05 Yes TAKE 1 Un[facility] s 50 mg 1-18 TABLET BY ity of tablet 00:00: MOUTH 00 EVERY Medical NIGHT AT Branch BEDTIME NEEDED FOR INSOMNIA traZODone 2020-05 Yes TAKE 1 Un[facility] s 50 mg 1-18 TABLET BY ity of tablet 00:00: MOUTH 00 EVERY Medical NIGHT AT Branch BEDTIME NEEDED FOR INSOMNIA traZODone 2020-05 Yes TAKE 1 Un[facility] s 50 mg 1-18 TABLET BY ity of tablet 00:00: MOUTH 00 EVERY Medical NIGHT AT Branch BEDTIME NEEDED FOR INSOMNIA traZODone 2020-05 Yes TAKE 1 Univer s 50 mg 1-18 TABLET BY ity of tablet 00:00: MOUTH [place] 00 EVERY Medical NIGHT AT Branch BEDTIME NEEDED FOR INSOMNIA traZODone 2020-05 Yes TAKE 1 Univer s 50 mg 1-18 TABLET BY ity of tablet 00:00: MOUTH 00 EVERY Medical NIGHT AT Branch BEDTIME NEEDED FOR INSOMNIA traZODone 2020-05 Yes TAKE 1 Un[facility] s 50 mg 1-18 TABLET BY ity of tablet 00:00: MOUTH [place] 00 EVERY Medical NIGHT AT Branch BEDTIME NEEDED FOR INSOMNIA traZODone 2020-05 Yes TAKE 1 Un[facility] s 50 mg 1-18 TABLET BY ity of tablet 00:00: MOUTH [place] 00 EVERY Medical NIGHT AT Branch BEDTIME NEEDED FOR INSOMNIA traZODone 2020-05 Yes TAKE 1 Un[facility] s 50 mg 1-18 TABLET BY ity of tablet 00:00: MOUTH 00 EVERY Medical NIGHT AT Branch BEDTIME NEEDED FOR INSOMNIA traZODone 2020-05 Yes TAKE 1 Un[facility] s 50 mg 1-18 TABLET BY ity of tablet 00:00: MOUTH [place] 00 EVERY Medical NIGHT AT Branch BEDTIME NEEDED FOR INSOMNIA traZODone 2020-05 Yes TAKE 1 Univer s 50 mg 1-18 TABLET BY ity of tablet 00:00: MOUTH [place] 00 EVERY Medical NIGHT AT Branch BEDTIME NEEDED FOR INSOMNIA traZODone 2020-05 Yes TAKE 1 Univer s 50 mg 1-18 TABLET BY ity of tablet 00:00: MOUTH [place] 00 EVERY Medical NIGHT AT Branch BEDTIME NEEDED FOR INSOMNIA traZODone 2020-05 Yes TAKE 1 Univer s 50 mg 1-18 TABLET BY ity of tablet 00:00: MOUTH [place] 00 EVERY Medical NIGHT AT Branch BEDTIME NEEDED FOR INSOMNIA traZODone 2020-05 Yes TAKE 1 Univer s 50 mg 1-18 TABLET BY ity of tablet 00:00: MOUTH [place] 00 EVERY Medical NIGHT AT Branch BEDTIME NEEDED FOR INSOMNIA traZODone 2020-05 Yes TAKE 1 Univer s 50 mg 1-18 TABLET BY ity of tablet 00:00: MOUTH [place] 00 EVERY Medical NIGHT AT Branch BEDTIME NEEDED FOR INSOMNIA traZODone 2020-05 Yes TAKE 1 Univer s 50 mg 1-18 TABLET BY ity of tablet 00:00: MOUTH [place] 00 EVERY Medical NIGHT AT Branch BEDTIME NEEDED FOR INSOMNIA traZODone 2020-05 Yes TAKE 1 Univer s 50 mg 1-18 TABLET BY ity of tablet 00:00: MOUTH [place] 00 EVERY Medical NIGHT AT Branch BEDTIME NEEDED FOR INSOMNIA traZODone 2020-05- No TAKE 1 Unive rs 50 mg 1-18 03-06 TABLET BY ity of tablet 00:00: 00:00 MOUTH [place] 00 :00 EVERY Medical NIGHT AT Branch BEDTIME NEEDED FOR INSOMNIA traZODone 2020-05- No TAKE 1 Unive rs 50 mg 1-18 03-06 TABLET BY ity of tablet 00:00: 00:00 MOUTH [place] 00 :00 EVERY Medical NIGHT AT Branch BEDTIME NEEDED FOR INSOMNIA traZODone 2020-05- No TAKE 1 Unive rs 50 mg 1-18 03-06 TABLET BY ity of tablet 00:00: 00:00 MOUTH [place] 00 :00 EVERY Medical NIGHT AT Branch BEDTIME NEEDED FOR INSOMNIA OLANZapine 2020-05- No 10mg Take 10 mg Univers 10 mg 1-18 03-25 by mouth ity of tablet 00:00: 00:00 at [place] 00 :00 bedtime. Medical Branch atorvastati 2020-0 Yes 10mg Take 10 mg Univers n 10 mg 9-10 by mouth ity of tablet 16:17: at [place] [address] bedtime. Medical Branch atorvastati 2020-0 Yes 10mg Take 10 mg Univers n 10 mg 9-10 by mouth ity of tablet 16:17: at [place] [address] bedtime. Medical Branch atorvastati 2020-0 Yes 10mg Take 10 mg Univers n 10 mg 9-10 by mouth ity of tablet 16:17: at [place] [address] bedtime. Medical Branch atorvastati 2020-0 Yes 10mg Take 10 mg Univers n 10 mg 9-10 by mouth ity of tablet 16:17: at [place] [address] bedtime. Medical Branch atorvastati 2020-0 Yes 10mg Take 10 mg Univers n 10 mg 9-10 by mouth ity of tablet 16:17: at [place] [address] bedtime. Medical Branch atorvastati 2020-0 Yes 10mg Take 10 mg Univers n 10 mg 9-10 by mouth ity of tablet 16:17: at [place] [address] bedtime. Medical Branch atorvastati 2020-0 Yes 10mg Take 10 mg Univers n 10 mg 9-10 by mouth ity of tablet 16:17: at [place] [address] bedtime. Medical Branch atorvastati 2020-0 Yes 10mg Take 10 mg Univers n 10 mg 9-10 by mouth ity of tablet 16:17: at [place] [address] bedtime. Medical Branch atorvastati 2020-0 Yes 10mg Take 10 mg Univers n 10 mg 9-10 by mouth ity of tablet 16:17: at [place] [address] bedtime. Medical Branch atorvastati 2020-0 Yes 10mg Take 10 mg Univers n 10 mg 9-10 by mouth ity of tablet 16:17: at [place] [address] bedtime. Medical Branch atorvastati 2020-0 Yes 10mg Take 10 mg Univers n 10 mg 9-10 by mouth ity of tablet 16:17: at [place] [address] bedtime. Medical Branch atorvastati 2020-0 Yes 10mg Take 10 mg Univers n 10 mg 9-10 by mouth ity of tablet 16:17: at [place] [address] bedtime. Medical Branch atorvastati 0 Yes 10mg Take 10 mg Univers n 10 mg 9-10 by mouth ity of tablet 16:17: at [place] [address] bedtime. Medical Branch atorvastati 0 Yes 10mg Take 10 mg Univers n 10 mg 9-10 by mouth ity of tablet 16:17: at [place] [address] bedtime. Medical Branch atorvastati 0 Yes 10mg Take 10 mg Univers n 10 mg 9-10 by mouth ity of tablet 16:17: at [place] [address] bedtime. Medical Branch atorvastati Yes 10mg Take 10 mg Univers n 10 mg 9-10 by mouth ity of tablet 16:17: at [place] [address] bedtime. Medical Branch atorvastati Yes 10mg Take 10 mg Univers n 10 mg 9-10 by mouth ity of tablet 16:17: at [place] [address] bedtime. Medical Branch atorvastati Yes 10mg Take 10 mg Univers n 10 mg 9-10 by mouth ity of tablet 16:17: at [place] [address] bedtime. Medical Branch atorvastati Yes 10mg Take 10 mg Univers n 10 mg 9-10 by mouth ity of tablet 16:17: at [place] [address] bedtime. Medical Branch atorvastati Yes 10mg Take 10 mg Univers n 10 mg 9-10 by mouth ity of tablet 16:17: at [place] [address] bedtime. Medical Branch atorvastati Yes 10mg Take 10 mg Univers n 10 mg 9-10 by mouth ity of tablet 16:17: at [place] [address] bedtime. Medical Branch atorvastati Yes 10mg Take 10 mg Univers n 10 mg 9-10 by mouth ity of tablet 16:17: at [place] [address] bedtime. Medical Branch azithromyci 2020-2021- No 500mg Take 500 Univers n 500 mg 9 03-25 mg by ity of tablet 00:00: 00:00 mouth [place] 00 :00 daily. Medical Branch predniSONE 2020-0 2021- No TAKE 1 Univ ers 10 mg 01-28 03-25 TABLET BY ity of tablet 00:00: 00:00 MOUTH [place] 00 :00 TWICE Medical DAILY FOR Branch 10 DAYS omeprazole 0 Yes 20mg Take 20 mg U nivers 20 mg 7-26 by mouth ity of capsule 00:00: daily. [place] [facility] Branch omeprazole 2021-0 Yes 20mg Take 20 mg U nivers 20 mg 7-26 by mouth ity of capsule 00:00: daily. [place] [facility] Branch omeprazole 2021-0 Yes 20mg Take 20 mg U nivers 20 mg 7-26 by mouth ity of capsule 00:00: daily. [place] [facility] omeprazole 2021-0 Yes 20mg Take 20 mg U nivers 20 mg 7-26 by mouth ity of capsule 00:00: daily. [place] [facility] Branch omeprazole 2021-0 Yes 20mg Take 20 mg U nivers 20 mg 7-26 by mouth ity of capsule 00:00: daily. [place] [facility] omeprazole 2021-0 Yes 20mg Take 20 mg U nivers 20 mg 7-26 by mouth ity of capsule 00:00: daily. [place] [facility] omeprazole 2021-0 Yes 20mg Take 20 mg U nivers 20 mg 7-26 by mouth ity of capsule 00:00: daily. [place] [facility] omeprazole 2021-0 Yes 20mg Take 20 mg U nivers 20 mg 7-26 by mouth ity of capsule 00:00: daily. [place] [facility] omeprazole 2021-0 Yes 20mg Take 20 mg U nivers 20 mg 7-26 by mouth ity of capsule 00:00: daily. [place] [facility] omeprazole 2021-0 Yes 20mg Take 20 mg U nivers 20 mg 7-26 by mouth ity of capsule 00:00: daily. [place] [facility] omeprazole 2021-0 Yes 20mg Take 20 mg U nivers 20 mg 7-26 by mouth ity of capsule 00:00: daily. [place] [facility] omeprazole 2021-0 Yes 20mg Take 20 mg U nivers 20 mg 7-26 by mouth ity of capsule 00:00: daily. [place] [facility] omeprazole 2021-0 Yes 20mg Take 20 mg U nivers 20 mg 7-26 by mouth ity of capsule 00:00: daily. [address] omeprazole 2021-0 Yes 20mg Take 20 mg U nivers 20 mg 7-26 by mouth ity of capsule 00:00: daily. [place] [facility] omeprazole 2021-0 Yes 20mg Take 20 mg U nivers 20 mg 7-26 by mouth ity of capsule 00:00: daily. [place] [facility] omeprazole 2021-0 Yes 20mg Take 20 mg U nivers 20 mg 7-26 by mouth ity of capsule 00:00: daily. [place] [facility] omeprazole 2021-0 Yes 20mg Take 20 mg U nivers 20 mg 7-26 by mouth ity of capsule 00:00: daily. [place] [facility] omeprazole 2021-0 Yes 20mg Take 20 mg U nivers 20 mg 7-26 by mouth ity of capsule 00:00: daily. [place] [facility] omeprazole 2021-0 Yes 20mg Take 20 mg U nivers 20 mg 7-26 by mouth ity of capsule 00:00: daily. [place] [facility] omeprazole 2021-0 Yes 20mg Take 20 mg U nivers 20 mg 7-26 by mouth ity of capsule 00:00: daily. [place] [facility] Branch omeprazole 2021-0 Yes 20mg Take 20 mg U nivers 20 mg 7-26 by mouth ity of capsule 00:00: daily. [place] [facility] omeprazole 2021-0 Yes 20mg Take 1 Unive rs 20 mg 7-26 capsule by ity of capsule 00:00: mouth in [place] the Medical morning. Branch omeprazole 2021-0 Yes 20mg Take 1 Unive rs 20 mg 7-26 capsule by ity of capsule 00:00: mouth in [place] the Medical morning. Branch omeprazole 2021-0 2023- No 20mg Take 1 Univ ers 20 mg 7-26 03-06 capsule by ity of capsule 00:00: 00:00 mouth in [place] 00 :00 the Medical morning. Branch omeprazole 2021-0 2023- No 20mg Take 1 Univ ers 20 mg 7-26 03-06 capsule by ity of capsule 00:00: 00:00 mouth in [place] 00 :00 the Medical morning. Branch omeprazole 2021-0 2023- No 20mg Take 1 Univ ers 20 mg 7-26 03-06 capsule by ity of capsule 00:00: 00:00 mouth in [place] 00 :00 the Medical morning. Branch fluticasone 2019-0 Yes [id number] 2{spray Use 2 [facility] propionate 9-20 } Sprays in ity of 50 00:00: each [place] mcg/actuati 00 nostril Medic al on nasal daily. Branch spray fluticasone 2019-0 Yes [id number] 2{spray Use 2 [facility] propionate 9-20 } Sprays in ity of 50 00:00: each [place] mcg/actuati 00 nostril Medic al on nasal daily. Branch spray fluticasone 2019-0 Yes [id number] 2{spray Use 2 [facility] propionate 9-20 } Sprays in ity of 50 00:00: each [place] mcg/actuati 00 nostril Medic al on nasal daily. Branch spray fluticasone 2018- Yes [id number] 2{spray Use 2 [facility] propionate 9-20 } Sprays in ity of 50 00:00: each [place] mcg/actuati 00 nostril Medic al on nasal daily. Branch spray fluticasone 2018- Yes [id number] 2{spray Use 2 [facility] propionate 9-20 } Sprays in ity of 50 00:00: each [place] mcg/actuati 00 nostril Medic al on nasal daily. Branch spray fluticasone 2018- Yes [id number] 2{spray Use 2 [facility] propionate 9-20 } Sprays in ity of 50 00:00: each [place] mcg/actuati 00 nostril Medic al on nasal daily. Branch spray fluticasone 2018- Yes [id number] 2{spray Use 2 [facility] propionate 9-20 } Sprays in ity of 50 00:00: each [place] mcg/actuati 00 nostril Medic al on nasal daily. Branch spray fluticasone 2018-0 Yes [id number] 2{spray Use 2 [facility] propionate 9-20 } Sprays in ity of 50 00:00: each [place] mcg/actuati 00 nostril Medic al on nasal daily. Branch spray fluticasone 2018- Yes [id number] 2{spray Use 2 [facility] propionate 9-20 } Sprays in ity of 50 00:00: each [place] mcg/actuati 00 nostril Medic al on nasal daily. Branch spray fluticasone 2019-0 Yes [id number] 2{spray Use 2 [facility] propionate 9-20 } Sprays in ity of 50 00:00: each [place] mcg/actuati 00 nostril Medic al on nasal daily. Branch spray fluticasone 2018-0 Yes [id number] 2{spray Use 2 [facility] propionate 9-20 } Sprays in ity of 50 00:00: each [place] mcg/actuati 00 nostril Medic al on nasal daily. Branch spray fluticasone 2019-0 Yes [id number] 2{spray Use 2 [facility] propionate 9-20 } Sprays in ity of 50 00:00: each [place] mcg/actuati 00 nostril Medic al on nasal daily. Branch spray fluticasone 2018-0 Yes [id number] 2{spray Use 2 [facility] propionate 9-20 } Sprays in ity of 50 00:00: each [place] mcg/actuati 00 nostril Medic al on nasal daily. Branch spray fluticasone 2018- Yes [id number] 2{spray Use 2 [facility] propionate 9-20 } Sprays in ity of 50 00:00: each [place] mcg/actuati 00 nostril Medic al on nasal daily. Branch spray fluticasone 2018- Yes [id number] 2{spray Use 2 [facility] propionate 9-20 } Sprays in ity of 50 00:00: each [place] mcg/actuati 00 nostril Medic al on nasal daily. Branch spray fluticasone 2018- Yes [id number] 2{spray Use 2 [facility] propionate 9-20 } Sprays in ity of 50 00:00: each [place] mcg/actuati 00 nostril Medic al on nasal daily. Branch spray fluticasone 2018-0 Yes [id number] 2{spray Use 2 [facility] propionate 9-20 } Sprays in ity of 50 00:00: each [place] mcg/actuati 00 nostril Medic al on nasal daily. Branch spray fluticasone 2019-0 Yes [id number] 2{spray Use 2 [facility] propionate 9-20 } Sprays in ity of 50 00:00: each [place] mcg/actuati 00 nostril Medic al on nasal daily. Branch spray fluticasone 2019-0 Yes [id number] 2{spray Use 2 [facility] propionate 9-20 } Sprays in ity of 50 00:00: each [place] mcg/actuati 00 nostril Medic al on nasal daily. Branch spray fluticasone 2018-0 Yes [id number] 2{spray Use 2 [facility] propionate 9-20 } Sprays in ity of 50 00:00: each [place] mcg/actuati 00 nostril Medic al on nasal daily. Branch spray fluticasone 2018- Yes [id number] 2{spray Use 2 [facility] propionate 9-20 } Sprays in ity of 50 00:00: each [place] mcg/actuati 00 nostril Medic al on nasal daily. Branch spray fluticasone 2018- Yes [id number] 2{spray Use 2 [facility] propionate 9-20 } Sprays in ity of 50 00:00: each [place] mcg/actuati 00 nostril Medic al on nasal daily. Branch spray fluticasone 2018- Yes [id number] 2{spray Use 2 [facility] propionate 9-20 } Sprays in ity of 50 00:00: each [place] mcg/actuati 00 nostril Medic al on nasal daily. Branch spray fluticasone 2018- Yes [id number] 2{spray Use 2 [facility] propionate 9-20 } Sprays in ity of 50 00:00: each [place] mcg/actuati 00 nostril Medic al on nasal daily. Branch spray fluticasone 2018- Yes [id number] 2{spray Use 2 [facility] propionate 9-20 } Sprays in ity of 50 00:00: each [place] mcg/actuati 00 nostril Medic al on nasal daily. Branch spray fluticasone 2018- Yes [id number] 2{spray Use 2 [facility] propionate 9-20 } Sprays in ity of 50 00:00: each [place] mcg/actuati 00 nostril Medic al on nasal daily. Branch spray fluticasone 2018- Yes [id number] 2{spray Use 2 [facility] propionate 9-20 } Sprays in ity of 50 00:00: each [place] mcg/actuati 00 nostril Medic al on nasal daily. Branch spray fluticasone 2018- Yes [id number] 2{spray Use 2 [facility] propionate 9-20 } Sprays in ity of 50 00:00: each [place] mcg/actuati 00 nostril Medic al on nasal daily. Branch spray fluticasone 2018- Yes [id number] 2{spray Use 2 [facility] propionate 9-20 } Sprays in ity of 50 00:00: each [place] mcg/actuati 00 nostril Medic al on nasal daily. Branch spray fluticasone 2018- Yes [id number] 2{spray Use 2 [facility] propionate 9-20 } Sprays in ity of 50 00:00: each [place] mcg/actuati 00 nostril Medic al on nasal daily. Branch spray albuterol 2018- Yes [id number] 2{puff} Inhale 2 [facility] 90 9-06 Puffs ity of mcg/actuati 00:00: every 6 [place] as on inhaler 00 (six) Medical hours as Branch needed for Wheezing. albuterol 2018- Yes [id number] 2{puff} Inhale 2 [facility] 90 9-06 Puffs ity of mcg/actuati 00:00: every 6 [place] as on inhaler 00 (six) Medical hours as Branch needed for Wheezing. albuterol Yes [id number] 2{puff} Inhale 2 [facility] 90 9-06 Puffs ity of mcg/actuati 00:00: every 6 [place] as on inhaler 00 (six) Medical hours as Branch needed for Wheezing. albuterol Yes [id number] 2{puff} Inhale 2 [facility] 90 9-06 Puffs ity of mcg/actuati 00:00: every 6 [place] as on inhaler 00 (six) Medical hours as Branch needed for Wheezing. albuterol Yes [id number] 2{puff} Inhale 2 [facility] 90 9-06 Puffs ity of mcg/actuati 00:00: every 6 [place] as on inhaler 00 (six) Medical hours as Branch needed for Wheezing. albuterol Yes [id number] 2{puff} Inhale 2 [facility] 90 9-06 Puffs ity of mcg/actuati 00:00: every 6 [place] as on inhaler 00 (six) Medical hours as Branch needed for Wheezing. albuterol Yes [id number] 2{puff} Inhale 2 [facility] 90 9-06 Puffs ity of mcg/actuati 00:00: every 6 [place] as on inhaler 00 (six) Medical hours as Branch needed for Wheezing. albuterol Yes [id number] 2{puff} Inhale 2 [facility] 90 9-06 Puffs ity of mcg/actuati 00:00: every 6 [place] as on inhaler 00 (six) Medical hours as Branch needed for Wheezing. albuterol Yes [id number] 2{puff} Inhale 2 [facility] 90 9-06 Puffs ity of mcg/actuati 00:00: every 6 [place] as on inhaler 00 (six) Medical hours as Branch needed for Wheezing. albuterol Yes [id number] 2{puff} Inhale 2 [facility] 90 9-06 Puffs ity of mcg/actuati 00:00: every 6 [place] as on inhaler 00 (six) Medical hours as Branch needed for Wheezing. albuterol Yes [id number] 2{puff} Inhale 2 [facility] 90 9-06 Puffs ity of mcg/actuati 00:00: every 6 [place] as on inhaler 00 (six) Medical hours as Branch needed for Wheezing. albuterol Yes [id number] 2{puff} Inhale 2 [facility] 90 9-06 Puffs ity of mcg/actuati 00:00: every 6 [place] as on inhaler 00 (six) Medical hours as Branch needed for Wheezing. albuterol Yes [id number] 2{puff} Inhale 2 [facility] 90 9-06 Puffs ity of mcg/actuati 00:00: every 6 [place] as on inhaler 00 (six) Medical hours as Branch needed for Wheezing. albuterol Yes [id number] 2{puff} Inhale 2 [facility] 90 9-06 Puffs ity of mcg/actuati 00:00: every 6 [place] as on inhaler 00 (six) Medical hours as Branch needed for Wheezing. albuterol Yes [id number] 2{puff} Inhale 2 [facility] 90 9-06 Puffs ity of mcg/actuati 00:00: every 6 [place] as on inhaler 00 (six) Medical hours as Branch needed for Wheezing. albuterol Yes [id number] 2{puff} Inhale 2 [facility] 90 9-06 Puffs ity of mcg/actuati 00:00: every 6 [place] as on inhaler 00 (six) Medical hours as Branch needed for Wheezing. albuterol Yes [id number] 2{puff} Inhale 2 [facility] 90 9-06 Puffs ity of mcg/actuati 00:00: every 6 [place] as on inhaler 00 (six) Medical hours as Branch needed for Wheezing. albuterol Yes [id number] 2{puff} Inhale 2 [facility] 90 9-06 Puffs ity of mcg/actuati 00:00: every 6 [place] as on inhaler 00 (six) Medical hours as Branch needed for Wheezing. albuterol Yes [id number] 2{puff} Inhale 2 [facility] 90 9-06 Puffs ity of mcg/actuati 00:00: every 6 [place] as on inhaler 00 (six) Medical hours as Branch needed for Wheezing. albuterol Yes [id number] 2{puff} Inhale 2 [facility] 90 9-06 Puffs ity of mcg/actuati 00:00: every 6 [place] as on inhaler 00 (six) Medical hours as Branch needed for Wheezing. albuterol Yes [id number] 2{puff} Inhale 2 [facility] 90 9-06 Puffs ity of mcg/actuati 00:00: every 6 [place] as on inhaler 00 (six) Medical hours as Branch needed for Wheezing. albuterol Yes [id number] 2{puff} Inhale 2 [facility] 90 9-06 Puffs ity of mcg/actuati 00:00: every 6 [place] as on inhaler 00 (six) Medical hours as Branch needed for Wheezing. albuterol Yes [id number] 2{puff} Inhale 2 [facility] 90 9-06 Puffs ity of mcg/actuati 00:00: every 6 [place] as on inhaler 00 (six) Medical hours as Branch needed for Wheezing. albuterol Yes [id number] 2{puff} Inhale 2 [facility] 90 9-06 Puffs ity of mcg/actuati 00:00: every 6 [place] as on inhaler 00 (six) Medical hours as Branch needed for Wheezing. albuterol Yes [id number] 2{puff} Inhale 2 [facility] 90 9-06 Puffs ity of mcg/actuati 00:00: every 6 [place] as on inhaler 00 (six) Medical hours as Branch needed for Wheezing. albuterol Yes [id number] 2{puff} Inhale 2 [facility] 90 9-06 Puffs ity of mcg/actuati 00:00: every 6 [place] as on inhaler 00 (six) Medical hours as Branch needed for Wheezing. albuterol Yes [id number] 2{puff} Inhale 2 [facility] 90 9-06 Puffs ity of mcg/actuati 00:00: every 6 [place] as on inhaler 00 (six) Medical hours as Branch needed for Wheezing. albuterol Yes [id number] 2{puff} Inhale 2 [facility] 90 9-06 Puffs ity of mcg/actuati 00:00: every 6 [place] as on inhaler 00 (six) Medical hours as Branch needed for Wheezing. albuterol Yes [id number] 2{puff} Inhale 2 [facility] 90 9-06 Puffs ity of mcg/actuati 00:00: every 6 [place] as on inhaler 00 (six) Medical hours as Branch needed for Wheezing. albuterol Yes [id number] 2{puff} Inhale 2 [facility] 90 9-06 Puffs ity of mcg/actuati 00:00: every 6 [place] as on inhaler 00 (six) Medical hours as Branch needed for Wheezing. mupirocin 2 202- No [id number] Apply to [facility] % ointment 01-31 03-25 area(s) 3 ity of 00:00: 00:00 (three) [place] 00 :00 times Medical daily. Branch blood sugar Yes [id number] Use as [facility] diagnostic 7-16 directed, ity of (ONETOUCH 00:00: once a day [place] ULTRA BLUE 00 to monitor Med ical TEST STRIP) blood Branch strip glucose for ICD code E11.9 Blood-Gluco Yes [id number] Use as [facility] se Meter 7-16 directed, ity of (ONETOUCH 00:00: once a day [place] ULTRA2 00 to monitor Medical METER) Kit blood Branch glucose for ICD code E11.9 blood sugar Yes [id number] Use as [facility] diagnostic 7-16 directed, ity of (ONETOUCH 00:00: once a day [place] ULTRA BLUE 00 to monitor Med ical TEST STRIP) blood Branch strip glucose for ICD code E11.9 Blood-Gluco Yes [id number] Use as [facility] se Meter 7-16 directed, ity of (ONETOUCH 00:00: once a day [place] ULTRA2 00 to monitor Medical METER) Kit blood Branch glucose for ICD code E11.9 blood sugar Yes [id number] Use as [facility] diagnostic 7-16 directed, ity of (ONETOUCH 00:00: once a day [place] ULTRA BLUE 00 to monitor Med ical TEST STRIP) blood Branch strip glucose for ICD code E11.9 Blood-Gluco 2019- Yes [id number] Use as [facility] se Meter 7-16 directed, ity of (ONETOUCH 00:00: once a day [place] ULTRA2 00 to monitor Medical METER) Kit blood Branch glucose for ICD code E11.9 blood sugar 2019- Yes [id number] Use as [facility] diagnostic 7-16 directed, ity of (ONETOUCH 00:00: once a day [place] ULTRA BLUE 00 to monitor Med ical TEST STRIP) blood Branch strip glucose for ICD code E11.9 Blood-Gluco 2019- Yes [id number] Use as [facility] se Meter -16 directed, ity of (ONETOUCH 00:00: once a day [place] ULTRA2 00 to monitor Medical METER) Kit blood Branch glucose for ICD code E11.9 blood sugar 2018- Yes [id number] Use as [facility] diagnostic 7-16 directed, ity of (ONETOUCH 00:00: once a day [place] ULTRA BLUE 00 to monitor Med ical TEST STRIP) blood Branch strip glucose for ICD code E11.9 Blood-Gluco 2019- Yes [id number] Use as [facility] se Meter -16 directed, ity of (ONETOUCH 00:00: once a day [place] ULTRA2 00 to monitor Medical METER) Kit blood Branch glucose for ICD code E11.9 blood sugar 2018- Yes [id number] Use as [facility] diagnostic -16 directed, ity of (ONETOUCH 00:00: once a day [place] ULTRA BLUE 00 to monitor Med ical TEST STRIP) blood Branch strip glucose for ICD code E11.9 Blood-Gluco 2019- Yes [id number] Use as [facility] se Meter 16 directed, ity of (ONETOUCH 00:00: once a day [place] ULTRA2 00 to monitor Medical METER) Kit blood Branch glucose for ICD code E11.9 blood sugar 2019- Yes [id number] Use as [facility] diagnostic -16 directed, ity of (ONETOUCH 00:00: once a day [place] ULTRA BLUE 00 to monitor Med ical TEST STRIP) blood Branch strip glucose for ICD code E11.9 Blood-Gluco 2019- Yes [id number] Use as [facility] se Meter 7-16 directed, ity of (ONETOUCH 00:00: once a day [place] ULTRA2 00 to monitor Medical METER) Kit blood Branch glucose for ICD code E11.9 blood sugar 2019- Yes [id number] Use as [facility] diagnostic 7-16 directed, ity of (ONETOUCH 00:00: once a day [place] ULTRA BLUE 00 to monitor Med ical TEST STRIP) blood Branch strip glucose for ICD code E11.9 Blood-Gluco 2019- Yes [id number] Use as [facility] se Meter 7-16 directed, ity of (ONETOUCH 00:00: once a day [place] ULTRA2 00 to monitor Medical METER) Kit blood Branch glucose for ICD code E11.9 blood sugar 2019- Yes [id number] Use as [facility] diagnostic 7-16 directed, ity of (ONETOUCH 00:00: once a day [place] ULTRA BLUE 00 to monitor Med ical TEST STRIP) blood Branch strip glucose for ICD code E11.9 Blood-Gluco 2019- Yes [id number] Use as [facility] se Meter -16 directed, ity of (ONETOUCH 00:00: once a day [place] ULTRA2 00 to monitor Medical METER) Kit blood Branch glucose for ICD code E11.9 blood sugar 2019- Yes [id number] Use as [facility] diagnostic 7-16 directed, ity of (ONETOUCH 00:00: once a day [place] ULTRA BLUE 00 to monitor Med ical TEST STRIP) blood Branch strip glucose for ICD code E11.9 Blood-Gluco 2019- Yes [id number] Use as [facility] se Meter 7-16 directed, ity of (ONETOUCH 00:00: once a day [place] ULTRA2 00 to monitor Medical METER) Kit blood Branch glucose for ICD code E11.9 blood sugar 2019- Yes [id number] Use as [facility] diagnostic 7-16 directed, ity of (ONETOUCH 00:00: once a day [place] ULTRA BLUE 00 to monitor Med ical TEST STRIP) blood Branch strip glucose for ICD code E11.9 Blood-Gluco 2019- Yes [id number] Use as [facility] se Meter -16 directed, ity of (ONETOUCH 00:00: once a day [place] ULTRA2 00 to monitor Medical METER) Kit blood Branch glucose for ICD code E11.9 blood sugar 2019- Yes [id number] Use as [facility] diagnostic 7-16 directed, ity of (ONETOUCH 00:00: once a day [place] ULTRA BLUE 00 to monitor Med ical TEST STRIP) blood Branch strip glucose for ICD code E11.9 Blood-Gluco 2019-0 Yes [id number] Use as [facility] se Meter 16 directed, ity of (ONETOUCH 00:00: once a day [place] ULTRA2 00 to monitor Medical METER) Kit blood Branch glucose for ICD code E11.9 blood sugar 2019- Yes [id number] Use as [facility] diagnostic 16 directed, ity of (ONETOUCH 00:00: once a day [place] ULTRA BLUE 00 to monitor Med ical TEST STRIP) blood Branch strip glucose for ICD code E11.9 Blood-Gluco 2019- Yes [id number] Use as [facility] se Meter 12-10 directed, ity of (ONETOUCH 00:00: once a day [place] ULTRA2 00 to monitor Medical METER) Kit blood Branch glucose for ICD code E11.9 blood sugar 2019- Yes [id number] Use as [facility] diagnostic 16 directed, ity of (ONETOUCH 00:00: once a day [place] ULTRA BLUE 00 to monitor Med ical TEST STRIP) blood Branch strip glucose for ICD code E11.9 Blood-Gluco 2019- Yes [id number] Use as [facility] se Meter 16 directed, ity of (ONETOUCH 00:00: once a day [place] ULTRA2 00 to monitor Medical METER) Kit blood Branch glucose for ICD code E11.9 blood sugar 2019-0 Yes [id number] Use as [facility] diagnostic 16 directed, ity of (ONETOUCH 00:00: once a day [place] ULTRA BLUE 00 to monitor Med ical TEST STRIP) blood Branch strip glucose for ICD code E11.9 Blood-Gluco 2019-0 Yes [id number] Use as [facility] se Meter 16 directed, ity of (ONETOUCH 00:00: once a day [place] ULTRA2 00 to monitor Medical METER) Kit blood Branch glucose for ICD code E11.9 blood sugar 2019-0 Yes [id number] Use as [facility] diagnostic 16 directed, ity of (ONETOUCH 00:00: once a day [place] ULTRA BLUE 00 to monitor Med ical TEST STRIP) blood Branch strip glucose for ICD code E11.9 Blood-Gluco 2019-0 Yes [id number] Use as [facility] se Meter -16 directed, ity of (ONETOUCH 00:00: once a day [place] ULTRA2 00 to monitor Medical METER) Kit blood Branch glucose for ICD code E11.9 blood sugar 2019- Yes [id number] Use as [facility] diagnostic -16 directed, ity of (ONETOUCH 00:00: once a day [place] ULTRA BLUE 00 to monitor Med ical TEST STRIP) blood Branch strip glucose for ICD code E11.9 Blood-Gluco 2019- Yes [id number] Use as [facility] se Meter 16 directed, ity of (ONETOUCH 00:00: once a day [place] ULTRA2 00 to monitor Medical METER) Kit blood Branch glucose for ICD code E11.9 blood sugar 2018- Yes [id number] Use as [facility] diagnostic 16 directed, ity of (ONETOUCH 00:00: once a day [place] ULTRA BLUE 00 to monitor Med ical TEST STRIP) blood Branch strip glucose for ICD code E11.9 Blood-Gluco 2019- Yes [id number] Use as [facility] se Meter 16 directed, ity of (ONETOUCH 00:00: once a day [place] ULTRA2 00 to monitor Medical METER) Kit blood Branch glucose for ICD code E11.9 blood sugar 2018- Yes [id number] Use as [facility] diagnostic 16 directed, ity of (ONETOUCH 00:00: once a day [place] ULTRA BLUE 00 to monitor Med ical TEST STRIP) blood Branch strip glucose for ICD code E11.9 Blood-Gluco 2019- Yes [id number] Use as [facility] se Meter 16 directed, ity of (ONETOUCH 00:00: once a day [place] ULTRA2 00 to monitor Medical METER) Kit blood Branch glucose for ICD code E11.9 blood sugar 2018- Yes [id number] Use as [facility] diagnostic -16 directed, ity of (ONETOUCH 00:00: once a day [place] ULTRA BLUE 00 to monitor Med ical TEST STRIP) blood Branch strip glucose for ICD code E11.9 Blood-Gluco 2019- Yes [id number] Use as [facility] se Meter 16 directed, ity of (ONETOUCH 00:00: once a day [place] ULTRA2 00 to monitor Medical METER) Kit blood Branch glucose for ICD code E11.9 blood sugar 2019- Yes [id number] Use as [facility] diagnostic 7-16 directed, ity of (ONETOUCH 00:00: once a day [place] ULTRA BLUE 00 to monitor Med ical TEST STRIP) blood Branch strip glucose for ICD code E11.9 Blood-Gluco 2019- Yes [id number] Use as [facility] se Meter 7-16 directed, ity of (ONETOUCH 00:00: once a day [place] ULTRA2 00 to monitor Medical METER) Kit blood Branch glucose for ICD code E11.9 blood sugar 2018- Yes [id number] Use as [facility] diagnostic 7-16 directed, ity of (ONETOUCH 00:00: once a day [place] ULTRA BLUE 00 to monitor Med ical TEST STRIP) blood Branch strip glucose for ICD code E11.9 Blood-Gluco 2019- Yes [id number] Use as [facility] se Meter 7-16 directed, ity of (ONETOUCH 00:00: once a day [place] ULTRA2 00 to monitor Medical METER) Kit blood Branch glucose for ICD code E11.9 blood sugar 2018- Yes [id number] Use as [facility] diagnostic 7-16 directed, ity of (ONETOUCH 00:00: once a day [place] ULTRA BLUE 00 to monitor Med ical TEST STRIP) blood Branch strip glucose for ICD code E11.9 Blood-Gluco 2019- Yes [id number] Use as [facility] se Meter -16 directed, ity of (ONETOUCH 00:00: once a day [place] ULTRA2 00 to monitor Medical METER) Kit blood Branch glucose for ICD code E11.9 Blood-Gluco 2019- Yes [id number] Use as [facility] se Meter 7-16 directed, ity of (ONETOUCH 00:00: once a day [place] ULTRA2 00 to monitor Medical METER) Kit blood Branch glucose for ICD code E11.9 Blood-Gluco 2019- Yes [id number] Use as [facility] se Meter 7-16 directed, ity of (ONETOUCH 00:00: once a day [place] ULTRA2 00 to monitor Medical METER) Kit blood Branch glucose for ICD code E11.9 Blood-Gluco 2019- Yes [id number] Use as [facility] se Meter 7-16 directed, ity of (ONETOUCH 00:00: once a day [place] ULTRA2 00 to monitor Medical METER) Kit blood Branch glucose for ICD code E11.9 Blood-Gluco 2019-0 Yes [id number] Use as [facility] se Meter 12-10 directed, ity of (ONETOUCH 00:00: once a day [place] ULTRA2 00 to monitor Medical METER) Kit blood Branch glucose for ICD code E11.9 Blood-Gluco 2019-0 Yes [id number] Use as [facility] se Meter 12-10 directed, ity of (ONETOUCH 00:00: once a day [place] ULTRA2 00 to monitor Medical METER) Kit blood Branch glucose for ICD code E11.9 Blood-Gluco 2019- Yes [id number] Use as [facility] se Meter 12-10 directed, ity of (ONETOUCH 00:00: once a day [place] ULTRA2 00 to monitor Medical METER) Kit blood Branch glucose for ICD code E11.9 Blood-Gluco 2019- Yes [id number] Use as [facility] se Meter 12-10 directed, ity of (ONETOUCH 00:00: once a day [place] ULTRA2 00 to monitor Medical METER) Kit blood Branch glucose for ICD code E11.9 blood sugar 2019-0 2023- No [id number] Use as [facility] diagnostic 12-10 directed, ity of (ONETOUCH 00:00: 00:00 once a day [place] ULTRA BLUE 00 :00 to monitor Med ical TEST STRIP) blood Branch strip glucose for ICD code E11.9 blood sugar 2019-0 2023- No [id number] Use as [facility] diagnostic 12-10 directed, ity of (ONETOUCH 00:00: 00:00 once a day [place] ULTRA BLUE 00 :00 to monitor Med ical TEST STRIP) blood Branch strip glucose for ICD code E11.9 blood sugar 2019-0 2023- No [id number] Use as [facility] diagnostic 12-10 directed, ity of (ONETOUCH 00:00: 00:00 once a day [place] ULTRA BLUE 00 :00 to monitor Med ical TEST STRIP) blood Branch strip glucose for ICD code E11.9 lancets 2019-0 Yes [id number] Use as [facility] vers (ONETOUCH 7 directed, ity o f DELICA 00:00: once a day [place] LANCETS) 30 00 and prn to Me dical gauge Misc monitor Branch blood glucose for ICD code E11.9 lancets 2019-0 Yes [id number] Use as [facility] vers (ONETOUCH 7-02 directed, ity o f DELICA 00:00: once a day [place] LANCETS) 30 00 and prn to Me dical gauge Misc monitor Branch blood glucose for ICD code E11.9 lancets 2019-0 Yes [id number] Use as [facility] vers (ONETOUCH 7-02 directed, ity o f DELICA 00:00: once a day [place] LANCETS) 30 00 and prn to Me dical gauge Misc monitor Branch blood glucose for ICD code E11.9 lancets 2019-0 Yes [id number] Use as [facility] vers (ONETOUCH 7-02 directed, ity o f DELICA 00:00: once a day [place] LANCETS) 30 and prn to Me dical gauge Misc monitor Branch blood glucose for ICD code E11.9 lancets 2019-0 Yes [id number] Use as [facility] vers (ONETOUCH 7-02 directed, ity o f DELICA 00:00: once a day [place] LANCETS) 30 and prn to Me dical gauge Misc monitor Branch blood glucose for ICD code E11.9 lancets 2019-0 Yes [id number] Use as [facility] vers (ONETOUCH 7-02 directed, ity o f DELICA 00:00: once a day [place] LANCETS) 30 and prn to Me dical gauge Misc monitor Branch blood glucose for ICD code E11.9 lancets 2019-0 Yes [id number] Use as [facility] vers (ONETOUCH 7-02 directed, ity o f DELICA 00:00: once a day [place] LANCETS) 30 and prn to Me dical gauge Misc monitor Branch blood glucose for ICD code E11.9 lancets 2019-0 Yes [id number] Use as [facility] vers (ONETOUCH 7-02 directed, ity o f DELICA 00:00: once a day [place] LANCETS) 30 00 and prn to Me dical gauge Misc monitor Branch blood glucose for ICD code E11.9 lancets 2019-0 Yes [id number] Use as [facility] vers (ONETOUCH 7-02 directed, ity o f DELICA 00:00: once a day [place] LANCETS) 30 00 and prn to Me dical gauge Misc monitor Branch blood glucose for ICD code E11.9 lancets 2019-0 Yes [id number] Use as [facility] vers (ONETOUCH 7-02 directed, ity o f DELICA 00:00: once a day [place] LANCETS) 30 00 and prn to Me dical gauge Misc monitor Branch blood glucose for ICD code E11.9 lancets 2019-0 Yes [id number] Use as [facility] vers (ONETOUCH 7-02 directed, ity o f DELICA 00:00: once a day [place] LANCETS) 30 00 and prn to Me dical gauge Misc monitor Branch blood glucose for ICD code E11.9 lancets 2019-0 Yes [id number] Use as [facility] vers (ONETOUCH 7-02 directed, ity o f DELICA 00:00: once a day [place] LANCETS) 30 00 and prn to Me dical gauge Misc monitor Branch blood glucose for ICD code E11.9 lancets 2019-0 Yes [id number] Use as [facility] vers (ONETOUCH 7-02 directed, ity o f DELICA 00:00: once a day [place] LANCETS) 30 00 and prn to Me dical gauge Misc monitor Branch blood glucose for ICD code E11.9 lancets 2019-0 Yes [id number] Use as Uni vers (ONETOUCH 7-02 directed, ity o f DELICA 00:00: once a day [place] LANCETS) 30 00 and prn to Me dical gauge Misc monitor Branch blood glucose for ICD code E11.9 lancets 2019-0 Yes [id number] Use as Uni vers (ONETOUCH 7-02 directed, ity o f DELICA 00:00: once a day [place] LANCETS) 30 00 and prn to Me dical gauge Misc monitor Branch blood glucose for ICD code E11.9 lancets 2019-0 Yes [id number] Use as Uni vers (ONETOUCH 7-02 directed, ity o f DELICA 00:00: once a day [place] LANCETS) 30 00 and prn to Me dical gauge Misc monitor Branch blood glucose for ICD code E11.9 lancets 2019-0 Yes [id number] Use as Uni vers (ONETOUCH 7-02 directed, ity o f DELICA 00:00: once a day [place] LANCETS) 30 00 and prn to Me dical gauge Misc monitor Branch blood glucose for ICD code E11.9 lancets 2019-0 Yes [id number] Use as Uni vers (ONETOUCH 7-02 directed, ity o f DELICA 00:00: once a day [place] LANCETS) 30 00 and prn to Me dical gauge Misc monitor Branch blood glucose for ICD code E11.9 lancets 2019-0 Yes [id number] Use as Uni vers (ONETOUCH 7-02 directed, ity o f DELICA 00:00: once a day [place] LANCETS) 30 00 and prn to Me dical gauge Misc monitor Branch blood glucose for ICD code E11.9 lancets 2019-0 Yes [id number] Use as Uni vers (ONETOUCH 7-02 directed, ity o f DELICA 00:00: once a day [place] LANCETS) 30 and prn to Me dical gauge Misc monitor Branch blood glucose for ICD code E11.9 lancets 2019-0 Yes [id number] Use as Uni vers (ONETOUCH 7-02 directed, ity o f DELICA 00:00: once a day [place] LANCETS) 30 and prn to Me dical gauge Misc monitor Branch blood glucose for ICD code E11.9 lancets 2019-0 Yes [id number] Use as Uni vers (ONETOUCH 7-02 directed, ity o f DELICA 00:00: once a day [place] LANCETS) 30 00 and prn to Me dical gauge Misc monitor Branch blood glucose for ICD code E11.9 lancets 2019-0 Yes [id number] Use as Uni vers (ONETOUCH 7-02 directed, ity o f DELICA 00:00: once a day [place] LANCETS) 30 00 and prn to Me dical gauge Misc monitor Branch blood glucose for ICD code E11.9 lancets 2019-0 Yes [id number] Use as Uni vers (ONETOUCH 7-02 directed, ity o f DELICA 00:00: once a day [place] LANCETS) 30 00 and prn to Me dical gauge Misc monitor Branch blood glucose for ICD code E11.9 lancets 2019-0 Yes [id number] Use as Uni vers (ONETOUCH 7-02 directed, ity o f DELICA 00:00: once a day [place] LANCETS) 30 00 and prn to Me dical gauge Misc monitor Branch blood glucose for ICD code E11.9 lancets 2019-0 Yes [id number] Use as Uni vers (ONETOUCH 7-02 directed, ity o f DELICA 00:00: once a day [place] LANCETS) 30 00 and prn to Me dical gauge Misc monitor Branch blood glucose for ICD code E11.9 lancets 2019-0 Yes [id number] Use as Uni vers (ONETOUCH 7-02 directed, ity o f DELICA 00:00: once a day [place] LANCETS) 30 00 and prn to Me dical gauge Misc monitor Branch blood glucose for ICD code E11.9 lancets 2019-0 Yes [id number] Use as Uni vers (ONETOUCH 7-02 directed, ity o f DELICA 00:00: once a day [place] LANCETS) 30 00 and prn to Me dical gauge Misc monitor Branch blood glucose for ICD code E11.9 lancets 2019-0 Yes [id number] Use as Uni vers (ONETOUCH 7-02 directed, ity o f DELICA 00:00: once a day [place] LANCETS) 30 00 and prn to Me dical gauge Misc monitor Branch blood glucose for ICD code E11.9 lancets 2019-0 Yes [id number] Use as Uni vers (ONETOUCH 7-02 directed, ity o f DELICA 00:00: once a day [place] LANCETS) 30 00 and prn to Me dical gauge Misc monitor Branch blood glucose for ICD code E11.9 Immunizations Ordered Filled Immunization Date Status Comments [facility] e Immunization Name Name Influenza Virus 2022-07-07 Completed Universit y of Vaccine,quad 00:00:00 [place] [facility] 65+ Influenza Virus 2022-07-07 Completed Universit y of Vaccine,quad 00:00:00 [place] [facility] 65+ Influenza Virus 2022-07-07 Completed Universit y of Vaccine,quad 00:00:00 [place] [facility] 65+ Influenza Virus 2022-07-07 Completed Universit y of Vaccine,quad 00:00:00 [place] [facility] 65+ Influenza Virus 2022-07-07 Completed Universit y of Vaccine,quad 00:00:00 [place] [facility] 65+ Influenza Virus 2022-07-07 Completed Universit y of Vaccine,quad 00:00:00 [place] [facility] 65+ Influenza Virus 2022-07-07 Completed Universit y of Vaccine,quad 00:00:00 [place] [facility] 65+ Influenza Virus 2022-07-07 Completed Universit y of Vaccine,quad 00:00:00 [place] [facility] 65+ Influenza Virus 2022-07-07 Completed Universit y of Vaccine,quad 00:00:00 [place] [facility] 65+ Influenza Virus 2022-07-07 Completed Universit y of Vaccine,quad 00:00:00 [place] [facility] 65+ Influenza Virus 2022-07-07 Completed Universit y of Vaccine,quad 00:00:00 [place] [facility] 65+ Influenza Virus 2022-07-07 Completed Universit y of Vaccine,quad 00:00:00 [place] [facility] 65+ Influenza Virus 2022-07-07 Completed Universit y of Vaccine,quad 00:00:00 [place] [facility] 65+ Influenza Virus 2022-07-07 Completed Universit y of Vaccine,quad 00:00:00 [place] [facility] 65+ Influenza Virus 2022-07-07 Completed Universit y of Vaccine,quad 00:00:00 [place] [facility] Free Branch 65+ SARS-COV-2 COVID-19 2020-12-25 Completed Unive rsity of OCTAVIO/J&J VACCINE 00:00:[address] [facility] SARS-COV-2 COVID-19 2020-12-25 Completed Unive rsity of OCTAVIO/J&J VACCINE 00:00:[address] [facility] SARS-COV-2 COVID-19 2020-12-25 Completed Unive rsity of OCTAVIO/J&J VACCINE 00:00:[address] [facility] SARS-COV-2 COVID-19 2020-12-25 Completed Unive rsity of OCTAVIO/J&J VACCINE 00:00:[address] [facility] SARS-COV-2 COVID-19 2020-12-25 Completed Unive rsity of OCTAVIO/J&J VACCINE 00:00:[address] [facility] SARS-COV-2 COVID-19 2020-12-25 Completed Unive rsity of OCTAVIO/J&J VACCINE 00:00:[address] [facility] SARS-COV-2 COVID-19 2020-12-25 Completed Unive rsity of OCTAVIO/J&J VACCINE 00:00:[address] [facility] SARS-COV-2 COVID-19 2020-12-25 Completed Unive rsity of OCTAVIO/J&J VACCINE 00:00:[address] [facility] SARS-COV-2 COVID-19 2020-12-25 Completed Unive rsity of OCTAVIO/J&J VACCINE 00:00:[address] [facility] SARS-COV-2 COVID-19 2020-12-25 Completed Unive rsity of OCTAVIO/J&J VACCINE 00:00:[address] [facility] SARS-COV-2 COVID-19 2020-12-25 Completed Unive rsity of OCTAVIO/J&J VACCINE 00:00:[address] [facility] SARS-COV-2 COVID-19 2020-12-25 Completed Unive rsity of OCTAVIO/J&J VACCINE 00:00:[address] [facility] SARS-COV-2 COVID-19 2020-12-25 Completed Unive rsity of OCTAVIO/J&J VACCINE 00:00:[address] [facility] SARS-COV-2 COVID-19 2020-12-25 Completed Unive rsity of OCTAVIO/J&J VACCINE 00:00:[address] [facility] SARS-COV-2 COVID-19 2020-12-25 Completed Unive rsity of OCTAVIO/J&J VACCINE 00:00:[address] [facility] SARS-COV-2 COVID-19 2020-12-25 Completed Unive rsity of OCTAVIO/J&J VACCINE 00:00:[address] [facility] SARS-COV-2 COVID-19 2020-12-25 Completed Unive rsity of OCTAVIO/J&J VACCINE 00:00:[address] [facility] SARS-COV-2 COVID-19 2020-12-25 Completed Unive rsity of OCTAVIO/J&J VACCINE 00:00:[address] [facility] SARS-COV-2 COVID-19 2020-12-25 Completed Unive rsity of OCTAVIO/J&J VACCINE 00:00:[address] [facility] SARS-COV-2 COVID-19 2020-12-25 Completed Unive rsity of OCTAVIO/J&J VACCINE 00:00:[address] [facility] SARS-COV-2 COVID-19 2020-12-25 Completed Unive rsity of OCTAVIO/J&J VACCINE 00:00:[address] [facility] SARS-COV-2 COVID-19 2020-12-25 Completed Unive rsity of OCTAVIO/J&J VACCINE 00:00:[address] [facility] SARS-COV-2 COVID-19 2020-12-25 Completed Unive rsity of OCTAVIO/J&J VACCINE 00:00:[address] [facility] SARS-COV-2 COVID-19 2020-12-25 Completed Unive rsity of OCTAVIO/J&J VACCINE 00:00:[address] [facility] SARS-COV-2 COVID-19 2020-12-25 Completed Unive rsity of OCTAVIO/J&J VACCINE 00:00:[address] [facility] SARS-COV-2 COVID-19 2020-12-25 Completed Unive rsity of OCTAVIO/J&J VACCINE 00:00:[address] [facility] SARS-COV-2 COVID-19 2020-12-25 Completed Unive rsity of OCTAVIO/J&J VACCINE 00:00:[address] [facility] SARS-COV-2 COVID-19 2020-12-25 Completed Unive rsity of OCTAVIO/J&J VACCINE 00:00:[address] [facility] SARS-COV-2 COVID-19 2020-12-25 Completed Unive rsity of OCTAVIO/J&J VACCINE 00:00:[address] [facility] SARS-COV-2 COVID-19 2020-12-25 Completed Unive rsity of OCTAVIO/J&J VACCINE 00:00:[address] [facility] Influenza Virus 2017-03-05 Completed Universit y of Vaccine Quad IM 3+ 00:00:00 [facility] TDAP 2017-03-05 Completed University of 00:00:[address] [facility] Influenza Virus 2017-03-05 Completed Universit y of Vaccine Quad IM 3+ 00:00:00 [facility] TDAP 2017-03-05 Completed University of 00:00:[address] [facility] Influenza Virus 2017-03-05 Completed Universit y of Vaccine Quad IM 3+ 00:00:00 [facility] TDAP 2017-03-05 Completed University of 00:00:[address] [facility] Influenza Virus 2017-03-05 Completed Universit y of Vaccine Quad IM 3+ 00:00:00 [facility] TDAP 2017-03-05 Completed University of 00:00:[address] [facility] Influenza Virus 2017-03-05 Completed Universit y of Vaccine Quad IM 3+ 00:00:00 [facility] TDAP 2017-03-05 Completed University of 00:00:[address] [facility] Influenza Virus 2017-03-05 Completed Universit y of Vaccine Quad IM 3+ 00:00:00 [facility] TDAP 2017-03-05 Completed University of 00:00:[address] [facility] Influenza Virus 2017-03-05 Completed Universit y of Vaccine Quad IM 3+ 00:00:00 [facility] TDAP 2017-03-05 Completed University of 00:00:[address] [facility] Influenza Virus 2017-03-05 Completed Universit y of Vaccine Quad IM 3+ 00:00:00 [facility] TDAP 2017-03-05 Completed University of 00:00:[address] [facility] Influenza Virus 2017-03-05 Completed Universit y of Vaccine Quad IM 3+ 00:00:00 [facility] TDAP 2017-03-05 Completed University of 00:00:[address] [facility] Influenza Virus 2017-03-05 Completed Universit y of Vaccine Quad IM 3+ 00:00:00 [facility] TDAP 2017-03-05 Completed University of 00:00:[address] [facility] Influenza Virus 2017-03-05 Completed Universit y of Vaccine Quad IM 3+ 00:00:00 [facility] TDAP 2017-03-05 Completed University of 00:00:[address] [facility] Influenza Virus 2017-03-05 Completed Universit y of Vaccine Quad IM 3+ 00:00:00 [facility] TDAP 2017-03-05 Completed University of 00:00:[address] [facility] Influenza Virus 2017-03-05 Completed Universit y of Vaccine Quad IM 3+ 00:00:00 [facility] TDAP 2017-03-05 Completed University of 00:00:[address] [facility] Influenza Virus 2017-03-05 Completed Universit y of Vaccine Quad IM 3+ 00:00:00 [facility] TDAP 2017-03-05 Completed University of 00:00:[address] [facility] Influenza Virus 2017-03-05 Completed Universit y of Vaccine Quad IM 3+ 00:00:00 [facility] TDAP 2017-03-05 Completed University of 00:00:[address] [facility] Influenza Virus 2017-03-05 Completed Universit y of Vaccine Quad IM 3+ 00:00:00 [facility] TDAP 2017-03-05 Completed University of 00:00:[address] [facility] Influenza Virus 2017-03-05 Completed Universit y of Vaccine Quad IM 3+ 00:00:00 [facility] TDAP 2017-03-05 Completed University of 00:00:[address] [facility] Influenza Virus 2017-03-05 Completed Universit y of Vaccine Quad IM 3+ 00:00:00 [facility] TDAP 2017-03-05 Completed University of 00:00:[address] [facility] Influenza Virus 2017-03-05 Completed Universit y of Vaccine Quad IM 3+ 00:00:00 [facility] TDAP 2017-03-05 Completed University of 00:00:[address] [facility] Influenza Virus 2017-03-05 Completed Universit y of Vaccine Quad IM 3+ 00:00:00 [facility] TDAP 2017-03-05 Completed University of 00:00:[address] [facility] Influenza Virus 2017-03-05 Completed Universit y of Vaccine Quad IM 3+ 00:00:00 [facility] TDAP 2017-03-05 Completed University of 00:00:[address] [facility] Influenza Virus 2017-03-05 Completed Universit y of Vaccine Quad IM 3+ 00:00:00 [facility] TDAP 2017-03-05 Completed University of 00:00:[address] [facility] Influenza Virus 2017-03-05 Completed Universit y of Vaccine Quad IM 3+ 00:00:00 [facility] TDAP 2017-03-05 Completed University of 00:00:[address] [facility] Influenza Virus 2017-03-05 Completed Universit y of Vaccine Quad IM 3+ 00:00:00 [facility] TDAP 2017-03-05 Completed University of 00:00:[address] [facility] Influenza Virus 2017-03-05 Completed Universit y of Vaccine Quad IM 3+ 00:00:00 [facility] TDAP 2017-03-05 Completed University of 00:00:[address] [facility] Influenza Virus 2017-03-05 Completed Universit y of Vaccine Quad IM 3+ 00:00:00 [facility] TDAP 2017-03-05 Completed University of 00:00:[address] [facility] Influenza Virus 2017-03-05 Completed Universit y of Vaccine Quad IM 3+ 00:00:00 [facility] Branch TDAP 2017-03-05 Completed University of 00:00:[address] [facility] Influenza Virus 2017-03-05 Completed Universit y of Vaccine Quad IM 3+ 00:00:00 [facility] Branch TDAP 2017-03-05 Completed University of 00:00:[address] [facility] Influenza Virus 2017-03-05 Completed Universit y of Vaccine Quad IM 3+ 00:00:00 [facility] Branch TDAP 2017-03-05 Completed University of 00:00:[address] [facility] Influenza Virus 2017-03-05 Completed Universit y of Vaccine Quad IM 3+ 00:00:00 [facility] TDAP 2017-03-05 Completed University of 00:00:[address] [facility] Vital Signs Vital Name Observation Time Observation Value Comments Source Heart rate 2022-07-31 23:45:00 95 /min Universi ty [facility] Respiratory rate 2022-07-31 23:45:00 17 /min [facility] O[facility] saturation in 2022-07-31 23:45:00 95 /min [facility] Arterial blood by [facility] Pulse oximetry Branch Systolic blood 2022-07-31 23:30:00 135 mm[Hg] Univer sity of pressure [facility] Diastolic blood 2022-07-31 23:30:00 79 mm[Hg] Unive rsity of [facility] Body temperature 2022-07-31 22:38:00 36.06 [place] [facility] Body height 2022-07-31 16:19:00 162.6 cm [facility] Body weight 2022-07-31 16:19:00 97 kg [facility] BMI 2022-07-31 16:19:00 36.71 kg/m2 Universi [facility] Systolic blood 2022-07-31 22:48:00 108 mm[Hg] Univer sity of pressure [facility] Diastolic blood 2022-07-31 22:48:00 54 mm[Hg] Unive rsity of pressure [facility] Heart rate 2022-07-31 22:48:00 86 /min [facility] Respiratory rate 2022-07-31 22:48:00 17 /min Univ ers[facility] Oxygen saturation in 2022-07-31 22:48:00 95 /min University of Arterial blood by [facility] Pulse oximetry Branch Body temperature 2022-07-31 22:38:00 36.06 [place] Univ ersity of [facility] Body height 2022-07-31 16:19:00 162.6 cm Universi ty [facility] Body weight 2022-07-31 16:19:00 97 kg [facility]i ty [facility] BMI 2022-07-31 16:19:00 36.71 kg/m2 [facility] Body weight 2022-07-25 12:32:00 92.1 kg [facility]i ty [facility] BMI 2022-07-25 12:32:00 34.85 kg/m2 [facility]i ty [facility] Systolic blood 2022-07-07 15:09:00 105 mm[Hg] Univer sity of pressure [facility] Diastolic blood 2022-07-07 15:09:00 72 mm[Hg] Unive rsity of pressure [facility] Heart rate 2022-07-07 15:09:00 98 /min Universi ty [facility] Body height 2022-07-07 15:09:00 162.6 cm [facility] Body weight 2022-07-07 15:09:00 92.08 kg [facility] BMI 2022-07-07 15:09:00 34.84 kg/m2 [facility] Oxygen saturation in 2022-07-07 15:09:00 97 /min University of Arterial blood by [facility] Pulse oximetry Branch Systolic blood 2022-06-19 15:13:00 139 mm[Hg] Univer sity of pressure [facility] Diastolic blood 2022-06-19 15:13:00 91 mm[Hg] Unive rsity of pressure [facility] Heart rate 2022-06-19 15:03:00 118 /min [facility]i ty [facility] Body height 2022-06-19 15:03:00 162.6 cm [facility] Body weight 2022-06-19 15:03:00 92.171 kg [facility]i [facility] BMI 2022-06-19 15:03:00 34.88 kg/m2 [facility]i ty [facility] Oxygen saturation in 2022-06-19 15:03:00 97 /min University of Arterial blood by [place] [employer] [facility] Pulse oximetry Branch Systolic blood 2022-02-11 21:03:00 133 mm[Hg] Univer sity of pressure [facility] Diastolic blood 2022-02-11 21:03:00 80 mm[Hg] Unive rsity of pressure [facility] Heart rate 2022-02-11 21:03:00 91 /min [facility]i ty [facility] Body temperature 2022-02-11 21:03:00 36.83 [place] Univ ersity [facility] Respiratory rate 2022-02-11 21:03:00 20 /min Univ ersity [facility] Body height 2022-02-11 21:03:00 162.6 cm [facility] Body weight 2022-02-11 21:03:00 87.635 kg [facility] BMI 2022-02-11 21:03:00 33.16 kg/m2 Universi ty [facility] [place] [facility] Oxygen saturation in 2022-02-11 21:03:00 95 /min University of Arterial blood by [place] [employer] [facility] Pulse oximetry Branch Systolic blood 2021-08-19 16:04:00 158 mm[Hg] Univer sity of pressure [facility] Diastolic blood 2021-08-19 16:04:00 95 mm[Hg] Unive rsity of pressure [facility] Heart rate 2021-08-19 16:03:00 74 /min [facility]i ty [facility] Body temperature 2021-08-19 16:03:00 36.83 [place] Univ ersity [facility] Body height 2021-08-19 16:03:00 162.6 cm [facility] Body weight 2021-08-19 16:03:00 90.901 kg [facility] BMI 2021-08-19 16:03:00 34.40 kg/m2 [facility] Oxygen saturation in 2021-08-19 16:03:00 99 /min University of Arterial blood by [place] [employer] [facility] Pulse oximetry Branch Procedures Procedure Date / Time Performing Clinician Source Performed PHYSICIAN ORDERS 2022-08-17 05:01:00 [facility] Unassigned, [facility] EXTERNAL PROVIDER 2022-08-01 06:01:00 Doctor Unassigned, No [facility] Name Medical Branch XR LUMBAR SPINE 1 VW 2022-07-31 22:53:16 Linh Guevara [facility] Medical [place] XR LUMBAR SPINE 1 VW 2022-07-31 22:53:16 Linh Guevara [facility] POSTERIOR LAMINECTOMY 2022-07-31 19:32:00 [facility]ING 2022-07-31 16:45:00 Heriberto [facility] HB ABO GROUPING 2022-07-31 16:45:00 Heriberto [facility] POCT GLUCOSE (AUTOMATED) 2022-07-31 16:11:00 [facility] GLUCOSE (AUTOMATED) 2022-07-31 16:11:00 Linh Guevara [facility] ASSIGNMENT OF BENEFITS 2022-07-31 13:59:44 Doctor Unassigned, No [facility] Medical Branch EXTERNAL PROVIDER 2022-07-25 06:01:00 Doctor Unassigned, No Univ [facility] Name Medical Branch [facility] PATIENT FINANCIAL 2022-07-24 13:57:41 Doctor Unassigned, No [facility] POLICY Name Medical Branch FLU 2022-07-07 15:15:17 Zac Art [facility] VACC([id number]),65+YR,0. Medical Branch 5 ML,IM,ADJUVANTED,QUAD([place] UAD) AUTHORIZATION FOR 2022-07-07 06:01:00 Doctor Unassigned, No [facility] RELEASE OF PHI Name Medical Branch MR LUMBAR SPINE WO 2022-07-04 21:07:09 Zac Art [facility] CONTRAST Medical Branch CONSENT/REFUSAL FOR 2022-07-04 19:55:00 Doctor Unassigned, No [facility] Name Medical Branch EXTERNAL PROVIDER 2022-06-15 06:01:00 Doctor Unassigned, No [facility] REC[facility] Name Medical Branch REFERRAL- 2022-05-23 06:01:00 Doctor Unassigned, No Univer [facility] REQUEST/RESPONSE Name [facility] CONSENT/REFUSAL FOR 2022-02-11 20:45:20 Doctor Unassigned, No [facility] Name [facility] Encounters Start End Encounter Admission Attending Care Care Encounter Source Date/Time Date/Time Type Type Clinicians Facility Department ID 2021-04-01 Inpatient [facility] [id number] [facility] 17:07:00 09 2022-09-06 2022-09-06 Outpatient Bianca DAVENPORT ORPATRICIA [facility] [id number] Univers 09:30:00 09:30:[address] [facility] 2022-09-05 2022-09-05 Telephone Ethel [facility] [id number] Univers 00:00:00 00:00:00 Emily A HEALTH [id number] i ty of [place] [id number] [place] as BALJINDER?BLEA [id number] [place] de[place] [address] MEDICAL OFFICE BUILDING 2022-08-17 2022-08-17 Orders Doctor MAYRA [id number] Univers 00:00:00 00:00:00 Only Unassigned, VAISHALI [id number] ity of [facility] [id number] [place] as [phone] [address] 2022-08-09 2022-08-09 Telephone Linh Guevara [facility] [id number] Univers 00:00:00 00:00:00 HEALTH [id number] [id number] [id number] [place] [address] Branch OFFICE BUILDING 2022-08-01 2022-08-01 Orders Doctor MAYRA [id number] Univers 00:00:00 00:00:00 Only Unassigned, VAISHALI [id number] ity of [facility] [id number] [place] [id number] [address] 2022-07-31 2022-07-31 Outpatient R LINH GUEVARA [facility] [id number] Univers 07:59:00 18:00:[address] [facility] 2022-07-31 2022-07-31 Hospital Linh Guevara [facility] [id number] Univers 07:59:00 18:00:00 Encounter HEALTH [id number] [id number] [id number] [facility] 049 Branch ([facility]) 2022-07-31 2022-07-31 [facility] [id number] Univers 13:24:00 16:55:00 HEALTH [id number] [id number] [id number] [facility] 020 Branch ([facility]) 2022-07-31 2022-07-31 Orders Doctor MAYRA [id number] Univers 00:00:00 00:00:00 Only Unassigned, VAISHALI [id number] ity of [place] [facility] 4.2.7.2.686 Pernell as [phone] [facility] [address] 2022-07-30 2022-07-30 Telephone Linh Guevara [facility] 1.2.840.114 [id number] Univers 00:00:00 00:00:00 HEALTH 350.1.13.10 it y of [place] [phone] [facility] [address] OFFICE BUILDING 2022-07-25 2022-07-25 Pre-Anesth Call, [facility] 1.2.840.114 1 [id number] Univers 07:00:00 07:05:00 esia Apa Phone HEALTH 350.1.13.10 ity of Evaluation [place].2.7.2.686 [place] [phone] [facility] [address] ([facility]) 2022-07-25 2022-07-25 Orders Doctor MAYRA 1.2.840.114 [id number] Univers 00:00:00 00:00:00 Only Unassigned, VAISHALI 350.1.13.10 ity of [place] [facility] 4.2.7.2.686 Pernell as [phone] [address] 2022-07-24 2022-07-24 Outpatient R LINH GUEVARA [facility] [id number] Univers 08:00:00 09:28:[address] [facility] 2022-07-24 2022-07-24 Orders Doctor MAYRA 1.2.840.114 [id number] Univers 00:00:00 00:00:00 Only Unassigned, VAISHALI 350.1.13.10 ity of [place] [facility] 4.2.7.2.686 Pernell as [phone] [address] 2022-07-24 2022-07-24 Prep For Winnie Guevarahi [facility] 1.2.840.114 1 [id number] Univers 00:00:00 00:00:00 Surgery HEALTH 350.1.13.10 it y of [place] [id number] [address] OFFICE BUILDING 2022-07-17 2022-07-17 Outpatient R ZAC ART [facility] [id number] Univers 14:20:00 14:20:00 ZAC ART [facility] 2022-07-07 2022-07-07 Outpatient R ZAC ART [facility] [id number] Univers 09:00:00 09:28:40 ZAC ART [facility] 2022-07-07 2022-07-07 Office Kaelyn [facility] 1.2.840.114 [id number] Univers 09:00:00 09:28:40 Visit Zac [facility] 350.1.13.10 ity of [place] 4.2.7.2.686 Pernell as BALJINDER?BLEA [phone] [address] MEDICAL OFFICE BUILDING 2022-07-07 2022-07-07 Orders Doctor MAYRA 1.2.840.114 [id number] Univers 00:00:00 00:00:00 Only Unassigned, VAISHALI 350.1.13.10 ity of [place] [facility] 4.2.7.2.686 Pernell as [phone] [address] 2022-07-04 2022-07-04 Outpatient ZAC JURADO [facility] [id number] Univers 13:56:26 23:59:00 ZAC ART [facility] 2022-07-04 2022-07-04 [facility] 1.2.998.876 [id number] Univers 13:56:26 23:59:00 Encounter Zac LOW 350.1.13.10 ity of [place].2.7.2.686 [place] [phone] [facility] [address] 2022-07-04 2022-07-04 Orders Doctor MAYRA 1.2.840.114 [id number] Univers 00:00:00 00:00:00 Only Unassigned, VAISHALI 350.1.13.10 ity of [place] [facility] 4.2.7.2.686 Pernell as [phone] [facility] [address] 2022-07-04 2022-07-04 Telephone [facility] 1.2.840.114 [id number] Univers 00:00:00 00:00:00 [facility] 350.1.13.10 ity of [place] 4.2.7.2.686 Pernell as BALJINDER?BLEA [phone] [address] MEDICAL OFFICE BUILDING 2022-06-30 2022-06-30 Outpatient ZAC JURADO [facility] [id number] Univers 00:00:00 00:00:00 ZAC ART [facility] 2022-06-27 2022-06-27 Telephone [facility] 1.2.840.114 [id number] Univers 00:00:00 00:00:00 Zac [facility] 350.1.13.10 ity of [place] 4.2.7.2.686 Pernell as BALJINDER?BLEA [phone] [address] MEDICAL OFFICE BUILDING 2022-06-23 2022-06-23 Telephone [facility] 1.2.840.114 [id number] Univers 00:00:00 00:00:00 [facility] 350.1.13.10 ity of [facility] 4.2.7.2.686 Pernell as BALJINDER?BLEA [phone] [address] MEDICAL OFFICE [facility] 2022-06-19 2022-06-19 Outpatient R ZAC ART [facility] [id number] Univers 09:20:00 09:43:49 ZAC ART ity of [facility] 2022-06-19 2022-06-19 Office Kaelyn [facility] 1.2.840.114 [id number] Univers 09:20:00 09:43:49 Visit [facility] 350.1.13.10 it[place] of [place] 4.2.7.2.686 Pernell as BALJINDER?BLEA [phone] [address] OFFICE [facility] 2022-06-19 2022-06-19 Telephone Kaelyn [facility] 1.2.840.114 [id number] Univers 00:00:00 00:00:00 [facility] 350.1.13.10 ity of [facility] 4.2.7.2.686 Pernell as BALJINDER?BLEA [phone] [address] OFFICE [facility] 2022-06-15 2022-06-15 Orders Doctor MAYRA 1.2.840.114 [id number] Univers 00:00:00 00:00:00 Only Unassigned, VAISHALI 350.1.13.10 ity of [place] [facility] 4.2.7.2.686 Pernell as [phone] [address] 2022-05-23 2022-05-23 Orders Doctor MAYRA 1.2.840.114 [id number] Univers 00:00:00 00:00:00 Only Unassigned, VAISHALI 350.1.13.10 ity of [place] [facility] 4.2.7.2.686 Pernell as [phone] [address] 2022-02-24 2022-02-24 Outpatient Bianca FARRAR [facility] [id number] Univers 08:30:00 08:30:[address] [facility] 2022-02-11 2022-02-11 Emergency X Margie TANNER [facility] ERT [id number] Univers 16:05:00 17:18:[address] [facility] 2022-02-11 2022-02-11 Emergency Savi, K [facility] 1.2.840.114 [id number] Univers 16:05:00 17:18:00 Allyson LOW 350.1.13.10 i ty of [place].2.7.2.[place] [facility] [id number] [address] 2022-02-08 2022-02-08 Outpatient DMG [facility] [id number] Devoted 00:00:00 00:00:00 [id number] Medica l Group 2021-11-07 2021-11-07 Outpatient CHRETIEN_F [facility] [address] 09:11:00 09:11:00 0613 Commun i ty [facility]osp[facility] 2021-11-04 2021-11-04 Outpatient CHRETIEN_F [facility] [address] 11:22:00 11:22:00 0610 Commun i ty Hospita [facility] 2021-09-04 2021-09-04 [facility] 1.2.840.114 [id number] Univers 00:00:00 00:00:00 Rosa LOW 350.1.13.10 i ty of [place].2.[place] [id number] [address] 2021-09-03 2021-09-03 [facility] 1.2.840.114 [id number] Univers 00:00:00 00:00:00 Rosa LOW 350.1.13.10 i ty of [place].2.[place] [phone] [place] [address] 2021-08-29 2021-08-29 Outpatient [facility] [id number] Univers 11:00:00 11:00:00 PANKAJ [facility] 2021-08-26 2021-08-26 Outpatient [facility] [id number] Univers 11:00:00 11:00:00 PANKAJ [facility] 2021-08-19 2021-08-19 Outpatient [facility] [id number] Univers 11:00:00 11:54:34 EMILY [facility] 2021-08-19 2021-08-19 Office [facility] 1.2.840.114 [id number] Univers 11:00:00 11:54:34 Visit Emily Rubi [employer] 350.1.13.10 i ty of [place] 4.2.7.2.686 Pernell as BALJINDER?BLEA [phone] [place] deidre BRANDON [address] [place] [address] MEDICAL OFFICE BUILDING 2021-08-19 2021-08-19 Outpatient [facility] [id number] Univers 11:00:00 11:00:00 EMILY [facility] 2021-08-15 2021-08-15 Emergency [facility] E[facility] [id number] Univers 12:46:00 15:20:00 RUTHIE [facility] 2021-08-15 2021-08-15 Emergency X [facility] ERT [id number] Univers 12:46:00 15:20:00 RUTHIE [facility] 2021-08-15 2021-08-15 Emergency [facility] 1.2.840.114 [id number] Univers 12:46:00 15:20:00 Ruthie LOW 350.1.13.10 ity of [place] 4.2.7.2.686 [place] [facility] [phone] [address] 2021-06-17 2021-06-17 Outpatient R ALEXY [facility] [id number] Univers 10:30:00 10:30:00 ROSA any [facility] 2021-05-31 2021-05-31 Outpatient R CHARAN [facility] [id number] Univers 13:00:00 13:00:00 CAMRON any [facility] 2021-05-12 2021-05-12 Telephone [facility] 1.2.840.114 [id number] Univers 00:00:00 00:00:00 RosaPocketGuide 350.1.13.10 it y of [place].2.7.2.686 [place] [phone] [facility] [address] OFFICE BUILDING 2021-05-09 2021-05-09 Out[facility] [id number] Univers 13:30:00 12:00:58 ROSA [facility] 2021-05-09 2021-05-09 Office [facility] 1.2.840.114 [id number] Univers 10:44:08 12:00:58 Visit Rosa LOW 350.1.13.10 i ty of [place] 4.2.7.2.686 [place] [facility] [phone] [place] dical NAL 098 [facility] 2021-05-09 2021-05-09 Outpatient [facility] [id number] Univers 10:00:00 10:00:00 ROSA [facility] 2021-05-09 2021-05-09 Orders Doctor NUNEZ 1.2.840.114 [id number] Univers 00:00:00 00:00:00 Only Unassigned, VAISHALI 350.1.13.10 ity of [place] [facility] 4.2.7.2.686 Pernell as [phone] [address] 2021-04-26 2021-04-26 Orders Doctor MAYRA 1.2.840.114 [id number] Univers 00:00:00 00:00:00 Only Unassigned, VAISHALI 350.1.13.10 ity of [place] [facility] 4.2.7.2.686 Pernell as [phone] [address] 2021-04-18 2021-04-18 Outpatient ZAC JURADO [facility] [id number] Univers 10:00:00 10:00:00 ZAC ART [facility] 2021-04-08 2021-04-08 Outpatient ZAC JURADO [facility] [id number] Univers 08:00:00 08:00:00 ZAC ART [facility] 2021-04-01 2021-04-01 [facility] Constantino [facility] 1.2.840.114 [id number] Univers 15:42:00 23:59:00 Encounter Edward OSCAR'S 350.1.13.10 ity of [place].2.[place] [id number] [place] 8[address] 2021-04-01 2021-04-01 Emergency [facility] [id number] [facility] 17:07:00 17:07:00 09 2021-04-01 2021-04-01 Outpatient Bianca CONSTANTINO, [facility] NUT [id number] Univers 00:00:00 00:00:[address] [facility] 2021-04-01 2021-04-01 Orders Doctor MAYRA 1.2.840.114 [id number] Univers 00:00:00 00:00:00 Only Unassigned, VAISHALI 350.1.13.10 ity of [facility] 4.2.7.2.686 Pernell as [phone] [facility] [address] 2021-03-30 2021-03-30 Telephone [facility] 1.2.172.318 [id number] Univers 00:00:00 00:00:00 Emily A HEALTH 350.1.13.10 i ty of [place] 4.2.7.2.686 Pernell as BALJINDER?BLEA [phone] [address] MEDICAL OFFICE [facility] 2021-02-28 2021-02-28 Letter Tej NUNEZ 1.2.840.114 [id number] Univers 00:00:00 00:00:00 (Out) osorio VAISHALI 350.1.13.10 it y of [facility] 4.2.7.2.686 Pernell as [phone] [facility] [address] 2021-02-28 2021-02-28 Telephone [facility] 1.2.580.446 [id number] Univers 00:00:00 00:00:00 Emily A Health 350.1.13.10 i ty of [place] 4.2.7.2.686 Pernell as Baljinder?Blea [phone] [address] Medical Office Building 2021-02-28 2021-02-28 Telephone [facility] 1.2.833.417 [id number] Univers 00:00:00 00:00:00 Emily A Health 350.1.13.10 i ty of [place] 4.2.7.2.686 Pernell as Baljinder?Blea [phone] [place] deidre romero [address] Medical Office [facility] 2021-02-23 2021-02-23 Telephone Kaelyn [facility] 1.2.840.114 [id number] Univers 00:00:00 00:00:00 Zac [facility] 350.1.13.10 ity of [place] 4.2.7.2.686 Pernell as Baljinder?Blea [phone] [facility] heather [address] Medical Office [facility] 2021-02-22 2021-02-22 Orders Doctor NUNEZ 1.2.840.114 [id number] Univers 00:00:00 00:00:00 Only Unassigned, VAISHALI 350.1.13.10 ity of [place] [facility] 4.2.7.2.686 Pernell as [phone] [address] 2021-02-12 2021-02-12 Orders Doctor NUNEZ 1.2.840.114 [id number] Univers 00:00:00 00:00:00 Only Unassigned, VAISHALI 350.1.13.10 ity of [place] [facility] 4.2.7.2.686 Pernell as [phone] [address] 2021-02-04 2021-02-04 [facility] 1.2.840.114 [id number] Univers 17:07:07 23:59:00 Encounter Emily A Health 350.1.13.10 ity of [place] 4.2.7.2.686 Pernell as Baljinder?Blea [phone] [place] deidre brandon [address] Medical Office [facility] 2021-02-04 2021-02-04 Office [facility] 1.2.840.114 [id number] Univers 15:39:48 16:54:25 Visit Emily A Health 350.1.13.10 i ty of [place] 4.2.7.2.686 Pernell as Baljinder?Blea [phone] [facility] 044 [facility] Office [facility] 2021-02-04 2021-02-04 Outpatient [facility] [id number] Univers 16:00:00 16:00:[address] [facility] 2021-01-30 2021-01-30 John Marrero, [facility] 1.2.840.114 [id number] Univers 00:00:00 00:00:00 Indu S Health 350.1.13.10 it y of [place] 4.2.7.2.686 P[place]ell as Baljinder?Blea [phone] Me dicarmando roma [address] [place] [address] Medical Office Building 2021-01-13 2021-01-13 Outpatient R ELIDA [facility] [id number] Univers 13:45:00 23:59:[address] [facility] 2021-01-13 2021-01-13 Orders Doctor MAYRA 1.2.840.114 [id number] Univers 00:00:00 00:00:00 Only Unassigned, VAISHALI 350.1.13.10 ity of [place] [facility] 4.2.7.2.686 Pernell as [phone] [address] 2020-12-02 2020-12-02 Outpatient Bianca GONZALEZ [facility] [id number] Univers 13:00:00 13:00:[address] of [facility] 2020-08-03 2020-08-03 [facility] 1.2.840.114 [id number] Univers 00:00:00 00:00:00 Outreach Jeremie PRIMARY 350.1.13.10 i ty of [place] C[place]2.[place].2.686 [place] [phone] Me dical [address] 2020-08-03 2020-08-03 Patient Satinder [facility] 1.2.840.114 [id number] 00:00:00 00:00:00 Outreach Jeremie PRIMARY 350.1.13.10 Miguelangel CARE 4.2.7.2.686 PAVILLION [phone] 388 2019-12-29 2019-12-29 Telephone Charan [facility] 1.2.840.114 [id number] Univers 00:00:00 00:00:00 Camron L Health 350.1.13.10 it y of Surgical 4.2.7.2.686 [place] as Specialti [phone] Me deidre sonido 198 [facility] 2019-12-29 2019-12-29 Orders Doctor NUNEZ 1.2.840.114 [id number] Univers 00:00:00 00:00:00 Only Unassigned, VAISHALI 350.1.13.10 ity of [place] [facility] 4.2.7.2.686 Pernell as [phone] [address] 2019-12-29 2019-12-29 Telephone Charan [facility] 1.2.840.114 [id number] 00:00:00 00:00:00 Camron L Health 350.1.13.10 Surgical 4.2.7.2.686 Specialti [phone] es [address] [place] 2019-12-29 2019-12-29 Orders Doctor MAYRA 1.2.840.114 [id number] 00:00:00 00:00:00 Only Unassigned, VAISHALI 350.1.13.10 [place] [facility] 4.2.7.2.686 [id number] 009 2019-02-14 2019-02-14 Office [facility] 1.2.840.114 [id number] [facility] 09:21:46 09:55:37 Visit Emily A Health 350.1.13.10 i ty of [place] 4.2.7.2.686 Pernell as Professio [phone] [address] Office [facility] One 2019-02-14 2019-02-14 Office [facility] 1.2.840.114 [id number] 09:21:46 09:55:37 Visit Emily A Health 350.1.13.10 [place] 4.2.7.2.686 Professio [id number] [place] [address] Office Building One 2019-02-13 2019-02-13 Telephone [facility] 1.2.030.393 [id number] Univers 00:00:00 00:00:00 Emily A Health 350.1.13.10 i ty of [place] 4.2.7.2.686 Pernell as Professio [phone] [address] Office Building One 2019-02-06 2019-02-06 Refill [facility] 1.2.840.114 [id number] Univers 00:00:00 00:00:00 Emily A Health 350.1.13.10 i ty of [place] 4.2.7.2.686 P[place]ell as Professio [phone] [address] Office Building One 2019-02-05 2019-02-05 Emergency [facility] 1.2.840.114 [id number] [facility] 16:47:58 16:48:00 Lex [place] 350.1.13.10 i ty of [place] 4.2.7.2.686 [place] [phone] [facility] [address] 2019-02-05 2019-02-05 Orders Doctor MAYRA 1.2.840.114 [id number] Univers 00:00:00 00:00:00 Only Unassigned, VAISHALI 350.1.13.10 ity of [place] [facility] 4.2.7.2.686 Pernell as [phone] [facility] [address] 2019-02-04 2019-02-04 Telephone [facility] 1.2.682.398 [id number] Univers 00:00:00 00:00:00 Emily A Health 350.1.13.10 i ty of [place] 4.2.7.2.686 P[place]ell as Professio [phone] [address] Office [facility] One 2019-01-31 2019-02-03 Office [facility] 1.2.840.[id number] [place] [address] 12:41:17 13:02:12 Visit Emily A Health 350.1.13.10 i ty of [place] 4.2.7.2.686 P[place]ell as Professio [phone] [address] Office Building One 2019-01-24 2019-01-24 Telephone [facility] 1.2.669.208 [id number] Univers 00:00:00 00:00:00 Emily A Health 350.1.13.10 i ty of [place] 4.2.7.2.686 P[place]ell as Professio [phone] [address] Office Building One 2019-01-17 2019-01-17 Hospital Emily Davenport [facility] 1.2.840. 114 [id number] Univers 10:15:33 23:59:00 Encounter Tech, Adc Cardio Vascular Devante 3 50.1.13.10 ity of [place] 4.2.7.2.686 [place] [phone] [facility] [address] 2019-01-17 2019-01-17 Orders Doctor MAYRA 1.2.840.114 [id number] Univers 00:00:00 00:00:00 Only Unassigned, VAISHALI 350.1.13.10 ity of [place] [facility] 4.2.7.2.686 Pernell as [phone] [address] 2019-01-16 2019-01-16 Telephone [facility] 1.2.936.233 [id number] Univers 00:00:00 00:00:00 Emily A Health 350.1.13.10 i ty of [place] 4.2.7.2.686 P[place]ell as Professio [phone] [address] Office Building One 2019-01-14 2019-01-14 Office [facility] 1.2.840.114 [id number] Univers 16:22:09 17:21:05 Visit Emily Rubi Health 350.1.13.10 i ty of [place] 4.2.7.2.686 [place]ell as Professio [phone] [address] Office Building One 2019-01-14 2019-01-14 [facility] [id number] Univers 16:20:00 17:21:[address] [facility] 2019-01-08 2019-01-08 Orders Doctor MAYRA 1.2.840.114 [id number] Univers 00:00:00 00:00:00 Only Unassigned, VAISHALI 350.1.13.10 ity of [place] [facility] 4.2.7.2.686 Pernell as [phone] [address] 2018-12-30 2018-12-30 Refill [facility] 1.2.840.114 [id number] Univers 00:00:00 00:00:00 Emily A Health 350.1.13.10 i ty of [place] 4.2.7.2.686 Pernell as Professio [phone] [address] Office Building One 2018-12-23 2018-12-23 Emergency [facility] 1.2.469.367 [id number] [facility] 21:03:47 23:29:00 Nahum Low 350.1.13.10 ity of [place] 4.2.7.2.686 [place] [phone] [place] [address] [place] 2018-12-20 2018-12-20 John Davenport, [facility] 1.2.840.114 [id number] Univers 00:00:00 00:00:00 Emily Rubi Health 350.1.13.10 i ty of [place] 4.2.7.2.686 Pernell as Professio [phone] [place] dical nal [address] Office Building One Results Test Description Test Time Test Comments Results Result Comments Source Type and Screen - ONCE Routine 2022-07-31 17:45:36 Test Item Value Reference Range Interpretation Comme nts ABO & RH (test code = 20) O Positive Pe rformed at [facility] Laboratory Services - [employer] Blood [address] [place] [id number] Free: [phone] No. [id number] IAT (test code = 1185) Negative Perfo rmed at [facility] Laboratory Services - [employer] Blood [address] [place], [place] [address]Vlnw Free: [phone] No. [id number] [facility] - ONCE [id number] 17:45:36 Test Item Value Reference Range Interpretation Comments ABO & RH (test code O Positive Performe d at [facility] = 20) Laboratory Serv [facility] - [employer] Blood Bank2 [address] [place] [address] 4Toll Free: [phone] 266CLIA No. [id number] IAT (test code = Negative Performed a t [facility] 1185) Laboratory Serv [facility] - [employer] Blood Bank2 [address] [place] [address] 4Toll Free: [phone] 266CLIA No. [id number] [facility]AUTOMATED)2022-07-31 16:12:59 Test Item Value Reference Range Interpretation Comments POCT GLU (test code = 8211534353) 103 mg/dL 70-110 Lab Interpretation (test code = Normal 83615-6) [facility])2022-07-31 16:12:59 Test Item Value Reference Range Interpretation Comments POCT GLU (test code = 0131249471) 103 mg/dL 70-110 Lab Interpretation (test code = Normal 17770-1) [facility] Screen,[id number] 17:50:00 Test Item Value Reference Range Interpretation Comments PCP Phencyclidine Screen,Urine (test Negative Negative code = PCPU) Amphetamine Screen,Urine (test code Negative Negative = AMPU) Methadone Screen,Urine (test code = Negative Negative METHU) Opiate Screen,Urine (test code = Negative Negative UOPIS) Barbituates Screen,Urine (test code Negative Negative = BARBU) Benzodiazepines Screen,Urine (test Negative Negative code = UBENZS) Cocaine Screen,Urine (test code = Negative Negative UCOCS) Cannabinoid Screen,Urine (test code Negative Negative = UTHCS) Propoxyphene Screen, Urine (test Negative Negative code = UPROP) UA, Urinalysis Rflx Cult/[id number] 17:46:00 Test Item Value Reference Range Interpretation Comments Color,Urine (test code = Yellow Yellow UCOL) Clarity,Urine (test code = Clear Clear UCLAR) PH,Urine (test code = 6.0 5.5-8.5 UPH.XX) Specific Orwell,Urine 1.010 1.005-1.030 N (test code = USG) [...] Negative (test code = ULEU) Comprehensive Metabolic [id number] 17:45:00 Test Item Value Reference Range Interpretation [...] 112 U/L 46-116 N = ALP) Ethanol [id number] 17:45:00 Test Item Value Reference Range Interpretation Comments Ethanol (test code = ETOH) < 3 mg/dL Coronavirus PCR, COVID19 [id number] 17:45:00 Test Item Value Reference Range Interpretation Comments Coronavirus PCR, For use under Emergency COVID19 Rapid (test Use Authorization (EUA) code = SARSCOV2) only. Coronavirus PCR, Reference Range: COVID19 Rapid (test Negative code = FSUYRYJ94.1) SARS-CoV-2 PCR Result: Negative by PCR (test code = SARS-CoV-2 PCR Result:) COVID-19 Status: AsymptomaticComplete Blood Count Auto [id number] 17:45:00 Test Item Value Reference Range Interpretation [...]
--- NOTE | 2022-10-23 11:06 | RAD REPORT ---
EXAM DESCRIPTION: RAD - Knee Left 3 View - 10/23/2022 10:57 am CLINICAL HISTORY: Left knee pain FINDINGS: No fracture or dislocation is seen. The prosthesis is in good position. No evidence of loosening
--- NOTE | 2022-10-23 11:20 | EDPHYS ---
Physician Documentation [facility] Name: Georgette Daniel Age: 66 yrs Sex: Female : 1955 Arrival Date: 10/23/2022 Time: 10:10 Bed 6 Private MD: ED Physician Perez Hendricks HPI: 10/23 11:16 This 66 yrs old Female presents to ER via Wheelchair with complaints of Knee Pain. rn 11:16 The patient presents with pain. The complaints affect the left knee. Onset: The rn symptoms/episode began/occurred yesterday. Modifying factors: The symptoms are alleviated by nothing. the symptoms are aggravated by weight bearing, bending knee. Severity of symptoms: At their worst the symptoms were moderate, in the emergency department the symptoms have improved. The patient has experienced similar episodes in the past. Pt reports twisting motion of left knee yesterday at muslim, no fall or direct trauma. Able to ambulate. Pain was worse yesterday, got better today. Has knee replacement so wanted to make sure it was ok. . Historical: - Allergies: 10:28 PENICILLINS; ph 10:28 Rocephin; ph 10:28 Toradol; ph - PMHx: 10:28 Asthma; Depression; Diabetes - NIDDM; GERD; Hyperlipidemia; Hypertension; neuropathy; ph - PSHx: 10:28 Cholecystectomy; knee replacment; ph - Immunization history:: Adult Immunizations unknown. - Social history:: Smoking status: Patient denies any tobacco usage or history of. - Family history:: not pertinent. - Hospitalizations: : No recent hospitalization is reported. ROS: 11:16 Constitutional: Negative for fever, chills, and weight loss, MS/Extremity: + left knee rn pain Skin: Negative for injury, rash, and discoloration. Exam: 11:16 Constitutional: This is a well developed, well nourished patient who is awake, alert, rn and in no acute distress. MS/ Extremity: Pulses equal, no cyanosis. Neurovascular intact. Able to actively flex and extend knee with minimal discomfort. No open wound. No effusion palpated. No bony tenderness Vital Signs: 10:20 BP 121 / 84; Pulse 89; Resp 18; Temp 98.5; Pulse Ox 95% on R/A; Weight 87.54 kg; Height ph 5 ft. 4 in. ; 10:20 Body Mass Index 33.13 (87.54 kg, 162.56 cm) ph MDM: 10:14 Patient medically screened. rn 11:16 Differential diagnosis: strain, mild effusion. Data reviewed: vital signs, nurses rn notes, radiologic studies, plain films, and as a result, I will discharge patient. Counseling: I had a detailed discussion with the patient and/or guardian regarding: the historical points, exam findings, and any diagnostic results supporting the discharge/admit diagnosis, radiology results, the need for outpatient follow up, to return to the emergency department if symptoms worsen or persist or if there are any questions or concerns that arise at home. Special discussion: I discussed with the patient/guardian in detail that at this point there is no indication for admission to the hospital. It is understood, however, that if the symptoms persist or worsen the patient needs to return immediately for re-evaluation. Further emergent ED testing is not indicated at this point in time. I discussed with the patient/guardian in detail the need to arrange with the PCP or specialist further outpatient testing, MRI, Based on the history and exam findings, there is no indication for further emergent testing or inpatient evaluation. I discussed with the patient/guardian the need to see the orthopedic surgeon for further evaluation of the symptoms. 10/23 10:26 Order name: XRAY Knee LEFT 3 view; Complete Time: 11:16 rn 10/23 11:21 Order name: Knee Immobilizer; Complete Time: 11:55 rn Administered Medications: No medications were administered Disposition Summary: 10/23/22 11:19 Discharge Ordered Location: Home rn Problem: new rn Symptoms: have improved rn Condition: Stable rn Diagnosis - Pain in left knee rn - Sprain of unspecified site of left knee, initial encounter rn Followup: rn - With: Private Physician - When: As needed - Reason: Recheck today's complaints, Re-evaluation by your physician Discharge Instructions: - Discharge Summary Sheet rn - Knee Sprain, Adult rn - Acute Knee Pain, Adult rn Forms: - Medication Reconciliation Form rn - Thank You Letter rn - Antibiotic rn social work - Prescription Opioid Use rn Signatures: Dispatcher [employer] Perez Burk MD MD rn Hall, Patricia, RN RN
--- NOTE | 2022-10-23 11:20 | ER ---
Nurse's Notes [facility] Name: Georgette Daniel Age: 66 yrs Sex: Female : 1955 Arrival Date: 10/23/2022 Time: 10:10 Bed 6 Private MD: Diagnosis: Pain in left knee;Sprain of unspecified site of left knee, initial encounter Presentation: 10/23 10:20 Chief complaint: Patient states: L knee pain and swelling, denies fall or trauma, ph states, " I was walking a lot and think I may have twisted." Hx of knee replacement. 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 Coronavirus screen: Vaccine status: Patient reports receiving the 2nd dose of the covid vaccine. Ebola Screen: No symptoms or risks identified at this time. Initial Sepsis Screen: Does the patient meet any 2 criteria? No. Patient's initial sepsis screen is negative. Does the patient have a suspected source of infection? No. Patient's initial sepsis screen is negative. Risk Assessment: Do you want to hurt yourself or someone else? Patient reports no desire to harm self or others. Onset of symptoms was October 23, 2022. 10:20 Method Of Arrival: Wheelchair ph 10:20 Acuity: EVIE 4 ph Triage Assessment: 10:28 General: Appears in no apparent distress. Behavior is calm, cooperative, appropriate ph for age. Pain: Complains of pain in left knee. Neuro: Level of Consciousness is awake, alert, obeys commands, Oriented to person, place, time, situation. Cardiovascular: Capillary refill < 3 seconds in bilateral fingers Patient's skin is warm and dry. Respiratory: Airway is patent Respiratory effort is even, unlabored. Musculoskeletal: Circulation, motion, and sensation intact. Range of motion: intact in all extremities, Swelling present in left knee. Historical: - Allergies: 10:28 PENICILLINS; ph 10:28 Rocephin; ph 10:28 Toradol; ph - PMHx: 10:28 Asthma; Depression; Diabetes - NIDDM; GERD; Hyperlipidemia; Hypertension; neuropathy; ph - PSHx: 10:28 Cholecystectomy; knee replacment; ph - Immunization history:: Adult Immunizations unknown. - Social history:: Smoking status: Patient denies any tobacco usage or history of. - Family history:: not pertinent. - Hospitalizations: : No recent hospitalization is reported. Screenin:29 [facility] ED Fall Risk Assessment (Adult) History of falling in the last 3 months, ph including since admission No falls in past 3 months (0 pts) Confusion or Disorientation No (0 pts) Intoxicated or Sedated No (0 pts) Impaired Gait Yes (1 pt) Mobility Assist Device Used No (0 pt) Altered Elimination No (0 pt) Score/Fall Risk Level 0 - 2 = Low Risk Oriented to surroundings, Maintained a safe environment, Hourly rounding (assess needs \\T\\ fall precautionary measures) done. Abuse screen: Denies threats or abuse. Denies injuries from another. Nutritional screening: No deficits noted. Tuberculosis screening: No symptoms or risk factors identified. Assessment: 10:30 General: SEE TRIAGE ASSESSMENT. ph Vital Signs: 10:20 BP 121 / 84; Pulse 89; Resp 18; Temp 98.5; Pulse Ox 95% on R/A; Weight 87.54 kg; Height ph 5 ft. 4 in. ; 10:20 Body Mass Index 33.13 (87.54 kg, 162.56 cm) ph ED Course: 10:12 Patient arrived in ED. ts1 10:14 Lety Fritz, RN is Primary Nurse. ld1 10:14 Perez Hendricks MD is Attending Physician. rn 10:15 Carmella Solomon RN is Primary Nurse. ph 10:28 Triage completed. ph 10:29 Arm band placed on Patient placed in an exam room, on a stretcher. ph 10:30 Patient has correct armband on for positive identification. Bed in low position. Call ph light in reach. 10:59 XRAY Knee LEFT 3 view In Process Unspecified. EDMS 11:56 No provider procedures requiring assistance completed. Patient did not have IV access ph during this emergency room visit. Knee immobilizer applied on left knee. Administered Medications: No medications were administered Medication: 10:30 VIS not applicable for this client. ph Outcome: 11:19 Discharge ordered by . rn 11:57 Discharged to home ambulatory. ph 11:57 Condition: good 11:57 Discharge instructions given to patient, Instructed on discharge instructions, follow up and referral plans. Demonstrated understanding of instructions, follow-up care. 11:57 Patient left the ED. ph Signatures: Dispatcher [employer] EDMS Perez Hendricks MD MD rn Hall, Patricia, RN RN ph FritzLety nguyen RN RN ld1 Faiza Wesley, CLAUDINE CHOW ts1
[2022-10-23 12:03] VITALS: BP 121/84; TEMP 98.5; O2SAT 95
== END 2022-10-23 11:57 | disposition home or self-care (01) ==
LOC: ER 10:10
DX: S83.92XA Sprain of unspecified site of left knee, initial encounter (principal); Z88.0 Allergy status to penicillin; Z88.3 Allergy status to other anti-infective agents; Z88.5 Allergy status to narcotic agent
CPT/HCPCS: 99283

== ENCOUNTER 2022-12-06 06:46 | Day surgery (SDC) | payer OTHER ==
--- NOTE | 2022-12-05 09:51 | RAD REPORT ---
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 COMPARISON: Chest Single View dated 03/30/2021; Chest Single View dated 12/03/2020; Chest Pa And Lat (2 Views) dated 04/27/2018; Chest Single View dated 12/21/2017 FINDINGS: The lungs are clear. The heart is normal in size. No displaced fractures. IMPRESSION: No acute or concerning finding suspected. The USPSTF recommends annual screening for lung cancer with low-dose CT (LDCT) in adults aged 50 to 80 years who have a 20 pack-year smoking history and currently smoke or have quit within the past 15 years.
[2022-12-05 09:55] LABS: Absolute Lymphocytes (CBC) 2.6 K/uL (0.7-4.9); Hematocrit 42.4 % (36.0-45.0); Lymphocytes % 33.4 % (15.3-44.8); MCV 84.1 fL (80-100); MPV 7.6 fL (7.6-11.3); RBC Red Blood Cell Count 5.05 M/uL (3.86-4.86)
[2022-12-05 10:06] LABS: Potassium 3.8 mEq/L (3.5-5.1)
[2022-12-05 11:12] LABS: Protime INR 0.9
--- NOTE | 2022-12-05 20:19 | EKG ---
Test Date: 2022-12-05 Test Time: 09:29:16 Diesel Maintenance Electrician: RINKU MEASUREMENT RESULTS: Intervals: Rate: 80 AR: 170 QRSD: 94 QT: 398 QTc: 459 [place]: P: 34 AR: 170 QRS: -28 T: 117 INTERPRETIVE STATEMENTS: Normal sinus rhythm Nonspecific T wave abnormality Abnormal ECG Compared to ECG 03/30/2021 20:04:07 T-wave abnormality now present Electronically Signed On 12-05-22 20:18:24 CDT by Renaldo Peña
[2022-12-06] MEDS ORDERED: HEPA 1000U/500MLS 2,000 UNIT/1,000 ML BAG IV ONE (06:48)
[2022-12-06] MEDS ORDERED: LIDOCAINE 1% 20 ML MDV ONE (06:48)
[2022-12-06] MEDS ORDERED: NA CHLORIDE 0.9% 500 ML ONE (06:58)
[2022-12-06] MEDS ORDERED: HEPARIN 5000 UNIT/ML 1 ML VIAL ONE (07:24)
[2022-12-06] MEDS ORDERED: FENTANYL CITR 100 MCG/2 ML ONE (07:24)
[2022-12-06] MEDS ORDERED: MIDAZOLAM HCL 2 MG/2 ML INJ ONE (07:24)
[2022-12-06] MEDS ORDERED: ASPIRIN 325 MG TAB ONE (07:25)
[2022-12-06] MEDS ORDERED: ATROPINE SULF 1 MG/10 ML SYR IV ONE (07:25)
[2022-12-06] MEDS ORDERED: CLOPIDOGREL 75 MG TABLET ONE (07:25)
[2022-12-06] MEDS ORDERED: TICAGRELOR 90 MG TABLET PO ONE (07:25)
[2022-12-06] MEDS ORDERED: NITROGLYCERIN 100 MCG/ML SYR (for cath lab use only) IV ONE (07:25)
[2022-12-06] MEDS ORDERED: HEPARIN 10,000 UNIT/10 ML VIAL IV ONE (07:25)
[2022-12-06] MEDS ORDERED: VERAPAMIL HCL 10 MG/4 ML VIAL IV ONE (07:25)
[2022-12-06 08:19] VITALS: TEMP 97.4
[2022-12-06 09:04] VITALS: BP 132/88; O2SAT 97
--- NOTE | 2022-12-06 11:29 | OP ---
Date of Procedure: 12/06/2022 Surgeon: MELVIN RAI Procedures Performed: 1.Selective coronary angiogram. 2.Left heart catheterization. Indication: Abnormal stress test. Access: Right radial artery 6-Finnish closed with TR band. Complications: None. Bleeding: Less than 20 mL. Anesthesia: Total sedation time is 20 minutes. Description Of Procedure: After risks, benefits, alternatives were explained, the patient agreed to procedure and signed informed consent. The [facility] was [facility], prepped and draped in the usual sterile fashion. Then, I accessed right radial artery using pediatric micropuncture kit, placed a 6-Finnish Slender sheath and took a 5-Finnish [place] 4.0 catheter over the J-wire into the LV, measured LVEDP and then pullback did not record any gradient. Then, I e ngaged left main and took standard views, then engaged the RCA and took standard views. Then, I ashli fiorella the catheter and sheath and placed TR band with good hemostasis. Findings: 1.Left main; large and normal. 2.LAD; large and normal. Normal diagonal branches. 3.Left circumflex; large vessel and it is normal. 4.RCA; large, dominant, and normal. 5.Normal LVEDP at 6 mmHg. Conclusion: 1.Normal coronary arteries. 2.Normal LVEDP. Plan: Medical management. /ADEOLA Voice ID: [id number] Report ID: [id number]
== END 2022-12-06 09:36 | disposition home or self-care (01) ==
LOC: CCL 06:46
PROVIDERS: ATTEND Internal Medicine
DX: R94.39 Abnormal result of other cardiovascular function study (principal); I34.0 Nonrheumatic mitral (valve) insufficiency; R06.02 Shortness of breath; R00.2 Palpitations; I10 Essential (primary) hypertension; E11.9 Type 2 diabetes mellitus without complications; E78.5 Hyperlipidemia, unspecified; Z79.84 Long term (current) use of oral hypoglycemic drugs; Z79.899 Other long term (current) drug therapy; Z88.1 Allergy status to other antibiotic agents; Z88.8 Allergy status to other drugs, medicaments and biological substances; Z82.49 Family history of ischemic heart disease and other diseases of the circulatory system
CPT/HCPCS: 93005; 85025; 80048; 36415; 85610; 82947; 85730; 71046; 93458; 76937; C1893; Q9967; J1644; J2001; J2250; J3010; J7040; J0461

== ENCOUNTER → 2023-09-14 | Day surgery (SDC) | payer OTHER ==
[2023-09-12 12:51] LABS: Absolute Basophils 0.1 K/uL (0-0.5); Absolute Eosinophils 0.2 K/uL (0-0.5); Absolute Lymphocytes (CBC) 3.3 K/uL (0.7-4.9); Absolute Monocytes 0.8 K/uL (0.1-1.3); Basophils % 1.3 % (0-1.3); Eosinophils % 1.9 % (0-4.4); Lymphocytes % 31.8 % (15.3-44.8); MCH 28.6 pg (27.0-35.0); MCHC 33.3 g/dL (32.0-36.0); MCV 85.8 fL (80-100); Monocytes % 7.2 % (3.3-12.3); Neutrophils % 57.8 % (41.7-73.7); Platelets 273 thou/uL (152-406); RBC Red Blood Cell Count 4.54 M/uL (3.86-4.86); Red Cell Distribution Width 13.9 % (12.1-15.2)
[2023-09-12 12:57] LABS: Anion Gap 6.5 mEq/L (5.0-15.0); Potassium 3.5 mEq/L (3.5-5.1)
[~2023-09-14] MED LIST: BACITRACIN OINTMENT 14 GM TUBE TOP ONE; EPHEDRINE SULF 50 MG/ML VIAL ONE; EPINEPHRINE 1 MG/ML VIAL ONE; FENTANYL CITR 100 MCG/2 ML ONE; GLYCOPYRROLATE 0.2 MG/ML SYR ONE; HYDROMORPHONE HCL 1 MG/ML INJ ONE; LIDOCAINE 2% MPF 5 ML VIAL ONE; MIDAZOLAM HCL 2 MG/2 ML INJ ONE; ONDANSETRON 4 MG/2 ML VIAL ONE; OXYMETAZOLINE HCL 0.05% 15ML NAS ONE; ROCURONIUM 50 MG/5 ML VIAL IV ONE; SUGAMMADEX SODIUM 200 MG/2 ML VIAL IV ONE; dexAMETHasone 10 MG/ML VIAL ONE; propofoL 200 MG/20 ML VIAL IV ONE
[2023-09-14] MEDS: NA CHLORIDE 0.9% 1,000 ML ONE (10:20)
[2023-09-14] MEDS: CEFAZOLIN SODIUM 2 GM/VIAL ONE (10:58)
[2023-09-14] MEDS: OXYMETAZOLINE HCL 0.05% 15ML NAS ONE (10:59)
[2023-09-14] MEDS: LIDOCAINE HCL/EPINEPHRINE 20 ML MDV ONE (11:06)
--- NOTE | 2023-09-14 14:48 | P.OP ---
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 Septoplasty. Inferior turbinate reduction via submucosal cauterization. Use of image guidance extradural cranial/intraoperative Surgeon: Pily Pineda MD Immigration Attorney: None Indication for procedure: The patient presented with recurrence and persistent sinusitis with a significant left-sided septal spur and turbinate hypertrophy. She was treated with maximal medical therapy and underwent a posttreatment CT of the sinus which demonstrated persistent partial opacification in an isolated right posterior ethmoid cell. The risks, benefits, and alternatives to surgical procedure were discussed with the patient and/or family and they agreed to proceed. Surgical findings: Septal spur and turbinates as expected. Retained thick mucoid secretions in the ethmoid cell. 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 They were placed under general anesthesia via oral endotracheal tube. Th e head of bed was turned 90 degrees. The nasal hairs were trimmed. The nasal cavity was examined with the nasal speculum and headlight with the following findings: The patient was well decongested following preoperative topical decongestant. The middle meatus appeared unremarkable by anterior rhinoscopy. The left septal spur was consistent with preoperative exam.. The nasal cavity was packed with Afrin-soaked pledgets in preparation for the procedure. The patient was draped in a standard fashion for nasal surgery. Based on the surgical plan and preoperative findings, intraoperative CT n avigation was required. The preoperative CT scan was loaded into the [email or web address] device. The registration dongle was applied with adhesive to the patient's forehead. The electromagnetic device was secured to the operating room bed and evaluation to limit interference was confirmed. The registration handpiece was used to perform patient registration in accordance with aircraft painter apprentice's instructions including tracing over the course of the external nose and bilateral forehead and cheeks. Accuracy of the registration was confirmed with [id number] matching at the base of the columella, the radix, and the bilateral medial and lateral canthi. Accuracy was felt to be very good. A 0 degree endoscope was then used to perform a nasal endoscopy with notable findings of well decongested bilateral inferior turbinates. The middle meatus demonstrated a moderate left accessory ostium with thick mucoid secretions suggestive of mucus recirculation and chronic maxillary sinusitis; the right de monstrated a small accessory ostium. The sphenoethmoid recess was unremarkable bilaterally. The nasopharynx was unremarkable. Photo documentation was obtained. Using a 0 degree endoscope, the bilateral uncinate processes were injected with a small amount of 1% lidocaine with epinephrine. Under 0 degree endoscope visualization, the left middle turbinate was medialized and the uncinate process was removed using a backbiter and 90 degree Blakesley. The 30 degree rigid scope was then used in conjunction with the 90 degree and 0 degree Blakesley's to remove the tissue between the natural ostium and the accessory ostium creating a single opening into the maxillary sinus cavity. The lining of the maxillary sinus demonstrated no evidence of significant edema or purulent secretions. Using a 0 degree endoscope, the right middle turbinate was medialized and the uncinate process was removed using a backbiter and 90 degree Blakesley. The 30 degree rigid scope was then used in conjunction with the 90 degree and 0 degree Blakesley's to remove tissue between the natural ostium and the accessory ostium creating a single opening into the maxillary sinus cavity. The lining of the maxillary sinus demonstrated no evidence of significant edema or purulent secretions. Using a 0 degree endoscope a straight curette was used to enter into the right ethmoid bulla. A 45 degree Blakesley was then used to remove the face and medial aspects of the ethmoid bulla. The straight and 45 degree Blakesley's were then used to carefully dissect into the ethmoid cavity, removing areas of inflamed mucosa and small fragments of bone. The precision pointer was used to help confirm the location of the medial orbital wall and to guide further dissection posteriorly. The opacified cell was identified on image guidance and the precision pointer was used to gently enter the cell. The curette was then used to further divide the ethmoid partitions and the straight and 45 degree Blakesley's were used to remove the fragments of bone. Thick white mucoid retained secretions were then suctioned from the posterior ethmoid cell. There was mild mucosal edema in this area. The precision pointer was then used to confirm patency of the frontal recess but no formal dissection of the frontal sinus was indicated based on intraoperative findings or preoperative CT scan. The sphenoid sinus was easily cannulated using the precision pointer and there was no indication for surgery of the sphenoid sinus. The right ethmoid and bilateral middle meatus were packed with Afrin-soaked pledgets for several elpidio sylvia while preparing for the next portion of the procedure. Nasal pledgets were removed from the left sinus cavity and a 0 degree endoscope was used to perform an endoscope assisted septoplasty for removal of the septal spur. The septal spur was injected with 1% lidocaine with epinephrine to aid in postoperative pain control as well as hemostasis. Using the 0 degree endoscope, a 15 blade was used to make a horizontal incision along the apex of the septal spur through the left septal mucosa. Submucosal flaps were then elevated using the caudal elevator. The [employer] forcep was used to grasp at the base of the spur and the medial portion was then removed. The remaining portion of the spur was carefully loosened and removed, resulting in significant improvement in the left nasal airway. The septal flaps were carefully repositioned to cover the defect but no closure was required. Afrin-soaked pledgets were applied to the surface to aid in hemostasis. Under endoscopic visualization, the right and left turbinates were reduced using intramural cauterization. An unprotected needlepoint Bovie was inserted submucosally in 4 different locations along the length and height of the inf erior turbinate. While the tip was completely covered by the mucosa, the Bovie was activated for 10 seconds at each site. Bleeding was mild and did not require any additional treatment. At the conclusion of the procedure, all pledget counts were confirmed correct. To aid in postoperative hemostasis, a dissolvable sinus dressing, Posisep, was cut to the appropriate size and position under endoscopic guidance into the right ethmoid cavity and left nasal cavity. Each PosiSep was copiously hydrated using at least 3 mL of sterile saline. The patient was returned to care of anesthesia for awakening extubation in the operating room which proceeded without difficulty. The patient was transported to the recovery room and will be discharged home later today in the care of their family. The patient is given written and verbal instructions regarding the importance of saline irrigations and nasal precautions.
[2023-09-14] MEDS: INSULIN REGULAR (HUMAN) 100 UNIT/ML ONE (14:53)
[2023-09-14 17:17] VITALS: BP 146/74; TEMP 97.1; O2SAT 96
== END ==
LOC: OR 09:38
PROVIDERS: ATTEND Otolaryngology
PROC: 099Q8ZZ Drainage of Right Maxillary Sinus, Via Natural or Artificial Opening Endoscopic (ICD-10-PCS; 2023-09-14)
PROC: 099R8ZZ Drainage of Left Maxillary Sinus, Via Natural or Artificial Opening Endoscopic (ICD-10-PCS; 2023-09-14)
PROC: 09TL8ZZ Resection of Nasal Turbinate, Via Natural or Artificial Opening Endoscopic (ICD-10-PCS; 2023-09-14)
PROC: 09BM8ZZ Excision of Nasal Septum, Via Natural or Artificial Opening Endoscopic (ICD-10-PCS; 2023-09-14)
PROC: 099U8ZZ Drainage of Right Ethmoid Sinus, Via Natural or Artificial Opening Endoscopic (ICD-10-PCS; principal; 2023-09-14 11:15)
DX: J32.2 Chronic ethmoidal sinusitis (principal); J34.3 Hypertrophy of nasal turbinates; J34.2 Deviated nasal septum; J34.89 Other specified disorders of nose and nasal sinuses; J32.0 Chronic maxillary sinusitis
CPT/HCPCS: 93005; 85025; 80048; 36415; 82947 ×3; 31256; 31255; 30140; 30520; J1815; J2704; J2001; J2250; J3010; J1100; J0171; J2405; J7030; J1170